=== PATIENT | male | born 1940 | race Caucasian/White ===

== ENCOUNTER → 2016-05-03 | Outpatient (CLI) | payer OTHER ==
[~2016-05-03] MED LIST: ACET160S78 PEG; ALBINSX NEB; ALBU1NEB10 INH; AMOX500T PO; CARB100S PEG; CYAN500T PEG; Carbamazepine PEG; DOXA2TAB PEG; DTR/5 PO; LAMO25TA PEG; LANS15TA2 PEG; LANS30TA3 PEG; LEVE100S10 PEG; LEVO1TAB35 PO; LVQ750 PEG; LVQ750 PO; MAGNSUS5 PO; MCRB100 PEG; MENTOIN12 EXT; MENTOIN12 SC; MOML PEG; MTR500 PEG; NUTR-673 PEG; NUTR-673 PO; PHEN-775 PO; PYRI100T4 PEG; TAMS0.4C38 PO; WATER STERILE PEG; [UNRECOGNIZED DRUG - OTHER] PEG
[2016-05-07 16:28] LABS: VITAMIN B6** TC 926 26.6 ng/mL (2.1-21.7)
--- NOTE | 2016-05-10 09:23 | CODING QUERY MEDICAL NECESSITY ---
SUPPORTING DIAGNOSIS NEEDED A supporting diagnosis is required for the test/procedure performed on this patient in order for us to be reimbursed by the patient's insurance. Please provide a supporting diagnosis for the following test/procedure listed below next to the test name along with your signature. *If there is no additional diagnosis for this patient that would support the following test/procedure please document that below next to the test/procedure. Test(s)/Procedure(s) that require a supporting diagnosis: DOS 05/03 * Vitamin B6 DIAGNOSIS: Provider Signature: Date: Thank you Shelby Burrell Health Information Management Once completed, please kindly fax back to [phone] For questions please call [phone]
== END | disposition home or self-care (01) ==
LOC: C.LABBC 07:40
PROVIDERS: ATTEND Psychiatry & Neurology Neurology
DX: R41.3 Other amnesia (principal); R73.09 Other abnormal glucose; G40.909 Epilepsy, unspecified, not intractable, without status epilepticus

== ENCOUNTER 2016-05-26 12:49 | Inpatient (IN) | payer OTHER ==
[~2016-05-26] VITALS: Ht 167.6 cm; Wt 75.8 kg
[~2016-05-26 12:49] MED LIST changes: -ALBINSX NEB; -AMOX500T PO; -Carbamazepine PEG; -DOXA2TAB PEG; -DTR/5 PO; -LAMO25TA PEG; -LANS30TA3 PEG; -LEVO1TAB35 PO; -LVQ750 PEG; -MCRB100 PEG; -MENTOIN12 EXT; -MENTOIN12 SC; -MOML PEG; -NUTR-673 PO; -PHEN-775 PO; -TAMS0.4C38 PO; -[UNRECOGNIZED DRUG - OTHER] PEG
[2016-05-26] MEDS ORDERED: LAMO25TA PEG (15:12)
[2016-05-26] MEDS ORDERED: VANCOMYCIN 1GM/270ML NSS IV STA (15:18)
[2016-05-26] MEDS ORDERED: LEVAQUIN 750MG / 150ML D5W IV STA (15:18)
[2016-05-26] MEDS ORDERED: SODIUM CHLORIDE 0.9% 1000ML 1,000 ML IV ONE (15:18)
--- NOTE | 2016-05-26 15:24 | EMERGENCY ROOM VISIT NOTE ---
History Report prepared by Marie: Elizabeth Serrano Under the Supervision of: Dr. Carlos Cedeño M.D. First contact with patient: 15:08 Chief Complaint: ILLNESS Stated Complaint: CANT WAKE UP, COUGH History of Present Illness The patient is a 76 year old male who presents to the Emergency Room with complaints of persistent illness that started a couple days ago. The patient's states that he has not been able to wake up for more than an hour today. He is also experiencing increased lethargy and developed a fever last night. She was able to relieve his fever with ibuprofen. Additionally, he is experiencing a productive cough that originally had clear sputum but is now yellow. 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 The patient had a tracheostomy in place as well as a peg tube. His adds that he typically experiences urinary continence. His states that he is bedridden, but they get him out of bed and into his wheelchair every morning. The patient's has not noticed any bed sores. The patient has been septic in the past. Source of History: spouse/significant other () Onset: a couple days ago Position: other (generalized) Quality: other (illness) Timing: other (persistent) Associated Symptoms: + cough (productive with originally clear but now yellow sputum), + fevers Note: lethargy Review of Systems All systems have been listed, reviewed, and are negative other than those previously mentioned. Please see Additional Medical History Sheet. Past Medical & Surgical Medical Problems: (1) double hernia (2) Metabolic encephalopathy (3) replaced acl left knee (4) Seizure disorder (5) Subdural hematoma (6) UTI (urinary tract infection) Surgical Problems: (1) S/P tonsillectomy Family History Patient reports no known family medical history. Social History Smoking Status: Never Smoker Alcohol Use: none Marital Status: Housing Status: lives with significant other Occupation Status: retired Current/Historical Medications Scheduled Carbamazepine (Carbamazepine), 8 ML PEG QID Enteral Nutrition Formula (Jevity 1.5 Jermaine), 1 CAN PEG 5XD Lamotrigine (Lamictal), 4 TAB PEG BID Lansoprazole (Prevacid Solutab), 30 MG PEG BID Levetiracetam (Keppra), 800 MG PEG BID [Water,Sterile], 200 EA PEG Q4H Scheduled PRN Acetaminophen (Tylenol Children's Susp), 20 ML PEG Q4H PRN for Pain Albuterol Sulf (Albuterol Sulfate 0.083% For Inh), 3 ML INH QID PRN for SOB/ Wheezing Magnesium Hydroxide (Milk Of Magnesia), 30 ML PO for Constipation Allergies Coded Allergies: Aspirin (Verified Allergy, Mild, 05/26/16) Penicillins (Verified Allergy, Mild, 05/26/16) Tetracycline (Verified Allergy, Unknown, UNKNOWN, 05/26/16) UNKNOWN, PT REPORTED ALLERGY Physical Exam Vital Signs Date Time Temp Pulse Resp B/P Pulse Ox O2 Delivery O2 Flow Rate FiO2 05/26/16 17:16 60 16 137/81 95 Room Air 05/26/16 15:49 94 Trach Collar 05/26/16 15:24 59 05/26/16 14:51 62 18 116/71 94 Trach Collar 05/26/16 12:53 37.0 67 22 122/73 92 Trach Collar Physical Exam GENERAL: Patient is minimally responsive. Patient follows some simple commands. Patient is nonverbal. Patient does not appear toxic. Patient is adequately hydrated and well-nourished. SKIN: No erythema, pallor, cyanosis or rash HEENT: Normal head, pupils equal, reactive to light and accommodation. Ears normal. Oral cavity and posterior pharynx appear normal. Neck: Without adenopathy, no neck vein distention. Tracheostomy in place. LUNGS: Clear to auscultation. No wheezes, no rales, no rhonchi. Frequent nonproductive cough. HEART: Regular rapid rate. No murmurs. No gallops. No rubs ABDOMEN: Peg tube in left upper quadrant. No masses, no rebound, no hepatomegaly or splenomegaly. EXTREMITIES: Paralysis of left arm and left leg. No signs of trauma. No pedal or pretibial edema. No calf or thigh tenderness. NEUROLOGIC: Cranial nerves II-XII within normal limits. Minimally responsive. Nonverbal. Follows some simple commands. Medical Decision & Procedures ER Provider Diagnostic Interpretation: X ray results are stated below per my interpretation and the radiologist's interpretation. CHEST ONE VIEW PORTABLE IMPRESSION: 1. Diffuse elevation of the interstitium. The findings could be secondary to either interstitial cardiogenic edema, or a diffuse bilateral interstitial inflammatory process. Clinical and radiographic follow-up is recommended. Electronically signed by: Andrew Gonzales M.D. 05/26/2016 4:10 PM Dictated Date/Time: 05/26/2016 4:08 PM Laboratory Results 05/26/16 15:39 Red Blood Count 3.92, Mean Corpuscular Volume 89.3, Mean Corpuscular Hemoglobin 33.4, Mean Corpuscular Hemoglobin Concent 37.4, Mean Platelet Volume 7.9, Neutrophils (%) (Auto) 52.5, Lymphocytes (%) (Auto) 36.7, Monocytes (%) (Auto) 9.4, Eosinophils (%) (Auto) 0.8, Basophils (%) (Auto) 0.2, Neutrophils # (Auto) 2.57, Lymphocytes # (Auto) 1.80, Monocytes # (Auto) 0.46, Eosinophils # (Auto) 0.04, Basophils # (Auto) 0.01 05/26/16 15:39 Test 05/26/16 15:39 05/26/16 15:46 05/26/16 16:50 White Blood Count 4.90 K/uL (4.8-10.8) Red Blood Count 3.92 M/uL (4.7-6.1) Hemoglobin 13.1 g/dL (14.0-18.0) Hematocrit 35.0 % (42-52) Mean Corpuscular Volume 89.3 fL (80-100) Mean Corpuscular Hemoglobin 33.4 pg (25-34) Mean Corpuscular Hemoglobin Concent 37.4 g/dl (32-36) Platelet Count 177 K/uL (130-400) Mean Platelet Volume 7.9 fL (7.4-10.4) Neutrophils (%) (Auto) 52.5 % Lymphocytes (%) (Auto) 36.7 % Monocytes (%) (Auto) 9.4 % Eosinophils (%) (Auto) 0.8 % Basophils (%) (Auto) 0.2 % Neutrophils # (Auto) 2.57 K/uL (1.4-6.5) Lymphocytes # (Auto) 1.80 K/uL (1.2-3.4) Monocytes # (Auto) 0.46 K/uL (0.11-0.59) Eosinophils # (Auto) 0.04 K/uL (0-0.5) Basophils # (Auto) 0.01 K/uL (0-0.2) RDW Standard Deviation 40.5 fL (36.4-46.3) RDW Coefficient of Variation 12.6 % (11.5-14.5) Immature Granulocyte % (Auto) 0.4 % Immature Granulocyte # (Auto) 0.02 K/uL (0.00-0.02) Prothrombin Time 11.1 SECONDS (9.0-12.0) Prothromb Time International Ratio 1.0 (0.9-1.1) Activated Partial Thromboplast Time 49.5 SECONDS (21.0-31.0) Partial Thromboplastin Ratio 1.9 Anion Gap 9.0 mmol/L (3-11) Est Creatinine Clear Calc Drug Dose 88.6 ml/min Estimated GFR () 110.3 Estimated GFR (Non- 95.2 BUN/Creatinine Ratio 12.5 (10-20) Calcium Level 8.2 mg/dl (8.5-10.1) Total Bilirubin 0.3 mg/dl (0.2-1) Aspartate Amino Transf (AST/SGOT) 8 U/L (15-37) Alanine Aminotransferase (ALT/SGPT) 17 U/L (12-78) Alkaline Phosphatase 97 U/L (45-117) Total Protein 6.6 gm/dl (6.4-8.2) Albumin 3.2 gm/dl (3.4-5.0) Globulin 3.4 gm/dl (2.5-4.0) Albumin/Globulin Ratio 0.9 (0.9-2) Procalcitonin < 0.05 ng/mL (0-0.5) Bedside Lactic Acid Venous 1.43 mmol/L (0.90-1.70) Urine Color YELLOW Urine Appearance TURBID (CLEAR) Urine pH 8.0 (4.5-7.5) Urine Specific [place] 1.000 (1.000-1.030) Urine Protein NEG (NEG) Urine Glucose (UA) NEG (NEG) Urine Ketones NEG (NEG) Urine Occult Blood 2+ (NEG) Urine Nitrite NEG (NEG) Urine Bilirubin NEG (NEG) Urine Urobilinogen NEG (NEG) Urine Leukocyte Esterase LARGE (NEG) Urine WBC (Auto) >30 /hpf (0-5) Urine RBC (Auto) 5-10 /hpf (0-4) Urine Hyaline Casts (Auto) /lpf (0-5) Urine Epithelial Cells (Auto) 0-5 /lpf (0-5) Urine Bacteria (Auto) 2+ (NEG) Urine Yeast (Auto) (NONE PRSENT) Laboratory results as stated above per my review. Medications Administered Medications (Trade) Dose Ordered Sig/Piper Route Start Time Stop Time Status Last Admin Dose Admin Sodium Chloride (Nss 1000ml) 1,000 ml @ 999 mls/hr Q1H1M ONCE IV 05/26/16 15:18 05/26/16 16:18 DC 05/26/16 15:18 999 MLS/HR ECG Indication: altered mental status Rate (beats per minute): 58 Rhythm: sinus bradycardia Findings: no acute ischemic change, no ectopy ED Course 1509: Past medical records reviewed. The patient was evaluated in room C7. A complete history and physical examination was performed. 1518: Ordered Vancomycin HCl 1 gm IV, Levofloxacin 750 mg IV, Sodium Chloride 1000 ml @ 999 mls/hr IV 1735: Upon reevaluation, the patient is resting comfortably. I discussed today' s findings with the patient and his family. They verbalized agreement of the treatment plan. The patient will be evaluated the patient for further management. 1742: Discussed the patient's case with Dr. Carlos Manrique [facility] [place]. The patient will be evaluated for further management. Medical Decision Nurses notes reviewed. Medical history sheet reviewed. Differential diagnosis includes but is not limited to: pneumonia, UTI, sepsis, metabolic disorder. The patient is here with multitude mental status. In the past she was diagnosed with pneumonia and sepsis. I'm also concerned about the possibility of a urinary infection. The patient is bedbound. Patient does not appear to have decubiti. Multiple labs, urinalysis, imaging and EKG were obtained. Please see above. Patient has some questionable findings on his x-ray but no definite pneumonia. He does not have many white cells or bacteria in his urine. Lactic acid and white count are not elevated. I remain concerned the patient may have an early infection but he does not have signs of true sepsis. Initially the septic order set was used but the antibiotics were canceled when no signs of true sepsis or source of infection were found. In light of his pre- existing comorbid problems and the altered mental status I believe that he requires further evaluation in the hospital. I discussed care with the patient' s and the hospitalist. Consults Time Called: 1740 Consulting Physician: Dr. Carlos NASSAR Returned Call: [phone] Discussed the patient's case with Dr. Carlos NASSAR. The patient will be evaluated for further management. Impression Primary Impression: Altered mental status Additional Impressions: Anemia Hyponatremia Scribe Attestation The scribe's documentation has been prepared under my direction and personally reviewed by me in its entirety. I confirm that the note above accurately reflects all work, treatment, procedures, and medical decision making performed by me. Departure Information Dispostion Being Evaluated By Hospitalist Referrals Joshua Rivera M.D. (PCP) Patient Instructions My [facility] Problem Qualifiers Primary Impression: Altered mental status Altered mental status type: unspecified Qualified Codes: R41.82 - Altered mental status, unspecified
--- NOTE | 2016-05-26 16:11 | DIAGNOSTIC IMAGING REPORT ---
CHEST ONE VIEW PORTABLE CLINICAL HISTORY: Sepsis COMPARISON STUDY: 07/18/2015 FINDINGS: The cardiac and mediastinal contours remain stable. There is diffuse elevation of the interstitium, likely secondary to interstitial edema although an interstitial inflammatory process could appear similar. The tracheostomy tube is again visualized. There is no significant pleural fluid.[ IMPRESSION: 1. Diffuse elevation of the interstitium. The findings could be secondary to either interstitial cardiogenic edema, or a diffuse bilateral interstitial inflammatory process. Clinical and radiographic follow-up is recommended. Electronically signed by: Andrew Gonzales M.D. 05/26/2016 4:10 PM Dictated Date/Time: 05/26/2016 4:08 PM
[2016-05-26 16:12] LABS: BASO % 0.2 %; BASO ABS # 0.01 K/uL (0-0.2); COMPLETE YES; EOS % 0.8 %; IG% 0.4 %; LYMPH % 36.7 %; MEAN CELL VOLUME 89.3 fL (80-100); MEAN CORPUSCULAR HEMOGLOBIN 33.4 pg (25-34); MEAN CORPUSCULAR HGB CONC 37.4 g/dl (32-36); MEAN PLATELET VOLUME 7.9 fL (7.4-10.4); MONO % 9.4 %; NEUT % 52.5 %; PLATELET COUNT 177 K/uL (130-400); RED BLOOD COUNT 3.92 M/uL (4.7-6.1)
[2016-05-26 16:38] LABS: BUN/CREATININE RATIO 12.5 (10-20); CALCIUM 8.2 mg/dl (8.5-10.1); CREATININE 0.65 mg/dl (0.60-1.40); POTASSIUM 4.1 mmol/L (3.5-5.1)
[2016-05-26 16:40] LABS: PARTIAL THROMBOPLASTIN RATIO 1.9; PROTHROMBIN TIME (PATIENT) 11.1 SECONDS (9.0-12.0)
[2016-05-26 16:41] LABS: ALB/GLOB RATIO 0.9 (0.9-2)
[2016-05-26 17:15] LABS: MANUAL MICROSCOPIC REQUIRED? NO; REVIEW REQ? YES; URINE APPEARANCE TURBID (CLEAR); URINE BILIRUBIN NEG (NEG); URINE COLOR YELLOW; URINE NITRITE NEG (NEG); UROBILINOGEN NEG (NEG); ZZURINE CULT IF INDIC CATH YES
[2016-05-26 17:44] LABS: URINE EPITHELIAL CELL AUTO 0-5 /lpf (0-5)
[2016-05-26] MEDS ORDERED: ACETAMINOPHEN SOLN 650MG/20.3 ML UDC PEG PRN (18:00)
[2016-05-26] MEDS ORDERED: ONDANSETRON INJ 2 MG/ML 2 ML VIAL IV PRN (18:00)
[2016-05-26] MEDS ORDERED: WATER STERILE PEG SCH (18:15)
--- NOTE | 2016-05-26 18:39 | DIAGNOSTIC IMAGING REPORT ---
HEAD CT NONCONTRAST CT DOSE: 712.55 mGy.cm HISTORY: Altered mental status. TECHNIQUE: Multiaxial CT images of the head were performed without the use of intravenous contrast. Automated exposure control was utilized for this study. Comparison: Head CT 08/27/2014. Findings: The paranasal sinuses and mastoid air cells are clear. Prior right craniotomy is again noted. Right frontoparietal, temporal, and right anterior frontal hypodensity/encephalomalacia remains unchanged. This is consistent with an old infarct and/or postoperative change. There is no mass, midline shift, acute infarct. Stable 1.7 cm left frontal intra-axial lesion. This favors a meningioma given the long-term stability. Thin extra-axial hyperdensity deep to the craniotomy site which measures up to 2 mm in thickness. This favors dural thickening from the postoperative change. Impression: 1. No definite acute intracranial abnormality. 2. Right-sided postoperative and old infarcts are again noted. 3. A 2 mm hyperdense area deep to the right craniotomy site. This favors dural thickening from the postoperative change. A tiny subdural hematoma could also a similar appearance. Therefore, recommend follow-up head CT in 24 hours to ensure ability. Electronically signed by: Bernabe Andrade M.D. 05/26/2016 6:38 PM Dictated Date/Time: 05/26/2016 6:31 PM
--- NOTE | 2016-05-26 19:10 | History and Physical ---
History & Physical Date & Time of Service: May 26, 2016 at 18:39 Chief Complaint: Cant Wake Up, Cough Primary Care Physician: Joshua Rivera M.D. History of Present Illness Source: family, hospital records 76 yo male with significant history of large left subdural hematoma with subsequent craniotomy and tracheostomy in 2012. Unfortunately the patient has experienced slow, progressive neurologic decline since March of 2013. Currently he is paralyzed, speaks minimally, breaths through tracheostomy. He is taken care of by his and parts administrator caregivers. Over the past few months his vocal cord function has actually improved. His will feed him by mouth for lunch and dinner and also uses Jevity 1.5 via PEG tube. He is prone to aspiration pneumonia and has been admitted numerous times in the past. Two days ago his noticed that he was more lethargic than normal, less responsive. She fed him completely by tube feeds. His temperature moe to 99.3 yesterday but came down with Tylenol. He has be coughing more and producing white, foamy mucous. No yellow green mucous or hemoptysis. No abdominal pain. He is incontinent to urine. Has been moving his bowels. No skin breakdown, his turns him q 2 hours. In the ED his CXR showed possible inflammatory changes in lower lobes bilaterally and UA shows signs of possible UTI with > 30WBC. He is afebrile, vitals stable and normal WBC, normal renal function. Na low at 127 but he has had hyponatremia in the past. Also of note, he has a seizure disorder, averages one seizure every three weeks , follows with Dr. Aldrich. His seizures are only seen in his facial muscles and last 2-[address] Aldrich started to taper back Keppra and initiated Tegretol. Recently he reached the desired dose of 8 tabs of Tegretol a day, due for trough level next week. Past Medical/Surgical History Recurrent aspiration pneumonia chronic tracheostomy Paralysis right CVA with encephalomalacia Medical Problems: (1) double hernia Status: Chronic (2) replaced acl left knee Status: Resolved (3) Seizure disorder Status: Chronic (4) Subdural hematoma Status: Chronic Surgical Problems: (1) S/P tonsillectomy Status: Resolved Family History Family history reviewed, no changes, nothing pertinent Social History Smoking Status: Never Smoker Marital Status: Occupational Status: retired Immunizations History of Influenza Vaccine: Yes Influenza Vaccine Date: Mar 08, 2013 History of Tetanus Vaccine?: Unknown Tetanus Immunization Date: Apr 13, 1998 History of Pneumococcal: Unknown Pneumococcal Date: Feb 11, 2009 History of Hepatitis B Vaccine: No Multi-Drug Resistant Organisms History of MDRO: No Allergies Coded Allergies: Aspirin (Verified Allergy, Mild, 05/26/16) Penicillins (Verified Allergy, Mild, 05/26/16) Tetracycline (Verified Allergy, Unknown, UNKNOWN, 05/26/16) UNKNOWN, PT REPORTED ALLERGY Home Medications Scheduled Carbamazepine (Carbamazepine), 8 ML PEG QID Enteral Nutrition Formula (Jevity 1.5 Jermaine), 1 CAN PEG 5XD Lamotrigine (Lamictal), 4 TAB PEG BID Lansoprazole (Prevacid Solutab), 30 MG PEG BID Levetiracetam (Keppra), 800 MG PEG BID [Water,Sterile], 200 EA PEG Q4H Scheduled PRN Acetaminophen (Tylenol Children's Susp), 20 ML PEG Q4H PRN for Pain Albuterol Sulf (Albuterol Sulfate 0.083% For Inh), 3 ML INH QID PRN for SOB/ Wheezing Magnesium Hydroxide (Milk Of Magnesia), 30 ML PO for Constipation Review of Systems note that answers are from , patient cannot respond Constitutional: + chills, + fatigue, + fever, + sweats, + weakness, No weight loss Eyes: No diplopia, No discharge, No eye pain, No problem reported, No redness, No worsening of vision ENT: No dental problems, No hearing loss, No nasal symptoms, No problem reported, No sore throat, No tinnitus, No trouble swallowing, No unusual epistaxis Respiratory: + cough, + sputum, No dyspnea at rest, No dyspnea on exertion, No hemoptysis, No shortness of breath, No wheezing Cardiovascular: No PND, No chest pain, No claudication, No edema, No orthopnea , No palpitations, No problem reported Abdomen: No GI bleeding, No constipation, No diarrhea, No nausea, No pain, No problem reported, No vomiting Musculoskeletal: No calf pain, No joint pain, No muscle pain, No problem reported, No swelling Genitourinary - Male: + urinary incontinence Neurologic: + balance problems, + memory loss, + paralysis, + vertigo, + weakness, No numbness/tingling Psychiatric: No anhedonism, No anxiety, No depression symptoms, No insomnia, No problem reported, No substance abuse Hematologic / Lymphatic: No abnormal bleeding/bruising, No clotting problems, No night sweats, No problem reported, No swollen lymph nodes Integumentary: No bleeding, No color change, No itch, No new/changing skin lesions, No problem reported, No rash Physical Exam Vital Signs Date Time Temp Pulse Resp B/P Pulse Ox O2 Delivery O2 Flow Rate FiO2 05/26/16 17:16 60 16 137/81 95 Room Air 05/26/16 15:49 94 Trach Collar 05/26/16 15:24 59 05/26/16 14:51 62 18 116/71 94 Trach Collar 05/26/16 12:53 37.0 67 22 122/73 92 Trach Collar General Appearance: WD/WN, no apparent distress Head: normocephalic, atraumatic Eyes: normal inspection, EOMI, sclerae normal ENT: normal ENT inspection, pharynx normal Neck: supple, no adenopathy, no JVD, trachea midline, + pertinent finding ( tracheostomy with clear sputum) Respiratory/Chest: chest non-tender, lungs clear, normal breath sounds, no respiratory distress, no accessory muscle use Cardiovascular: regular rate, rhythm, no edema, no gallop, no JVD, no murmur, normal peripheral pulses Abdomen/GI: normal bowel sounds, non tender, soft, no organomegaly Back: normal inspection, no CVA tenderness, no muscle spasm, normal range of motion Extremities/Musculoskelatal: normal inspection, no calf tenderness, normal capillary refill, no pedal edema, normal range of motion Neurologic/Psych: + aphasia, + motor weakness, + depressed affect, + disoriented Skin: normal color, warm/dry, no rash Lymphatic: no adenopathy Diagnostics Laboratory Results Results Past 24 Hours Test 05/26/16 15:39 05/26/16 15:46 05/26/16 16:50 05/26/16 18:04 Range/Units White Blood Count 4.90 4.8-10.8 K/uL Red Blood Count 3.92 4.7-6.1 M/uL Hemoglobin 13.1 14.0-18.0 g/dL Hematocrit 35.0 42-52 % Mean Corpuscular Volume 89.3 80-100 fL Mean Corpuscular Hemoglobin 33.4 25-34 pg Mean Corpuscular Hemoglobin Concent 37.4 32-36 g/dl Platelet Count 177 130-400 K/uL Mean Platelet Volume 7.9 7.4-10.4 fL Neutrophils (%) (Auto) 52.5 % Lymphocytes (%) (Auto) 36.7 % Monocytes (%) (Auto) 9.4 % Eosinophils (%) (Auto) 0.8 % Basophils (%) (Auto) 0.2 % Neutrophils # (Auto) 2.57 1.4-6.5 K/uL Lymphocytes # (Auto) 1.80 1.2-3.4 K/uL Monocytes # (Auto) 0.46 0.11-0.59 K/uL Eosinophils # (Auto) 0.04 0-0.5 K/uL Basophils # (Auto) 0.01 0-0.2 K/uL RDW Standard Deviation 40.5 36.4-46.3 fL RDW Coefficient of Variation 12.6 11.5-14.5 % Immature Granulocyte % (Auto) 0.4 % Immature Granulocyte # (Auto) 0.02 0.00-0.02 K/uL Prothrombin Time 11.1 9.0-12.0 SECONDS Prothromb Time International Ratio 1.0 0.9-1.1 Activated Partial Thromboplast Time 49.5 21.0-31.0 SECONDS Partial Thromboplastin Ratio 1.9 Sodium Level 127 136-145 mmol/L Potassium Level 4.1 3.5-5.1 mmol/L Chloride Level 92 98-107 mmol/L Carbon Dioxide Level 26 21-32 mmol/L Anion Gap 9.0 3-11 mmol/L Blood Urea Nitrogen 8 7-18 mg/dl Creatinine 0.65 0.60-1.40 mg/dl Est Creatinine Clear Calc Drug Dose 88.6 ml/min Estimated GFR () 110.3 Estimated GFR (Non- 95.2 BUN/Creatinine Ratio 12.5 10-20 Random Glucose 115 70-99 mg/dl Calcium Level 8.2 8.5-10.1 mg/dl Total Bilirubin 0.3 0.2-1 mg/dl Aspartate Amino Transf (AST/SGOT) 8 15-37 U/L Alanine Aminotransferase (ALT/SGPT) 17 12-78 U/L Alkaline Phosphatase 97 45-117 U/L Total Protein 6.6 6.4-8.2 gm/dl Albumin 3.2 3.4-5.0 gm/dl Globulin 3.4 2.5-4.0 gm/dl Albumin/Globulin Ratio 0.9 0.9-2 Procalcitonin < 0.05 0-0.5 ng/mL Bedside Lactic Acid Venous 1.43 0.90-1.70 mmol/L Urine Color YELLOW Urine Appearance TURBID CLEAR Urine pH 8.0 4.5-7.5 Urine Specific [place] 1.000 1.000-1.030 Urine Protein NEG NEG Urine Glucose (UA) NEG NEG Urine Ketones NEG NEG Urine Occult Blood 2+ NEG Urine Nitrite NEG NEG Urine Bilirubin NEG NEG Urine Urobilinogen NEG NEG Urine Leukocyte Esterase LARGE NEG Urine WBC (Auto) >30 0-5 /hpf Urine RBC (Auto) 5-10 0-4 /hpf Urine Hyaline Casts (Auto) 0-5 /lpf Urine Epithelial Cells (Auto) 0-5 0-5 /lpf Urine Bacteria (Auto) 2+ NEG Urine Yeast (Auto) NONE PRSENT Test 05/26/16 18:32 Range/Units Microbiology Results 05/26/16 Blood Culture, Received Pending 05/26/16 Blood Culture, Received Pending 05/26/16 Urine Culture, Received Pending Diagnostic Radiology interstitial changes bilaterally, could be inflammatory EKG sinus bradycardia Impression Assessment and Plan 76 yo male with history of right sided CVA after a right subdural bleed, now with paralysis, aphasia, tracheostomy, presenting with lethargy, low grade temperature and increased cough - Toxic encephalopathy: likely from infection, UA shows > 30 WBC and CXR with interstitial inflammatory changes CT head - still pending, my read is no change compared to prior will check levels of Tegretol and Keppra to r/o toxicity treat infectious etiology with Levaquin 750mg daily - UTI: treat with Levaquin, follow up on urine culture and blood culture, no signs of sepsis - Possible bilateral PNA: certainly prone to aspiration chronically, bringing up white foamy phlegm, cover with Levaquin, Duoneb, humidified oxygen - Seizure disorder: continue Keppra and Tegretol, check levels, no recent seizures per - Hyponatremia: chronic, likely due to low solute intake, monitor with daily labs - DVT prophylaxis: Lovenox Full code, d/w Level of Care Med/Surg Advanced Directives Existing Advance Directive: Yes Existing Living Will: Yes Resuscitation Status FULL RESUSCITATION VTE Prophylaxis VTE Risk Assessment Done? Y/N: Yes Risk Level: High Given or contraindicated: Enoxaparin (Lovenox)SQ Additional Copies To Joshua Rivera M.D.
[2016-05-26 19:35] LABS: INFLUENZA A PCR Neg for Influ A (NEG); INFLUENZA B PCR Neg for Influ B (NEG)
[2016-05-26 19:40] VITALS: BP 124/74; PULSE 69; TEMP 36.7; O2SAT 96
[2016-05-26 19:59] VITALS: BP 124/74; PULSE 69; TEMP 36.7; O2SAT 96; Ht 167.6 cm; Wt 75.8 kg
[2016-05-26] MEDS: ALBUT/IPRATROP 3MG/0.5MG NEB 3 ML VIAL INH SCH (20:00)
[2016-05-26 20:57] VITALS: PULSE 86; O2SAT 96
[2016-05-26] MEDS ORDERED: CARBAMAZEPINE PEG SCH (21:00)
[2016-05-26] MEDS ORDERED: CARBAMAZEPINE 100 MG CHEW TAB PO ONE (21:00)
[2016-05-26] MEDS ORDERED: LEVOFLOXACIN / D5W 750 MG in PREMIXED IN D5W 150 ML IV SCH (22:00)
[2016-05-26] MEDS: LEVETIRACETAM ORAL SOLN 100MG/ML PEG SCH (22:41)
[2016-05-26] MEDS: LANSOPRAZOLE SOLUTAB 15 MG PEG SCH (22:42)
[2016-05-26] MEDS: FIBERSOURCE HN 1000ML BAG PEG SCH ×4 (22:50→22:51)
[2016-05-26 23:28] VITALS: BP 126/78; PULSE 59; TEMP 36.4; O2SAT 94
[2016-05-27] VITALS (10 sets, daily range): BP systolic 112–122; BP diastolic 71–78; PULSE 56–82; TEMP 36.4–36.8; O2SAT 92–96
[2016-05-27] MEDS: TUBE FEEDING WATER FLUSH PEG SCH ×6 (00:07→20:35)
[2016-05-27] MEDS: ALBUT/IPRATROP 3MG/0.5MG NEB 3 ML VIAL INH SCH ×7 (02:05→23:08)
[2016-05-27] MEDS: FIBERSOURCE HN 1000ML BAG PEG SCH ×10 (07:03→22:52)
[2016-05-27 08:15] LABS: BASO % 0.2 %; BASO ABS # 0.01 K/uL (0-0.2); COMPLETE YES; EOS % 1.3 %; HEMATOCRIT 35.8 % (42-52); IG% 0.2 %; LYMPH % 30.2 %; LYMPH ABS # 1.84 K/uL (1.2-3.4); MEAN CELL VOLUME 90.6 fL (80-100); MEAN CORPUSCULAR HEMOGLOBIN 33.7 pg (25-34); MEAN CORPUSCULAR HGB CONC 37.2 g/dl (32-36); MEAN PLATELET VOLUME 8.2 fL (7.4-10.4); NEUT % 57.1 %; PLATELET COUNT 177 K/uL (130-400); RED BLOOD COUNT 3.95 M/uL (4.7-6.1); WHITE BLOOD COUNT 6.09 K/uL (4.8-10.8)
[2016-05-27 08:46] LABS: BUN/CREATININE RATIO 11.2 (10-20); CALCIUM 8.4 mg/dl (8.5-10.1); CREATININE 0.66 mg/dl (0.60-1.40); MAGNESIUM 2.1 mg/dl (1.8-2.4)
[2016-05-27] MEDS: ENOXAPARIN 40 MG/0.4 ML SYR SQ SCH (09:00)
[2016-05-27] MEDS ORDERED: LORAZEPAM INJ 1 MG in SYRINGE 0.5 ML IV PRN (09:45)
[2016-05-27] MEDS: LEVETIRACETAM ORAL SOLN 100MG/ML PEG SCH ×2 (09:58→20:35)
[2016-05-27] MEDS: LANSOPRAZOLE SOLUTAB 15 MG PEG SCH ×2 (09:59→20:35)
[2016-05-27] MEDS ORDERED: NON-FORMULARY MEDICATION SCH (10:45)
[2016-05-27] MEDS ORDERED: LORAZEPAM INJ 0.5 MG in SYRINGE 0.75 ML IV PRN (10:45)
--- NOTE | 2016-05-27 11:13 | Hospitalist Progress Note ---
Hospitalist Progress Note Date of Service May 27, 2016. Subjective Pt evaluation today including: conversation w/ family, physical exam, chart review, lab review, review of studies, conversation w/ benefits consultant, review of inpatient medication list Patient was admitted yesterday afternoon with altered mental status felt to be secondary to infectious process UTI, early pneumonia, or both. Nurse called me that patient had what appeared to be 2 seizures. the first lasted about 2 mins and was the patients usual seizure pattern which involves facial musculature. Then after a few minutes between he had a grand mal seizure lasting about 1 min. The patients and caregiver reports that the second seizure was more animated than she has ever seen. As I saw the patient, he was sleeping soundly with stable vital signs. He is incontinent of urine, but does not use a chronic indwelling tracy cath. Additional Comments: Unable to acquire due to dementa and post-ictal state. Objective Vital Signs Date Time Temp Pulse Resp B/P Pulse Ox O2 Delivery O2 Flow Rate FiO2 05/27/16 08:43 36.8 68 15 122/78 95 Humidified Air 05/27/16 07:44 60 20 93 Trach Collar 21 05/27/16 02:09 82 20 96 Trach Collar 21 05/27/16 00:05 96 Room Air 05/26/16 23:28 36.4 59 18 126/78 94 Room Air 05/26/16 20:57 86 18 96 Trach Collar 21 05/26/16 19:59 36.7 69 17 124/74 96 Room Air 05/26/16 19:40 36.7 69 17 124/74 96 Room Air 05/26/16 19:08 68 18 119/74 93 Room Air 05/26/16 17:16 60 16 137/81 95 Room Air 05/26/16 15:49 94 Trach Collar 05/26/16 15:24 59 05/26/16 14:51 62 18 116/71 94 Trach Collar 05/26/16 12:53 37.0 67 22 122/73 92 Trach Collar Physical Exam Notes: GEN: Sleeping deeply, Not able to be aroused. No sign of distress or active seizure activity. HEENT: Deferred. Neck: Soft, supple Lungs: + rhonchi b/l. Has permanent trach Heart: REG, nrl S1S2 without murmurs, rubs or gallops Abdomen: Soft, NT, ND, + BS EXT: No C/C/E NEURO: Not assessed due to sedation (at baseline patient has ability to use right upper extremity and often will attempt to self D/C therapies) Skin: warm, dry, no rashes PSYCH: deferred due to post-ictal state. Laboratory Results Last 24 Hours Test 05/26/16 15:39 05/26/16 15:46 05/26/16 16:50 05/26/16 18:04 White Blood Count 4.90 K/uL Red Blood Count 3.92 M/uL Hemoglobin 13.1 g/dL Hematocrit 35.0 % Mean Corpuscular Volume 89.3 fL Mean Corpuscular Hemoglobin 33.4 pg Mean Corpuscular Hemoglobin Concent 37.4 g/dl Platelet Count 177 K/uL Mean Platelet Volume 7.9 fL Neutrophils (%) (Auto) 52.5 % Lymphocytes (%) (Auto) 36.7 % Monocytes (%) (Auto) 9.4 % Eosinophils (%) (Auto) 0.8 % Basophils (%) (Auto) 0.2 % Neutrophils # (Auto) 2.57 K/uL Lymphocytes # (Auto) 1.80 K/uL Monocytes # (Auto) 0.46 K/uL Eosinophils # (Auto) 0.04 K/uL Basophils # (Auto) 0.01 K/uL RDW Standard Deviation 40.5 fL RDW Coefficient of Variation 12.6 % Immature Granulocyte % (Auto) 0.4 % Immature Granulocyte # (Auto) 0.02 K/uL Prothrombin Time 11.1 SECONDS Prothromb Time International Ratio 1.0 Activated Partial Thromboplast Time 49.5 SECONDS Partial Thromboplastin Ratio 1.9 Sodium Level 127 mmol/L Potassium Level 4.1 mmol/L Chloride Level 92 mmol/L Carbon Dioxide Level 26 mmol/L Anion Gap 9.0 mmol/L Blood Urea Nitrogen 8 mg/dl Creatinine 0.65 mg/dl Est Creatinine Clear Calc Drug Dose 88.6 ml/min Estimated GFR () 110.3 Estimated GFR (Non- 95.2 BUN/Creatinine Ratio 12.5 Random Glucose 115 mg/dl Calcium Level 8.2 mg/dl Total Bilirubin 0.3 mg/dl Aspartate Amino Transf (AST/SGOT) 8 U/L Alanine Aminotransferase (ALT/SGPT) 17 U/L Alkaline Phosphatase 97 U/L Total Protein 6.6 gm/dl Albumin 3.2 gm/dl Globulin 3.4 gm/dl Albumin/Globulin Ratio 0.9 Procalcitonin < 0.05 ng/mL Bedside Lactic Acid Venous 1.43 mmol/L Urine Color YELLOW Urine Appearance TURBID Urine pH 8.0 Urine Specific [place] 1.000 Urine Protein NEG Urine Glucose (UA) NEG Urine Ketones NEG Urine Occult Blood 2+ Urine Nitrite NEG Urine Bilirubin NEG Urine Urobilinogen NEG Urine Leukocyte Esterase LARGE Urine WBC (Auto) >30 /hpf Urine RBC (Auto) 5-10 /hpf Urine Hyaline Casts (Auto) /lpf Urine Epithelial Cells (Auto) 0-5 /lpf Urine Bacteria (Auto) 2+ Urine Yeast (Auto) Influenza Type A (RT-PCR) Neg for Influ A Influenza Type B (RT-PCR) Neg for Influ B Test 05/26/16 20:24 05/27/16 06:37 05/27/16 06:45 Carbamazepine (Tegretol) Level 10.4 mcg/ml Bedside Glucose 95 mg/dl White Blood Count 6.09 K/uL Red Blood Count 3.95 M/uL Hemoglobin 13.3 g/dL Hematocrit 35.8 % Mean Corpuscular Volume 90.6 fL Mean Corpuscular Hemoglobin 33.7 pg Mean Corpuscular Hemoglobin Concent 37.2 g/dl Platelet Count 177 K/uL Mean Platelet Volume 8.2 fL Neutrophils (%) (Auto) 57.1 % Lymphocytes (%) (Auto) 30.2 % Monocytes (%) (Auto) 11.0 % Eosinophils (%) (Auto) 1.3 % Basophils (%) (Auto) 0.2 % Neutrophils # (Auto) 3.48 K/uL Lymphocytes # (Auto) 1.84 K/uL Monocytes # (Auto) 0.67 K/uL Eosinophils # (Auto) 0.08 K/uL Basophils # (Auto) 0.01 K/uL RDW Standard Deviation 42.4 fL RDW Coefficient of Variation 12.8 % Immature Granulocyte % (Auto) 0.2 % Immature Granulocyte # (Auto) 0.01 K/uL Sodium Level 136 mmol/L Potassium Level 4.0 mmol/L Chloride Level 100 mmol/L Carbon Dioxide Level 25 mmol/L Anion Gap 11.0 mmol/L Blood Urea Nitrogen 7 mg/dl Creatinine 0.66 mg/dl Est Creatinine Clear Calc Drug Dose 87.2 ml/min Estimated GFR () 109.6 Estimated GFR (Non- 94.6 BUN/Creatinine Ratio 11.2 Random Glucose 85 mg/dl Calcium Level 8.4 mg/dl Magnesium Level 2.1 mg/dl Assessment and Plan 1) Altered mental status - has had increase sedation for previous 3 days. 2) Fever with evidence for UTI - awaiting blood and urine cultures. Changed Levaquin (can lower seizure threshold) to Rocephin IV 3) ? early pneumonia - the chest x-ray showed inflammation but no infiltrate. 4) Seizure disorder with breakthrough seizures. - resume carbamazepine liquid QID as family brought from home. Prn lorazepam. Continue Keppra and Lamictal. Neurology consulted and I spoke with Dr. Aldrich on the phone and discussed plan if has another seizure being Depakote 500mg IV followed by oral dosing. 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 Is cared for by family and care givers in his home. 7) Hyponatremia is chronic. Lovenox for DVT prophylaxis.
[2016-05-27] MEDS: CEFTRIAXONE SOD INJ 1 GM in DEXTROSE 5% ADD-VANTAGE 50ML 50 ML IV SCH (12:14)
[2016-05-27] MEDS: CARBAMAZEPINE 100 MG/5 ML PO SCH ×3 (12:14→20:36)
[2016-05-28] VITALS (8 sets, daily range): BP systolic 119–129; BP diastolic 73–80; PULSE 57–92; TEMP 36.4–36.5; O2SAT 93–98
[2016-05-28] MEDS: ALBUT/IPRATROP 3MG/0.5MG NEB 3 ML VIAL INH SCH ×5 (03:21→23:29)
[2016-05-28] MEDS: TUBE FEEDING WATER FLUSH PEG SCH ×6 (04:04→20:14)
[2016-05-28] MEDS: FIBERSOURCE HN 1000ML BAG PEG SCH ×10 (06:32→23:04)
[2016-05-28] MEDS: LANSOPRAZOLE SOLUTAB 15 MG PEG SCH ×2 (08:02→21:04)
[2016-05-28] MEDS: LEVETIRACETAM ORAL SOLN 100MG/ML PEG SCH ×2 (08:02→21:04)
[2016-05-28] MEDS: CARBAMAZEPINE 100 MG/5 ML PO SCH ×4 (08:03→21:04)
[2016-05-28] MEDS: ENOXAPARIN 40 MG/0.4 ML SYR SQ SCH (08:07)
[2016-05-28] MEDS: CEFTRIAXONE SOD INJ 1 GM in DEXTROSE 5% ADD-VANTAGE 50ML 50 ML IV SCH (10:43)
--- NOTE | 2016-05-28 11:54 | Neurology Consultation ---
Neurology Consultation Date of Consultation: May 28, 2016. Attending Physician: Elliott Gonzalez D.O. Primary Care Physician: Joshua Rivera M.D. Reason for Consultation: Patient is a 76-year-old, was asked to see the request of Dr. Castorena, for neurologic consultation regarding epilepsy. History of Present Illness Source: family, clinic records, hospital records I saw this patient in December 2012 for what was determined to be an underlying dementia. MRI at that time showed generalized atrophy and a significant nature as well with extensive small vessel ischemic disease of an old nature diffusely. There was an incidental left frontal meningioma 1.81 cm also. In late March 2013 he had a significant right subdural hematoma requiring surgical evacuation. Following this she had seizures and encephalomalacia resulting in some aphasia and left sided hemiplegia. He ended up needing a tracheostomy and PEG tube. He has had seizures and was on carbamazepine and Keppra. We last saw him in February 2016 and his most recent seizure was March 21. We initiated Lamictal per protocol while decreasing Keppra some. On May 03, 2016, carbamazepine level was quite good at 8.5. This dose was kept the same. Lamictal level was low at 1.8 and he was increased to the current dose of 100 mg twice a day. Keppra has been reduced to 800 mg twice a day. Over the last couple of days the patient has been ill with lethargy of an increased nature, fevers and cough. On 05/26 he was admitted with a temperature 37 0, pulse 67, respiratory rate 22, blood pressure 122/73, and O2 saturation 92%. He had aphasia and left-sided plegia as before. Urine white cells were greater than 30. He was initiated on Levaquin. Carbamazepine level was 10.4. Keppra level is pending. On May 27, around 11:00 in the morning, he had a typical seizure consisting of left facial twitching lasting about 2 minutes. This is what he typically has when he has a seizure. Within a minute he had a second seizure lasting about 1 minute which consisted of generalized tonic-clonic activity. He has had no seizures since. This morning he has less cough. Past Medical/Surgical History Medical Problems: (1) Altered mental status Status: Acute (2) Anemia Status: Acute (3) Bronchitis, acute Status: Acute (4) Change in mental status Status: Acute (5) Cough Status: Acute (6) Hyponatremia Status: Acute Seizure disorder secondary to right encephalomalacia, which was secondary to a significant right subdural hematoma March 2013 Tracheostomy and PEG tube were placed. 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. He also was in the [employer] for 30 years. He used to drink alcohol but he never smoked. Does not have alcohol for years. Smoking Status: Never smoker Alcohol Use: none Drug Use: none Marital Status: Housing Status: lives with significant other Occupation Status: retired Allergies Coded Allergies: Aspirin (Verified Allergy, Mild, 05/26/16) Penicillins (Verified Allergy, Mild, 05/26/16) Tetracycline (Verified Allergy, Unknown, UNKNOWN, 05/26/16) UNKNOWN, PT REPORTED ALLERGY Current Inpatient Medications Current Inpatient Medications Medications (Trade) Dose Ordered Sig/Piper Route Start Time Stop Time Status Last Admin Dose Admin Enoxaparin Sodium (Lovenox Inj) 40 mg QAM SQ 05/27/16 09:00 06/26/16 08:59 Acetaminophen (Tylenol Soln) 650 mg Q4H PRN PEG 05/26/16 18:00 06/25/16 17:59 Ondansetron HCl (Zofran Inj) 4 mg Q6H PRN IV 05/26/16 18:00 06/25/16 17:59 Lamotrigine (Lamictal Tab) 100 mg BID PO 05/26/16 21:00 06/25/16 20:59 05/28/16 08:03 100 MG Lansoprazole (Prevacid Solutab) 30 mg BID PEG 05/26/16 21:00 06/25/16 20:59 05/28/16 08:02 30 MG Levetiracetam (Keppra Soln) 800 mg BID PEG 05/26/16 21:00 06/25/16 20:59 05/28/16 08:02 800 MG Albuterol/ Ipratropium (Duoneb) 3 ml Q4R INH 05/26/16 20:00 06/25/16 19:59 05/28/16 11:20 3 ML Sterile Water 1 ea 1 ea Q4 PEG 05/27/16 00:00 06/26/16 00:00 05/28/16 08:01 1 EA Ceftriaxone Sodium 1 gm/ Dextrose 50 ml @ 100 mls/hr DAILY@1000 IV 05/27/16 11:00 06/06/16 09:59 05/28/16 10:43 100 MLS/HR Lorazepam/Syringe (Ativan Inj/ Syringe) 1 ml @ 0.5 mls/min Q4 PRN IV 05/27/16 10:45 06/26/16 10:44 Carbamazepine (Carbamazepine) 160 mg QID PO 05/27/16 11:30 06/26/16 11:29 05/28/16 08:03 160 MG Enteral Nutritional Formula (Fibersource HN) 275 ml [id number] PEG 05/27/16 19:00 06/26/16 18:59 05/28/16 10:43 275 ML Review of Systems Review of systems is impossible to ascertain as he is not following commands or speaking. He seems to be lying in bed comfortably. Physical Exam Vital Signs (Past 24 Hrs): Date Time Temp Pulse Resp B/P Pulse Ox O2 Delivery O2 Flow Rate FiO2 05/28/16 11:20 57 16 93 Trach Collar 21 05/28/16 07:44 36.4 62 16 129/74 93 Room Air 05/28/16 03:21 57 16 93 Trach Collar 21 05/28/16 00:15 Trach Collar 21 05/27/16 23:08 63 16 92 Trach Collar 21 05/27/16 22:54 36.8 63 18 116/71 92 Trach Collar 11.0 05/27/16 20:15 Trach Collar 21 05/27/16 19:14 69 18 93 Trach Collar 21 05/27/16 16:08 56 20 95 Trach Collar 21 05/27/16 15:22 36.4 70 17 112/78 Humidified Air 21 Trach Collar 05/27/16 12:05 65 20 95 Trach Collar 21 05/27/16 11:48 Humidified Air 21 Trach Collar Patient is right-handed. The patient is awake and alert. He will briefly make eye contact but generally just stares straight ahead. He will not speak, follow commands, or say words. Later on, when I tested with the pain, he got very angry and mumbled but I cannot make at any distinct words. The discs are sharp with positive venous pulsations. There are no exudates, hemorrhages, or blood vessel changes seen. Pupils are 3mm bilaterally and reactive to light. Extraocular eye muscles are intact without nystagmus. Visual acuity and visual ortiz seem normal grossly to confrontation. There are no deficits to sensation of the face bilaterally. Corneal reflexes are positive bilaterally. Facial strength and symmetry is normal bilaterally. Hearing seems intact grossly to voice and finger rub. Palate moves well without asymmetry. There is normal sternocleidomastoid and trapezius strength bilaterally. Tongue is midline with good strength bilaterally. Neck is with full range of motion without discomfort. There are no cervical bruits. There are no cranial or ocular bruits. Heart is without murmur. Cervical, thoracic, and lumbar spine are nontender to palpation. Gait and stance could not be tested as he is going down and that cannot sit up on his own. Motor exam is difficult to ascertain because of his lack of cooperation. He does have good strength proximally and distally in the right arm and leg as he resists. Tone is reasonable in the right arm and leg. The left upper extremity has extreme contractures of flexion nature he will not spontaneously move his left arm or leg. There is increased tone in the left leg. He will withdraw each limb was some grimacing to deep pain although he is delayed with pain in the left side Reflexes are 1/4 in the biceps, triceps, brachioradialis, and quadriceps tendons on the right. The Achilles is absent. On the left side reflexes are 2/ 4. Toes are upgoing on plantar stimulation on the left and downgoing on the right. Peripheral pulses are present and of normal quality distally in all four limbs. There is no peripheral edema noted. Laboratory Results Past 24 Hours: Test 05/28/16 09:23 Bedside Glucose 128 mg/dl (70-99) Imaging HEAD CT NONCONTRAST CT DOSE: 712.55 mGy.cm HISTORY: Altered mental status. TECHNIQUE: Multiaxial CT images of the head were performed without the use of intravenous contrast. Automated exposure control was utilized for this study. Comparison: Head CT 08/27/2014. Findings: The paranasal sinuses and mastoid air cells are clear. Prior right craniotomy is again noted. Right frontoparietal, temporal, and right anterior frontal hypodensity/encephalomalacia remains unchanged. This is consistent with an old infarct and/or postoperative change. There is no mass, midline shift, acute infarct. Stable 1.7 cm left frontal intra-axial lesion. This favors a meningioma given the long-term stability. Thin extra-axial hyperdensity deep to the craniotomy site which measures up to 2 mm in thickness. This favors dural thickening from the postoperative change. Impression: 1. No definite acute intracranial abnormality. 2. Right-sided postoperative and old infarcts are again noted. 3. A 2 mm hyperdense area deep to the right craniotomy site. This favors dural thickening from the postoperative change. A tiny subdural hematoma could also a similar appearance. Therefore, recommend follow-up head CT in 24 hours to ensure ability. Electronically signed by: Bernabe Andrade M.D. 05/26/2016 6:38 PM Dictated Date/Time: 05/26/2016 6:31 PM Impression 1. Post right subdural hematoma March 2013 requiring evacuation surgically. This resulted in significant right encephalomalacia and a seizure disorder requiring multiple medications. He is stable neurologically and is at his baseline. 2. Seizure disorder secondary to the right encephalomalacia. He had 2 breakthrough seizures yesterday but his medications were delayed. He is without any seizures the last 24 hours. Overall he is on 3 anticonvulsants but we are increasing Lamictal over time and tapering off Keppra slowly over time. Carbamazepine level is adequate At 10.4 3. Underlying mixed aging and vascular dementia 4. Chronic cerebral ischemia 5. Recent onset acute encephalopathy secondary to UTI. This is already improving. Plan 1. Lamictal level 2. Keep carbamazepine and Keppra the same for now. He has a scheduled regimen of decreasing Keppra and increasing Lamictal as an outpatient. He has an appointment with me as an outpatient later in May. No other specific neurologic recommendations at this time.
[2016-05-28] MEDS ORDERED: MAGNESIUM HYDROXIDE SUSP 30 ML UDC PEG PRN (14:45)
[2016-05-28] MEDS ORDERED: POLYETHYLENE (MIRALAX) 17 GM PACK PO PRN (14:45)
--- NOTE | 2016-05-28 18:47 | Hospitalist Progress Note ---
Hospitalist Progress Note Date of Service May 28, 2016. Subjective Pt evaluation today including: conversation w/ family, physical exam, chart review, lab review, review of studies, conversation w/ databases computer consultant, review of inpatient medication list He is more awake today, no communicating. No further seizures. Family requests something for constipation. Additional Comments: Unobtainable due to aphasia. Objective Vital Signs Date Time Temp Pulse Resp B/P Pulse Ox O2 Delivery O2 Flow Rate FiO2 05/28/16 15:24 36.5 69 18 120/73 93 Room Air 05/28/16 11:52 93 Trach Collar 11.0 21 05/28/16 11:20 57 16 93 Trach Collar 21 05/28/16 07:44 36.4 62 16 129/74 93 Room Air 05/28/16 03:21 57 16 93 Trach Collar 21 05/28/16 00:15 Trach Collar 21 05/27/16 23:08 63 16 92 Trach Collar 21 05/27/16 22:54 36.8 63 18 116/71 92 Trach Collar 11.0 05/27/16 20:15 Trach Collar 21 05/27/16 19:14 69 18 93 Trach Collar 21 Physical Exam Notes: GEN: Awake, Not in acute distress HEENT: Tm's intact, no inflammation, EOMI, PERRLA, MMM Neck: Soft, supple Lungs: CTA b/l, no r/r/w has trach. Heart: REG, nrl S1S2 without murmurs, rubs or gallops Abdomen: Soft, NT, ND, + BS EXT: No C/C/E NEURO: CN's II-XII grossly intact, paralysis. Skin: warm, dry, no rashes PSYCH: NO obvious agitation. . Laboratory Results Last 24 Hours Test 05/28/16 09:23 Bedside Glucose 128 mg/dl Assessment and Plan 1) Altered mental status - doing better. 2) UTI strep growing await final culture and sens. Rocephin IV 3) ? early pneumonia - the chest x-ray showed inflammation but no infiltrate. 4) Seizure disorder with breakthrough seizures. - resume carbamazepine liquid QID as family brought from home. Prn lorazepam. 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 Is cared for by family and care givers in his home. 7) Hyponatremia is chronic. 8) Constipation - I added MOM and miralax. Lovenox for DVT prophylaxis.
[2016-05-29] VITALS (8 sets, daily range): BP systolic 100–121; BP diastolic 60–70; PULSE 59–66; TEMP 36–36.1; O2SAT 92–98
[2016-05-29] MEDS: TUBE FEEDING WATER FLUSH PEG SCH ×6 (00:16→20:38)
[2016-05-29] MEDS: ALBUT/IPRATROP 3MG/0.5MG NEB 3 ML VIAL INH SCH ×6 (03:48→23:06)
[2016-05-29] MEDS: FIBERSOURCE HN 1000ML BAG PEG SCH ×10 (06:31→23:06)
[2016-05-29 06:39] LABS: BASO % 0.2 %; BASO ABS # 0.01 K/uL (0-0.2); COMPLETE YES; EOS % 2.2 %; HEMATOCRIT 37.4 % (42-52); IG% 0.2 %; LYMPH % 32.1 %; LYMPH ABS # 1.62 K/uL (1.2-3.4); MEAN CELL VOLUME 91.9 fL (80-100); MEAN CORPUSCULAR HEMOGLOBIN 32.4 pg (25-34); MEAN CORPUSCULAR HGB CONC 35.3 g/dl (32-36); MONO % 11.7 %; NEUT % 53.6 %; PLATELET COUNT 179 K/uL (130-400); RED BLOOD COUNT 4.07 M/uL (4.7-6.1); WHITE BLOOD COUNT 5.05 K/uL (4.8-10.8)
[2016-05-29 07:11] LABS: BUN/CREATININE RATIO 11.7 (10-20); CALCIUM 8.5 mg/dl (8.5-10.1); CREATININE 0.76 mg/dl (0.60-1.40); POTASSIUM 4.1 mmol/L (3.5-5.1)
[2016-05-29] MEDS: LANSOPRAZOLE SOLUTAB 15 MG PEG SCH ×2 (07:16→20:41)
[2016-05-29] MEDS: ENOXAPARIN 40 MG/0.4 ML SYR SQ SCH (07:17)
[2016-05-29] MEDS: LEVETIRACETAM ORAL SOLN 100MG/ML PEG SCH ×2 (07:17→20:40)
[2016-05-29] MEDS: CARBAMAZEPINE 100 MG/5 ML PO SCH ×2 (07:17→12:12)
--- NOTE | 2016-05-29 08:55 | Clinical Documentation Query ---
CLINICAL DOCUMENTATION QUERY 76 year old male with hx of subdural hematoma with hemiplegia, aphasia, & aspiration pneumonia presents with AMS and UTI. Daily progress notes have been stating early pneumonia. In your clinical opinion is this patient being managed for: ( ) Early Aspiration pneumonitis in patient with hemiplegia and aphasia from old hemorrhagic CVA. ( ) Other explanation of clinical findings (Please Explain) ( ) Unable to determine (Please Define) ( ) Need to Discuss ( ) Not Agree The medical record reflects the following clinical findings, treatment, and risk factors. Clinical Indicators: feeds patient by mouth lunch and dinner. Aphasic. Per H&P bilateral pneumonia. Treatment: NPO, aspiration precautions, peg feedings, IV Ceftriaxone, IV Levaquin, IV Vancomycin, Risk Factors: Age, Seizure, aphasia with PO feeding by . Please clarify and document your clinical opinion in the progress notes and discharge summary. Terms such as "probable", "suspected", "likely", "questionable", "possible", or "still to be ruled out" are acceptable. IF IN AGREEMENT, YOU MUST DOCUMENT ABOVE DIAGNOSTIC STATEMENT IN DAILY PROGRESS NOTES AND DISCHARGE SUMMARY. This document is not part of the patient's record. Thank You, Salinas Clark RN [phone]
[2016-05-29] MEDS: CEFTRIAXONE SOD INJ 1 GM in DEXTROSE 5% ADD-VANTAGE 50ML 50 ML IV SCH (09:37)
--- NOTE | 2016-05-29 15:35 | Hospitalist Progress Note ---
Hospitalist Progress Note Date of Service May 29, 2016. Subjective Pt evaluation today including: conversation w/ patient, conversation w/ family , physical exam, chart review, lab review, review of studies, review of inpatient medication list Patient had no acute issues overnight No seizures or fevers noted ENT: No hearing loss Additional Comments: Unable to obtain- patient is non verbal Medications Current Inpatient Medications Medications (Trade) Dose Ordered Sig/Piper Route Start Time Stop Time Status Last Admin Dose Admin Enoxaparin Sodium (Lovenox Inj) 40 mg QAM SQ 05/27/16 09:00 06/26/16 08:59 Acetaminophen (Tylenol Soln) 650 mg Q4H PRN PEG 05/26/16 18:00 06/25/16 17:59 Ondansetron HCl (Zofran Inj) 4 mg Q6H PRN IV 05/26/16 18:00 06/25/16 17:59 Lamotrigine (Lamictal Tab) 100 mg BID PO 05/26/16 21:00 06/25/16 20:59 05/29/16 07:16 100 MG Lansoprazole (Prevacid Solutab) 30 mg BID PEG 05/26/16 21:00 06/25/16 20:59 05/29/16 07:16 30 MG Levetiracetam (Keppra Soln) 800 mg BID PEG 05/26/16 21:00 06/25/16 20:59 05/29/16 07:17 800 MG Albuterol/ Ipratropium (Duoneb) 3 ml Q4R INH 05/26/16 20:00 06/25/16 19:59 05/29/16 11:36 3 ML Sterile Water 1 ea 1 ea Q4 PEG 05/27/16 00:00 06/26/16 00:00 05/29/16 07:16 1 EA Ceftriaxone Sodium 1 gm/ Dextrose 50 ml @ 100 mls/hr DAILY@1000 IV 05/27/16 11:00 06/06/16 09:59 05/29/16 09:37 100 MLS/HR Lorazepam/Syringe (Ativan Inj/ Syringe) 1 ml @ 0.5 mls/min Q4 PRN IV 05/27/16 10:45 06/26/16 10:44 Carbamazepine (Carbamazepine) 160 mg QID PO 05/27/16 11:30 05/29/16 16:59 05/29/16 07:17 160 MG Enteral Nutritional Formula (Fibersource HN) 275 ml 5XDQ4H PEG 05/27/16 19:00 06/26/16 18:59 05/29/16 10:57 275 ML Magnesium Hydroxide (Milk Of Magnesia Susp) 30 ml Q6H PRN PEG 05/28/16 14:45 06/27/16 14:44 05/28/16 16:00 30 ML Polyethylene (Miralax Powder Packet) 17 gm DAILY PRN PO 05/28/16 14:45 06/27/16 14:44 Carbamazepine (Carbamazepine) 160 mg QID PEG 05/29/16 17:00 06/28/16 16:59 Objective Vital Signs Date Time Temp Pulse Resp B/P Pulse Ox O2 Delivery O2 Flow Rate FiO2 05/29/16 11:43 66 16 93 Trach Collar 21 05/29/16 08:02 64 16 92 Trach Collar 21 05/29/16 08:00 Trach Collar 05/29/16 07:34 36.0 59 16 121/70 92 05/29/16 03:49 66 16 92 Trach Collar 21 05/29/16 00:00 Room Air 11.0 21 05/28/16 23:52 36.4 92 16 119/80 98 Room Air 05/28/16 23:29 76 16 93 Trach Collar 21 05/28/16 20:22 64 16 93 Trach Collar 21 05/28/16 15:40 Humidified Oxygen 21 Trach Collar 05/28/16 15:24 36.5 69 18 120/73 93 Room Air 05/28/16 11:52 93 Trach Collar 11.0 21 Physical Exam General Appearance: WD/WN, no apparent distress Eyes: normal inspection Neck: supple Respiratory/Chest: chest non-tender, lungs clear Cardiovascular: regular rate, rhythm, no edema Abdomen: normal bowel sounds, non tender Extremities: normal range of motion, non-tender Neurologic/Psychiatric: 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 nml as tested, alert (patient is minimally verbal per caregive is his baseline) Skin: normal color, warm/dry Laboratory Results Last 24 Hours Test 05/29/16 06:10 White Blood Count 5.05 K/uL Red Blood Count 4.07 M/uL Hemoglobin 13.2 g/dL Hematocrit 37.4 % Mean Corpuscular Volume 91.9 fL Mean Corpuscular Hemoglobin 32.4 pg Mean Corpuscular Hemoglobin Concent 35.3 g/dl Platelet Count 179 K/uL Mean Platelet Volume 8.0 fL Neutrophils (%) (Auto) 53.6 % Lymphocytes (%) (Auto) 32.1 % Monocytes (%) (Auto) 11.7 % Eosinophils (%) (Auto) 2.2 % Basophils (%) (Auto) 0.2 % Neutrophils # (Auto) 2.71 K/uL Lymphocytes # (Auto) 1.62 K/uL Monocytes # (Auto) 0.59 K/uL Eosinophils # (Auto) 0.11 K/uL Basophils # (Auto) 0.01 K/uL RDW Standard Deviation 43.3 fL RDW Coefficient of Variation 12.8 % Immature Granulocyte % (Auto) 0.2 % Immature Granulocyte # (Auto) 0.01 K/uL Sodium Level 137 mmol/L Potassium Level 4.1 mmol/L Chloride Level 99 mmol/L Carbon Dioxide Level 28 mmol/L Anion Gap 10.0 mmol/L Blood Urea Nitrogen 9 mg/dl Creatinine 0.76 mg/dl Est Creatinine Clear Calc Drug Dose 75.8 ml/min Estimated GFR () 103.4 Estimated GFR (Non- 89.2 BUN/Creatinine Ratio 11.7 Random Glucose 89 mg/dl Calcium Level 8.5 mg/dl Assessment and Plan Enterococcus UTI - d/c ceftriaxone - cont. macrobid day #4/7 Pneumonia - cont levaquin day #47 - blood culture NGTD AMS - seems to be improved from admission - check repeat CT scan to evaluated ? 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
[2016-05-29] MEDS: CARBAMAZEPINE 100 MG/5 ML PEG SCH ×2 (16:44→20:39)
[2016-05-29] MEDS: NITROFURANTOIN MONOHYDRATE 100 MG CAP PO SCH (21:02)
[2016-05-30] VITALS (8 sets, daily range): BP systolic 131–150; BP diastolic 79–88; PULSE 63–82; TEMP 36.3–36.6; O2SAT 90–95
[2016-05-30] MEDS: ALBUT/IPRATROP 3MG/0.5MG NEB 3 ML VIAL INH SCH ×5 (03:22→20:00)
[2016-05-30] MEDS: TUBE FEEDING WATER FLUSH PEG SCH ×4 (07:13→20:20)
[2016-05-30] MEDS: NITROFURANTOIN MONOHYDRATE 100 MG CAP PO SCH ×2 (07:14→20:20)
[2016-05-30] MEDS: FIBERSOURCE HN 1000ML BAG PEG SCH ×8 (07:14→18:41)
[2016-05-30] MEDS: CARBAMAZEPINE 100 MG/5 ML PEG SCH ×4 (07:15→20:19)
[2016-05-30] MEDS: LANSOPRAZOLE SOLUTAB 15 MG PEG SCH ×2 (07:15→20:20)
[2016-05-30] MEDS: LEVETIRACETAM ORAL SOLN 100MG/ML PEG SCH ×2 (07:16→20:19)
[2016-05-30] MEDS: ENOXAPARIN 40 MG/0.4 ML SYR SQ SCH (07:16)
[2016-05-30 08:32] LABS: HEMATOCRIT 40.9 % (42-52); MEAN CELL VOLUME 93.6 fL (80-100); MEAN CORPUSCULAR HEMOGLOBIN 32.7 pg (25-34); MEAN PLATELET VOLUME 8.1 fL (7.4-10.4); PLATELET COUNT 176 K/uL (130-400); RED BLOOD COUNT 4.37 M/uL (4.7-6.1); WHITE BLOOD COUNT 5.26 K/uL (4.8-10.8)
[2016-05-30 09:07] LABS: BUN/CREATININE RATIO 10.2 (10-20); CALCIUM 8.3 mg/dl (8.5-10.1); CREATININE 0.84 mg/dl (0.60-1.40); POTASSIUM 4.2 mmol/L (3.5-5.1)
[2016-05-30] MEDS: LEVOFLOXACIN 750 MG TAB PO SCH (11:18)
--- NOTE | 2016-05-30 15:53 | DIAGNOSTIC IMAGING REPORT ---
CT HEAD WITHOUT CONTRAST (CT) CLINICAL HISTORY: Subdural hemorrhage COMPARISON STUDY: 05/26/2016 TECHNIQUE: Axial CT of the brain is performed from the vertex to the skull base. IV contrast was not administered for this examination. CT DOSE: 724.83 mGy.cm FINDINGS: Post craniotomy changes are again visualized on the right. There is a 3 mm sliver of subdural hemorrhage/dural thickening subjacent to the craniotomy flap. There is right frontal, temporal and right parietal encephalomalacia. There is no CT evidence of acute cortical infarction. There is compensatory dilatation of the right lateral ventricle. There is no evidence of acute parenchymal or subarachnoid hemorrhage. There is a stable 19 mm extra-axial left frontal mass, likely representing a meningioma There are patchy white matter hypodensities likely on a small vessel basis. There is no evidence of pathologic ventricular dilatation. There is no evidence of acute sinusitis IMPRESSION: 1. Postcraniotomy changes the right 2. Stable right frontal, parietal and temporal encephalomalacia 3. Stable 19 mm left frontal extra-axial mass, likely representing a meningioma 4. Subjacent to the craniotomy site is a stable 3 mm hyperdense crescentic focus, likely representing postsurgical dural thickening although a tiny subdural hemorrhage could appear similar Electronically signed by: Andrew Gonzales M.D. 05/30/2016 3:52 PM Dictated Date/Time: 05/30/2016 3:48 PM
--- NOTE | 2016-05-30 16:36 | Hospitalist Progress Note ---
Hospitalist Progress Note Date of Service May 30, 2016. Subjective Pt evaluation today including: conversation w/ patient, physical exam, chart review, lab review, review of studies, review of inpatient medication list Patient had no acute issue overnight Additional Comments: Unable to Obtain as patient minimally verbal at baseline Medications Current Inpatient Medications Medications (Trade) Dose Ordered Sig/Piper Route Start Time Stop Time Status Last Admin Dose Admin Enoxaparin Sodium (Lovenox Inj) 40 mg QAM SQ 05/27/16 09:00 06/26/16 08:59 Acetaminophen (Tylenol Soln) 650 mg Q4H PRN PEG 05/26/16 18:00 06/25/16 17:59 Ondansetron HCl (Zofran Inj) 4 mg Q6H PRN IV 05/26/16 18:00 06/25/16 17:59 Lamotrigine (Lamictal Tab) 100 mg BID PO 05/26/16 21:00 06/25/16 20:59 05/30/16 07:14 100 MG Lansoprazole (Prevacid Solutab) 30 mg BID PEG 05/26/16 21:00 06/25/16 20:59 05/30/16 07:15 30 MG Levetiracetam (Keppra Soln) 800 mg BID PEG 05/26/16 21:00 06/25/16 20:59 05/30/16 07:16 800 MG Albuterol/ Ipratropium (Duoneb) 3 ml Q4R INH 05/26/16 20:00 06/25/16 19:59 05/30/16 15:26 3 ML Sterile Water 1 ea 1 ea Q4 PEG 05/27/16 00:00 06/26/16 00:00 05/30/16 15:55 1 EA Lorazepam/Syringe (Ativan Inj/ Syringe) 1 ml @ 0.5 mls/min Q4 PRN IV 05/27/16 10:45 06/26/16 10:44 Enteral Nutritional Formula (Fibersource HN) 275 ml 5XDQ4H PEG 05/27/16 19:00 06/26/16 18:59 05/30/16 15:55 275 ML Magnesium Hydroxide (Milk Of Magnesia Susp) 30 ml Q6H PRN PEG 05/28/16 14:45 06/27/16 14:44 05/28/16 16:00 30 ML Polyethylene (Miralax Powder Packet) 17 gm DAILY PRN PO 05/28/16 14:45 06/27/16 14:44 Carbamazepine (Carbamazepine) 160 mg QID PEG 05/29/16 17:00 06/28/16 16:59 05/30/16 12:26 160 MG Nitrofurantoin Macrocrystals (Macrobid Cap) 100 mg BID PO 05/29/16 21:00 06/08/16 20:59 05/30/16 07:14 100 MG Levofloxacin (Levaquin Tab) 750 mg DAILY@11 PO 05/30/16 11:00 06/06/16 10:59 05/30/16 11:18 750 MG Objective Vital Signs Date Time Temp Pulse Resp B/P Pulse Ox O2 Delivery O2 Flow Rate FiO2 05/30/16 16:00 Trach Collar 05/30/16 15:27 65 16 95 Trach Collar 21 05/30/16 15:12 36.6 71 16 150/88 90 Room Air 05/30/16 11:53 71 16 94 Trach Collar 21 05/30/16 08:01 78 16 94 Trach Collar 21 05/30/16 08:00 Trach Collar 05/30/16 07:40 36.3 82 18 134/87 91 Room Air 05/30/16 03:22 63 16 94 Trach Collar 21 05/30/16 00:04 36.4 65 16 131/79 93 Trach Collar 8.0 05/30/16 00:00 Humidified Oxygen 11.0 21 Trach Collar 05/29/16 23:06 59 16 95 Trach Collar 21 05/29/16 19:43 60 16 95 Trach Collar 21 Physical Exam General Appearance: WD/WN, no apparent distress Eyes: normal inspection ENT: normal ENT inspection Neck: supple Respiratory/Chest: chest non-tender Cardiovascular: regular rate, rhythm, no edema Abdomen: normal bowel sounds Extremities: normal range of motion, non-tender Neurologic/Psychiatric: director trial II-XII 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 as tested, no motor/sensory deficits, alert, oriented x 3 Skin: normal color, warm/dry, no rash Laboratory Results Last 24 Hours Test 05/30/16 08:12 White Blood Count 5.26 K/uL Red Blood Count 4.37 M/uL Hemoglobin 14.3 g/dL Hematocrit 40.9 % Mean Corpuscular Volume 93.6 fL Mean Corpuscular Hemoglobin 32.7 pg Mean Corpuscular Hemoglobin Concent 35.0 g/dl RDW Standard Deviation 44.2 fL RDW Coefficient of Variation 12.9 % Platelet Count 176 K/uL Mean Platelet Volume 8.1 fL Sodium Level 138 mmol/L Potassium Level 4.2 mmol/L Chloride Level 102 mmol/L Carbon Dioxide Level 27 mmol/L Anion Gap 9.0 mmol/L Blood Urea Nitrogen 9 mg/dl Creatinine 0.84 mg/dl Est Creatinine Clear Calc Drug Dose 68.6 ml/min Estimated GFR () 99.3 Estimated GFR (Non- 85.7 BUN/Creatinine Ratio 10.2 Random Glucose 129 mg/dl Calcium Level 8.3 mg/dl Assessment and Plan Enterococcus UTI - d/c ceftriaxone - cont. macrobid day #09/03 ? 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
[2016-05-31] VITALS (7 sets, daily range): BP systolic 110–115; BP diastolic 64–74; PULSE 62–72; TEMP 35–36.8; O2SAT 93–96
[2016-05-31] MEDS: TUBE FEEDING WATER FLUSH PEG SCH ×3 (00:09→08:22)
[2016-05-31] MEDS: FIBERSOURCE HN 1000ML BAG PEG SCH ×4 (00:09→06:35)
[2016-05-31] MEDS: ALBUT/IPRATROP 3MG/0.5MG NEB 3 ML VIAL INH SCH ×3 (00:24→07:16)
[2016-05-31] MEDS: LEVOFLOXACIN 750 MG TAB PO SCH (08:21)
[2016-05-31] MEDS: NITROFURANTOIN MONOHYDRATE 100 MG CAP PO SCH (08:21)
[2016-05-31] MEDS: LANSOPRAZOLE SOLUTAB 15 MG PEG SCH (08:21)
[2016-05-31] MEDS: LEVETIRACETAM ORAL SOLN 100MG/ML PEG SCH (08:22)
[2016-05-31] MEDS: ENOXAPARIN 40 MG/0.4 ML SYR SQ SCH (08:22)
[2016-05-31] MEDS: CARBAMAZEPINE 100 MG/5 ML PEG SCH (08:22)
[2016-05-31 08:24] LABS: HEMATOCRIT 38.4 % (42-52); MEAN CELL VOLUME 91.6 fL (80-100); MEAN CORPUSCULAR HEMOGLOBIN 32.7 pg (25-34); MEAN CORPUSCULAR HGB CONC 35.7 g/dl (32-36); MEAN PLATELET VOLUME 8.2 fL (7.4-10.4); PLATELET COUNT 174 K/uL (130-400); RED BLOOD COUNT 4.19 M/uL (4.7-6.1); WHITE BLOOD COUNT 6.01 K/uL (4.8-10.8)
[2016-05-31 08:54] LABS: CALCIUM 8.6 mg/dl (8.5-10.1); CREATININE 0.83 mg/dl (0.60-1.40); POTASSIUM 4.1 mmol/L (3.5-5.1)
[2016-05-31] MEDS ORDERED: LVQ750 PEG (09:51)
[2016-05-31] MEDS ORDERED: MCRB100 PEG (09:51)
[2016-05-31] MEDS ORDERED: Carbamazepine PEG (09:51)
--- NOTE | 2016-05-31 09:53 | Discharge Instructions ---
Discharge Instructions Admission Admission Date: May 26, 2016 at 18:02 Admission Diagnosis: Metabolic Encephalopathy, Uti. Discharge Care Plan - Problem: Medical Problems: (1) Altered mental status (2) Pneumonia (3) Enterococcus Urinary Tract infection Care Plan - Goal(s): Decrease discomfort, Improve function Care Plan - Instructions: Activity Recommendations: no limitations Recommended Home Diet: NPO, Tube Feeding VTE Core Measure Inpt VTE Proph given/why not?: Enoxaparin (Lovenox)[facility] Recommendations: Call your doctor if: * Temperature above 101 degrees * Pain not relieved by pain medicine ordered * There is increased drainage or redness from any incision * You have any unanswered questions or concerns. Your Doctors Instructions noted above were prepared by provider Myranda Prasad.
--- NOTE | 2016-05-31 16:20 | Discharge Summary ---
Discharge Summary Admission Date: May 26, 2016 at 18:02 Discharge Date: May 31, 2016 Discharge Disposition: Home Principal Diagnosis: Enterococcus UTI/Aspiration Pneumonia Immunizations: Have You Had Influenza Vaccine: Yes Influenza Vaccine Date: Mar 08, 2013 History of Tetanus Vaccine?: Unknown Tetanus Immunization Date: Apr 13, 1998 History of Pneumococcal: Unknown Pneumococcal Date: Feb 11, 2009 History of Hepatitis B Vaccine: No Consultations: Neurology Discharge Exam UTO- 06/01 to patient being aphasic Review of Systems: Eyes: + worsening of vision Physical Exam: General Appearance: WD/WN Eyes: normal inspection ENT: normal ENT inspection Neck: supple Respiratory/Chest: chest non-tender, lungs clear Cardiovascular: regular rate, rhythm, no edema Abdomen / GI: normal bowel sounds, non tender Extremities: normal inspection 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 Patient is prone to aspiration pneumonia and has been admitted numerous times in the past. Two days ago his noticed that he was more lethargic than normal, less responsive. She fed him completely by tube feeds. His temperature moe to 99.3 but came down with Tylenol. + cough. n the ED his CXR showed possible inflammatory changes in lower lobes bilaterally and UA shows signs of possible UTI with > 30WBC. He is afebrile, vitals stable and normal WBC, normal renal function. Na low at 127 but he has had hyponatremia in the past. Patient also had changes on CT suspicious for small SDH hematoma and f/u Ct was recommended. Also of note, he has a seizure disorder, averages one seizure every three weeks, follows with Dr. Aldrich. His seizures are only seen in his facial muscles and last 2-[address] Aldrich started to taper back Keppra and initiated Tegretol. Recently he reached the desired dose of 8 tabs of Tegretol a day, due for trough level next week. Patient was admitted to the hospitalist service for metabolic encephalopathy 2/ 2 to UTI and aspiration pneumonitis/pneumonia. Patient was started on ceftriaxone. Urine culture subsequently grew Enterococcus. Patient narrowed to macrobid and levaquin. His AMS improved with antibiotic therapy. Its thought patients pneumonia was most likely from secondary to aspiration. Speech and swallow saw the patient however patients insisted that she was going to continue to feed patient a pureed diet with thick liquids for quality of life. She understood that patient was aspirating small amounts of foods. Patient also had a questionable seizure prior to admission. Neurology was consulted and recommended to continue carbamazepine, keppra and lamictal. Enterococcus UTI - discharged on macrobid day #5/ ? 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 Discharge Instructions Please refer to the electronic Patient Visit Report (Discharge Instructions) for additional information. Additional Copies To Joshua Rivera M.D.
== END 2016-05-31 11:00 | disposition home health service (06) | DRG 177 ==
LOC: ENRESERVDT → ENRESERVTM → C.EDB 12:51 → C.MS2W 18:02
PROVIDERS: ADMIT Internal Medicine; ATTEND Internal Medicine
DX: J69.0 Pneumonitis due to inhalation of food and vomit (principal); G93.41 Metabolic encephalopathy; N39.0 Urinary tract infection, site not specified; E87.1 Hypo-osmolality and hyponatremia; I69.354 Hemiplegia and hemiparesis following cerebral infarction affecting left non-dominant side; I67.82 Cerebral ischemia; B95.2 Enterococcus as the cause of diseases classified elsewhere; G40.909 Epilepsy, unspecified, not intractable, without status epilepticus; I69.198 Other sequelae of nontraumatic intracerebral hemorrhage; G93.89 Other specified disorders of brain; F01.50 Vascular dementia, unspecified severity, without behavioral disturbance, psychotic disturbance, mood disturbance, and anxiety; I69.320 Aphasia following cerebral infarction; J38.00 Paralysis of vocal cords and larynx, unspecified; K59.00 Constipation, unspecified; Z93.0 Tracheostomy status; Z93.1 Gastrostomy status; Z86.79 Personal history of other diseases of the circulatory system; R32 Unspecified urinary incontinence; Z74.01 Bed confinement status; Z79.899 Other long term (current) drug therapy

== ENCOUNTER → 2016-06-27 | Outpatient (CLI) | payer OTHER ==
[~2016-06-27] MED LIST changes: +ALBINSX NEB; -CARB100S PEG; -CYAN500T PEG; +Carbamazepine PEG; +LAMO25TA PEG; +LEVO1TAB35 PO; +LVQ750 PEG; -LVQ750 PO; +MCRB100 PEG; +MENTOIN12 EXT; +MENTOIN12 SC; +MOML PEG; -MTR500 PEG; -PYRI100T4 PEG; +[UNRECOGNIZED DRUG - OTHER] PEG
--- NOTE | 2016-06-27 17:13 | DIAGNOSTIC IMAGING REPORT ---
CHEST 2 VIEWS ROUTINE CLINICAL HISTORY: Cough, seizure disorder. COMPARISON STUDY: 05/26/2016 FINDINGS: The study is limited from a technical standpoint. The patient was unable to follow commands.[ The heart is the upper limits of normal in size. A tracheostomy tube is again visualized. The study is rotated. There is resolving interstitial edema. There are minor left basilar airspace opacities, likely atelectatic although an inflammatory process could appear similar. IMPRESSION: Resolving interstitial edema. Minor left basilar airspace opacities. Electronically signed by: Andrew Gonzales M.D. 06/27/2016 5:12 PM Dictated Date/Time: 06/27/2016 5:11 PM
[2016-06-27 17:33] LABS: BASO % 0.2 %; BASO ABS # 0.01 K/uL (0-0.2); COMPLETE YES; EOS % 0.7 %; HEMATOCRIT 37.4 % (42-52); IG% 0.3 %; LYMPH % 9.8 %; LYMPH ABS # 0.59 K/uL (1.2-3.4); MEAN CELL VOLUME 89.7 fL (80-100); MEAN CORPUSCULAR HEMOGLOBIN 33.1 pg (25-34); MEAN CORPUSCULAR HGB CONC 36.9 g/dl (32-36); MONO % 10.6 %; NEUT % 78.4 %; PLATELET COUNT 152 K/uL (130-400); RED BLOOD COUNT 4.17 M/uL (4.7-6.1); WHITE BLOOD COUNT 6.03 K/uL (4.8-10.8)
[2016-06-27 17:59] LABS: URINE APPEARANCE CLOUDY (CLEAR); URINE BILIRUBIN NEG (NEG); URINE COLOR YELLOW; URINE NITRITE NEG (NEG); URINE PH 7.5 (4.5-7.5); URINE SPECIFIC GRAVITY 1.009 (1.000-1.030); UROBILINOGEN NEG (NEG)
[2016-06-27 18:00] LABS: MANUAL MICROSCOPIC REQUIRED? NO; REVIEW REQ? NO
[2016-06-27 18:01] LABS: ALT/SGPT 15 U/L (12-78); BLOOD UREA NITROGEN 6 mg/dl (7-18); BUN/CREATININE RATIO 9.3 (10-20); CALCIUM 8.1 mg/dl (8.5-10.1); CARBON DIOXIDE 23 mmol/L (21-32); CHLORIDE 91 mmol/L (98-107); CREATININE 0.69 mg/dl (0.60-1.40); GLUCOSE 110 mg/dl (70-99); POTASSIUM 3.7 mmol/L (3.5-5.1); SODIUM 124 mmol/L (136-145)
[2016-06-27 18:12] LABS: ALB/GLOB RATIO 0.9 (0.9-2); ALKALINE PHOSPHATASE 95 U/L (45-117); AST/SGOT 11 U/L (15-37)
== END | disposition home or self-care (01) ==
LOC: C.RAD 16:40
PROVIDERS: ATTEND Psychiatry & Neurology Neurology
DX: G40.909 Epilepsy, unspecified, not intractable, without status epilepticus (principal); R05 Cough; R30.0 Dysuria; R50.9 Fever, unspecified

== ENCOUNTER 2016-06-28 00:07 | Inpatient (IN) | payer OTHER ==
[2016-06-28] VITALS (15 sets, daily range): BP systolic 103–131; BP diastolic 59–83; PULSE 72–112; TEMP 36.5–39.2; O2SAT 90–97; Ht 167.6 cm; Wt 72.1 kg
[~2016-06-28] VITALS: Ht 167.6 cm; Wt 72.1 kg
[~2016-06-28 00:07] MED LIST changes: -ALBINSX NEB; -LEVO1TAB35 PO; -MENTOIN12 EXT; -MENTOIN12 SC; -MOML PEG; -[UNRECOGNIZED DRUG - OTHER] PEG
[2016-06-28] MEDS ORDERED: LEVAQUIN 750MG / 150ML D5W IV STA (00:29)
[2016-06-28] MEDS ORDERED: CEFEPIME IV 1,000 MG in DEXTROSE 5% 100ML 100 ML IV STA (00:29)
[2016-06-28] MEDS ORDERED: SODIUM CHLORIDE 0.9% 1000ML 1,000 ML IV STA ×2 (00:33→00:57)
[2016-06-28] MEDS ORDERED: MOML PEG (00:44)
[2016-06-28] MEDS ORDERED: ACETAMINOPHEN SOLN 650MG/20.3 ML UDC PEG ONE (00:45)
[2016-06-28 00:47] LABS: ISTAT CREATININE 0.6 mg/dl (0.6-1.3); ISTAT HEMOGLOBIN 12.9 g/dl (14.0-18.0); ISTAT IONIZED CALCIUM 1.09 mmol/l (1.12-1.32)
[2016-06-28] MEDS ORDERED: [UNRECOGNIZED DRUG - OTHER] PEG (00:47)
[2016-06-28] MEDS ORDERED: ALBINSX NEB (00:49)
[2016-06-28 00:51] LABS: BASO % 0.4 %; BASO ABS # 0.02 K/uL (0-0.2); COMPLETE YES; EOS % 1.2 %; HEMATOCRIT 37.9 % (42-52); IG% 0.7 %; LYMPH % 21.7 %; LYMPH ABS # 1.23 K/uL (1.2-3.4); MEAN CELL VOLUME 88.3 fL (80-100); MEAN CORPUSCULAR HEMOGLOBIN 31.7 pg (25-34); MEAN CORPUSCULAR HGB CONC 35.9 g/dl (32-36); MEAN PLATELET VOLUME 7.8 fL (7.4-10.4); MONO % 11.8 %; NEUT % 64.2 %; PLATELET COUNT 157 K/uL (130-400); RED BLOOD COUNT 4.29 M/uL (4.7-6.1); WHITE BLOOD COUNT 5.66 K/uL (4.8-10.8)
[2016-06-28 01:06] LABS: PROTHROMBIN TIME (PATIENT) 11.2 SECONDS (9.0-12.0)
[2016-06-28 01:09] LABS: ALT/SGPT 16 U/L (12-78); AST/SGOT 9 U/L (15-37); BLOOD UREA NITROGEN 6 mg/dl (7-18); BUN/CREATININE RATIO 7.9 (10-20); CALCIUM 8.2 mg/dl (8.5-10.1); CARBON DIOXIDE 26 mmol/L (21-32); CHLORIDE 91 mmol/L (98-107); CREATININE 0.81 mg/dl (0.60-1.40); GLUCOSE 83 mg/dl (70-99); POTASSIUM 4.2 mmol/L (3.5-5.1); SODIUM 128 mmol/L (136-145)
--- NOTE | 2016-06-28 01:11 | EMERGENCY ROOM VISIT NOTE ---
History Report prepared by Marie: Carlos Vo Under the Supervision of: Dr. Ronnell Sanches D.O. First contact with patient: 00:15 Chief Complaint: ALTERED MENTAL STATUS Stated Complaint: ALTERED MENTAL STATUS History of Present Illness The patient is a 76 year old male who presents to the Emergency Room with complaints of constant altered mental status starting prior to arrival. Per the nursing staff, the patient has been having shortness of breath, fever, lethargic , and productive congestion. They state that he is on room air with his trachea collar. The nursing staff additionally state that he was recently treated for a UTI, and he just finished his antibiotics this morning. Patient was brought in via ALS. Family was interviewed shortly following his initial evaluation. They note that he has been having fevers for the past 24 hours. 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 Patient has had a change in his productive sputum which is now slightly yellow. He has also been coughing up much more sputum. Earlier today he had blood work and a chest x-ray. Source of History: nursing staff Onset: prior to arrival Position: other (global) Quality: other (altered mental status) Timing: constant Associated Symptoms: + SOB, + fevers Review of Systems See HPI for pertinent positives & negatives. A total of 10 systems reviewed and were otherwise negative. Past Medical & Surgical Medical Problems: (1) Aspiration pneumonia (2) double hernia (3) Metabolic encephalopathy (4) replaced acl left knee (5) Seizure disorder (6) Subdural hematoma (7) UTI (urinary tract infection) Surgical Problems: (1) S/P tonsillectomy Family History Patient reports no known family medical history. Social History Smoking Status: Never Smoker Alcohol Use: none Drug Use: none Marital Status: Housing Status: lives with significant other Occupation Status: retired Current/Historical Medications Scheduled Carbamazepine (Tegretol), 8 ML PEG QID Enteral Nutrition Formula (Jevity 1.5 Jermaine), 8 OZ PEG QAM Lamotrigine (Lamictal), 100 MG PEG BID Lansoprazole (Prevacid Solutab), 30 MG PEG BID Levetiracetam (Keppra), 400 MG PEG BID Scheduled PRN Acetaminophen (Tylenol Children's Susp), 20 ML PEG Q4H PRN for Pain Albuterol Sulf (Albuterol Sulfate), 3 ML NEB Q4 PRN for Wheezing Magnesium Hydroxide (Milk Of Magnesia), 30 ML PEG DAILY PRN for Cough Allergies Coded Allergies: Aspirin (Verified Allergy, Mild, 06/28/16) Penicillins (Verified Allergy, Mild, 06/28/16) Tetracycline (Verified Allergy, Unknown, UNKNOWN, 06/28/16) UNKNOWN, PT REPORTED ALLERGY Physical Exam Vital Signs Date Time Temp Pulse Resp B/P Pulse Ox O2 Delivery O2 Flow Rate FiO2 06/28/16 01:11 37.6 81 22 108/83 95 Room Air 06/28/16 00:23 81 Physical Exam GENERAL: Ill- appearing sitting up in bed. Clear productive sputum through the trach tube. EYE EXAM: normal conjunctiva OROPHARYNX: no exudate, no erythema, lips, buccal mucosa, and tongue normal and mucous membranes are dry NECK: supple, no nuchal rigidity, no adenopathy, non-tender LUNGS: Clear to auscultation. Normal chest wall mechanics HEART: no murmurs, S1 normal and S2 normal ABDOMEN: PEG tube in place. Abdomen soft, non-tender, normo-active bowel sounds , no masses, no rebound or guarding. BACK: Back is symmetrical on inspection and there is no deformity, no midline tenderness, no CVA tenderness. SKIN: no rashes and no bruising UPPER EXTREMITIES: upper extremities are grossly normal. LOWER EXTREMITIES: No pitting edema. NEURO EXAM: Withdrawals extremities to pain. Intermittently moans to pain. Opens eyes to pain. Non-verbal Medical Decision & Procedures ER Provider Diagnostic Interpretation: Xray results per the radiologist and my interpretation. CHEST 2 VIEWS ROUTINE CLINICAL HISTORY: Cough, seizure disorder. COMPARISON STUDY: 05/26/2016 FINDINGS: The study is limited from a technical standpoint. The patient was unable to follow commands.[ The heart is the upper limits of normal in size. A tracheostomy tube is again visualized. The study is rotated. There is resolving interstitial edema. There are minor left basilar airspace opacities, likely atelectatic although an inflammatory process could appear similar. IMPRESSION: Resolving interstitial edema. Minor left basilar airspace opacities. Electronically signed by: Andrew Gonzales M.D. 06/27/2016 5:12 PM Dictated Date/Time: 06/27/2016 5:11 PM Laboratory Results 06/28/16 00:41 Red Blood Count 4.29, Mean Corpuscular Volume 88.3, Mean Corpuscular Hemoglobin 31.7, Mean Corpuscular Hemoglobin Concent 35.9, Mean Platelet Volume 7.8, Neutrophils (%) (Auto) 64.2, Lymphocytes (%) (Auto) 21.7, Monocytes (%) (Auto) 11.8, Eosinophils (%) (Auto) 1.2, Basophils (%) (Auto) 0.4, Neutrophils # (Auto ) 3.63, Lymphocytes # (Auto) 1.23, Monocytes # (Auto) 0.67, Eosinophils # (Auto ) 0.07, Basophils # (Auto) 0.02 06/28/16 00:41 Test 06/28/16 00:22 06/28/16 00:31 06/28/16 00:37 06/28/16 00:41 Bedside Hemoglobin 12.9 g/dl (14.0-18.0) Bedside Hematocrit 38 % (42-52) Bedside Sodium 125 mEq/L (135-144) Bedside Potassium 4.1 mEq/L (3.3-5.0) Bedside Chloride 88 mEq/L (101-112) Bedside Total CO2 24 mEq/l (24-31) Bedside Blood Urea Nitrogen 6 mg/dl (7-18) Bedside Creatinine 0.6 mg/dl (0.6-1.3) Bedside Glucose (other) 91 mg/dl (70-99) Bedside Ionized Calcium (Maki) 1.09 mmol/l (1.12-1.32) Bedside Lactic Acid Venous 3.37 mmol/L (0.90-1.70) White Blood Count 5.66 K/uL (4.8-10.8) Red Blood Count 4.29 M/uL (4.7-6.1) Hemoglobin 13.6 g/dL (14.0-18.0) Hematocrit 37.9 % (42-52) Mean Corpuscular Volume 88.3 fL (80-100) Mean Corpuscular Hemoglobin 31.7 pg (25-34) Mean Corpuscular Hemoglobin Concent 35.9 g/dl (32-36) Platelet Count 157 K/uL (130-400) Mean Platelet Volume 7.8 fL (7.4-10.4) Neutrophils (%) (Auto) 64.2 % Lymphocytes (%) (Auto) 21.7 % Monocytes (%) (Auto) 11.8 % Eosinophils (%) (Auto) 1.2 % Basophils (%) (Auto) 0.4 % Neutrophils # (Auto) 3.63 K/uL (1.4-6.5) Lymphocytes # (Auto) 1.23 K/uL (1.2-3.4) Monocytes # (Auto) 0.67 K/uL (0.11-0.59) Eosinophils # (Auto) 0.07 K/uL (0-0.5) Basophils # (Auto) 0.02 K/uL (0-0.2) RDW Standard Deviation 41.3 fL (36.4-46.3) RDW Coefficient of Variation 12.8 % (11.5-14.5) Immature Granulocyte % (Auto) 0.7 % Immature Granulocyte # (Auto) 0.04 K/uL (0.00-0.02) Prothrombin Time 11.2 SECONDS (9.0-12.0) Prothromb Time International Ratio 1.0 (0.9-1.1) Anion Gap 11.0 mmol/L (3-11) Estimated GFR () 100.8 Estimated GFR (Non- 86.9 BUN/Creatinine Ratio 7.9 (10-20) Calcium Level 8.2 mg/dl (8.5-10.1) Magnesium Level 2.0 mg/dl (1.8-2.4) Total Bilirubin 0.2 mg/dl (0.2-1) Direct Bilirubin < 0.1 mg/dl (0-0.2) Aspartate Amino Transf (AST/SGOT) 9 U/L (15-37) Alanine Aminotransferase (ALT/SGPT) 16 U/L (12-78) Alkaline Phosphatase 99 U/L (45-117) Total Creatine Kinase 114 U/L (39-308) Creatine Kinase MB 3.4 ng/ml (0.5-3.6) Creatine Kinase MB Ratio 3.0 (0-3.0) Troponin I < 0.015 ng/ml (0-0.045) Total Protein 7.1 gm/dl (6.4-8.2) Albumin 3.5 gm/dl (3.4-5.0) Laboratory results per my review. Medications Administered Medications (Trade) Dose Ordered Sig/Piper Route Start Time Stop Time Status Last Admin Dose Admin Cefepime HCl/ Dextrose (Maxipime IV/D5 100ml) 111.3 ml @ 200 mls/hr NOW STAT IV 06/28/16 00:29 06/28/16 01:02 DC 06/28/16 01:39 200 MLS/HR Levofloxacin 750 mg 750 mg NOW STAT IV 06/28/16 00:29 06/28/16 00:30 DC 06/28/16 01:38 750 MG Sodium Chloride (Nss 1000ml) 1,000 ml @ 999 mls/hr Q1H1M STAT IV 06/28/16 00:33 06/28/16 01:33 DC 06/28/16 01:38 999 MLS/HR Acetaminophen 650 mg 650 mg NOW ONCE PEG 06/28/16 00:45 06/28/16 00:46 DC 06/28/16 01:39 650 MG Sodium Chloride (Nss 1000ml) 1,000 ml @ 999 mls/hr Q1H1M STAT IV 06/28/16 00:57 06/28/16 01:57 DC 06/28/16 01:38 999 MLS/HR ECG Indication: altered mental status Rate (beats per minute): 82 Rhythm: sinus rhythm Findings: no ectopy, other (Normal axis) ED Course ED COURSE: Vital signs were reviewed and showed tachycardia The patients medical record was reviewed The above diagnostic studies were performed and reviewed. ED treatments and interventions as stated above. 0015: The patient was evaluated in room B3. A complete history and physical examination was performed. 0029: Levofloxacin 750mg IV, Cefepime HCl 1000mg/ Dextrose 11.3ml @ 200mls/hr IV 0033: Sodium Chloride 1000 ml @ 999 mls/hr IV 0037: I updated the patient's family on the plan for treatment 0038: I discussed the patient's case with Dr. Hendrix. He is going to evaluate the patient for further treatment. 0045: Acetaminophen 650mg PEG 0057: Sodium Chloride 1000 ml @ 999 mls/hr IV 0115: I updated the patient's family, and the patient was coughing up faint blood tinged sputum. He was in no respiratory distress. I discussed my findings with the patient's family and they understand and agree with the treatment plan. Based on the patients age, coexisting illnesses, exam and lab findings the decision to treat as an inpatient was made. The patient remained stable while under my care. The patient will be evaluated for further management. Medical Decision Differential diagnosis includes etiologies such as sepsis, UTI, pneumonia, metabolic, electrolyte abnormalities, cardiac sources, intracerebral event, toxicologic, neurologic, as well as others were entertained. Patient is a 76-year-old male who is brought in via ALS from home for altered mental status associated with a productive cough and fevers. He is trached and has a PEG tube following a brain bleed 3 years ago. He has had a change in sputum sputum production has increased significantly over the past 24 hours. Chest x-ray done earlier today supports a pneumonia. His no significant leukocytosis. He does have a lactic acidosis at 3.3. His sodium from earlier showed was 124. Patient was given IV Levaquin and cefepime to cover for pneumonia. I discussed case with internal medicine. He was given a bolus normal saline. Blood cultures were obtained. Patient will be admitted to internal medicine for altered mental status with pneumonia on a trach collar with 5 L. Consults Time Called: 32 Consulting Physician: Dr. Hendrix Returned Call: 0038 I discussed the patient's case with Dr. Hendrix. He is going to evaluate the patient for further treatment Impression Primary Impression: Pneumonia Additional Impressions: Hyponatremia Lactic acid acidosis Scribe Attestation The scribe's documentation has been prepared under my direction and personally reviewed by me in its entirety. I confirm that the note above accurately reflects all work, treatment, procedures, and medical decision making performed by me. Departure Information Dispostion Being Evaluated By Hospitalist Referrals Joshua Rivera M.D. (PCP) Problem Qualifiers Primary Impression: Pneumonia Pneumonia type: due to unspecified organism Laterality: left Lung location : lower lobe of lung Qualified Codes: J18.1 - Lobar pneumonia, unspecified organism
[2016-06-28 01:15] LABS: ALKALINE PHOSPHATASE 99 U/L (45-117)
[2016-06-28] MEDS ORDERED: ACETAMINOPHEN 325 MG TAB PO PRN (01:30)
[2016-06-28] MEDS ORDERED: ALUMINUM/MAGNESIUM/SIMETH (MAALOX MAX) 30 ML UDC PO PRN (01:30)
[2016-06-28] MEDS ORDERED: POLYETHYLENE (MIRALAX) 17 GM PACK PO PRN (01:30)
[2016-06-28] MEDS ORDERED: ONDANSETRON INJ 2 MG/ML 2 ML VIAL IV PRN (01:30)
[2016-06-28] MEDS ORDERED: ALBUTEROL 0.083% NEBU SOLN 3 ML VIAL INH PRN (01:30)
[2016-06-28] MEDS ORDERED: MAGNESIUM HYDROXIDE SUSP 30 ML UDC PO PRN (01:30)
--- NOTE | 2016-06-28 01:44 | History and Physical ---
History & Physical Date & Time of Service: Jun 28, 2016 at 01:31 Chief Complaint: Altered Mental Status Primary Care Physician: Joshua Rivera M.D. 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 Pt has a PEG and trach as a result and is prone to aspiration. He was recently admitted and treated for a UTI. He tends to suffer from encephalopathic symptoms when he has an infection. The pt was transported to the ER at the behest of [facility] as he was noted to be increasingly lethargic, febrile and exhibiting a productive cough. He cannot provide any additional information due to his AMS and is minimally communicative at baseline per records. CXR is equivocal, however a fever and productive cough were confirmed in the ER so that he will be admitted for presumed aspiration PNM. He recently completed a course of Cipro following a UTI. Past Medical/Surgical History Medical Problems: (1) double hernia Status: Chronic (2) replaced acl left knee Status: Resolved (3) Seizure disorder Status: Chronic (4) Subdural hematoma Status: Chronic 5) Chronic aspiration 6) Tracheostomy 7) Hemiparalysis L 8) Hyponatremia 7) PEG tube Surgical Problems: (1) S/P tonsillectomy Status: Resolved Family History Patient reports no known family medical history. Social History Smoking Status: Never Smoker Drug Use: none Marital Status: Occupational Status: retired Immunizations History of Influenza Vaccine: Yes Influenza Vaccine Date: Mar 08, 2013 History of Tetanus Vaccine?: Unknown Tetanus Immunization Date: Apr 13, 1998 History of Pneumococcal: Unknown Pneumococcal Date: Feb 11, 2009 History of Hepatitis B Vaccine: No Multi-Drug Resistant Organisms History of MDRO: No Allergies Coded Allergies: Aspirin (Verified Allergy, Mild, 06/28/16) Penicillins (Verified Allergy, Mild, 06/28/16) Tetracycline (Verified Allergy, Unknown, UNKNOWN, 06/28/16) UNKNOWN, PT REPORTED ALLERGY Home Medications Scheduled Carbamazepine (Tegretol), 8 ML PEG QID Enteral Nutrition Formula (Jevity 1.5 Jermaine), 8 OZ PEG QAM Lamotrigine (Lamictal), 100 MG PEG BID Lansoprazole (Prevacid Solutab), 30 MG PEG BID Levetiracetam (Keppra), 400 MG PEG BID Scheduled PRN Acetaminophen (Tylenol Children's Susp), 20 ML PEG Q4H PRN for Pain Albuterol Sulf (Albuterol Sulfate), 3 ML NEB Q4 PRN for Wheezing Magnesium Hydroxide (Milk Of Magnesia), 30 ML PEG DAILY PRN for Cough Review of Systems CAnnot obtain - minimally communicative - fever, cough, AMS as above Physical Exam Vital Signs Date Time Temp Pulse Resp B/P Pulse Ox O2 Delivery O2 Flow Rate FiO2 06/28/16 01:11 37.6 81 22 108/83 95 Room Air 06/28/16 00:23 81 General Appearance: + pertinent finding (Somnolent elderly male - coughing frequently) Head: normocephalic, atraumatic Eyes: + pertinent finding (will not open eyes or mouth) ENT: normal ENT inspection Neck: no JVD, + pertinent finding (pt is stiff - exam limited) Respiratory/Chest: + decreased breath sounds, + pertinent finding (COarse b/l breath sounds - exam is limited due to poor effirt and coughing) Cardiovascular: regular rate, rhythm, no edema, no gallop Abdomen/GI: normal bowel sounds, non tender, soft Back: normal inspection, no CVA tenderness Extremities/Musculoskelatal: + pertinent finding (COntractures in upper extrems - trace edema) Neurologic/Psych: + pertinent finding (Averbal , somnolent - movong R side only - chronic hemiparalysis) Skin: normal color, warm/dry, no rash Diagnostics Laboratory Results Results Past 24 Hours Test 06/28/16 00:22 06/28/16 00:31 06/28/16 00:37 06/28/16 00:41 Range/Units Bedside Hemoglobin 12.9 14.0-18.0 g/dl Bedside Hematocrit 38 42-52 % Bedside Sodium 125 135-144 mEq/L Bedside Potassium 4.1 3.3-5.0 mEq/L Bedside Chloride 88 101-112 mEq/L Bedside Total CO2 24 24-31 mEq/l Anion Gap 17.0 11.0 3-11 mmol/L Bedside Blood Urea Nitrogen 6 7-18 mg/dl Bedside Creatinine 0.6 0.6-1.3 mg/dl Bedside Glucose (other) 91 70-99 mg/dl Bedside Ionized Calcium (Maki) 1.09 1.12-1.32 mmol/l Bedside Lactic Acid Venous 3.37 0.90-1.70 mmol/L White Blood Count 5.66 4.8-10.8 K/uL Red Blood Count 4.29 4.7-6.1 M/uL Hemoglobin 13.6 14.0-18.0 g/dL Hematocrit 37.9 42-52 % Mean Corpuscular Volume 88.3 80-100 fL Mean Corpuscular Hemoglobin 31.7 25-34 pg Mean Corpuscular Hemoglobin Concent 35.9 32-36 g/dl Platelet Count 157 130-400 K/uL Mean Platelet Volume 7.8 7.4-10.4 fL Neutrophils (%) (Auto) 64.2 % Lymphocytes (%) (Auto) 21.7 % Monocytes (%) (Auto) 11.8 % Eosinophils (%) (Auto) 1.2 % Basophils (%) (Auto) 0.4 % Neutrophils # (Auto) 3.63 1.4-6.5 K/uL Lymphocytes # (Auto) 1.23 1.2-3.4 K/uL Monocytes # (Auto) 0.67 0.11-0.59 K/uL Eosinophils # (Auto) 0.07 0-0.5 K/uL Basophils # (Auto) 0.02 0-0.2 K/uL RDW Standard Deviation 41.3 36.4-46.3 fL RDW Coefficient of Variation 12.8 11.5-14.5 % Immature Granulocyte % (Auto) 0.7 % Immature Granulocyte # (Auto) 0.04 0.00-0.02 K/uL Prothrombin Time 11.2 9.0-12.0 SECONDS Prothromb Time International Ratio 1.0 0.9-1.1 Sodium Level 128 136-145 mmol/L Potassium Level 4.2 3.5-5.1 mmol/L Chloride Level 91 98-107 mmol/L Carbon Dioxide Level 26 21-32 mmol/L Blood Urea Nitrogen 6 7-18 mg/dl Creatinine 0.81 0.60-1.40 mg/dl Estimated GFR () 100.8 Estimated GFR (Non- 86.9 BUN/Creatinine Ratio 7.9 10-20 Random Glucose 83 70-99 mg/dl Calcium Level 8.2 8.5-10.1 mg/dl Magnesium Level 2.0 1.8-2.4 mg/dl Total Bilirubin 0.2 0.2-1 mg/dl Direct Bilirubin < 0.1 0-0.2 mg/dl Aspartate Amino Transf (AST/SGOT) 9 15-37 U/L Alanine Aminotransferase (ALT/SGPT) 16 12-78 U/L Alkaline Phosphatase 99 45-117 U/L Total Creatine Kinase 114 39-308 U/L Creatine Kinase MB 3.4 0.5-3.6 ng/ml Creatine Kinase MB Ratio 3.0 0-3.0 Troponin I < 0.015 0-0.045 ng/ml Total Protein 7.1 6.4-8.2 gm/dl Albumin 3.5 3.4-5.0 gm/dl Microbiology Results 06/28/16 Blood Culture, Received Pending 06/28/16 Blood Culture, Received Pending Diagnostic Radiology IMPRESSION: Resolving interstitial edema. Minor left basilar airspace opacities. 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 Pt has a PEG and trach as a result and is prone to aspiration. He was recently admitted and treated for a UTI. He tends to suffer from encephalopathic symptoms when he has an infection. The pt was transported to the ER at the [facility] as he was noted to be increasingly lethargic, febrile and exhibiting a productive cough. He cannot provide any additional information due to his AMS and is minimally communicative at baseline per records. CXR is equivocal, however a fever and productive cough were confirmed in the ER so that he will be admitted for presumed aspiration PNM. He recently completed a course of Cipro following a UTI. 1) Aspiration PNM w/encephalopathy - recently hospitalized so will treat fro HCAP in addition to aspiration - Vanc, Levaquin, Cefepime - ID consult, sputum culture - Duonebs and PRN albuterol - 02 protocol 2) Seizures - per records this manifests as facial twitching - Cont Tegretol, Lamotrigine, Keppra 3) Hypona - chronic - IVF provided - trend BMP 4) Hemiparalysis - care-dependent - looked after by daughter and home aids Full code - Heparin prophylaxis Total time for this admit including review of labs, recent records, imaging, med rec - discussion with family and ER attending Level of Care Telemetry Resuscitation Status FULL RESUSCITATION VTE Prophylaxis VTE Risk Assessment Done? Y/N: Yes Risk Level: Moderate Given or contraindicated: Unfractionated heparin SQ
[2016-06-28] MEDS: ALBUT/IPRATROP 3MG/0.5MG NEB 3 ML VIAL INH SCH ×4 (03:18→19:29)
[2016-06-28] MEDS ORDERED: NURSING VERBAL MED ORDER ONE (03:45)
[2016-06-28] MEDS ORDERED: CEFEPIME CONSULT ACTIVE PRN ×2 (03:45)
[2016-06-28] MEDS ORDERED: VANCOMYCIN CONSULT ACTIVE PRN (03:45)
[2016-06-28] MEDS ORDERED: LEVOFLOXACIN CONSULT ACTIVE PRN (03:45)
[2016-06-28] MEDS: D5W AND NSS 1,000 ML IV SCH ×2 (03:49→15:46)
[2016-06-28] MEDS ORDERED: VANCOMYCIN INJ 2,000 MG in SODIUM CHLORIDE 0.9% 500ML 500 ML IV ONE (04:00)
[2016-06-28] MEDS: HEPARIN SOD 5000 UNIT/0.5 ML CARP SQ SCH ×3 (06:10→20:52)
[2016-06-28 06:19] LABS: HEMATOCRIT 37.9 % (42-52); MEAN CELL VOLUME 91.3 fL (80-100); MEAN CORPUSCULAR HGB CONC 35.1 g/dl (32-36); MEAN PLATELET VOLUME 7.9 fL (7.4-10.4); PLATELET COUNT 141 K/uL (130-400); RED BLOOD COUNT 4.15 M/uL (4.7-6.1); WHITE BLOOD COUNT 7.03 K/uL (4.8-10.8)
[2016-06-28 06:38] LABS: BUN/CREATININE RATIO 7.1 (10-20); CALCIUM 7.8 mg/dl (8.5-10.1); CREATININE 0.74 mg/dl (0.60-1.40); MAGNESIUM 1.8 mg/dl (1.8-2.4); POTASSIUM 4.4 mmol/L (3.5-5.1)
[2016-06-28] MEDS: CARBAMAZEPINE 100 MG/5 ML PEG SCH ×4 (06:43→20:49)
[2016-06-28] MEDS ORDERED: CARBAMAZEPINE 100 MG/5 ML PEG SCH ×2 (07:00→09:00)
[2016-06-28] MEDS: LEVETIRACETAM ORAL SOLN 100MG/ML PEG SCH ×2 (08:38→20:51)
[2016-06-28] MEDS: LANSOPRAZOLE SOLUTAB 30 MG PEG SCH ×2 (08:38→20:49)
[2016-06-28] MEDS ORDERED: ACETAMINOPHEN SOLN 650MG/20.3 ML UDC PEG PRN (08:45)
[2016-06-28] MEDS ORDERED: FIBERSOURCE HN 1000ML BAG PEG SCH ×4 (09:00)
--- NOTE | 2016-06-28 09:16 | Progress Note ---
Subjective Date of Service: Jun 28, 2016. Subjective Pt evaluation today including: conversation w/ family, physical exam, chart review, lab review, review of studies, review of inpatient medication list Minimally responsive. at bedside. Currently off tube feeds. Trach on. Incontinent of urine. Problem List Medical Problems: (1) Altered mental status Status: Acute (2) Anemia Status: Acute (3) Bronchitis, acute Status: Acute (4) Change in mental status Status: Acute (5) Cough Status: Acute (6) Hyponatremia Status: Acute (7) Lactic acid acidosis Status: Acute (8) Pneumonia Status: Acute Review of Systems Unable to obtain due to medical condition Medications Acetaminophen (Tylenol Soln) 650 mg Q4H PRN PEG Last administered on 06/28/16 08:38; Admin Dose 650 MG; Start 06/28/16 at 08:45; Stop 07/28/16 at 08:44 Al Hydrox/Mg Hydrox/Simethicone (Maalox Max Susp) 15 ml Q4H PRN PO; Start at 01:30; Stop 07/28/16 at 01:29 Albuterol Sulfate (Ventolin 0.083% 2.5MG/3ML Neb) 2.5 mg Q4H PRN INH; Start 06/28/16 at 01:30; Stop 07/28/16 at 01:29 Albuterol/ Ipratropium (Duoneb) 3 ml Q6R INH Last administered on 06/28/16 07:33 ; Admin Dose 3 ML; Start 06/28/16 at 09:00; Stop 07/28/16 at 08:59 Carbamazepine (Carbamazepine) 160 mg QID@0700,1200,1700,2200 PEG Last administered on 06/28/16 06:43; Admin Dose 160 MG; Start 06/28/16 at 07:00; Stop 07/28/16 at 06:59 Cefepime HCl (Consult) 1 ea UD PRN N/A; Start 06/28/16 at 03:45; Stop 07/28/16 at 03:44 Cefepime HCl 1000 mg/Dextrose 111.3 ml @ 200 mls/hr Q8H IV; Start 06/28/16 at 10 :00; Stop 07/05/16 at 01:59 Dextrose/Sodium Chloride (D5W And Nss) 1,000 ml @ 125 mls/hr Q8H IV Last administered on 06/28/16 03:49; Admin Dose 125 MLS/HR; Start 06/28/16 at 02:00; Stop 06/28/16 at 17:59 Enteral Nutritional Formula (Fibersource HN) 0.2667 ml TID PEG; Start 06/28/16 at 09:00; Stop 07/28/16 at 08:59; Status UNV Heparin Sodium (Porcine) (Heparin Sq 5000 Unit/0.5ml) 5,000 unit Q8H SQ Last administered on 06/28/16 06:10; Admin Dose 5,000 UNIT; Start 06/28/16 at 06:00; Stop 07/28/16 at 05:59 Lamotrigine (Lamictal Tab) 100 mg BID PO Last administered on 06/28/16 08:38; Admin Dose 100 MG; Start 06/28/16 at 09:00; Stop 07/28/16 at 08:59 Lansoprazole (Prevacid Solutab) 30 mg BID PEG Last administered on 06/28/16 08: 38; Admin Dose 30 MG; Start 06/28/16 at 09:00; Stop 07/28/16 at 08:59 Levetiracetam 400 mg 400 mg BID PEG Last administered on 06/28/16 08:38; Admin Dose 400 MG; Start 06/28/16 at 09:00; Stop 07/28/16 at 08:59 Levofloxacin (Consult) 1 ea UD PRN N/A; Start 06/28/16 at 03:45; Stop 07/28/16 at 03:44 Levofloxacin/Prmx (Levaquin / D5W/ Premixed D5W) 150 ml @ 100 mls/hr Q24H IV; Start 06/29/16 at 00:00; Stop 07/05/16 at 00:00 Magnesium Hydroxide (Milk Of Magnesia Susp) 30 ml Q12H PRN PO; Start 06/28/16 at 01:30; Stop 07/28/16 at 01:29 Ondansetron HCl (Zofran Inj) 4 mg Q6H PRN IV; Start 06/28/16 at 01:30; Stop at 01:29 Polyethylene (Miralax Powder Packet) 17 gm DAILY PRN PO; Start 06/28/16 at 01:30 ; Stop 07/28/16 at 01:29 Vancomycin HCl (Consult) 1 ea UD PRN N/A; Start 06/28/16 at 03:45; Stop at 03:44 Objective Vital Signs Date Time Temp Pulse Resp B/P Pulse Ox O2 Delivery O2 Flow Rate FiO2 06/28/16 07:34 111 20 90 Trach Collar 40 06/28/16 04:03 36.5 87 18 115/67 94 Humidified Oxygen 11.0 Trach Collar 06/28/16 04:00 94 Trach Collar 40 06/28/16 03:15 97 20 94 Trach Collar 40 06/28/16 02:30 36.8 96 27 105/83 96 40 06/28/16 02:30 36.8 96 27 105/83 06/28/16 02:11 101 22 108/83 94 06/28/16 01:11 37.6 81 22 108/83 95 Room Air 06/28/16 00:23 81 Physical Exam Comments: Minimally responsive Left-side hemiparesis, non-verbal, trach in place S1 S2 tachycardic, no murmurs appreciated, difficult to fully assess with coarse breath sounds coarse breath sounds, +rales and rhonchi, no wheezing abd soft, PEG in place, TF off no LE edema Laboratory Results Last 24 Hours Test 06/28/16 00:31 06/28/16 00:37 06/28/16 00:41 06/28/16 06:08 Bedside Hemoglobin 12.9 g/dl Bedside Hematocrit 38 % Bedside Sodium 125 mEq/L Bedside Potassium 4.1 mEq/L Bedside Chloride 88 mEq/L Bedside Total CO2 24 mEq/l Anion Gap 17.0 mmol/L 11.0 mmol/L 8.0 mmol/L Bedside Blood Urea Nitrogen 6 mg/dl Bedside Creatinine 0.6 mg/dl Bedside Glucose (other) 91 mg/dl Bedside Ionized Calcium (Maki) 1.09 mmol/l Bedside Lactic Acid Venous 3.37 mmol/L White Blood Count 5.66 K/uL 7.03 K/uL Red Blood Count 4.29 M/uL 4.15 M/uL Hemoglobin 13.6 g/dL 13.3 g/dL Hematocrit 37.9 % 37.9 % Mean Corpuscular Volume 88.3 fL 91.3 fL Mean Corpuscular Hemoglobin 31.7 pg 32.0 pg Mean Corpuscular Hemoglobin Concent 35.9 g/dl 35.1 g/dl Platelet Count 157 K/uL 141 K/uL Mean Platelet Volume 7.8 fL 7.9 fL Neutrophils (%) (Auto) 64.2 % Lymphocytes (%) (Auto) 21.7 % Monocytes (%) (Auto) 11.8 % Eosinophils (%) (Auto) 1.2 % Basophils (%) (Auto) 0.4 % Neutrophils # (Auto) 3.63 K/uL Lymphocytes # (Auto) 1.23 K/uL Monocytes # (Auto) 0.67 K/uL Eosinophils # (Auto) 0.07 K/uL Basophils # (Auto) 0.02 K/uL RDW Standard Deviation 41.3 fL 43.3 fL RDW Coefficient of Variation 12.8 % 13.0 % Immature Granulocyte % (Auto) 0.7 % Immature Granulocyte # (Auto) 0.04 K/uL Prothrombin Time 11.2 SECONDS Prothromb Time International Ratio 1.0 Sodium Level 128 mmol/L 134 mmol/L Potassium Level 4.2 mmol/L 4.4 mmol/L Chloride Level 91 mmol/L 100 mmol/L Carbon Dioxide Level 26 mmol/L 26 mmol/L Blood Urea Nitrogen 6 mg/dl 5 mg/dl Creatinine 0.81 mg/dl 0.74 mg/dl Estimated GFR () 100.8 104.6 Estimated GFR (Non- 86.9 90.2 BUN/Creatinine Ratio 7.9 7.1 Random Glucose 83 mg/dl 83 mg/dl Calcium Level 8.2 mg/dl 7.8 mg/dl Magnesium Level 2.0 mg/dl 1.8 mg/dl Total Bilirubin 0.2 mg/dl Direct Bilirubin < 0.1 mg/dl Aspartate Amino Transf (AST/SGOT) 9 U/L Alanine Aminotransferase (ALT/SGPT) 16 U/L Alkaline Phosphatase 99 U/L Total Creatine Kinase 114 U/L Creatine Kinase MB 3.4 ng/ml Creatine Kinase MB Ratio 3.0 Troponin I < 0.015 ng/ml Total Protein 7.1 gm/dl Albumin 3.5 gm/dl Est Creatinine Clear Calc Drug Dose 77.8 ml/min Lactic Acid Level 2.8 mmol/L Assessment and Plan 76 yo M with 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 L base pneumonia/pneumonitis - with metabolic encephalopathy - known to aspirate, does admit to feeding him orally - on broad spectrum abx with vanco, levaquin, cefepime - ID consulted - swallow evaluation - sputum cx, bcx, ucx pending 2. Chronic respiratory failure - s/p trach - adequate oxygenation 3. Hyponatremia - likely decreased enteral feeds with volume depletion - improved with IVF - would be cautious with correcting it above 134-135 4. SDH - sz ppx with keppra and lamictal and carbamezepine
[2016-06-28] MEDS ORDERED: CEFEPIME IV 1,000 MG in DEXTROSE 5% 100ML 100 ML IV SCH (10:00)
--- NOTE | 2016-06-28 10:32 | Pharmacy Progress Note ---
Pharmacy Antibiotic Consult Date of Service: Jun 28, 2016. Pharmacy Dosing Scope Pharmacy is consulted to initiate VANCOMYCIN, LEVOFLOXACIN, and CEFEPIME IV therapy, order appropriate labs and adjust drug dose/frequency. Subjective The patient is a 76 year old male admitted on Jun 28, 2016 at 01:31 for fever, cough, lethargy, suspected infection secondary to aspiration PNX / HCAP, possible UTI Objective Height (Feet): 5 Height (Inches): 6.00 Weight (Kilograms): 71.000 Lab Results (24hrs): Laboratory Tests Test 06/28/16 00:41 06/28/16 06:08 BUN/Creatinine Ratio 7.9 7.1 Blood Urea Nitrogen 6 mg/dl 5 mg/dl Creatinine 0.81 mg/dl 0.74 mg/dl White Blood Count 5.66 K/uL 7.03 K/uL Red Blood Count 4.29 M/uL Hemoglobin 13.6 g/dL Hematocrit 37.9 % Mean Corpuscular Volume 88.3 fL Mean Corpuscular Hemoglobin 31.7 pg Mean Corpuscular Hemoglobin Concent 35.9 g/dl Platelet Count 157 K/uL Mean Platelet Volume 7.8 fL Neutrophils (%) (Auto) 64.2 % Lymphocytes (%) (Auto) 21.7 % Monocytes (%) (Auto) 11.8 % Eosinophils (%) (Auto) 1.2 % Basophils (%) (Auto) 0.4 % Neutrophils # (Auto) 3.63 K/uL Lymphocytes # (Auto) 1.23 K/uL Monocytes # (Auto) 0.67 K/uL Eosinophils # (Auto) 0.07 K/uL Basophils # (Auto) 0.02 K/uL Micro Results: 06/28/16: negative MRSA nasal swab; sputum and BLCX's pending Recent Pertinent Medications Vancomycin 2gm IV x 1 @0429 Levofloxacin 750mg IV x1 @0138 Cefepime 1gm IV x 1 @0139 Assessment & Plan * 76 yo male admitted with lethargy, fever, cough, encephalopathy, suspected aspiration PNX / HCAP (recent hospitalization and ABX therapy for UTI) * PMH of SDH, L hemiparesis, L vocal cord paresis, chronic aspiration, PEG and trach * Past admissions reviewed, 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 - would not recommend deescalation of Vanco based on nasal swab * Currently febrile, mildly tachycardic, not hypotensive; LA trending down (3.37 -->2.8) * Renally dosing ABX based upon eCrCl of ~75-80cc/min; which can be difficult to estimate given h/o neuromuscular dz VANCOMYCIN * Given 2gm x 1 as a load earlier (based upon wt of 80kg); load should have produced a peak of ~40 * Maintenance dose: 1000mg (~14mg/kg current wt of 71kg) Q 12 hrs * Goal trough = 15-20mcg/mL for pulm infxn * Will check trough w/ 4th maintenance dose LEVOFLOXACIN * 750mg IV Q 24 hrs indicated for eCrCl > 50cc/min * QTc 436 CEFEPIME * Will increase dose to 2gm IV Q 8 hrs given h/o ps aeruginosa in sputum in the past and risk factors for HCAP; dose reduction not required unless CrCl < 60cc/ min Pharmacy will continue to follow and will adjust dose/frequency as necessary. Thank you
[2016-06-28] MEDS: FIBERSOURCE HN 1000ML BAG PEG SCH ×2 (10:51)
--- NOTE | 2016-06-28 10:52 | Progress Note ---
Progress Note Date of Service Jun 28, 2016. Progress Note ID Consult Dictated #[id number] A/P: 1. Aspiration Pna vs pneumonitis 2. Fever -Continue broad spectrum abx for now, await results of blood and sputum cultures -Continue supportive care -HOB at 30 degrees -Will follow, thank you
[2016-06-28 11:08] LABS: URINE APPEARANCE CLEAR (CLEAR); URINE BILIRUBIN NEG (NEG); URINE COLOR YELLOW; URINE NITRITE NEG (NEG); URINE SPECIFIC GRAVITY 1.011 (1.000-1.030); UROBILINOGEN NEG (NEG); ZZURINE CULT IF INDIC CATH NO
[2016-06-28 11:13] LABS: MANUAL MICROSCOPIC REQUIRED? NO; REVIEW REQ? NO
--- NOTE | 2016-06-28 11:29 | INFECT. DISEASE CONSULTATION ---
DATE OF CONSULTATION: 06/28/2016 REQUESTING PHYSICIAN: Dr. Hendrix. HISTORY OF PRESENT ILLNESS: This is a 76-year-old gentleman who was admitted from home yesterday after he had worsening productive cough per his . He has been unresponsive more recently and is unable to provide any review of systems. His is at the bedside and provides his history. 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 He does have PEG and trach. She states he is normally on room air at home and now is on supplemental oxygen. He has been tolerating his tube feeds at home. She does not know of any recent aspiration. He did have a chest x-ray which showed minimal left lower lobe opacities. He did have fevers at home as well. His T-max since his admission is 37.6. He was placed on broad spectrum antibiotics consisting of Levaquin, cefepime and vancomycin. He is tolerating these well. Sputum and blood cultures were obtained and are pending. His white blood cell count is normal at 7.0. He recently was admitted and treated for an enterococcal UTI. He has not been on any antibiotics recently. His does admit to productive yellow sputum from the trach which is abnormal for him. She denies any bleeding. All remaining review of systems is limited but negative. PAST MEDICAL HISTORY: Significant for hernia, seizure disorder, subdural hematoma. PAST SURGICAL HISTORY: Significant for ACL repair of the left knee, PEG and trach, and tonsillectomy. FAMILY HISTORY: Noncontributory. SOCIAL HISTORY: Negative for tobacco use, alcohol use or drug use. He does live at home with his who is his primary caregiver. ALLERGIES: HE HAS ALLERGIES TO ASPIRIN, PENICILLIN AND TETRACYCLINES. CURRENT MEDICATIONS: Include levofloxacin, vancomycin, cefepime, tube feeds, DuoNeb, Lamictal, Prevacid, Keppra, Tylenol, carbamazepine, subcu heparin, Maalox, milk of magnesia, Zofran, MiraLax and albuterol. PHYSICAL EXAMINATION: VITAL SIGNS: Temperature this morning is recorded at 38.1, T-max is 39.2 at 9:00 this morning, pulse 112, respiratory rate is 24, blood pressure is 119/66, oxygen saturation is 95% on 50% trach collar. He is unresponsive. HEENT: Mucous membranes are moist. Trach is clean, dry and intact. HEART: Regular. LUNGS: Coarse bilaterally. ABDOMEN: Nondistended. There is no edema. EXTREMITIES: Contracted. LABORATORY STUDIES: CBC today reveals a white blood cell count of 7.2, hemoglobin 13.3, hematocrit 37.9 and platelets are 141. Chemistry panel reveals a sodium of 134, potassium 4.4, chloride 100, bicarbonate 26, BUN 5, creatinine 0.7, glucose is 83. LFTs are within normal limits. Lactic acid is 2.8. Sputum and blood cultures are pending. Chest x-ray is as above. ASSESSMENT AND PLAN: Likely aspiration pneumonia versus pneumonitis. For now, he can remain on empiric antibiotics, especially with increasing fevers. It is unclear if his fever is related to infection or neurologic condition with history of subdural hemorrhage; however, it appears he has been afebrile recently at home. He will remain on broad spectrum antibiotics pending additional culture data. Thank you for this consultation.
[2016-06-28] MEDS: VANCOMYCIN INJ 1,000 MG in SODIUM CHLORIDE 0.9% 250ML 250 ML IV SCH (17:19)
[2016-06-28] MEDS: CEFEPIME IV 2000 MG in DEXTROSE 5% 100ML IV SCH (17:19)
[2016-06-29] VITALS (9 sets, daily range): BP systolic 115–136; BP diastolic 61–77; PULSE 64–79; TEMP 36.3–37.4; O2SAT 93–97
[2016-06-29] MEDS: LEVOFLOXACIN / D5W 750 MG in PREMIXED IN D5W 150 ML IV SCH (00:41)
[2016-06-29] MEDS: ALBUT/IPRATROP 3MG/0.5MG NEB 3 ML VIAL INH SCH ×3 (01:50→20:19)
[2016-06-29] MEDS: CEFEPIME IV 2000 MG in DEXTROSE 5% 100ML IV SCH ×3 (02:00→17:49)
[2016-06-29] MEDS: VANCOMYCIN INJ 1,000 MG in SODIUM CHLORIDE 0.9% 250ML 250 ML IV SCH ×2 (06:08→17:49)
[2016-06-29] MEDS: HEPARIN SOD 5000 UNIT/0.5 ML CARP SQ SCH ×3 (06:11→22:20)
[2016-06-29 06:30] LABS: CREATININE 0.66 mg/dl (0.60-1.40)
[2016-06-29] MEDS: CARBAMAZEPINE 100 MG/5 ML PEG SCH ×4 (07:25→21:38)
[2016-06-29] MEDS: LANSOPRAZOLE SOLUTAB 30 MG PEG SCH ×2 (07:26→21:56)
[2016-06-29] MEDS: LEVETIRACETAM ORAL SOLN 100MG/ML PEG SCH ×2 (07:26→21:39)
--- NOTE | 2016-06-29 08:46 | Clinical Documentation Query ---
JORGE ALBERTO Springer : CLINICAL DOCUMENTATION QUERY Patient is a 76 year old male presenting for the evaluation and treatment of lethargy, fever, and a productive cough. Documentation includes "Aspiration PNM". Although implicit to this junior copywriter, this is not a hospital approved abbreviation. Please clarify accordingly. Thank you. In your clinical opinion is this patient being managed for: ( x ) Aspiration pneumonia ( ) Other explanation of clinical findings (Please Explain) ( ) Unable to determine (Please Define) ( ) Need to Discuss ( ) Not Agree The medical record reflects the following clinical findings, treatment, and risk factors. Clinical Indicators: As above Treatment: Vancomycin, Levaquin, Cefepime, ID consultation, culture, nebs. Risk Factors: Known aspiration risk. Please clarify and document your clinical opinion in the progress notes and discharge summary. Terms such as "probable", "suspected", "likely", "questionable", "possible", or "still to be ruled out" are acceptable. IF IN AGREEMENT, YOU MUST DOCUMENT ABOVE DIAGNOSTIC STATEMENT IN DAILY PROGRESS NOTES AND DISCHARGE SUMMARY. This document is not part of the patient's record. Thank You, Corey Alexander, RN [phone]
--- NOTE | 2016-06-29 10:23 | Progress Note ---
Subjective Date of Service: Jun 29, 2016. Subjective Tmas 38 noon yesterday, afebrile overnight. Heart rate now wnl. More awake per at bedside. Problem List Medical Problems: (1) Altered mental status Status: Acute (2) Anemia Status: Acute (3) Bronchitis, acute Status: Acute (4) Change in mental status Status: Acute (5) Cough Status: Acute (6) Hyponatremia Status: Acute (7) Lactic acid acidosis Status: Acute (8) Pneumonia Status: Acute Review of Systems All Other Systems: Reviewed and Negative Medications Acetaminophen (Tylenol Soln) 650 mg Q4H PRN PEG Last administered on 06/28/16 08:38; Admin Dose 650 MG; Start 06/28/16 at 08:45; Stop 07/28/16 at 08:44 Al Hydrox/Mg Hydrox/Simethicone (Maalox Max Susp) 15 ml Q4H PRN PO; Start at 01:30; Stop 07/28/16 at 01:29 Albuterol Sulfate (Ventolin 0.083% 2.5MG/3ML Neb) 2.5 mg Q4H PRN INH; Start 06/28/16 at 01:30; Stop 07/28/16 at 01:29 Albuterol/ Ipratropium (Duoneb) 3 ml Q6R INH Last administered on 06/29/16 07:15 ; Admin Dose 3 ML; Start 06/28/16 at 09:00; Stop 07/28/16 at 08:59 Carbamazepine (Carbamazepine) 160 mg QID@0700,1200,1700,2200 PEG Last administered on 06/29/16 07:25; Admin Dose 160 MG; Start 06/28/16 at 07:00; Stop 07/28/16 at 06:59 Cefepime HCl (Consult) 1 ea UD PRN N/A; Start 06/28/16 at 03:45; Stop 07/28/16 at 03:44 Cefepime HCl/ Dextrose (Maxipime IV/D5 100ml) 112.5 ml @ 225 mls/hr Q8H IV Last administered on 06/29/16 08:54; Admin Dose 225 MLS/HR; Start 06/28/16 at 18: 00; Stop 07/05/16 at 17:59 Enteral Nutritional Formula 1000 ml 1,000 ml CONTINUOUS PEG Last administered on 06/28/16 10:51; Admin Dose 1,000 ML; Start 06/28/16 at 10:00; Stop 07/28/16 at 09:59 Heparin Sodium (Porcine) (Heparin Sq 5000 Unit/0.5ml) 5,000 unit Q8H SQ Last administered on 06/29/16 06:11; Admin Dose 5,000 UNIT; Start 06/28/16 at 06:00; Stop 07/28/16 at 05:59 Lamotrigine (Lamictal Tab) 100 mg BID PO Last administered on 06/29/16 07:25; Admin Dose 100 MG; Start 06/28/16 at 09:00; Stop 07/28/16 at 08:59 Lansoprazole (Prevacid Solutab) 30 mg BID PEG Last administered on 06/29/16 07: 26; Admin Dose 30 MG; Start 06/28/16 at 09:00; Stop 07/28/16 at 08:59 Levetiracetam (Keppra Soln) 400 mg BID PEG Last administered on 06/29/16 07:26; Admin Dose 400 MG; Start 06/28/16 at 09:00; Stop 07/28/16 at 08:59 Levofloxacin (Consult) 1 ea UD PRN N/A; Start 06/28/16 at 03:45; Stop 07/28/16 at 03:44 Levofloxacin/Prmx (Levaquin / D5W/ Premixed D5W) 150 ml @ 100 mls/hr Q24H IV Last administered on 06/29/16 00:41; Admin Dose 100 MLS/HR; Start 06/29/16 at 00: 00; Stop 07/05/16 at 00:00 Magnesium Hydroxide (Milk Of Magnesia Susp) 30 ml Q12H PRN PO; Start 06/28/16 at 01:30; Stop 07/28/16 at 01:29 Ondansetron HCl (Zofran Inj) 4 mg Q6H PRN IV; Start 06/28/16 at 01:30; Stop at 01:29 Polyethylene (Miralax Powder Packet) 17 gm DAILY PRN PO; Start 06/28/16 at 01:30 ; Stop 07/28/16 at 01:29 Vancomycin HCl (Consult) 1 ea UD PRN N/A; Start 06/28/16 at 03:45; Stop at 03:44 Vancomycin HCl 1000 mg/Sodium Chloride 270 ml @ 125 mls/hr Q12@06,18 IV Last administered on 06/29/16t 06:08; Admin Dose 125 MLS/HR; Start 06/28/16 at 18:00; Stop 07/05/16 at 17:59 Objective Vital Signs Date Time Temp Pulse Resp B/P Pulse Ox O2 Delivery O2 Flow Rate FiO2 06/29/16 08:00 Humidified Oxygen 35 06/29/16 08:00 37.3 72 18 121/65 97 Humidified Oxygen 35 Trach Collar 06/29/16 07:15 66 20 95 Trach Collar 35 06/29/16 04:00 95 Humidified Oxygen 35 Trach Collar 06/29/16 04:00 37.4 73 20 128/74 94 Humidified Oxygen 11.0 Trach Collar 06/29/16 01:50 75 20 95 Trach Collar 35 06/28/16 23:59 95 Humidified Oxygen 35 Trach Collar 06/28/16 23:20 37.3 76 18 131/76 96 Humidified Oxygen 11.0 Trach Collar 06/28/16 20:00 94 Humidified Oxygen 35 06/28/16 20:00 37.1 72 20 124/75 96 35 06/28/16 19:33 73 20 93 Trach Collar 35 06/28/16 16:00 37.5 78 18 103/59 97 35 06/28/16 16:00 Humidified Oxygen 35 06/28/16 14:35 36.8 06/28/16 14:11 78 20 96 Trach Collar 50 06/28/16 12:00 Humidified Oxygen 50 06/28/16 12:00 38.1 94 24 104/68 96 50 06/28/16 10:23 38.1 Physical Exam Comments: On trach collar, able to open eyes slightly s1 s2 rrr coarse breath sounds, no wheezing abd soft, PEG in place, +BS no LE edema unable to fully assess neuro status Laboratory Results Last 24 Hours Test 06/28/16 10:45 06/29/16 05:25 Urine Color YELLOW Urine Appearance CLEAR Urine pH 8.0 Urine Specific Elbert 1.011 Urine Protein NEG Urine Glucose (UA) NEG Urine Ketones NEG Urine Occult Blood NEG Urine Nitrite NEG Urine Bilirubin NEG Urine Urobilinogen NEG Urine Leukocyte Esterase NEG Urine WBC (Auto) 1-5 /hpf Urine RBC (Auto) 0-4 /hpf Urine Hyaline Casts (Auto) 1-5 /lpf Urine Epithelial Cells (Auto) 10-20 /lpf Urine Bacteria (Auto) NEG Creatinine 0.66 mg/dl Est Creatinine Clear Calc Drug Dose 87.3 ml/min Estimated GFR () 109.6 Estimated GFR (Non- 94.6 SPEC #: [id number] MANNIE: 06/28/16-UNK STATUS: RES REQ #: [id number] RECD: 06/28/16 [facility] DR: Valdemar Hendrix MD SOURCE: SPUTUM ENTR: 06/28/16 [facility] DR: Joshua Rivera M.D. SPDESC: EXP.SPUTUM Justin Trujillo MD, E. Pierre, M.D. ORDERED: SPUT CULT/SMR COMMENTS: Has Specimen Been Obtained/Collected? Y Procedure Result Verified Site GRAM STAIN Final 06/28/16 RESULT MANY WBCs SEEN MANY EPITHELIAL CELLS MANY GRAM POSITIVE COCCI FEW GRAM POSITIVE BACILLI FEW GRAM NEGATIVE BACILLI SPUTUM CULTURE Preliminary 06/29/16 HEAVY NORMAL JABARI Present, Final Report to Follow. 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 L base pneumonia/pneumonitis - with metabolic encephalopathy, improving - known to aspirate, does admit to feeding him orally - on broad spectrum abx with vanco, levaquin, cefepime - ID consulted - swallow evaluation - risks associated with feeding patient orally discussed with . I understand she would like for him to have some QOL at this point, but risk of aspiration causing pneumonia/pneumonitis and respiratory issues including severe sepsis and cardiorespiratory arrest were discussed. She verbalized understanding. - sputum cx as above, bcx negative so far, awaiting final 2. Chronic respiratory failure - s/p trach - adequate oxygenation 3. Hyponatremia - likely decreased enteral feeds with volume depletion - improved with IVF - would be cautious with free water infusions via PEG, consider 1/2 NSS via PEG if possible for now and will monitor BMP 4. SDH - sz ppx with keppra and lamictal and carbamezepine 5. dvt ppx with hsq
[2016-06-29 11:06] LABS: CREATININE 0.69 mg/dl (0.60-1.40); MAGNESIUM 2.2 mg/dl (1.8-2.4); PHOSPHORUS 2.1 mg/dl (2.5-4.9)
[2016-06-29] MEDS ORDERED: POTASSIUM PHOS 3 MMOL/1 ML INFUSION IV STA (11:23)
[2016-06-29] MEDS ORDERED: POTASSIUM PHOSPHATE INJ 15 MMOL in SODIUM CHLORIDE 0.9% 250ML 250 ML IV SCH (11:30)
--- NOTE | 2016-06-29 11:36 | Progress Note ---
Subjective Date of Service: Jun 29, 2016. Subjective pt remains on emperic broad spectrum abx, tolerating well. tmax 38.1 yesterday am, no fevers overnight or this am. UA negative, no new labs today. blood and sputum cultures negative to date. no overnight events. Problem List Medical Problems: (1) Altered mental status Status: Acute (2) Anemia Status: Acute (3) Bronchitis, acute Status: Acute (4) Change in mental status Status: Acute (5) Cough Status: Acute (6) Hyponatremia Status: Acute (7) Lactic acid acidosis Status: Acute (8) Pneumonia Status: Acute Objective Vital Signs Date Time Temp Pulse Resp B/P Pulse Ox O2 Delivery O2 Flow Rate FiO2 06/29/16 08:00 Humidified Oxygen 35 06/29/16 08:00 37.3 72 18 121/65 97 Humidified Oxygen 35 Trach Collar 06/29/16 07:15 66 20 95 Trach Collar 35 06/29/16 04:00 95 Humidified Oxygen 35 Trach Collar 06/29/16 04:00 37.4 73 20 128/74 94 Humidified Oxygen 11.0 Trach Collar 06/29/16 01:50 75 20 95 Trach Collar 35 06/28/16 23:59 95 Humidified Oxygen 35 Trach Collar 06/28/16 23:20 37.3 76 18 131/76 96 Humidified Oxygen 11.0 Trach Collar 06/28/16 20:00 94 Humidified Oxygen 35 06/28/16 20:00 37.1 72 20 124/75 96 35 06/28/16 19:33 73 20 93 Trach Collar 35 06/28/16 16:00 37.5 78 18 103/59 97 35 06/28/16 16:00 Humidified Oxygen 35 06/28/16 14:35 36.8 06/28/16 14:11 78 20 96 Trach Collar 50 06/28/16 12:00 Humidified Oxygen 50 06/28/16 12:00 38.1 94 24 104/68 96 50 Laboratory Results Item Value Date Time Blood Culture - Preliminary Resulted 06/28/16 0041 Blood NO GROWTH TO DATE. Blood Culture - Preliminary Resulted 06/28/16 0035 Blood NO GROWTH TO DATE. Gram Stain - Final Resulted 06/28/16 0000 Sputum Expectorated Sputum Last 24 Hours Test 06/29/16 05:25 06/29/16 10:33 Creatinine 0.66 mg/dl 0.69 mg/dl Est Creatinine Clear Calc Drug Dose 87.3 ml/min 83.5 ml/min Estimated GFR () 109.6 107.6 Estimated GFR (Non- 94.6 92.9 Sodium Level 135 mmol/L Potassium Level 4.0 mmol/L Chloride Level 102 mmol/L Carbon Dioxide Level 28 mmol/L Anion Gap 5.0 mmol/L Blood Urea Nitrogen 5 mg/dl BUN/Creatinine Ratio 7.0 Random Glucose 127 mg/dl Calcium Level 8.0 mg/dl Phosphorus Level 2.1 mg/dl Magnesium Level 2.2 mg/dl Assessment and Plan (1) Pneumonia Assessment & Plan: cotninue abx for now, follow cultures. blood and sputum cultures pending. afebrile today.
[2016-06-29] MEDS: FIBERSOURCE HN 1000ML BAG PEG SCH ×2 (20:04)
[2016-06-30] VITALS (11 sets, daily range): BP systolic 121–148; BP diastolic 67–81; PULSE 58–67; TEMP 36.4–36.7; O2SAT 91–97
[2016-06-30] MEDS: LEVOFLOXACIN / D5W 750 MG in PREMIXED IN D5W 150 ML IV SCH (01:10)
[2016-06-30] MEDS: ALBUT/IPRATROP 3MG/0.5MG NEB 3 ML VIAL INH SCH ×4 (02:02→20:05)
[2016-06-30] MEDS: CEFEPIME IV 2000 MG in DEXTROSE 5% 100ML IV SCH ×3 (02:25→17:34)
[2016-06-30] MEDS ORDERED: VANCOMYCIN TROUGH SCH (05:30)
[2016-06-30] MEDS: VANCOMYCIN INJ 1,000 MG in SODIUM CHLORIDE 0.9% 250ML 250 ML IV SCH (06:00)
[2016-06-30 06:28] LABS: CREATININE 0.55 mg/dl (0.60-1.40)
[2016-06-30] MEDS: HEPARIN SOD 5000 UNIT/0.5 ML CARP SQ SCH ×3 (06:35→22:19)
[2016-06-30] MEDS: CARBAMAZEPINE 100 MG/5 ML PEG SCH ×4 (06:36→22:12)
[2016-06-30 07:46] LABS: BUN/CREATININE RATIO 8.9 (10-20); CREATININE 0.56 mg/dl (0.60-1.40); POTASSIUM 3.5 mmol/L (3.5-5.1)
[2016-06-30] MEDS: LANSOPRAZOLE SOLUTAB 30 MG PEG SCH ×2 (10:07→20:52)
[2016-06-30] MEDS: LEVETIRACETAM ORAL SOLN 100MG/ML PEG SCH ×2 (10:10→20:52)
--- NOTE | 2016-06-30 10:40 | Progress Note ---
Subjective Date of Service: Jun 30, 2016. Subjective Pt evaluation today including: conversation w/ patient, conversation w/ family , physical exam, chart review, lab review pt transferred from ICU, at bedside. She states he is doing better, still with cough but much less frequent, still with yellow secretions, no blood. afebrile. tolerating abx, no diarrhea, no increased O2 requirements. sputum culture with heavy growth nml virgilio. blood cultures remain negative. pt awake on exam but nonverbal. Problem List Medical Problems: (1) Altered mental status Status: Acute (2) Anemia Status: Acute (3) Bronchitis, acute Status: Acute (4) Change in mental status Status: Acute (5) Cough Status: Acute (6) Hyponatremia Status: Acute (7) Lactic acid acidosis Status: Acute (8) Pneumonia Status: Acute Objective Vital Signs Date Time Temp Pulse Resp B/P Pulse Ox O2 Delivery O2 Flow Rate FiO2 06/30/16 08:03 36.7 59 20 130/78 97 Room Air 06/30/16 07:10 58 20 92 Trach Collar 28 06/30/16 02:02 67 20 95 Trach Collar 28 06/30/16 00:22 36.4 64 16 148/81 97 7.0 64 06/30/16 00:00 97 Humidified Oxygen 10.0 28 Trach Collar 06/29/16 20:19 78 20 94 Trach Collar 28 06/29/16 16:10 93 Humidified Oxygen 10.0 Trach Collar 06/29/16 16:06 36.3 79 18 136/77 97 Room Air 06/29/16 15:30 37.1 64 16 96 06/29/16 12:00 37.1 64 16 115/61 96 Humidified Oxygen 28 Trach Collar 06/29/16 12:00 Humidified Oxygen 28 Physical Exam General Appearance: no apparent distress Respiratory/Chest: lungs clear, + decreased breath sounds Cardiovascular: regular rate, rhythm, no edema Abdomen: soft Extremities: non-tender, no calf tenderness Neurologic/Psychiatric: + pertinent finding (awake, non verbal) Skin: normal color Laboratory Results Item Value Date Time Gram Stain - Final Complete 06/28/16 0000 Sputum Expectorated Sputum Blood Culture - Preliminary Resulted 06/28/16 0035 Blood NO GROWTH TO DATE. Blood Culture - Preliminary Resulted 06/28/16 0041 Blood NO GROWTH TO DATE. Last 24 Hours Test 06/30/16 05:40 Sodium Level 137 mmol/L Potassium Level 3.5 mmol/L Chloride Level 101 mmol/L Carbon Dioxide Level 28 mmol/L Anion Gap 8.0 mmol/L Blood Urea Nitrogen 5 mg/dl Creatinine 0.56 mg/dl Est Creatinine Clear Calc Drug Dose 102.9 ml/min Estimated GFR () 117.3 Estimated GFR (Non- 101.2 BUN/Creatinine Ratio 8.9 Random Glucose 128 mg/dl Calcium Level 8.0 mg/dl Vancomycin Level Trough 9.3 mcg/ml Assessment and Plan (1) Pneumonia Assessment & Plan: no mrsa found, will stop vanco. continue levaquin and cefepime - would give 7 days total, day #3, if pt to be d/c prior to day 7, could be narrowed to po levaquin to complete course. continue pulm toilet, maintain head of bed at 30 degrees. no new ID recs.
--- NOTE | 2016-06-30 16:39 | Progress Note ---
Subjective Date of Service: Jun 30, 2016. Subjective Pt evaluation today including: conversation w/ family (caregiver at bedside), physical exam, review of studies, conversation w/ [facility] consultant, review of inpatient medication list MEntal status improved. Opens eyes with tactile stimuli. Remains on trach collar tube feedings ongoing afebrile overnight Problem List Medical Problems: (1) Altered mental status Status: Acute (2) Anemia Status: Acute (3) Bronchitis, acute Status: Acute (4) Change in mental status Status: Acute (5) Cough Status: Acute (6) Hyponatremia Status: Acute (7) Lactic acid acidosis Status: Acute (8) Pneumonia Status: Acute Review of Systems All Other Systems: Reviewed and Negative Medications Acetaminophen (Tylenol Soln) 650 mg Q4H PRN PEG Last administered on 06/28/16 08:38; Admin Dose 650 MG; Start 06/28/16 at 08:45; Stop 07/28/16 at 08:44 Al Hydrox/Mg Hydrox/Simethicone (Maalox Max Susp) 15 ml Q4H PRN PO; Start at 01:30; Stop 07/28/16 at 01:29 Albuterol Sulfate (Ventolin 0.083% 2.5MG/3ML Neb) 2.5 mg Q4H PRN INH; Start 06/28/16 at 01:30; Stop 07/28/16 at 01:29 Albuterol/ Ipratropium (Duoneb) 3 ml Q6R INH Last administered on 06/30/16 14:28 ; Admin Dose 3 ML; Start 06/28/16 at 09:00; Stop 07/28/16 at 08:59 Carbamazepine (Carbamazepine) 160 mg QID@0700,1200,1700,2200 PEG Last administered on 06/30/16 12:05; Admin Dose 160 MG; Start 06/28/16 at 07:00; Stop 07/28/16 at 06:59 Cefepime HCl (Consult) 1 ea UD PRN N/A; Start 06/28/16 at 03:45; Stop 07/28/16 at 03:44 Cefepime HCl/ Dextrose (Maxipime IV/D5 100ml) 112.5 ml @ 225 mls/hr Q8H IV Last administered on 06/30/16 12:01; Admin Dose 225 MLS/HR; Start 06/28/16 at 18: 00; Stop 07/05/16 at 17:59 Enteral Nutritional Formula 1000 ml 1,000 ml CONTINUOUS PEG Last administered on 06/29/16 20:04; Admin Dose 1,000 ML; Start 06/28/16 at 10:00; Stop 07/28/16 at 09:59 Heparin Sodium (Porcine) (Heparin Sq 5000 Unit/0.5ml) 5,000 unit Q8H SQ Last administered on 06/30/16 15:28; Admin Dose 5,000 UNIT; Start 06/28/16 at 06:00; Stop 07/28/16 at 05:59 Lamotrigine (Lamictal Tab) 100 mg BID PO Last administered on 06/30/16 10:08; Admin Dose 100 MG; Start 06/28/16 at 09:00; Stop 07/28/16 at 08:59 Lansoprazole (Prevacid Solutab) 30 mg BID PEG Last administered on 06/30/16 10: 07; Admin Dose 30 MG; Start 06/28/16 at 09:00; Stop 07/28/16 at 08:59 Levetiracetam (Keppra Soln) 400 mg BID PEG Last administered on 06/30/16 10:10; Admin Dose 400 MG; Start 06/28/16 at 09:00; Stop 07/28/16 at 08:59 Levofloxacin (Consult) 1 ea UD PRN N/A; Start 06/28/16 at 03:45; Stop 07/28/16 at 03:44 Levofloxacin/Prmx (Levaquin / D5W/ Premixed D5W) 150 ml @ 100 mls/hr Q24H IV Last administered on 06/30/16 01:10; Admin Dose 100 MLS/HR; Start 06/29/16 at 00: 00; Stop 07/05/16 at 00:00 Magnesium Hydroxide (Milk Of Magnesia Susp) 30 ml Q12H PRN PO; Start 06/28/16 at 01:30; Stop 07/28/16 at 01:29 Ondansetron HCl (Zofran Inj) 4 mg Q6H PRN IV; Start 06/28/16 at 01:30; Stop at 01:29 Polyethylene (Miralax Powder Packet) 17 gm DAILY PRN PO; Start 06/28/16 at 01:30 ; Stop 07/28/16 at 01:29 Objective Vital Signs Date Time Temp Pulse Resp B/P Pulse Ox O2 Delivery O2 Flow Rate FiO2 06/30/16 16:04 36.4 66 18 127/78 91 Room Air 06/30/16 14:28 58 20 96 Trach Collar 28 06/30/16 10:00 93 Humidified Oxygen 10.0 06/30/16 08:03 36.7 59 20 130/78 97 Room Air 06/30/16 07:10 58 20 92 Trach Collar 28 06/30/16 02:02 67 20 95 Trach Collar 28 06/30/16 00:22 36.4 64 16 148/81 97 7.0 64 06/30/16 00:00 97 Humidified Oxygen 10.0 28 Trach Collar 06/29/16 20:19 78 20 94 Trach Collar 28 Physical Exam Comments: nad, opens eyes coarse breath sounds s1` s2 rrr abd soft +PEG in place, non-distended no LE edema Laboratory Results Last 24 Hours Test 06/30/16 05:40 Sodium Level 137 mmol/L Potassium Level 3.5 mmol/L Chloride Level 101 mmol/L Carbon Dioxide Level 28 mmol/L Anion Gap 8.0 mmol/L Blood Urea Nitrogen 5 mg/dl Creatinine 0.56 mg/dl Est Creatinine Clear Calc Drug Dose 102.9 ml/min Estimated GFR () 117.3 Estimated GFR (Non- 101.2 BUN/Creatinine Ratio 8.9 Random Glucose 128 mg/dl Calcium Level 8.0 mg/dl Vancomycin Level Trough 9.3 mcg/ml Assessment and Plan 76 yo M with 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 L base pneumonia/pneumonitis - with metabolic encephalopathy, improving - known to aspirate, does admit to feeding him orally - no e/o mrsa, cont cefepime and levaquin and will discharge on levaquin once medically stable to complete 7-day course - ID consulted and appreciate recs - swallow evaluation - risks associated with feeding patient orally discussed with and caregiver. I understand she would like for him to have some QOL at this point, but risk of aspiration causing pneumonia/pneumonitis and respiratory issues including severe sepsis and cardiorespiratory arrest were discussed. She verbalized understanding. - sputum cx as above, bcx negative so far, awaiting final 2. Chronic respiratory failure - s/p trach - adequate oxygenation 3. Hyponatremia - likely decreased enteral feeds with volume depletion - resolved - would be cautious with free water infusions via PEG, consider 1/2 NSS via PEG if possible for now and will monitor BMP 4. SDH - sz ppx with keppra and lamictal and carbamezepine 5. dvt ppx with hsq
[2016-06-30] MEDS: FIBERSOURCE HN 1000ML BAG PEG SCH ×2 (17:33)
[2016-07-01] VITALS (9 sets, daily range): BP systolic 124–145; BP diastolic 71–78; PULSE 64–77; TEMP 36.2–36.8; O2SAT 91–97
[2016-07-01] MEDS: LEVOFLOXACIN / D5W 750 MG in PREMIXED IN D5W 150 ML IV SCH ×2 (00:30→23:47)
[2016-07-01] MEDS: ALBUT/IPRATROP 3MG/0.5MG NEB 3 ML VIAL INH SCH ×4 (02:26→19:30)
[2016-07-01] MEDS: CEFEPIME IV 2000 MG in DEXTROSE 5% 100ML IV SCH ×3 (02:28→17:17)
[2016-07-01] MEDS: HEPARIN SOD 5000 UNIT/0.5 ML CARP SQ SCH ×3 (06:24→21:10)
[2016-07-01] MEDS: CARBAMAZEPINE 100 MG/5 ML PEG SCH ×4 (06:25→21:52)
[2016-07-01 07:12] LABS: HEMATOCRIT 34.7 % (42-52); MEAN CELL VOLUME 91.3 fL (80-100); MEAN CORPUSCULAR HEMOGLOBIN 32.4 pg (25-34); MEAN CORPUSCULAR HGB CONC 35.4 g/dl (32-36); MEAN PLATELET VOLUME 8.1 fL (7.4-10.4); PLATELET COUNT 151 K/uL (130-400); WHITE BLOOD COUNT 4.97 K/uL (4.8-10.8)
[2016-07-01 07:38] LABS: CREATININE 0.55 mg/dl (0.60-1.40)
[2016-07-01] MEDS: LANSOPRAZOLE SOLUTAB 30 MG PEG SCH ×2 (07:56→21:53)
[2016-07-01] MEDS: LEVETIRACETAM ORAL SOLN 100MG/ML PEG SCH ×2 (07:57→21:59)
--- NOTE | 2016-07-01 11:32 | Progress Note ---
Subjective Date of Service: Jul 01, 2016. Subjective Pt evaluation today including: conversation w/ family, physical exam, review of inpatient medication list According to , patient had desaturated last night down to 85%. Pulse ox monitor changed and O2 supplementation increased from 10L to 13L transiently with improvement. Patient was not being suctioned before, during, or after this event. According to nurse's report, patient was suctioned early this morning around 4 AM. His O2 supplementation is now back down to 10L and he is saturating >94% consistently. His mental status is steadily improving and now able to maintain wakefulness, although he is not verbal. According to , this is pretty much baseline for him. Problem List Medical Problems: (1) Altered mental status Status: Acute (2) Anemia Status: Acute (3) Bronchitis, acute Status: Acute (4) Change in mental status Status: Acute (5) Cough Status: Acute (6) Hyponatremia Status: Acute (7) Lactic acid acidosis Status: Acute (8) Pneumonia Status: Acute Review of Systems All Other Systems: Reviewed and Negative Medications Acetaminophen (Tylenol Soln) 650 mg Q4H PRN PEG Last administered on 06/28/16 08:38; Admin Dose 650 MG; Start 06/28/16 at 08:45; Stop 07/28/16 at 08:44 Al Hydrox/Mg Hydrox/Simethicone (Maalox Max Susp) 15 ml Q4H PRN PO; Start at 01:30; Stop 07/28/16 at 01:29 Albuterol Sulfate (Ventolin 0.083% 2.5MG/3ML Neb) 2.5 mg Q4H PRN INH; Start 06/28/16 at 01:30; Stop 07/28/16 at 01:29 Albuterol/ Ipratropium (Duoneb) 3 ml Q6R INH Last administered on 07/01/16 07:16 ; Admin Dose 3 ML; Start 06/28/16 at 09:00; Stop 07/28/16 at 08:59 Carbamazepine (Carbamazepine) 160 mg QID@0700,1200,1700,2200 PEG Last administered on 07/01/16 06:25; Admin Dose 160 MG; Start 06/28/16 at 07:00; Stop 07/28/16 at 06:59 Cefepime HCl (Consult) 1 ea UD PRN N/A; Start 06/28/16 at 03:45; Stop 07/28/16 at 03:44 Cefepime HCl/ Dextrose (Maxipime IV/D5 100ml) 112.5 ml @ 225 mls/hr Q8H IV Last administered on 07/01/16 10:19; Admin Dose 225 MLS/HR; Start 06/28/16 at 18: 00; Stop 07/05/16 at 17:59 Enteral Nutritional Formula 1000 ml 1,000 ml CONTINUOUS PEG Last administered on 06/30/16 17:33; Admin Dose 1,000 ML; Start 06/28/16 at 10:00; Stop 07/28/16 at 09:59 Heparin Sodium (Porcine) (Heparin Sq 5000 Unit/0.5ml) 5,000 unit Q8H SQ Last administered on 07/01/16 06:24; Admin Dose 5,000 UNIT; Start 06/28/16 at 06:00; Stop 07/28/16 at 05:59 Lamotrigine (Lamictal Tab) 100 mg BID PO Last administered on 07/01/16 07:56; Admin Dose 100 MG; Start 06/28/16 at 09:00; Stop 07/28/16 at 08:59 Lansoprazole (Prevacid Solutab) 30 mg BID PEG Last administered on 07/01/16 07: 56; Admin Dose 30 MG; Start 06/28/16 at 09:00; Stop 07/28/16 at 08:59 Levetiracetam (Keppra Soln) 400 mg BID PEG Last administered on 07/01/16 07:57; Admin Dose 400 MG; Start 06/28/16 at 09:00; Stop 07/28/16 at 08:59 Levofloxacin (Consult) 1 ea UD PRN N/A; Start 06/28/16 at 03:45; Stop 07/28/16 at 03:44 Levofloxacin/Prmx (Levaquin / D5W/ Premixed D5W) 150 ml @ 100 mls/hr Q24H IV Last administered on 07/01/16 00:30; Admin Dose 100 MLS/HR; Start 06/29/16 at 00: 00; Stop 07/05/16 at 00:00 Magnesium Hydroxide (Milk Of Magnesia Susp) 30 ml Q12H PRN PO; Start 06/28/16 at 01:30; Stop 07/28/16 at 01:29 Ondansetron HCl (Zofran Inj) 4 mg Q6H PRN IV; Start 06/28/16 at 01:30; Stop at 01:29 Polyethylene (Miralax Powder Packet) 17 gm DAILY PRN PO; Start 06/28/16 at 01:30 ; Stop 07/28/16 at 01:29 Objective Vital Signs Date Time Temp Pulse Resp B/P Pulse Ox O2 Delivery O2 Flow Rate FiO2 07/01/16 07:50 36.8 71 18 145/78 95 Trach Collar 10.0 28 07/01/16 07:16 71 20 96 Trach Collar 28 07/01/16 02:26 64 20 96 Trach Collar 28 07/01/16 00:00 91 Trach Collar 10.0 06/30/16 23:28 36.4 60 18 121/67 95 Room Air 06/30/16 20:05 64 20 91 Trach Collar 28 06/30/16 16:10 93 Trach Collar 10.0 06/30/16 16:04 36.4 66 18 127/78 91 Room Air 06/30/16 14:28 58 20 96 Trach Collar 28 Physical Exam Comments: Awake, maintaining wakefulness but non-verbal coarse breath sounds but improved from yesterday, no wheezing, trach in place s1 s2 rrr abd soft +PEg in place with tube feeds running legs crossed, no LE edema, RUE swelling improved Laboratory Results Last 24 Hours Test 07/01/16 06:53 White Blood Count 4.97 K/uL Red Blood Count 3.80 M/uL Hemoglobin 12.3 g/dL Hematocrit 34.7 % Mean Corpuscular Volume 91.3 fL Mean Corpuscular Hemoglobin 32.4 pg Mean Corpuscular Hemoglobin Concent 35.4 g/dl RDW Standard Deviation 43.8 fL RDW Coefficient of Variation 13.1 % Platelet Count 151 K/uL Mean Platelet Volume 8.1 fL Creatinine 0.55 mg/dl Est Creatinine Clear Calc Drug Dose 104.7 ml/min Estimated GFR () 118.1 Estimated GFR (Non- 101.9 Assessment and Plan 76 yo M with 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 L base pneumonia/pneumonitis - with metabolic encephalopathy, improving - known to aspirate, does admit to feeding him orally - no e/o mrsa, cont cefepime and levaquin and will discharge on levaquin once medically stable to complete 7-day course (until 07/04/16) - ID consulted and appreciate recs - swallow evaluation - risks associated with feeding patient orally discussed with and caregiver. I understand she would like for him to have some QOL at this point, but risk of aspiration causing pneumonia/pneumonitis and respiratory issues including severe sepsis and cardiorespiratory arrest were discussed. She verbalized understanding. - sputum cx as above, bcx negative so far, awaiting final 2. Chronic respiratory failure - s/p trach - adequate oxygenation 3. Hyponatremia - likely decreased enteral feeds with volume depletion - resolved 4. SDH - sz ppx with keppra and lamictal and carbamezepine 5. dvt ppx with hsq
[2016-07-01] MEDS ORDERED: LEVO1TAB35 PO (11:33)
--- NOTE | 2016-07-01 11:35 | Discharge Instructions ---
Discharge Instructions Admission Reason for Admission: Aspiration Pneumonia Discharge Discharge Diagnosis / Problem: stable for home with caregiver Discharge Goals Goal(s): Improve disease control Activity Recommendations Activity Limitations: resume your previous activity . Current Hospital Diet Patient's current hospital diet: Discharge Diet Recommended Diet: N/A (NPO) Pending Studies Studies pending at discharge: no Medical Emergencies . Who to Call and When: Medical Emergencies: If at any time you feel your situation is an emergency, please call 911 immediately. . Non-Emergent Contact Non-Emergency issues call your: Primary Care Provider Call Non-Emergent contact if: you have a fever, temperature is above 101.5 . . "Provider Documentation" section prepared by Julita Genao. VTE Core Measure Inpt VTE Proph given/why not?: Unfractionated heparin SQ
[2016-07-01] MEDS: FIBERSOURCE HN 1000ML BAG PEG SCH ×2 (12:26)
[2016-07-02] VITALS (8 sets, daily range): BP systolic 108–125; BP diastolic 62–79; PULSE 56–66; TEMP 35.9–36.8; O2SAT 92–97
[2016-07-02] MEDS: ALBUT/IPRATROP 3MG/0.5MG NEB 3 ML VIAL INH SCH ×4 (01:56→19:15)
[2016-07-02] MEDS: CEFEPIME IV 2000 MG in DEXTROSE 5% 100ML IV SCH ×3 (02:59→17:31)
[2016-07-02] MEDS: CARBAMAZEPINE 100 MG/5 ML PEG SCH ×4 (05:49→21:25)
[2016-07-02] MEDS: HEPARIN SOD 5000 UNIT/0.5 ML CARP SQ SCH ×4 (05:51→21:25)
[2016-07-02] MEDS: FIBERSOURCE HN 1000ML BAG PEG SCH ×2 (06:00)
[2016-07-02] MEDS: LEVETIRACETAM ORAL SOLN 100MG/ML PEG SCH ×2 (09:33→21:25)
[2016-07-02] MEDS: LANSOPRAZOLE SOLUTAB 30 MG PEG SCH ×2 (09:34→21:24)
--- NOTE | 2016-07-02 10:52 | DIAGNOSTIC IMAGING REPORT ---
CHEST ONE VIEW PORTABLE CLINICAL HISTORY: trach pneumonia COMPARISON STUDY: 06/27/2016 FINDINGS: Improving infiltrate left base. Persistent pulmonary vascular congestion. Mild stable cardiomegaly. Tracheostomy tube in good position. IMPRESSION: Improving parenchymal infiltrate left base. Persistent pulmonary vascular congestion Electronically signed by: Omid Bright M.D. 07/02/2016 10:50 AM Dictated Date/Time: 07/02/2016 10:50 AM
--- NOTE | 2016-07-02 11:41 | Progress Note ---
Subjective Date of Service: Jul 02, 2016. Subjective Pt evaluation today including: conversation w/ family, physical exam, review of studies, review of inpatient medication list at beside. mental status stable and at baseline. intermittently verbal. Problem List Medical Problems: (1) Altered mental status Status: Acute (2) Anemia Status: Acute (3) Bronchitis, acute Status: Acute (4) Change in mental status Status: Acute (5) Cough Status: Acute (6) Hyponatremia Status: Acute (7) Lactic acid acidosis Status: Acute (8) Pneumonia Status: Acute Review of Systems All Other Systems: Reviewed and Negative Medications Acetaminophen (Tylenol Soln) 650 mg Q4H PRN PEG Last administered on 06/28/16 08:38; Admin Dose 650 MG; Start 06/28/16 at 08:45; Stop 07/28/16 at 08:44 Al Hydrox/Mg Hydrox/Simethicone (Maalox Max Susp) 15 ml Q4H PRN PO; Start at 01:30; Stop 07/28/16 at 01:29 Albuterol Sulfate (Ventolin 0.083% 2.5MG/3ML Neb) 2.5 mg Q4H PRN INH; Start 06/28/16 at 01:30; Stop 07/28/16 at 01:29 Albuterol/ Ipratropium (Duoneb) 3 ml Q6R INH Last administered on 07/02/16 07:15 ; Admin Dose 3 ML; Start 06/28/16 at 09:00; Stop 07/28/16 at 08:59 Carbamazepine (Carbamazepine) 160 mg QID@0700,1200,1700,2200 PEG Last administered on 07/02/16 05:49; Admin Dose 160 MG; Start 06/28/16 at 07:00; Stop 07/28/16 at 06:59 Cefepime HCl (Consult) 1 ea UD PRN N/A; Start 06/28/16 at 03:45; Stop 07/28/16 at 03:44 Cefepime HCl 2000 mg/Dextrose 112.5 ml @ 225 mls/hr Q8H IV Last administered on 07/02/16 10:31; Admin Dose 225 MLS/HR; Start 06/28/16 at 18:00; Stop 07/05/16 at 17:59 Enteral Nutritional Formula 1000 ml 1,000 ml CONTINUOUS PEG Last administered on 07/02/16 06:00; Admin Dose 1,000 ML; Start 06/28/16 at 10:00; Stop 07/28/16 at 09:59 Furosemide/Syringe (Lasix Inj/ Syringe) 2 ml @ 4 mls/min ONE ONCE IV; Start 07/02/16 at 12:30; Stop 07/02/16 at 12:31 Heparin Sodium (Porcine) (Heparin Sq 5000 Unit/0.5ml) 5,000 unit Q8H SQ Last administered on 07/01/16 06:24; Admin Dose 5,000 UNIT; Start 06/28/16 at 06:00; Stop 07/28/16 at 05:59 Lamotrigine (Lamictal Tab) 100 mg BID PO Last administered on 07/02/16 09:34; Admin Dose 100 MG; Start 06/28/16 at 09:00; Stop 07/28/16 at 08:59 Lansoprazole (Prevacid Solutab) 30 mg BID PEG Last administered on 07/02/16 09: 34; Admin Dose 30 MG; Start 06/28/16 at 09:00; Stop 07/28/16 at 08:59 Levetiracetam (Keppra Soln) 400 mg BID PEG Last administered on 07/02/16 09:33; Admin Dose 400 MG; Start 06/28/16 at 09:00; Stop 07/28/16 at 08:59 Levofloxacin (Consult) 1 ea UD PRN N/A; Start 06/28/16 at 03:45; Stop 07/28/16 at 03:44 Levofloxacin/Prmx (Levaquin / D5W/ Premixed D5W) 150 ml @ 100 mls/hr Q24H IV Last administered on 07/01/16 23:47; Admin Dose 100 MLS/HR; Start 06/29/16 at 00: 00; Stop 07/05/16 at 00:00 Magnesium Hydroxide (Milk Of Magnesia Susp) 30 ml Q12H PRN PO; Start 06/28/16 at 01:30; Stop 07/28/16 at 01:29 Ondansetron HCl (Zofran Inj) 4 mg Q6H PRN IV; Start 06/28/16 at 01:30; Stop at 01:29 Polyethylene (Miralax Powder Packet) 17 gm DAILY PRN PO; Start 06/28/16 at 01:30 ; Stop 07/28/16 at 01:29 Objective Vital Signs Date Time Temp Pulse Resp B/P Pulse Ox O2 Delivery O2 Flow Rate FiO2 07/02/16 08:01 35.9 64 18 125/75 97 Trach Collar 10.0 24 07/02/16 08:00 95 Humidified Oxygen 10.0 28 Trach Collar 07/02/16 07:15 58 20 92 Trach Collar 28 07/02/16 01:56 56 20 93 Trach Collar 28 07/02/16 00:18 36.3 58 18 108/62 93 10.0 28 07/02/16 00:00 Trach Collar 10.0 28 07/01/16 19:30 71 20 95 Trach Collar 28 07/01/16 16:10 92 Trach Collar 10.0 28 07/01/16 15:24 36.2 65 18 124/71 92 Trach Collar 10.0 28 07/01/16 14:11 77 20 97 Trach Collar 28 Physical Exam Comments: nad, opens eyes spontaneously, non-verbal s1 s2 rrr no wheezing, basilar rales, trach in place ab soft, nd +BS PEG in place no LE edema, LUE contracted Laboratory Results [~ rep ct add3]] CHEST ONE VIEW PORTABLE CLINICAL HISTORY: trach pneumonia COMPARISON STUDY: 06/27/2016 FINDINGS: Improving infiltrate left base. Persistent pulmonary vascular congestion. Mild stable cardiomegaly. Tracheostomy tube in good position. IMPRESSION: Improving parenchymal infiltrate left base. Persistent pulmonary vascular congestion Electronically signed by: Omid Bright M.D. 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 L base pneumonia/pneumonitis - with metabolic encephalopathy, improving - known to aspirate, does admit to feeding him orally - no e/o mrsa, cont cefepime and levaquin and will discharge on levaquin once medically stable to complete 7-day course (until 07/04/16) - ID consulted and appreciate recs - risks associated with feeding patient orally discussed with and caregiver. I understand she would like for him to have some QOL at this point, but risk of aspiration causing pneumonia/pneumonitis and respiratory issues including severe sepsis and cardiorespiratory arrest were discussed. She verbalized understanding. - sputum cx as above, bcx negative so far, awaiting final 2. Chronic respiratory failure - s/p trach - adequate oxygenation on O2 supplement - spoke to respiratory therapy, will wean off O2 supplementation and monitor - CXR as above - will give low dose lasix to optimize volume and lung status 3. Hyponatremia - likely decreased enteral feeds with volume depletion - resolved 4. SDH - sz ppx with keppra and lamictal and carbamezepine 5. dvt ppx with hsq
[2016-07-02] MEDS ORDERED: FUROSEMIDE INJ 20 MG in SYRINGE 0 ML IV ONE (12:30)
[2016-07-02 12:37] LABS: BUN/CREATININE RATIO 11.2 (10-20); CALCIUM 8.4 mg/dl (8.5-10.1); CREATININE 0.61 mg/dl (0.60-1.40); POTASSIUM 3.9 mmol/L (3.5-5.1)
[2016-07-03] MEDS: LEVOFLOXACIN / D5W 750 MG in PREMIXED IN D5W 150 ML IV SCH (00:24)
[2016-07-03] MEDS: FIBERSOURCE HN 1000ML BAG PEG SCH ×2 (00:26)
[2016-07-03 00:59] VITALS: BP 119/71; PULSE 63; TEMP 36.3; O2SAT 92
[2016-07-03 02:20] VITALS: PULSE 64; O2SAT 92
[2016-07-03] MEDS: ALBUT/IPRATROP 3MG/0.5MG NEB 3 ML VIAL INH SCH ×2 (02:20→07:27)
[2016-07-03] MEDS: CEFEPIME IV 2000 MG in DEXTROSE 5% 100ML IV SCH ×2 (02:25→09:20)
[2016-07-03] MEDS: HEPARIN SOD 5000 UNIT/0.5 ML CARP SQ SCH ×2 (06:24→06:42)
[2016-07-03] MEDS: CARBAMAZEPINE 100 MG/5 ML PEG SCH ×2 (06:24→12:27)
[2016-07-03 07:11] VITALS: BP 125/70; PULSE 63; TEMP 36.6; O2SAT 94
[2016-07-03 07:11] LABS: BASO % 0.2 %; BASO ABS # 0.01 K/uL (0-0.2); COMPLETE YES; HEMATOCRIT 36.7 % (42-52); IG% 0.6 %; LYMPH % 32.6 %; LYMPH ABS # 1.67 K/uL (1.2-3.4); MEAN CELL VOLUME 92.4 fL (80-100); MEAN CORPUSCULAR HEMOGLOBIN 32.5 pg (25-34); MEAN CORPUSCULAR HGB CONC 35.1 g/dl (32-36); MEAN PLATELET VOLUME 8.3 fL (7.4-10.4); MONO % 11.1 %; NEUT % 53.5 %; PLATELET COUNT 192 K/uL (130-400); RED BLOOD COUNT 3.97 M/uL (4.7-6.1); WHITE BLOOD COUNT 5.12 K/uL (4.8-10.8)
[2016-07-03 07:31] VITALS: PULSE 74; O2SAT 93
[2016-07-03 07:40] VITALS: BP 126/76; PULSE 60; TEMP 36.6; O2SAT 93
[2016-07-03 07:48] LABS: CREATININE 0.66 mg/dl (0.60-1.40)
[2016-07-03] MEDS: LEVETIRACETAM ORAL SOLN 100MG/ML PEG SCH (09:05)
[2016-07-03] MEDS: LANSOPRAZOLE SOLUTAB 30 MG PEG SCH (09:05)
[2016-07-03] MEDS ORDERED: LEVO1TAB35 PO (09:17)
--- NOTE | 2016-07-03 09:21 | Discharge Instructions ---
Discharge Instructions Admission Reason for Admission: Aspiration Pneumonia Discharge Discharge Diagnosis / Problem: Aspiration pneumonia Discharge Goals Goal(s): Decrease discomfort, Learn about illness, Diagnostic testing, Therapeutic intervention, Prevent Disease Progression Activity Recommendations Activity Limitations: resume your previous activity . Instructions / Follow-Up Instructions / Follow-Up New medication: 1. Take 750 mg Levaquin by mouth on 07/04. This will complete your course of antibiotic treatment Resume all other regular home medications As discussed, please avoid oral feedings Please follow-up with your PCP within 5-7 days Please follow-up/keep all of your subspecialty appointments Current Hospital Diet Patient's current hospital diet: Discharge Diet Recommended Diet: N/A (Continue tube feedings ) Procedures Procedures Performed: 1. CXR Pending Studies Studies pending at discharge: no Laboratory Results Last 24 Hours Test 07/02/16 12:04 07/03/16 06:47 Sodium Level 136 mmol/L Potassium Level 3.9 mmol/L Chloride Level 101 mmol/L Carbon Dioxide Level 30 mmol/L Anion Gap 5.0 mmol/L Blood Urea Nitrogen 7 mg/dl Creatinine 0.61 mg/dl 0.66 mg/dl Est Creatinine Clear Calc Drug Dose 94.4 ml/min 87.3 ml/min Estimated GFR () 113.2 109.6 Estimated GFR (Non- 97.7 94.6 BUN/Creatinine Ratio 11.2 Random Glucose 127 mg/dl Calcium Level 8.4 mg/dl White Blood Count 5.12 K/uL Red Blood Count 3.97 M/uL Hemoglobin 12.9 g/dL Hematocrit 36.7 % Mean Corpuscular Volume 92.4 fL Mean Corpuscular Hemoglobin 32.5 pg Mean Corpuscular Hemoglobin Concent 35.1 g/dl Platelet Count 192 K/uL Mean Platelet Volume 8.3 fL Neutrophils (%) (Auto) 53.5 % Lymphocytes (%) (Auto) 32.6 % Monocytes (%) (Auto) 11.1 % Eosinophils (%) (Auto) 2.0 % Basophils (%) (Auto) 0.2 % Neutrophils # (Auto) 2.74 K/uL Lymphocytes # (Auto) 1.67 K/uL Monocytes # (Auto) 0.57 K/uL Eosinophils # (Auto) 0.10 K/uL Basophils # (Auto) 0.01 K/uL RDW Standard Deviation 43.5 fL RDW Coefficient of Variation 12.9 % Immature Granulocyte % (Auto) 0.6 % Immature Granulocyte # (Auto) 0.03 K/uL Medical Emergencies . Who to Call and When: Medical Emergencies: If at any time you feel your situation is an emergency, please call 911 immediately. . Non-Emergent Contact Non-Emergency issues call your: Primary Care Provider Call Non-Emergent contact if: you have a fever, temperature is above 100.5, your pain is unusual for you, your pain is concerning you, you have any medication questions . . "Provider Documentation" section prepared by Bety Kaiser. VTE Core Measure Inpt VTE Proph given/why not?: Unfractionated heparin SQ
--- NOTE | 2016-07-03 09:34 | Discharge Summary ---
Discharge Summary Date of Service Jul 03, 2016. Discharge Summary Admission Date: Jun 28, 2016 at 01:31 Discharge Date: Jul 03, 2016 Discharge Disposition: Home with services Principal Diagnosis: Aspiration pneumonia Problems/Secondary Diagnoses: Medical/Surgical hx: 1. Seizure disorder 2. Subdural hematoma 3. Chronic aspiration 4. Tracheostomy 5. Hemiparalysis L 6. Hyponatremia 7. PEG tube 8. Double hernia 9. Replaced acl left knee Immunizations: Have You Had Influenza Vaccine: Yes Influenza Vaccine Date: Mar 08, 2013 History of Tetanus Vaccine?: Unknown Tetanus Immunization Date: Apr 13, 1998 History of Pneumococcal: Unknown Pneumococcal Date: Feb 11, 2009 History of Hepatitis B Vaccine: No Procedures: CHEST ONE VIEW PORTABLE CLINICAL HISTORY: trach pneumonia COMPARISON STUDY: 06/27/2016 FINDINGS: Improving infiltrate left base. Persistent pulmonary vascular congestion. Mild stable cardiomegaly. Tracheostomy tube in good position. IMPRESSION: Improving parenchymal infiltrate left base. Persistent pulmonary vascular congestion Electronically signed by: Omid Bright M.D. 07/02/2016 10:50 AM Dictated Date/Time: 07/02/2016 10:50 AM The status of this report is Signed. Draft = Not yet reviewed or approved by Radiologist. Signed = Reviewed and approved by Radiologist. Consultations: Infectious Disease- Dr. Alcantara Medication Reconciliation New Medications: Levofloxacin (Levaquin) 750 Mg Tab 750 MG PO DAILY for 1 Day, #1 TAB until 07/04/16 Continued Medications: Acetaminophen (Tylenol Children's Susp) 160 Mg/5 Ml Susp 20 ML PEG Q4H PRN for Pain Albuterol Sulf (Albuterol Sulfate) 2.5 Mg/3 Ml Nebu 3 ML NEB Q4 PRN for Wheezing Carbamazepine (Tegretol) 100 Mg/5 Ml Susp 8 ML PEG QID Enteral Nutrition Formula (Jevity 1.5 Jermaine) 1 Can Liqd 8 OZ PEG QAM Lamotrigine (Lamictal) 25 Mg Tab 100 MG PEG BID 4 TABLET DOSE Lansoprazole (Prevacid Solutab) 15 Mg Shawna 30 MG PEG BID, TAB Levetiracetam (Keppra) 100 Mg/Ml Shawna 400 MG PEG BID Magnesium Hydroxide (Milk Of Magnesia) 30 Ml Susp 30 ML PEG DAILY PRN for Cough, ML Referrals At Discharge Follow up Referrals: Family Practice Referral - Within 1 Week with Joshua Rivera M.D. Discharge Exam Unable to obtain ROS secondary to patient's mental status Physical Exam: General Appearance: no apparent distress Eyes: PERRL ENT: + pertinent finding (trach in place ) Neck: supple Respiratory/Chest: lungs clear, no respiratory distress, no accessory muscle use Cardiovascular: regular rate, rhythm Abdomen / GI: normal bowel sounds, soft, + pertinent finding (PEG in place ) Extremities: no calf tenderness, no pedal edema Neurologic/Psychiatric: alert, + pertinent finding (non-verbal. Per family present, patient is at baseline ) Skin: normal color, warm/dry, no rash Hospital Course Admission HPI: 76 y/o M Hx hemiparalysis, seizures and functional decline following a large subdural hemorrhage in 2013. Pt has a PEG and trach as a result and is prone to aspiration. He was recently admitted and treated for a UTI. He tends to suffer from encephalopathic symptoms when he has an infection. The pt was transported to the ER at the behest of family as he was noted to be increasingly lethargic, febrile and exhibiting a productive cough. He cannot provide any additional information due to his AMS and is minimally communicative at baseline per records. CXR is equivocal, however a fever and productive cough were confirmed in the ER so that he will be admitted for presumed aspiration PNM. He recently completed a course of Cipro following a UTI. L base pneumonia/pneumonitis, with metabolic encephalopathy, resolved: - Known to aspirate, does admit to feeding him orally-- >risks associated with feeding patient orally discussed with and caregiver. I understand she would like for him to have some QOL at this point, but risk of aspiration causing pneumonia/pneumonitis and respiratory issues including severe sepsis and cardiorespiratory arrest were discussed. She verbalized understanding. - No e/o mrsa, cont cefepime and Levaquin and will discharge on Levaquin once medically stable to complete 7-day course (until 07/04/16) - ID consulted and appreciate recs - Sputum cx and bcx- negative Chronic respiratory failure: - S/p trach - Adequate oxygenation on O2 supplement--> weaned from O2 - Respiratory therapy following - CXR - Lasix 20 mg IV x1 dose to optimize volume and lung status Hyponatremia- resolved: - likely decreased enteral feeds with volume depletion SDH: - sz ppx with keppra and lamictal and carbamezepine Hemiparalysis - care-dependent - looked after by daughter and home aids DVT prophylaxis: Heparin 5000 units SQ q12 hrs, MED and SCDs Code Status: LEVEL I, FULL Dispo: Discharge to home with health services Total Time Spent: Greater than 30 minutes This includes examination of the patient, discharge planning, medication reconciliation, and communication with other providers. Discharge Instructions Please refer to the electronic Patient Visit Report (Discharge Instructions) for additional information. Follow-Up Please follow-up with your PCP within 5-7 days Please follow-up/keep all of your subspecialty appointments Additional Copies To Joshua Rivera M.D.
[2016-07-03] MEDS ORDERED: MENTOIN12 SC (10:10)
[2016-07-03] MEDS ORDERED: MENTOIN12 EXT (10:11)
[2016-07-03 12:10] VITALS: BP 126/76; PULSE 60; TEMP 36.6; O2SAT 93
== END 2016-07-03 12:53 | disposition home health service (06) | DRG 177 ==
LOC: ENRESERVDT → ENRESERVTM → EDBD 00:07 → C.EDB 00:12 → C.MSICU 01:31 → C.MS2W 06-29 15:30
PROVIDERS: ADMIT Internal Medicine; ATTEND Internal Medicine
DX: J69.0 Pneumonitis due to inhalation of food and vomit (principal); G93.41 Metabolic encephalopathy; E87.1 Hypo-osmolality and hyponatremia; J96.10 Chronic respiratory failure, unspecified whether with hypoxia or hypercapnia; I69.854 Hemiplegia and hemiparesis following other cerebrovascular disease affecting left non-dominant side; Z93.0 Tracheostomy status; Z93.1 Gastrostomy status; G40.909 Epilepsy, unspecified, not intractable, without status epilepticus; K40.20 Bilateral inguinal hernia, without obstruction or gangrene, not specified as recurrent; Z88.0 Allergy status to penicillin; R30.0 Dysuria

== ENCOUNTER → 2016-07-10 | Outpatient (CLI) | payer OTHER ==
[~2016-07-10] MED LIST changes: +ALBINSX NEB; -ALBU1NEB10 INH; -Carbamazepine PEG; +LEVO1TAB35 PO; -LVQ750 PEG; -MAGNSUS5 PO; -MCRB100 PEG; +MENTOIN12 EXT; +MOML PEG; -WATER STERILE PEG; +[UNRECOGNIZED DRUG - OTHER] PEG
[2016-07-10 18:23] LABS: BASO % 0.1 %; BASO ABS # 0.01 K/uL (0-0.2); COMPLETE YES; EOS % 0.6 %; HEMATOCRIT 37.4 % (42-52); IG% 0.6 %; LYMPH % 28.3 %; MEAN CORPUSCULAR HEMOGLOBIN 32.2 pg (25-34); MEAN CORPUSCULAR HGB CONC 36.6 g/dl (32-36); MEAN PLATELET VOLUME 8.2 fL (7.4-10.4); NEUT % 57.4 %; PLATELET COUNT 246 K/uL (130-400); RED BLOOD COUNT 4.25 M/uL (4.7-6.1); WHITE BLOOD COUNT 6.71 K/uL (4.8-10.8)
--- NOTE | 2016-07-10 18:55 | DIAGNOSTIC IMAGING REPORT ---
CHEST 2 VIEWS ROUTINE CLINICAL HISTORY: Aspiration pneumonia. COMPARISON STUDY: Chest radiograph July 02, 2016. FINDINGS: A tracheostomy tube is noted. Positioning on this exam is slightly suboptimal. There is no pneumothorax. There is no lobar consolidation. Mild cardiomegaly is unchanged. There is no evidence of pulmonary edema. There may be a trace left pleural effusion. Mild bibasilar opacities favor atelectasis. IMPRESSION: 1. Mild bibasilar opacities which favor atelectasis. 2. Possible trace left pleural effusion. Electronically signed by: Tommie Pinto M.D. 07/10/2016 6:53 PM Dictated Date/Time: 07/10/2016 6:52 PM
== END | disposition home or self-care (01) ==
LOC: C.LAB 17:16
PROVIDERS: ATTEND Family Medicine
DX: J69.0 Pneumonitis due to inhalation of food and vomit (principal)

== ENCOUNTER → 2016-08-08 | Outpatient (CLI) | payer OTHER ==
[~2016-08-08] MED LIST changes: +DTR/5 PO; +LVQ750 PO; +PHEN-775 PO; +TAMS0.4C38 PO
== END | disposition home or self-care (01) ==
LOC: C.LABBC 11:00
PROVIDERS: ATTEND Physician Assistant
DX: G40.909 Epilepsy, unspecified, not intractable, without status epilepticus (principal)

== ENCOUNTER → 2016-08-30 | Outpatient (CLI) | payer OTHER | END | disposition home or self-care (01) | LOC: C.LABBC 08:05 | PROVIDERS: ATTEND Psychiatry & Neurology Neurology | DX: G40.909 Epilepsy, unspecified, not intractable, without status epilepticus (principal); Z51.81 Encounter for therapeutic drug level monitoring; Z79.899 Other long term (current) drug therapy ==

== ENCOUNTER → 2016-09-22 | Outpatient (CLI) | payer OTHER ==
[~2016-09-22] MED LIST changes: +LANS30TA3 PEG; +NUTR-673 PO
== END | disposition home or self-care (01) ==
LOC: C.LABBC 07:45
PROVIDERS: ATTEND Psychiatry & Neurology Neurology
DX: G40.909 Epilepsy, unspecified, not intractable, without status epilepticus (principal)

== ENCOUNTER → 2016-10-30 | Outpatient (CLI) | payer OTHER ==
[~2016-10-30] MED LIST changes: -DTR/5 PO; -LANS30TA3 PEG; -LVQ750 PO; -NUTR-673 PO; -PHEN-775 PO; -TAMS0.4C38 PO
== END | disposition home or self-care (01) ==
LOC: C.LABBC 07:47
PROVIDERS: ATTEND Psychiatry & Neurology Neurology
DX: G40.909 Epilepsy, unspecified, not intractable, without status epilepticus (principal)

== ENCOUNTER → 2016-12-28 | Outpatient (CLI) | payer OTHER | END | disposition home or self-care (01) | LOC: C.LABBC 07:55 | PROVIDERS: ATTEND Psychiatry & Neurology Neurology | DX: G40.909 Epilepsy, unspecified, not intractable, without status epilepticus (principal) ==

== ENCOUNTER → 2017-02-09 | Outpatient (CLI) | payer OTHER | END | disposition home or self-care (01) | LOC: C.LABBC 07:46 | PROVIDERS: ATTEND Psychiatry & Neurology Neurology | DX: G40.909 Epilepsy, unspecified, not intractable, without status epilepticus (principal); Z51.81 Encounter for therapeutic drug level monitoring; Z79.899 Other long term (current) drug therapy ==

== ENCOUNTER 2017-03-18 18:08 | Inpatient (IN) | payer OTHER ==
[~2017-03-18] VITALS: Ht 167.6 cm; Wt 65.0 kg
[2017-03-18] MEDS ORDERED: LEVAQUIN 750MG / 150ML D5W IV ONE (19:00)
[2017-03-18 19:02] LABS: BASO % 0.1 %; BASO ABS # 0.01 K/uL (0-0.2); COMPLETE YES; EOS % 1.6 %; HEMATOCRIT 38.3 % (42-52); IG% 0.2 %; LYMPH % 18.6 %; LYMPH ABS # 1.52 K/uL (1.2-3.4); MEAN CELL VOLUME 91.2 fL (80-100); MEAN CORPUSCULAR HEMOGLOBIN 32.6 pg (25-34); MEAN CORPUSCULAR HGB CONC 35.8 g/dl (32-36); MEAN PLATELET VOLUME 8.1 fL (7.4-10.4); MONO % 8.7 %; NEUT % 70.8 %; PLATELET COUNT 197 K/uL (130-400); WHITE BLOOD COUNT 8.19 K/uL (4.8-10.8)
--- NOTE | 2017-03-18 19:09 | DIAGNOSTIC IMAGING REPORT ---
CHEST ONE VIEW PORTABLE HISTORY: Sepsis COMPARISON: Chest 07/10/2016. FINDINGS: No focal lung consolidations to suggest pneumonia. Left basilar linear densities have improved and likely represent resolving atelectasis. No evidence for pulmonary edema. The heart is normal in size. No pleural effusions. No pneumothorax. Tracheostomy tube is likely due to position. IMPRESSION: No acute process. Electronically signed by: Bernabe Andrade M.D. 03/18/2017 7:08 PM Dictated Date/Time: 03/18/2017 7:07 PM
[2017-03-18 19:28] LABS: PARTIAL THROMBOPLASTIN RATIO 2.2
[2017-03-18 19:29] LABS: ALB/GLOB RATIO 0.9 (0.9-2); BUN/CREATININE RATIO 12.3 (10-20); CALCIUM 8.2 mg/dl (8.5-10.1); CREATININE 0.68 mg/dl (0.60-1.40); POTASSIUM 4.2 mmol/L (3.5-5.1)
[2017-03-18 19:53] LABS: URINE APPEARANCE CLEAR (CLEAR); URINE BILIRUBIN NEG (NEG); URINE COLOR YELLOW; URINE NITRITE NEG (NEG); URINE SPECIFIC GRAVITY 1.017 (1.000-1.030); UROBILINOGEN NEG (NEG); ZZUR CULT IF INDIC CLEAN CATCH NO
[2017-03-18 20:05] LABS: MANUAL MICROSCOPIC REQUIRED? NO; REVIEW REQ? NO
[2017-03-18] MEDS ORDERED: ACETAMINOPHEN 325 MG TAB PO PRN (20:15)
[2017-03-18] MEDS ORDERED: ONDANSETRON INJ 2 MG/ML 2 ML VIAL IV PRN (20:15)
[2017-03-18] MEDS ORDERED: ACETAMINOPHEN INFANTS SOLN 160MG/5ML GT PRN (20:15)
[2017-03-18] MEDS ORDERED: MAGNESIUM HYDROXIDE SUSP 30 ML UDC PO PRN (20:15)
--- NOTE | 2017-03-18 20:49 | History and Physical ---
History & Physical Date & Time of Service: Mar 18, 2017 at 20:34 Chief Complaint: Possible Sepsis, Or Pnx Primary Care Physician: Joshua Rivera M.D. History of Present Illness Source: family, spouse Mr Bertram Gaitan is a 77 yo male w/tracheostomy, seizures, hemiparalysis which occurred after a large subdural hemorrhage in 2012. He also has a PEG tube and is prone to aspiration pneumonia, which he was last admitted for here in June. reports the pt started coughing up more over the weekend, starting 2 days ago, and noticed a fever of 100.4 today too. It came down with Tylenol but when he was coughing so much he was struggling to breathe. She attempted suctioning but could not get much out since it was so thick. He is essentially non-verbal, but seems distressed when coughing up the thick mucus, which has gone from clear to now thick, yellow, and occasionally blood-tinged. She reports she understands feeding pureed foods with the G tube is still an aspiration risk but reports this is his main quality of life. He usually has a trach collar and has required more oxygen through it lately. Past Medical/Surgical History PMHx: Hx of aspiration pneumonia and pneumonitis Seizure disorder CVA Hx of renal calculi Hx of metabolic encephalopathy Tracheostomy dependent PEG tube dependent Hemiparalysis PSHx: Hand surgery Renal stent placement Tonsillectomy G tube placed Tracheostomy placed Family History Cancer Social History is primary caregiver, though they have caregivers come for 8 hours at night and 4 hours in the day Smoking Status: Never Smoker Smokeless Tobacco Use: No Alcohol Use: none Drug Use: none Marital Status: Housing status: lives with family Occupational Status: retired Immunizations History of Influenza Vaccine: Yes Influenza Vaccine Date: Mar 08, 2013 History of Tetanus Vaccine?: Unknown Tetanus Immunization Date: Apr 13, 1998 History of Pneumococcal: Unknown Pneumococcal Date: Feb 11, 2009 History of Hepatitis B Vaccine: No Multi-Drug Resistant Organisms History of MDRO: No Allergies Coded Allergies: Aspirin (Verified Allergy, Mild, 06/28/16) Penicillins (Verified Allergy, Mild, 06/28/16) Tetracycline (Verified Allergy, Unknown, UNKNOWN, 06/28/16) UNKNOWN, PT REPORTED ALLERGY Home Medications Scheduled Carbamazepine (Tegretol), 8 ML PEG QID Enteral Nutrition Formula (Jevity 1.5 Jermaine), 8 OZ PEG QAM Lamotrigine (Lamictal), 11 TABS PEG BID Levetiracetam (Keppra), 1 ML PEG AMPM Scheduled PRN Acetaminophen (Tylenol Children's Susp), 20 ML PEG Q4H PRN for Pain Albuterol Sulf (Albuterol Sulfate), 3 ML NEB Q4 PRN for Wheezing Review of Systems See HPI for pertinent positives & negatives. A total of 10 systems reviewed with the patients and were otherwise negative. Physical Exam Vital Signs Date Time Temp Pulse Resp B/P (MAP) Pulse Ox O2 Delivery O2 Flow Rate FiO2 03/18/17 19:51 65 16 115/63 94 Room Air 03/18/17 19:18 73 03/18/17 19:12 76 16 106/63 95 Trach Collar 35 03/18/17 18:48 94 Room Air 03/18/17 18:18 37.2 93 22 123/101 93 Room Air General Appearance: WD/WN, + mild distress (distressed when coughing) Head: normocephalic, atraumatic, + pertinent finding Eyes: + pertinent finding (will not open eyes to command) ENT: + pertinent finding (tracheostomy with thick mucus coming out when coughing) Neck: supple, no JVD Respiratory/Chest: + crackles, + wheezing Cardiovascular: regular rate, rhythm, no murmur, normal peripheral pulses Abdomen/GI: normal bowel sounds, non tender, soft Back: + pertinent finding (unable to assess) Extremities/Musculoskelatal: normal inspection, no calf tenderness, no pedal edema, + pertinent finding (L arm held in flexion) Neurologic/Psych: + pertinent finding (unable to complete neuro exam ) Skin: no rash Diagnostics Laboratory Results Results Past 24 Hours Test 03/18/17 18:25 03/18/17 18:40 03/18/17 19:40 Range/Units White Blood Count 8.19 4.8-10.8 K/uL Red Blood Count 4.20 4.7-6.1 M/uL Hemoglobin 13.7 14.0-18.0 g/dL Hematocrit 38.3 42-52 % Mean Corpuscular Volume 91.2 80-100 fL Mean Corpuscular Hemoglobin 32.6 25-34 pg Mean Corpuscular Hemoglobin Concent 35.8 32-36 g/dl Platelet Count 197 130-400 K/uL Mean Platelet Volume 8.1 7.4-10.4 fL Neutrophils (%) (Auto) 70.8 % Lymphocytes (%) (Auto) 18.6 % Monocytes (%) (Auto) 8.7 % Eosinophils (%) (Auto) 1.6 % Basophils (%) (Auto) 0.1 % Neutrophils # (Auto) 5.80 1.4-6.5 K/uL Lymphocytes # (Auto) 1.52 1.2-3.4 K/uL Monocytes # (Auto) 0.71 0.11-0.59 K/uL Eosinophils # (Auto) 0.13 0-0.5 K/uL Basophils # (Auto) 0.01 0-0.2 K/uL RDW Standard Deviation 43.9 36.4-46.3 fL RDW Coefficient of Variation 13.2 11.5-14.5 % Immature Granulocyte % (Auto) 0.2 % Immature Granulocyte # (Auto) 0.02 0.00-0.02 K/uL Prothrombin Time 11.0 9.0-12.0 SECONDS Prothromb Time International Ratio 1.0 0.9-1.1 Activated Partial Thromboplast Time 56.1 21.0-31.0 SECONDS Partial Thromboplastin Ratio 2.2 Sodium Level 121 136-145 mmol/L Potassium Level 4.2 3.5-5.1 mmol/L Chloride Level 88 98-107 mmol/L Carbon Dioxide Level 26 21-32 mmol/L Anion Gap 7.0 3-11 mmol/L Blood Urea Nitrogen 8 7-18 mg/dl Creatinine 0.68 0.60-1.40 mg/dl Est Creatinine Clear Calc Drug Dose 89.4 ml/min Estimated GFR () 107.5 Estimated GFR (Non- 92.8 BUN/Creatinine Ratio 12.3 10-20 Random Glucose 120 70-99 mg/dl Calcium Level 8.2 8.5-10.1 mg/dl Total Bilirubin 0.4 0.2-1 mg/dl Aspartate Amino Transf (AST/SGOT) 13 15-37 U/L Alanine Aminotransferase (ALT/SGPT) 19 12-78 U/L Alkaline Phosphatase 106 45-117 U/L Total Protein 7.1 6.4-8.2 gm/dl Albumin 3.3 3.4-5.0 gm/dl Globulin 3.8 2.5-4.0 gm/dl Albumin/Globulin Ratio 0.9 0.9-2 Bedside Lactic Acid Venous 2.63 0.90-1.70 mmol/L Urine Color YELLOW Urine Appearance CLEAR CLEAR Urine pH 8.0 4.5-7.5 Urine Specific [place] 1.017 1.000-1.030 Urine Protein NEG NEG Urine Glucose (UA) NEG NEG Urine Ketones NEG NEG Urine Occult Blood NEG NEG Urine Nitrite NEG NEG Urine Bilirubin NEG NEG Urine Urobilinogen NEG NEG Urine Leukocyte Esterase NEG NEG Urine WBC (Auto) 1-5 0-5 /hpf Urine RBC (Auto) 0-4 0-4 /hpf Urine Hyaline Casts (Auto) 0 0-5 /lpf Urine Epithelial Cells (Auto) 10-20 0-5 /lpf Urine Bacteria (Auto) NEG NEG Microbiology Results 03/18/17 Blood Culture, Received Pending 03/18/17 Blood Culture, Received Pending 03/18/17 Gram Stain, Received Pending 03/18/17 Sputum Culture, Received Pending Diagnostic Radiology CHEST ONE VIEW PORTABLE HISTORY: Sepsis COMPARISON: Chest 07/10/2016. FINDINGS: No focal lung consolidations to suggest pneumonia. Left basilar linear densities have improved and likely represent resolving atelectasis. No evidence for pulmonary edema. The heart is normal in size. No pleural effusions. No pneumothorax. Tracheostomy tube is likely due to position. IMPRESSION: No acute process. Impression Assessment and Plan 77 yo M, G tube and tracheostomy dependent, presents with fever and increased secretions - top ddx is pneumonia / aspiration pneumonitis. Aspiration pneumonitis - Sputum culture obtained - Levaquin continued, started in ED - Continue home nebulizers - Monitor for further fevers - Suction PRN - G-tube feeds Seizure disorder - Continue home anti-epileptics through G tube - requesting 1 to 1 monitoring as he cannot press nurse aid button when needs help Hyponatremia - Serum and urine osmolalities - Fluid restrict 1500mL CODE STATUS: Full, confirmed by today Dispo: Tele Attending addendum: I have physically seen this patient, have supervised the medical residents activities, and agree with the H&P unless as otherwise noted. Assessment and Plan: Aspiration pneumonitis/increased trach secretions-- Follow sputum culture and sensitivity Continue be drawn nebulizer 3 mils every 4 hours when necessary Noted allergy to penicillin. Continue Levaquin IV begun ED Add clindamycin 900 mg IV every 8 hours Regular trach care with suctioning Seizure disorder continue carbamazepine at ML's per PEG 4 times a day, lamotrigine 11 tabs per PEG twice a day and Keppra 1 mL per PEG twice a day. Hyponatremia-- Add serum and urine osmolalities to further assess for appropriate treatment. For now fluid restriction 1500 ML's. Nutrition continue Jevity 1.5 jermaine using an 8 ounce can per PEG every morning. Level of Care Telemetry Advanced Directives Existing Advance Directive: No Existing Living Will: No Existing Power of [place]: No Resuscitation Status FULL RESUSCITATION VTE Prophylaxis VTE Risk Assessment Done? Y/N: Yes Risk Level: Moderate Resident Tracking Resident Involvement: Resident Care Provided Care Provided: Adult Hospital Medicine
--- NOTE | 2017-03-18 20:56 | EMERGENCY ROOM VISIT NOTE ---
History Report prepared by Marie: Jessica Carmichael Under the Supervision of: Dr. Carlos Craven M.D. First contact with patient: 18:19 Chief Complaint: ILLNESS Stated Complaint: POSSIBLE SEPSIS, OR PNX History of Present Illness The patient is a 77 year old male who presents to the Emergency Room with complaints of a worsening illness starting yesterday. The patient's states that he doesn't speak well or at all due to a brain injury four years ago. She notes that that is why he has a trach and a feeding tube. She states that he has been coughing a lot. She notes that they have tried taking cough medicine like Robitussin with little relief. She notes that his trach has been producing phlegm that was clear, but now is whitish yellow. She notes that the patient had a fever as high as 100.4 degrees Fahrenheit. The patient's notes that he seems short of breath at times and denies him being on oxygen at home. She notes that he was at the PCP 3 days ago for his flu shot. She denies him vomiting. She notes most of his feed is through his G-tube. HPI is limited secondary to patient being nonverbal. Source of History: spouse/significant other History Limited By: other (nonverbal) Onset: yesterday Position: other (global) Quality: other (global) Timing: worsening Associated Symptoms: + fevers, + cough, + SOB, No vomiting Note: The complains of the patient producing phlegm. Review of Systems Limited as the patient is nonverbal. 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 (12) Tracheostomy, acute management (13) UTI (urinary tract infection) Surgical Problems: (1) H/O hand surgery (2) History of renal stent (3) S/P tonsillectomy Family History Cancer Social History Smoking Status: Never Smoker Alcohol Use: none Drug Use: none Marital Status: Housing Status: lives with significant other Occupation Status: retired Current/Historical Medications Scheduled Carbamazepine (Tegretol), 8 ML PEG QID Enteral Nutrition Formula (Jevity 1.5 Jermaine), 8 OZ PEG QAM Lamotrigine (Lamictal), 11 TABS PEG BID Levetiracetam (Keppra), 1 ML PEG AMPM Scheduled PRN Acetaminophen (Tylenol Children's Susp), 20 ML PEG Q4H PRN for Pain Albuterol Sulf (Albuterol Sulfate), 3 ML NEB Q4 PRN for Wheezing Allergies Coded Allergies: Aspirin (Verified Allergy, Mild, 06/28/16) Penicillins (Verified Allergy, Mild, 06/28/16) Tetracycline (Verified Allergy, Unknown, UNKNOWN, 06/28/16) UNKNOWN, PT REPORTED ALLERGY Physical Exam Vital Signs Date Time Temp Pulse Resp B/P (MAP) Pulse Ox O2 Delivery O2 Flow Rate FiO2 03/18/17 20:49 78 16 110/64 96 03/18/17 19:51 65 16 115/63 94 Room Air 03/18/17 19:18 73 03/18/17 19:12 76 16 106/63 95 Trach Collar 35 03/18/17 18:48 94 Room Air 03/18/17 18:18 37.2 93 22 123/101 93 Room Air Physical Exam Nonverbal. Doesn't follow commands. Constitutional: Vital signs reviewed. Eyes: Pupils are equal round. Conjunctiva are noninjected. ENT: Trach in place. Whitish frothy sputum. No signs of infection to the stoma. Respiratory: Sonorous respirations to auscultation bilaterally. No rales. Breath sounds are equal bilaterally. Cardiovascular: Regular rate and rhythm. No rubs or gallops. GI: Soft, nondistended and nontender. Bowel sounds are present. G-tube in LUQ. Musculoskeletal: No peripheral edema. No lower extremity tenderness. Integumentary: No cyanosis. Neurological: The patient is awake and alert. Left sided paresis. Psychiatric: Unable to assess. Medical Decision & Procedures ER Provider Diagnostic Interpretation: Radiology results as stated below per my review and the radiologist's interpretation: CHEST ONE VIEW PORTABLE HISTORY: Sepsis COMPARISON: Chest 07/10/2016. FINDINGS: No focal lung consolidations to suggest pneumonia. Left basilar linear densities have improved and likely represent resolving atelectasis. No evidence for pulmonary edema. The heart is normal in size. No pleural effusions. No pneumothorax. Tracheostomy tube is likely due to position. IMPRESSION: No acute process. Electronically signed by: Bernabe Andrade M.D. 03/18/2017 7:08 PM Dictated Date/Time: 03/18/2017 7:07 PM Laboratory Results 03/18/17 18:25 Red Blood Count 4.20, Mean Corpuscular Volume 91.2, Mean Corpuscular Hemoglobin 32.6, Mean Corpuscular Hemoglobin Concent 35.8, Mean Platelet Volume 8.1, Neutrophils (%) (Auto) 70.8, Lymphocytes (%) (Auto) 18.6, Monocytes (%) (Auto) 8.7, Eosinophils (%) (Auto) 1.6, Basophils (%) (Auto) 0.1, Neutrophils # (Auto) 5.80, Lymphocytes # (Auto) 1.52, Monocytes # (Auto) 0.71, Eosinophils # (Auto) 0.13, Basophils # (Auto) 0.01 03/18/17 18:25 Test 03/18/17 18:25 03/18/17 18:40 03/18/17 19:40 White Blood Count 8.19 K/uL (4.8-10.8) Red Blood Count 4.20 M/uL (4.7-6.1) Hemoglobin 13.7 g/dL (14.0-18.0) Hematocrit 38.3 % (42-52) Mean Corpuscular Volume 91.2 fL (80-100) Mean Corpuscular Hemoglobin 32.6 pg (25-34) Mean Corpuscular Hemoglobin Concent 35.8 g/dl (32-36) Platelet Count 197 K/uL (130-400) Mean Platelet Volume 8.1 fL (7.4-10.4) Neutrophils (%) (Auto) 70.8 % Lymphocytes (%) (Auto) 18.6 % Monocytes (%) (Auto) 8.7 % Eosinophils (%) (Auto) 1.6 % Basophils (%) (Auto) 0.1 % Neutrophils # (Auto) 5.80 K/uL (1.4-6.5) Lymphocytes # (Auto) 1.52 K/uL (1.2-3.4) Monocytes # (Auto) 0.71 K/uL (0.11-0.59) Eosinophils # (Auto) 0.13 K/uL (0-0.5) Basophils # (Auto) 0.01 K/uL (0-0.2) RDW Standard Deviation 43.9 fL (36.4-46.3) RDW Coefficient of Variation 13.2 % (11.5-14.5) Immature Granulocyte % (Auto) 0.2 % Immature Granulocyte # (Auto) 0.02 K/uL (0.00-0.02) Prothrombin Time 11.0 SECONDS (9.0-12.0) Prothromb Time International Ratio 1.0 (0.9-1.1) Activated Partial Thromboplast Time 56.1 SECONDS (21.0-31.0) Partial Thromboplastin Ratio 2.2 Anion Gap 7.0 mmol/L (3-11) Est Creatinine Clear Calc Drug Dose 89.4 ml/min Estimated GFR () 107.5 Estimated GFR (Non- 92.8 BUN/Creatinine Ratio 12.3 (10-20) Calcium Level 8.2 mg/dl (8.5-10.1) Total Bilirubin 0.4 mg/dl (0.2-1) Aspartate Amino Transf (AST/SGOT) 13 U/L (15-37) Alanine Aminotransferase (ALT/SGPT) 19 U/L (12-78) Alkaline Phosphatase 106 U/L (45-117) Total Protein 7.1 gm/dl (6.4-8.2) Albumin 3.3 gm/dl (3.4-5.0) Globulin 3.8 gm/dl (2.5-4.0) Albumin/Globulin Ratio 0.9 (0.9-2) Bedside Lactic Acid Venous 2.63 mmol/L (0.90-1.70) Urine Color YELLOW Urine Appearance CLEAR (CLEAR) Urine pH 8.0 (4.5-7.5) Urine Specific [place] 1.017 (1.000-1.030) Urine Protein NEG (NEG) Urine Glucose (UA) NEG (NEG) Urine Ketones NEG (NEG) Urine Occult Blood NEG (NEG) Urine Nitrite NEG (NEG) Urine Bilirubin NEG (NEG) Urine Urobilinogen NEG (NEG) Urine Leukocyte Esterase NEG (NEG) Urine WBC (Auto) 1-5 /hpf (0-5) Urine RBC (Auto) 0-4 /hpf (0-4) Urine Hyaline Casts (Auto) 0 /lpf (0-5) Urine Epithelial Cells (Auto) 10-20 /lpf (0-5) Urine Bacteria (Auto) NEG (NEG) Laboratory results as reviewed by me. Medications Administered Medications (Trade) Dose Ordered Sig/Piper Route Start Time Stop Time Status Last Admin Dose Admin Levofloxacin (Levaquin / D5W) 750 mg NOW ONCE IV 03/18/17 19:00 03/18/17 19:36 DC 03/18/17 19:11 750 MG ECG Indication: SOB/dyspnea Rate (beats per minute): 78 Rhythm: sinus rhythm Findings: no ectopy, other (limited interpertation due to baseline artifact) ED Course 1821: The patient was evaluated in room C4. A complete history and physical exam was performed. 1899: Ordered Levofloxacin 750 mg IV. 1932: I reevaluated the patient and updated his on his test results. 2010: I spoke with Dr. Hoffman of [facility] [place]. We discussed the patient and his results. The patient will be further evaluated by Dr. Hoffman. Medical Decision This is a 77-year-old male who presents with fever, cough and labored breathing. Differential diagnosis includes pneumonia, sepsis, pleural effusion , aspiration, CHF. I did perform a limited focused review of portions of the patient's old chart on the electronic medical record. The patient was here in June for aspiration pneumonia that was treated with Levaquin. I did evaluate the patient as noted above. The patient is nonverbal. I did obtain history from his . IV access was established. The patient was placed on a continuous manager monitoring. I did order and personally review the patient's 12-lead EKG and chest x-ray as described above. The chest x-ray was read as negative by the radiologist but I was concerned about possible bibasilar infiltrates. The patient has a clinical history consistent with pneumonia. Blood cultures were obtained and I did treat him with IV Levaquin. I did order and review the patient's blood work as noted in the electronic medical record. His lactic acid is elevated. His sodium is low. I did discuss the test results with the patient's . The case was referred to the hospitalist for hospitalization. Medication Reconcilliation Current Medication List: was personally reviewed by me Blood Pressure Screening Patient's blood pressure: Normal blood pressure Blood pressure disposition: Did not require urgent referral Consults Time Called: 1930 Consulting Physician: Dr. Hoffman of [facility] [place] Returned Call[address] Hoffman of [facility]. We discussed the patient and his results. The patient will be further evaluated by Dr. Hoffman. Impression Primary Impression: Bilateral pneumonia Additional Impressions: Anemia Hyponatremia Scribe Attestation The scribe's documentation has been prepared under my direct and personally reviewed by me in its entirety. I confirm that the note above accurately reflects all work, treatment, procedures, and medical decision making performed by me. Departure Information Dispostion Being Evaluated By Hospitalist Referrals Johsua Rivera M.D. (PCP) Patient Instructions [facility] Problem Qualifiers Primary Impression: Bilateral pneumonia Pneumonia type: due to unspecified organism Lung location: lower lobe of lung Qualified Codes: J18.9 - Pneumonia, unspecified organism Additional Impressions: Anemia Anemia type: unspecified type Qualified Codes: D64.9 - Anemia, unspecified
[2017-03-18 21:27] VITALS: BP 131/77; PULSE 72; TEMP 36.4; O2SAT 96
[2017-03-18 21:30] VITALS: O2SAT 96
[2017-03-18 21:59] VITALS: BP 131/77; PULSE 72; TEMP 36.4; O2SAT 96; Ht 167.6 cm; Wt 65.0 kg
[2017-03-18] MEDS: CARBAMAZEPINE 100 MG/5 ML PEG SCH (22:15)
[2017-03-18] MEDS: LEVETIRACETAM ORAL SOLN 100MG/ML PEG SCH (22:39)
[2017-03-18 22:45] VITALS: PULSE 80; O2SAT 96
[2017-03-18] MEDS: ALBUTEROL 0.083% NEBU SOLN 3 ML VIAL INH PRN (22:45)
[2017-03-18] MEDS ORDERED: ACETAMINOPHEN SOLN 650MG/20.3 ML UDC PO PRN (22:45)
[2017-03-18] MEDS ORDERED: NURSING VERBAL MED ORDER ONE (23:00)
[2017-03-18 23:10] VITALS: BP 126/74; PULSE 73; TEMP 36.9; O2SAT 95
[2017-03-18 23:59] VITALS: O2SAT 98
[2017-03-19] VITALS (12 sets, daily range): BP systolic 106–129; BP diastolic 67–72; PULSE 68–90; TEMP 36.4–37.2; O2SAT 91–95
[2017-03-19 00:38] LABS: BUN/CREATININE RATIO 13.3 (10-20); CALCIUM 8.4 mg/dl (8.5-10.1); CREATININE 0.66 mg/dl (0.60-1.40); POTASSIUM 4.1 mmol/L (3.5-5.1)
[2017-03-19] MEDS ORDERED: CLINDAMYCIN IV 900 MG in DEXTROSE 5% 100ML 100 ML IV STA (00:47)
[2017-03-19] MEDS ORDERED: FIBERSOURCE HN 1000ML BAG PEG SCH ×4 (01:15→09:00)
[2017-03-19] MEDS ORDERED: FIBERSOURCE HN 1000ML BAG PEG PRN ×2 (01:30)
[2017-03-19] MEDS: ALBUTEROL 0.083% NEBU SOLN 3 ML VIAL INH PRN ×5 (03:17→23:33)
[2017-03-19 04:45] LABS: BUN/CREATININE RATIO 10.4 (10-20); CALCIUM 8.3 mg/dl (8.5-10.1); CREATININE 0.77 mg/dl (0.60-1.40); POTASSIUM 4.5 mmol/L (3.5-5.1)
[2017-03-19] MEDS: LANSOPRAZOLE SOLUTAB 30 MG NG SCH ×2 (07:46→19:55)
[2017-03-19] MEDS: LEVETIRACETAM ORAL SOLN 100MG/ML PEG SCH ×2 (07:47→19:54)
[2017-03-19] MEDS: CLINDAMYCIN IV 900 MG in DEXTROSE 5% 100ML 100 ML IV SCH ×2 (07:47→16:47)
[2017-03-19] MEDS: CARBAMAZEPINE 100 MG/5 ML PEG SCH ×4 (07:47→21:52)
[2017-03-19] MEDS ORDERED: NURSING VERBAL MED ORDER ONE ×2 (08:15→11:15)
[2017-03-19] MEDS: FIBERSOURCE HN 1000ML BAG PEG PRN ×2 (12:44)
--- NOTE | 2017-03-19 12:49 | Progress Note ---
Subjective Date of Service: Mar 19, 2017. Subjective Pt evaluation today including: conversation w/ patient, conversation w/ family , physical exam, chart review, lab review, review of studies, review of inpatient medication list Patient is nonverbal, and sleepy, caregiver in bedside, reported most of the time in the morning patient is sleepy, is not unusual for him, deny fever and chills No start feeding, No signs of choking or aspiration Problem List Medical Problems: (1) Altered mental status Status: Acute (2) Anemia Status: Acute (3) Anemia Status: Acute (4) Bilateral pneumonia Status: Acute (5) Bronchitis, acute Status: Acute (6) Change in mental status Status: Acute (7) Cough Status: Acute (8) Hyponatremia Status: Acute (9) Lactic acid acidosis Status: Acute Review of Systems Constitutional: + problem reported (not able to obtained because patient is nonverbal and sleepy) Objective Vital Signs Date Time Temp Pulse Resp B/P (MAP) Pulse Ox O2 Delivery O2 Flow Rate FiO2 03/19/17 11:44 37.2 81 18 107/67 (80) 95 Trach Collar 11.0 03/19/17 11:03 79 18 91 Trach Collar 30 03/19/17 08:04 36.9 90 20 129/72 (91) 95 Trach Collar 11.0 03/19/17 08:00 Trach Collar 15.0 30 03/19/17 07:32 68 18 93 Trach Collar 30 03/19/17 04:10 36.6 71 16 106/68 (81) 94 Humidified Oxygen 11.0 Trach Collar 03/19/17 04:00 95 Trach Collar 11.0 35 03/19/17 03:17 71 18 93 Trach Collar 30 03/18/17 23:59 98 Trach Collar 11.0 35 03/18/17 23:10 36.9 73 18 126/74 (91) 95 Trach Collar 15.0 03/18/17 22:45 80 18 96 Trach Collar 30 03/18/17 21:59 36.4 72 22 131/77 96 Trach Collar 35 03/18/17 21:30 96 Trach Collar 11.0 35 03/18/17 21:27 96 Trach Collar 03/18/17 21:27 36.4 72 22 131/77 (95) 96 Trach Collar 11.0 35 03/18/17 20:49 78 16 110/64 96 03/18/17 19:51 65 16 115/63 94 Room Air 03/18/17 19:18 73 03/18/17 19:12 76 16 106/63 95 Trach Collar 35 03/18/17 18:48 94 Room Air 03/18/17 18:18 37.2 93 22 123/101 93 Room Air Physical Exam General Appearance: + pertinent finding (frail and sleeping,) ENT: normal ENT inspection Neck: supple, + pertinent finding (S/P tracheotomy) Respiratory/Chest: + decreased breath sounds, + rales Cardiovascular: regular rate, rhythm, no edema Abdomen: normal bowel sounds, non tender, soft Extremities: + pertinent finding (bilateral upper and lower extremity is contracted, has limited range of motion, which is not new) Neurologic/Psychiatric: + pertinent finding (no facial droop, however patient is nonverbal, not follow-up commands) Skin: normal color, warm/dry, no rash Laboratory Results Last 24 Hours Test 03/18/17 18:25 03/18/17 18:40 03/18/17 19:40 03/18/17 23:52 White Blood Count 8.19 K/uL Red Blood Count 4.20 M/uL Hemoglobin 13.7 g/dL Hematocrit 38.3 % Mean Corpuscular Volume 91.2 fL Mean Corpuscular Hemoglobin 32.6 pg Mean Corpuscular Hemoglobin Concent 35.8 g/dl Platelet Count 197 K/uL Mean Platelet Volume 8.1 fL Neutrophils (%) (Auto) 70.8 % Lymphocytes (%) (Auto) 18.6 % Monocytes (%) (Auto) 8.7 % Eosinophils (%) (Auto) 1.6 % Basophils (%) (Auto) 0.1 % Neutrophils # (Auto) 5.80 K/uL Lymphocytes # (Auto) 1.52 K/uL Monocytes # (Auto) 0.71 K/uL Eosinophils # (Auto) 0.13 K/uL Basophils # (Auto) 0.01 K/uL RDW Standard Deviation 43.9 fL RDW Coefficient of Variation 13.2 % Immature Granulocyte % (Auto) 0.2 % Immature Granulocyte # (Auto) 0.02 K/uL Prothrombin Time 11.0 SECONDS Prothromb Time International Ratio 1.0 Activated Partial Thromboplast Time 56.1 SECONDS Partial Thromboplastin Ratio 2.2 Sodium Level 121 mmol/L 122 mmol/L Potassium Level 4.2 mmol/L 4.1 mmol/L Chloride Level 88 mmol/L 88 mmol/L Carbon Dioxide Level 26 mmol/L 27 mmol/L Anion Gap 7.0 mmol/L 7.0 mmol/L Blood Urea Nitrogen 8 mg/dl 9 mg/dl Creatinine 0.68 mg/dl 0.66 mg/dl Est Creatinine Clear Calc Drug Dose 89.4 ml/min 85.9 ml/min Estimated GFR () 107.5 108.8 Estimated GFR (Non- 92.8 93.9 BUN/Creatinine Ratio 12.3 13.3 Random Glucose 120 mg/dl 97 mg/dl Calcium Level 8.2 mg/dl 8.4 mg/dl Total Bilirubin 0.4 mg/dl Aspartate Amino Transf (AST/SGOT) 13 U/L Alanine Aminotransferase (ALT/SGPT) 19 U/L Alkaline Phosphatase 106 U/L Total Protein 7.1 gm/dl Albumin 3.3 gm/dl Globulin 3.8 gm/dl Albumin/Globulin Ratio 0.9 Bedside Lactic Acid Venous 2.63 mmol/L Urine Color YELLOW Urine Appearance CLEAR Urine pH 8.0 Urine Specific [place] 1.017 Urine Protein NEG Urine Glucose (UA) NEG Urine Ketones NEG Urine Occult Blood NEG Urine Nitrite NEG Urine Bilirubin NEG Urine Urobilinogen NEG Urine Leukocyte Esterase NEG Urine WBC (Auto) 1-5 /hpf Urine RBC (Auto) 0-4 /hpf Urine Hyaline Casts (Auto) 0 /lpf Urine Epithelial Cells (Auto) 10-20 /lpf Urine Bacteria (Auto) NEG Test 03/19/17 00:58 03/19/17 04:13 03/19/17 11:15 Lactic Acid Level 1.0 mmol/L Sodium Level 122 mmol/L Potassium Level 4.5 mmol/L Chloride Level 89 mmol/L Carbon Dioxide Level 27 mmol/L Anion Gap 6.0 mmol/L Blood Urea Nitrogen 8 mg/dl Creatinine 0.77 mg/dl Est Creatinine Clear Calc Drug Dose 73.6 ml/min Estimated GFR () 102.2 Estimated GFR (Non- 88.1 BUN/Creatinine Ratio 10.4 Random Glucose 97 mg/dl Calcium Level 8.3 mg/dl Thyroid Stimulating Hormone (TSH) 1.550 uIu/ml Random Cortisol 22.74 mcg/dl Assessment and Plan 77 yo M, with history of brain bleeding, S/P G tube and tracheostomy admitted on 03/18/2017 with possible aspiration pneumonia associated with fever and increased secretions Possible aspiration pneumonitis, and has likely pneumonia, because patient has no leukocytosis, will check ESR CRP, continue antibiotics, nebulizer treatment for now, follow-up culture results, oral and trach suctioning if needed, aspiration precaution Plan to repeat 2 view chest x-ray if possible, ESR and CRP, G-tube feeds, was started per dietitian, scars risk and benefit of aspiration Seizure disorder, stable continue current home medication Possible acute on chronic Hyponatremia, etiology unknown, TSH and cortisol level were normal, we'll follow-up Serum and urine osmolalities, will continue Fluid restrict 1500mL History of CVA, with residual weakness and Hemiparalysis, stable Hx of renal calculi Tracheostomy dependent PEG tube dependent Hemiparalysis We'll continue current care CODE STATUS: Full, confirmed by today Continued [facility] stay due to: multiple IV medications needed Discharge planning: home
[2017-03-19] MEDS: LEVOFLOXACIN / D5W 750 MG in PREMIXED IN D5W 150 ML IV SCH (20:57)
[2017-03-20] VITALS (7 sets, daily range): BP systolic 101–114; BP diastolic 60–73; PULSE 68–79; TEMP 36.6–37; O2SAT 91–94
[2017-03-20] MEDS: CLINDAMYCIN IV 900 MG in DEXTROSE 5% 100ML 100 ML IV SCH ×4 (00:18→23:49)
[2017-03-20] MEDS: ALBUTEROL 0.083% NEBU SOLN 3 ML VIAL INH PRN ×3 (03:34→11:42)
[2017-03-20] MEDS ORDERED: LACTATED RINGER'S 1000ML 1,000 ML IV SCH (05:00)
[2017-03-20] MEDS: CARBAMAZEPINE 100 MG/5 ML PEG SCH ×4 (06:45→21:47)
[2017-03-20 06:56] LABS: BASO % 0.2 %; BASO ABS # 0.01 K/uL (0-0.2); COMPLETE YES; EOS % 2.7 %; HEMATOCRIT 36.6 % (42-52); IG% 0.2 %; LYMPH % 31.5 %; LYMPH ABS # 1.41 K/uL (1.2-3.4); MEAN CELL VOLUME 93.4 fL (80-100); MEAN CORPUSCULAR HEMOGLOBIN 32.1 pg (25-34); MEAN CORPUSCULAR HGB CONC 34.4 g/dl (32-36); MEAN PLATELET VOLUME 8.2 fL (7.4-10.4); MONO % 17.6 %; NEUT % 47.8 %; PLATELET COUNT 161 K/uL (130-400); RED BLOOD COUNT 3.92 M/uL (4.7-6.1); WHITE BLOOD COUNT 4.48 K/uL (4.8-10.8)
[2017-03-20 07:40] LABS: CALCIUM 8.3 mg/dl (8.5-10.1); CREATININE 0.72 mg/dl (0.60-1.40); MAGNESIUM 2.1 mg/dl (1.8-2.4); POTASSIUM 3.8 mmol/L (3.5-5.1)
[2017-03-20] MEDS: LANSOPRAZOLE SOLUTAB 30 MG NG SCH ×2 (08:50→19:43)
[2017-03-20] MEDS: LEVETIRACETAM ORAL SOLN 100MG/ML PEG SCH ×2 (08:51→19:43)
--- NOTE | 2017-03-20 15:11 | Progress Note ---
Subjective Date of Service: Mar 20, 2017. Subjective Pt evaluation today including: conversation w/ patient, conversation w/ family , physical exam, chart review, lab review, review of studies, review of inpatient medication list Reporting less secretion however and secretion is more yellow, still has a lot of cough, associated with wheezing, no fever and chill Problem List Medical Problems: (1) Altered mental status Status: Acute (2) Anemia Status: Acute (3) Anemia Status: Acute (4) Bilateral pneumonia Status: Acute (5) Bronchitis, acute Status: Acute (6) Change in mental status Status: Acute (7) Cough Status: Acute (8) Hyponatremia Status: Acute (9) Lactic acid acidosis Status: Acute Review of Systems Constitutional: + problem reported (not able to obtain because patient is nonverbal) Objective Vital Signs Date Time Temp Pulse Resp B/P (MAP) Pulse Ox O2 Delivery O2 Flow Rate FiO2 03/20/17 11:44 79 15 92 Trach Collar 9.0 30 03/20/17 08:35 Trach Collar 10.0 30 03/20/17 07:35 77 19 94 Trach Collar 30 03/20/17 07:25 36.7 68 16 114/73 (87) 92 Room Air 03/20/17 03:37 73 20 93 Trach Collar 30 03/20/17 00:33 Trach Collar 03/20/17 00:28 36.6 74 18 101/60 (74) 93 Trach Collar 10.0 03/19/17 23:33 79 20 94 Trach Collar 30 03/19/17 19:49 77 18 93 Trach Collar 30 03/19/17 17:00 36.4 72 16 115/72 (86) 92 Trach Collar 12.0 03/19/17 16:00 Trach Collar 7.0 30 03/19/17 15:31 37.2 84 18 94 15.0 Physical Exam General Appearance: + pertinent finding (nonverbal, no eye contact,) Eyes: normal inspection, PERRL ENT: normal ENT inspection, + pertinent finding (SP trach) Neck: supple, no adenopathy, thyroid normal, no JVD, no carotid bruits, trachea midline Respiratory/Chest: chest non-tender, normal breath sounds, no respiratory distress, no accessory muscle use, + decreased breath sounds, + rhonchi, + wheezing Cardiovascular: regular rate, rhythm, no edema Abdomen: normal bowel sounds, non tender, soft, + pertinent finding (PEG tube feeding is going on) Extremities: + pertinent finding (4 extremities is contracted) Neurologic/Psychiatric: + pertinent finding (paraplagic) Laboratory Results Last 24 Hours Test 03/20/17 06:22 White Blood Count 4.48 K/uL Red Blood Count 3.92 M/uL Hemoglobin 12.6 g/dL Hematocrit 36.6 % Mean Corpuscular Volume 93.4 fL Mean Corpuscular Hemoglobin 32.1 pg Mean Corpuscular Hemoglobin Concent 34.4 g/dl Platelet Count 161 K/uL Mean Platelet Volume 8.2 fL Neutrophils (%) (Auto) 47.8 % Lymphocytes (%) (Auto) 31.5 % Monocytes (%) (Auto) 17.6 % Eosinophils (%) (Auto) 2.7 % Basophils (%) (Auto) 0.2 % Neutrophils # (Auto) 2.14 K/uL Lymphocytes # (Auto) 1.41 K/uL Monocytes # (Auto) 0.79 K/uL Eosinophils # (Auto) 0.12 K/uL Basophils # (Auto) 0.01 K/uL RDW Standard Deviation 46.9 fL RDW Coefficient of Variation 13.7 % Immature Granulocyte % (Auto) 0.2 % Immature Granulocyte # (Auto) 0.01 K/uL Sodium Level 129 mmol/L Potassium Level 3.8 mmol/L Chloride Level 94 mmol/L Carbon Dioxide Level 28 mmol/L Anion Gap 7.0 mmol/L Blood Urea Nitrogen 8 mg/dl Creatinine 0.72 mg/dl Est Creatinine Clear Calc Drug Dose 78.8 ml/min Estimated GFR () 105.0 Estimated GFR (Non- 90.6 BUN/Creatinine Ratio 11.0 Random Glucose 110 mg/dl Calcium Level 8.3 mg/dl Magnesium Level 2.1 mg/dl Assessment and Plan 77 yo M, with history of brain bleeding, S/P G tube and tracheostomy admitted on 03/18/2017 with possible aspiration pneumonia associated with fever and increased secretions Possible aspiration pneumonitis, and has likely pneumonia, because patient has no leukocytosis, will check ESR CRP, continue antibiotics, nebulizer treatment for now, follow-up culture results, oral and trach suctioning if needed, aspiration precaution Plan to repeat 2 view chest x-ray if possible, Mildly elevated CRP, ESR was normal, procalcitonin was normal Possible need to continue to finish full course of antibiotics because of yellow sputum, associated with wheezing G-tube feeds, restarted Seizure disorder, stable continue current home medication Possible acute on chronic Hyponatremia, etiology unknown, TSH and cortisol level were normal, w Approval after fluid restriction, continue current care follow-up History of CVA, with residual weakness and Hemiparalysis, stable Hx of renal calculi Tracheostomy dependent PEG tube dependent Hemiparalysis We'll continue current care CODE STATUS: Full Will talk to family Continued [facility] stay due to: multiple IV medications needed Discharge planning: home
[2017-03-20] MEDS ORDERED: ALBUT/IPRATROP 3MG/0.5MG NEB 3 ML VIAL INH PRN (15:30)
[2017-03-20] MEDS ORDERED: NURSING VERBAL MED ORDER ONE (15:30)
--- NOTE | 2017-03-20 16:12 | DIAGNOSTIC IMAGING REPORT ---
CHEST ONE VIEW PORTABLE CLINICAL HISTORY: MD THOMPSON pneumonia COMPARISON STUDY: 03/18/2017 FINDINGS: Tracheostomy tube remains in good position. Probable small developing parenchymal infiltrate left base. Lungs otherwise appear clear. Slight fullness the pulmonary vasculature. IMPRESSION: Small developing parenchymal infiltrate left base. The above report was generated using voice recognition software. It may contain grammatical, syntax or spelling errors. Electronically signed by: Omid Bright M.D. 03/20/2017 4:10 PM Dictated Date/Time: 03/20/2017 4:10 PM
[2017-03-20] MEDS: FIBERSOURCE HN 1000ML BAG PEG PRN ×2 (17:31)
[2017-03-20] MEDS: ALBUT/IPRATROP 3MG/0.5MG NEB 3 ML VIAL INH SCH (19:30)
[2017-03-20] MEDS: LEVOFLOXACIN / D5W 750 MG in PREMIXED IN D5W 150 ML IV SCH (19:41)
[2017-03-21] VITALS (7 sets, daily range): BP systolic 102–112; BP diastolic 58–75; PULSE 68–98; TEMP 36.7–37.3; O2SAT 92–95
[2017-03-21] MEDS: ALBUT/IPRATROP 3MG/0.5MG NEB 3 ML VIAL INH SCH ×4 (01:51→19:13)
[2017-03-21] MEDS: CARBAMAZEPINE 100 MG/5 ML PEG SCH ×4 (06:25→20:46)
[2017-03-21 06:55] LABS: BASO % 0.2 %; BASO ABS # 0.01 K/uL (0-0.2); COMPLETE YES; EOS % 2.2 %; HEMATOCRIT 34.9 % (42-52); IG% 0.4 %; LYMPH ABS # 1.58 K/uL (1.2-3.4); MEAN CELL VOLUME 94.6 fL (80-100); MEAN CORPUSCULAR HEMOGLOBIN 32.8 pg (25-34); MEAN CORPUSCULAR HGB CONC 34.7 g/dl (32-36); MEAN PLATELET VOLUME 7.8 fL (7.4-10.4); MONO % 12.6 %; NEUT % 49.6 %; PLATELET COUNT 159 K/uL (130-400); RED BLOOD COUNT 3.69 M/uL (4.7-6.1); WHITE BLOOD COUNT 4.51 K/uL (4.8-10.8)
[2017-03-21 07:21] LABS: BUN/CREATININE RATIO 11.3 (10-20); CALCIUM 8.3 mg/dl (8.5-10.1); CREATININE 0.7 mg/dl (0.60-1.40); MAGNESIUM 2.2 mg/dl (1.8-2.4); POTASSIUM 3.9 mmol/L (3.5-5.1)
[2017-03-21] MEDS: LANSOPRAZOLE SOLUTAB 30 MG NG SCH ×2 (08:24→20:44)
[2017-03-21] MEDS: LEVETIRACETAM ORAL SOLN 100MG/ML PEG SCH ×2 (08:25→20:42)
[2017-03-21] MEDS: LEVOFLOXACIN 750 MG TAB PO SCH (11:38)
--- NOTE | 2017-03-21 11:45 | Progress Note ---
Subjective Date of Service: Mar 21, 2017. Subjective Pt evaluation today including: conversation w/ patient, conversation w/ family , physical exam, chart review, lab review, review of studies, review of inpatient medication list Resuming patient together with patient's in bedside, occasional cough with white sputum through trach tube, general condition looks better, open eyes, although no eye contact Problem List Medical Problems: (1) Altered mental status Status: Acute (2) Anemia Status: Acute (3) Anemia Status: Acute (4) Bilateral pneumonia Status: Acute (5) Bronchitis, acute Status: Acute (6) Change in mental status Status: Acute (7) Cough Status: Acute (8) Hyponatremia Status: Acute (9) Lactic acid acidosis Status: Acute Review of Systems Constitutional: + problem reported (not able to obtain because patient is nonverbal) Objective Vital Signs Date Time Temp Pulse Resp B/P (MAP) Pulse Ox O2 Delivery O2 Flow Rate FiO2 03/21/17 08:30 Trach Collar 10.0 03/21/17 07:48 37.3 69 16 111/58 (75) 94 Trach Collar 30 03/21/17 07:21 68 12 94 Trach Collar 9.0 30 03/21/17 01:53 68 12 94 Trach Collar 9.0 30 03/21/17 00:30 Trach Collar 10.0 03/21/17 00:00 36.7 77 18 112/75 (87) 95 Room Air 03/20/17 20:00 Trach Collar 10.0 03/20/17 19:33 70 20 93 Trach Collar 9.0 30 03/20/17 16:02 Trach Collar 10.0 30 03/20/17 15:16 37.0 72 16 101/61 (74) 91 Room Air 03/20/17 11:44 79 15 92 Trach Collar 9.0 30 Physical Exam General Appearance: WD/WN Eyes: normal inspection Neck: supple, + pertinent finding (SP trach) Respiratory/Chest: chest non-tender, normal breath sounds, no respiratory distress, no accessory muscle use, + decreased breath sounds Cardiovascular: regular rate, rhythm, no edema, no gallop Abdomen: normal bowel sounds, non tender, soft Extremities: non-tender, no pedal edema, + pertinent finding (contracted) Neurologic/Psychiatric: + pertinent finding (no obvious asymmetry) Skin: normal color, warm/dry Laboratory Results Last 24 Hours Test 03/21/17 06:27 White Blood Count 4.51 K/uL Red Blood Count 3.69 M/uL Hemoglobin 12.1 g/dL Hematocrit 34.9 % Mean Corpuscular Volume 94.6 fL Mean Corpuscular Hemoglobin 32.8 pg Mean Corpuscular Hemoglobin Concent 34.7 g/dl Platelet Count 159 K/uL Mean Platelet Volume 7.8 fL Neutrophils (%) (Auto) 49.6 % Lymphocytes (%) (Auto) 35.0 % Monocytes (%) (Auto) 12.6 % Eosinophils (%) (Auto) 2.2 % Basophils (%) (Auto) 0.2 % Neutrophils # (Auto) 2.23 K/uL Lymphocytes # (Auto) 1.58 K/uL Monocytes # (Auto) 0.57 K/uL Eosinophils # (Auto) 0.10 K/uL Basophils # (Auto) 0.01 K/uL RDW Standard Deviation 47.8 fL RDW Coefficient of Variation 13.8 % Immature Granulocyte % (Auto) 0.4 % Immature Granulocyte # (Auto) 0.02 K/uL Sodium Level 132 mmol/L Potassium Level 3.9 mmol/L Chloride Level 97 mmol/L Carbon Dioxide Level 27 mmol/L Anion Gap 8.0 mmol/L Blood Urea Nitrogen 8 mg/dl Creatinine 0.70 mg/dl Est Creatinine Clear Calc Drug Dose 81.0 ml/min Estimated GFR () 106.2 Estimated GFR (Non- 91.7 BUN/Creatinine Ratio 11.3 Random Glucose 129 mg/dl Calcium Level 8.3 mg/dl Magnesium Level 2.2 mg/dl Assessment and Plan 77 yo M, with history of brain bleeding, S/P G tube and tracheostomy admitted on 03/18/2017 with possible aspiration pneumonia associated with fever and increased secretions Possible aspiration pneumonitis, and has likely pneumonia, Repeated chest x-ray possible left lobe pneumonia with " Small developing parenchymal infiltrate left base" per report Continue nebulizer treatment for now, follow-up culture results, oral and trach suctioning if needed, aspiration precaution Discontinue clindamycin, switch Levaquin to by mouth, planning Levaquin to home for total 7-10 days, G-tube feeds, restarted, tolerated well will continue Seizure disorder, stable continue current home medication Possible acute on chronic Hyponatremia, etiology unknown, TSH and cortisol level were normal, continue improving and stable History of CVA, with residual weakness and Hemiparalysis, stable Hx of renal calculi Tracheostomy dependent PEG tube dependent Hemiparalysis We'll continue current care CODE STATUS: Full Discussed with patient's , answered all the questions Planning discharge home tomorrow Continued [facility] stay due to: multiple IV medications needed Discharge planning: home
[2017-03-21] MEDS: FIBERSOURCE HN 1000ML BAG PEG PRN ×2 (13:37)
[2017-03-22] VITALS (14 sets, daily range): BP systolic 106–122; BP diastolic 65–71; PULSE 60–86; TEMP 36.7–36.9; O2SAT 87–96
[2017-03-22] MEDS: ALBUT/IPRATROP 3MG/0.5MG NEB 3 ML VIAL INH SCH ×5 (00:57→19:26)
[2017-03-22] MEDS: CARBAMAZEPINE 100 MG/5 ML PEG SCH ×4 (06:14→21:47)
[2017-03-22] MEDS: LANSOPRAZOLE SOLUTAB 30 MG NG SCH ×2 (08:53→20:52)
[2017-03-22] MEDS: LEVETIRACETAM ORAL SOLN 100MG/ML PEG SCH ×2 (08:53→20:54)
[2017-03-22 09:36] LABS: BUN/CREATININE RATIO 10.8 (10-20); CALCIUM 8.6 mg/dl (8.5-10.1); CREATININE 0.78 mg/dl (0.60-1.40); POTASSIUM 3.9 mmol/L (3.5-5.1)
[2017-03-22] MEDS ORDERED: NUTR-673 PEG (10:28)
[2017-03-22] MEDS ORDERED: LVQ750 PO (10:50)
--- NOTE | 2017-03-22 10:52 | Discharge Instructions ---
Discharge Instructions Date of Service Mar 22, 2017. Admission Reason for Admission: Aspiration Pneumonia Discharge Discharge Diagnosis / Problem: Aspiration pneumonia Discharge Goals Goal(s): Improve disease control Activity Recommendations Activity Limitations: resume your previous activity . Instructions / Follow-Up Instructions / Follow-Up Please have lab work drawn with script provided on Sunday 03/25. Please follow up with your primary care office within about a week. Please contact Dr. Aldrich to evaluate your seizure medication levels that were drawn here in the hospital. Please contact Dr. Clarke office ([facility] urology) to follow up for removal of Antoine catheter in 10 days. You have had home O2 set up for you. Please discuss with your primary care before discontinuing its use Current Hospital Diet Patient's current hospital diet: AHA Diet (Heart Healthy) Discharge Diet Recommended Diet: AHA Diet (Heart Healthy) Procedures Procedures Performed: chest x ray Pending Studies Studies pending at discharge: no Medical Emergencies . Who to Call and When: Medical Emergencies: If at any time you feel your situation is an emergency, please call 911 immediately. . Non-Emergent Contact Non-Emergency issues call your: Primary Care Provider Call Non-Emergent contact if: you have a fever, you have any medication questions . Past History Medical & Surgical History: (1) Aspiration pneumonitis (2) Hyponatremia . "Provider Documentation" section prepared by Genevieve Virk. . VTE Core Measure Inpt VTE Proph given/why not?: SCD's
[2017-03-22] MEDS: LEVOFLOXACIN 750 MG TAB PO SCH (11:10)
[2017-03-22] MEDS: FIBERSOURCE HN 1000ML BAG PEG PRN ×2 (11:11)
--- NOTE | 2017-03-22 13:36 | Hospitalist Progress Note ---
Hospitalist Progress Note Date of Service Mar 22, 2017. (Genevieve Virk CRNP) Subjective Pt evaluation today including: conversation w/ patient, conversation w/ family , physical exam, chart review, lab review, review of inpatient medication list Voiding: incontinence Mr. Gaitan is laying in bed with trach collar attached. History per his who is his main hvac specialist at home and is bedside. She feels he is mostly back to his baseline. She is concerned that his antiseizure medications are not therapeutic as there was report of a seizure this morning by a hvac specialist in the room. This was reported to have gone on for about two minutes however nursing was not alerted. She is concerned about some reddened areas on his buttocks. She is also concerned about his low urine output Patient unable to give a ROS. (Genevieve Virk CRNP) Objective Vital Signs Date Time Temp Pulse Resp B/P (MAP) Pulse Ox O2 Delivery O2 Flow Rate FiO2 03/22/17 12:31 95 Trach Collar 9.0 03/22/17 12:30 74 16 87 Room Air Trach Collar 03/22/17 11:50 78 18 91 Room Air Trach Collar 03/22/17 11:15 86 18 93 Room Air 03/22/17 08:45 95 Trach Collar 9.0 03/22/17 07:38 36.9 61 20 122/71 (88) 95 Trach Collar 30 03/22/17 07:14 60 16 96 Trach Collar 9.0 30 03/22/17 02:25 84 16 95 Trach Collar 9.0 30 03/22/17 00:36 36.7 68 17 106/66 (79) 94 Oxymask 10.0 03/22/17 00:00 95 Trach Collar 10.0 30 03/22/17 00:00 95 Trach Collar 10.0 03/21/17 19:13 84 16 95 Trach Collar 9.0 30 03/21/17 16:00 Trach Collar 10.0 03/21/17 15:35 37.2 98 17 102/65 (77) 92 Trach Collar 9.0 03/21/17 14:19 81 16 95 Trach Collar 9.0 30 (Genevieve Virk CRNP) Physical Exam Notes: General: no distress Eyes: normal inspection, PERLL Respiratory: chest non tender, clear to auscultation except for some faint rhonchi right base, no respiratory distress, no accessory muscle use Cardiac: regular rate and rhythm, no rub or gallop, no murmur, no edema, no jvd GI/: active bowel sounds, no abd pain or tenderness, soft, non distended Extremities: normal range of motion, normal strength, non tender Neuro/Psych: non verbal, eyes open with tactile stimulus Skin: normal color, dry (Genevieve Virk CRNP) Laboratory Results Last 24 Hours Test 03/22/17 08:36 03/22/17 08:42 Sodium Level 134 mmol/L Potassium Level 3.9 mmol/L Chloride Level 100 mmol/L Carbon Dioxide Level 28 mmol/L Anion Gap 6.0 mmol/L Blood Urea Nitrogen 8 mg/dl Creatinine 0.78 mg/dl Est Creatinine Clear Calc Drug Dose 72.7 ml/min Estimated GFR () 101.6 Estimated GFR (Non- 87.7 BUN/Creatinine Ratio 10.8 Random Glucose 108 mg/dl Calcium Level 8.6 mg/dl Carbamazepine (Tegretol) Level 10.2 mcg/ml (Genevieve Virk CRNP) Assessment and Plan 77 yo M, with history of brain bleeding, S/P G tube and tracheostomy admitted on 03/18/2017 with possible aspiration pneumonia associated with fever and increased secretions Aspiration pneumonia: - blood, sputum cultures showed no growth - continue nebulizers, levaquin and oral/trach suctioning, aspiration precautions, good oral care - last day of abx 03/25 - admits to feeding patient pureed food at home even with risk of aspiration as a quality of life measure. 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 Discussed with CHONG Virk and agree with findings and plan as documented in the note. Any exceptions or clarifications are listed here: Pt nonverbal with me today which reports comes and goes. Discussed his O2 requirement and need for home O2 on dc and understands. Discussed hyponatremia as was likely secondary to dehydration on admission given fever at home and PNA. No need for continued fluid restriction as his Na+ actually improved after receiving IVFs on 03/20. Vitals reviewed NAD, lying in bed with trach collar in place with neb treatment going RRR no mgr coarse BS anteriorly but clear posteriorly Abd G-tube in place without surrounding erythema, +BS, soft NT ND Ext no edema, muscle atrophy bilat L>R Neuro-left hemiparesis with flexion contractures Pt is a 77 yo male with a h/o previous right SDH evacuation, right hemispheric MCA distribution stroke, left spastic hemiparesis and global aphasia, seizure disorder, aspiration, here with PNA and acute hypoxemic respiratory failure. -continue supplemental O2 -was on CLinda and Levaquin, now on Levaquin alone--> finish out 3 more days -continue nebs -remove fluid restriction, hyponatremia improving, check PRP in AM-likely secondary to appropriate ADH reponse to dehydration when had PNA and fevers at home prior to admisison, no h/o hyponatremia chronically -plan for dc to home tomorrow on home O2 -had brief seizure here, reports sx once q4 weeks--> check levels of AEDs, f/u with Neuro by phone at least on Sunday Documented By: Carine Muñoz (Carine Muñoz MD)
[2017-03-22] MEDS ORDERED: LORAZEPAM 2 MG/ML 1 ML VIAL IV PRN (15:00)
[2017-03-22] MEDS ORDERED: SODIUM CHLORIDE 0.9% 500ML 500 ML IV STA (17:39)
[2017-03-23] VITALS (9 sets, daily range): BP systolic 115–131; BP diastolic 70–75; PULSE 62–84; TEMP 36.4–37; O2SAT 91–97
[2017-03-23] MEDS: ALBUT/IPRATROP 3MG/0.5MG NEB 3 ML VIAL INH SCH ×4 (01:51→19:24)
[2017-03-23] MEDS: FIBERSOURCE HN 1000ML BAG PEG PRN ×2 (04:03)
[2017-03-23 06:19] LABS: BASO % 0.2 %; BASO ABS # 0.01 K/uL (0-0.2); COMPLETE YES; EOS % 1.7 %; HEMATOCRIT 37.3 % (42-52); IG% 0.2 %; LYMPH % 32.6 %; LYMPH ABS # 1.77 K/uL (1.2-3.4); MEAN CELL VOLUME 96.6 fL (80-100); MEAN CORPUSCULAR HEMOGLOBIN 32.6 pg (25-34); MEAN CORPUSCULAR HGB CONC 33.8 g/dl (32-36); MEAN PLATELET VOLUME 7.7 fL (7.4-10.4); MONO % 9.2 %; NEUT % 56.1 %; PLATELET COUNT 167 K/uL (130-400); RED BLOOD COUNT 3.86 M/uL (4.7-6.1); WHITE BLOOD COUNT 5.43 K/uL (4.8-10.8)
[2017-03-23 06:55] LABS: BUN/CREATININE RATIO 11.1 (10-20); CALCIUM 8.4 mg/dl (8.5-10.1); CREATININE 0.69 mg/dl (0.60-1.40); MAGNESIUM 2.2 mg/dl (1.8-2.4)
[2017-03-23] MEDS: CARBAMAZEPINE 100 MG/5 ML PEG SCH ×4 (06:59→22:19)
[2017-03-23] MEDS: LANSOPRAZOLE SOLUTAB 30 MG NG SCH ×2 (09:08→20:58)
[2017-03-23] MEDS: LEVETIRACETAM ORAL SOLN 100MG/ML PEG SCH ×2 (09:08→20:58)
[2017-03-23 09:56] LABS: URINE APPEARANCE TURBID (CLEAR); URINE BILIRUBIN NEG (NEG); URINE COLOR YELLOW; URINE NITRITE NEG (NEG); URINE PH >= 9.0 (4.5-7.5); URINE SPECIFIC GRAVITY 1.017 (1.000-1.030); UROBILINOGEN NEG (NEG)
[2017-03-23 10:05] LABS: MANUAL MICROSCOPIC REQUIRED? NO; REVIEW REQ? NO
[2017-03-23] MEDS: LEVOFLOXACIN 750 MG TAB PO SCH (12:15)
[2017-03-23] MEDS ORDERED: TAMSULOSIN HCL 0.4 MG CAP PEG ONE (14:00)
--- NOTE | 2017-03-23 15:36 | Hospitalist Progress Note ---
Hospitalist Progress Note Date of Service Mar 23, 2017. (Genevieve Virk CRNP) Subjective Pt evaluation today including: conversation w/ patient, physical exam, chart review, lab review, review of inpatient medication list Voiding: voiding difficulty Mr. Gaitan is having urinary hesitancy with bladder scans per nursing of over 500 and 400 this morning and this afternoon. He was also having diarrhea for the past couple of days but has not had any bowel movements yet today. Patient is unable to give ROS (Genevieve Virk CRNP) Medications Medications (Trade) Dose Ordered Sig/Piper Route Start Time Stop Time Status Last Admin Dose Admin Sodium Chloride 500 ml @ 250 mls/hr Q2H STAT IV 03/22/17 17:39 03/22/17 19:38 DC 03/22/17 18:26 250 MLS/HR Tamsulosin HCl (Flomax Cap) 0.4 mg NOW ONCE PEG 03/23/17 14:00 03/23/17 14:01 DC 03/23/17 14:38 0.4 MG (Genevieve Virk CRNP) Objective Vital Signs Date Time Temp Pulse Resp B/P (MAP) Pulse Ox O2 Delivery O2 Flow Rate FiO2 03/23/17 14:43 36.8 64 18 131/72 (91) 94 Trach Collar 9.0 30 03/23/17 14:20 68 16 91 Trach Collar 9.0 30 03/23/17 10:45 Trach Collar 9.0 03/23/17 09:03 36.4 62 20 123/75 (91) 92 Trach Collar 9.0 03/23/17 07:18 67 16 95 Trach Collar 9.0 30 03/23/17 01:51 78 16 95 Trach Collar 9.0 30 03/23/17 01:30 Trach Collar 9.0 03/23/17 00:07 37.0 84 16 115/75 (88) 96 Trach Collar 03/22/17 19:27 74 16 93 Trach Collar 9.0 30 03/22/17 16:00 95 Trach Collar 9.0 (Genevieve Virk CRNP) Physical Exam Notes: General: no distress Eyes: normal inspection, PERLL Respiratory: chest non tender, clear to auscultation, normal breath sounds, no respiratory distress, no accessory muscle use Cardiac: regular rate and rhythm, no rub or gallop, no murmur, no edema, no jvd GI/: active bowel sounds, no abd pain or tenderness, soft, non distended Extremities: normal range of motion, generalized weakness, non tender Neuro/Psych: does not make eye contact or verbalize Skin: normal color, dry (Genevieve Virk, CHONG) Laboratory Results Last 24 Hours Test 03/23/17 06:01 03/23/17 09:45 White Blood Count 5.43 K/uL Red Blood Count 3.86 M/uL Hemoglobin 12.6 g/dL Hematocrit 37.3 % Mean Corpuscular Volume 96.6 fL Mean Corpuscular Hemoglobin 32.6 pg Mean Corpuscular Hemoglobin Concent 33.8 g/dl Platelet Count 167 K/uL Mean Platelet Volume 7.7 fL Neutrophils (%) (Auto) 56.1 % Lymphocytes (%) (Auto) 32.6 % Monocytes (%) (Auto) 9.2 % Eosinophils (%) (Auto) 1.7 % Basophils (%) (Auto) 0.2 % Neutrophils # (Auto) 3.05 K/uL Lymphocytes # (Auto) 1.77 K/uL Monocytes # (Auto) 0.50 K/uL Eosinophils # (Auto) 0.09 K/uL Basophils # (Auto) 0.01 K/uL RDW Standard Deviation 47.0 fL RDW Coefficient of Variation 13.4 % Immature Granulocyte % (Auto) 0.2 % Immature Granulocyte # (Auto) 0.01 K/uL Sodium Level 134 mmol/L Potassium Level 4.0 mmol/L Chloride Level 99 mmol/L Carbon Dioxide Level 30 mmol/L Anion Gap 5.0 mmol/L Blood Urea Nitrogen 8 mg/dl Creatinine 0.69 mg/dl Est Creatinine Clear Calc Drug Dose 82.2 ml/min Estimated GFR () 106.9 Estimated GFR (Non- 92.2 BUN/Creatinine Ratio 11.1 Random Glucose 111 mg/dl Calcium Level 8.4 mg/dl Magnesium Level 2.2 mg/dl Carbamazepine (Tegretol) Level 9.5 mcg/ml Urine Color YELLOW Urine Appearance TURBID Urine pH >= 9.0 Urine Specific [place] 1.017 Urine Protein NEG Urine Glucose (UA) NEG Urine Ketones NEG Urine Occult Blood NEG Urine Nitrite NEG Urine Bilirubin NEG Urine Urobilinogen NEG Urine Leukocyte Esterase NEG Urine WBC (Auto) 1-5 /hpf Urine RBC (Auto) 0-4 /hpf Urine Hyaline Casts (Auto) 1-5 /lpf Urine Epithelial Cells (Auto) 5-10 /lpf Urine Bacteria (Auto) NEG (Genevieve Virk CRNP) Assessment and Plan 77 yo M, with history of brain bleeding, S/P G tube and tracheostomy admitted on 03/18/2017 with possible aspiration pneumonia associated with fever and increased secretions Aspiration pneumonia: - blood, sputum cultures showed no growth - continue nebulizers, levaquin and oral/trach suctioning, aspiration precautions, good oral care - last day of abx 03/25 - admits to feeding patient pureed food at home even with risk of aspiration as a quality of life measure. Discussed risks and benefits and patient's verbalized understanding - patient desatted to 87% on room air when taken off oxygen - home O2 arranged for discharge and patient has portable tank in room for going home G-tube feeds - continue Fibersource, can resume bolus feeds when home Diarrhea - C.Diff pending - likely due to fibersource - patient normally gets bolus feedings rather than continual drip. 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 Discussed with CHONG Virk and agree with findings and plan as documented in the note. Any exceptions or clarifications are listed here: Pt had 4 episodes of loose stools today, C. diff pending. and molecular spectroscopist also report some thick yellow sputum suctioned up this evening. Remains afebrile. Had urinary retention today requiring straight cath x 2 and then Diaz placement. does not know of any previous retention, no prostate problems. Vitals reviewed NAD, lying in bed with trach collar in place RRR no mgr coarse BS anteriorly but clear posteriorly Abd G-tube in place without surrounding erythema, +BS, soft NT ND Ext no edema, muscle atrophy bilat L>R Neuro-left hemiparesis with flexion contractures Pt is a 77 yo male with a h/o previous right SDH evacuation, right hemispheric MCA distribution stroke, left spastic hemiparesis and global aphasia, seizure disorder, aspiration, here with PNA and acute hypoxemic respiratory failure. Now with urinary retention and new onset diarrhea, will not dc to home today as planned originally. -continue supplemental O2 -was on Clinda and Levaquin, now on Levaquin alone--> finish out 2 more days - requesting sputum sample be done again given yellow sputum this evening, but not likely to have worsening infection as WBC count normal, afebrile, O2 requirement not increasing -continue nebs -removed fluid restriction, hyponatremia improving/stable, check PRP in AM- likely secondary to appropriate ADH response to dehydration when had PNA and fevers at home prior to admission, no h/o hyponatremia chronically -had brief seizure here on 03/22, reports sx once q4 weeks--> check levels of AEDs, f/u with Neuro by phone at least on Sunday -f/u C. diff for diarrhea -consult Urology for persistent urinary retention requiring Diaz placement, started FLomax Documented By: Carine Muñoz (Carine Muñoz MD)
[2017-03-23] MEDS ORDERED: NURSING VERBAL MED ORDER ONE (21:15)
[2017-03-23] MEDS ORDERED: SODIUM CHLORIDE 0.9% 250ML 250 ML IV SCH (21:30)
[2017-03-24] MEDS: FIBERSOURCE HN 1000ML BAG PEG PRN ×2 (01:26)
[2017-03-24] MEDS: ALBUT/IPRATROP 3MG/0.5MG NEB 3 ML VIAL INH SCH ×3 (01:34→14:34)
[2017-03-24 01:35] VITALS: PULSE 68; O2SAT 97
[2017-03-24 06:43] LABS: BASO % 0.2 %; BASO ABS # 0.01 K/uL (0-0.2); COMPLETE YES; EOS % 1.8 %; HEMATOCRIT 35.9 % (42-52); IG% 0.4 %; LYMPH % 39.5 %; LYMPH ABS # 2.01 K/uL (1.2-3.4); MEAN CELL VOLUME 95.2 fL (80-100); MEAN CORPUSCULAR HEMOGLOBIN 32.6 pg (25-34); MEAN CORPUSCULAR HGB CONC 34.3 g/dl (32-36); MEAN PLATELET VOLUME 7.5 fL (7.4-10.4); MONO % 9.8 %; NEUT % 48.3 %; PLATELET COUNT 155 K/uL (130-400); RED BLOOD COUNT 3.77 M/uL (4.7-6.1); WHITE BLOOD COUNT 5.09 K/uL (4.8-10.8)
[2017-03-24 07:06] VITALS: PULSE 55; O2SAT 93
[2017-03-24 07:17] VITALS: BP 114/71; PULSE 55; TEMP 36.4; O2SAT 94
[2017-03-24 07:19] LABS: BUN/CREATININE RATIO 13.5 (10-20); CALCIUM 8.3 mg/dl (8.5-10.1); CREATININE 0.63 mg/dl (0.60-1.40)
[2017-03-24] MEDS: CARBAMAZEPINE 100 MG/5 ML PEG SCH ×2 (07:30→12:37)
[2017-03-24] MEDS: TAMSULOSIN HCL 0.4 MG CAP PO SCH ×2 (08:43→11:10)
[2017-03-24] MEDS: LEVETIRACETAM ORAL SOLN 100MG/ML PEG SCH (08:44)
[2017-03-24] MEDS: LANSOPRAZOLE SOLUTAB 30 MG NG SCH (08:44)
[2017-03-24] MEDS: LEVOFLOXACIN 750 MG TAB PO SCH (11:10)
[2017-03-24] MEDS ORDERED: PHEN-775 PO (12:35)
[2017-03-24] MEDS ORDERED: DTR/5 PO (12:35)
[2017-03-24] MEDS ORDERED: TAMS0.4C38 PO (12:35)
--- NOTE | 2017-03-24 12:44 | Urology Consultation ---
History General Date of Service: Mar 24, 2017. Chief Complaint: Retention Primary Care Physician: Joshua Rivera M.D. Pt seen a urologist before?: No History of Present Illness Patient admitted with PNa. 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 Unable to answer questions. On tube feeds. Unable to ambulate and no motor control of upper extremity. says has not had urinary issues in past. Has been incontinent. Once had UTI. No hematuria. No stones or other issues. Does have chronic constipation but severe diarrhea this admission. Cdiff was negative. On abx for URI and PNa. Has trach and trach collar. Laboratory Labs were reviewed and are within normal limits unless listed below. Labs are available in the chart and at [facility] Problem List Medical Problems: (1) Altered mental status Status: Acute (2) Anemia Status: Acute (3) Anemia Status: Acute (4) Bilateral pneumonia Status: Acute (5) Bronchitis, acute Status: Acute (6) Change in mental status Status: Acute (7) Cough Status: Acute (8) Hyponatremia Status: Acute (9) Lactic acid acidosis Status: Acute Past History respiratory arrest, seizure Additional Comments: Surgical and Medical and Social and Family history all reviewed. Please see H& P for full report. Pertinent information above. Family History Cancer Social History Hx Tobacco Use In Past Year?: No Drug use: none Marital status: Housing status: lives with family Occupation status: retired Immunizations History of Influenza Vaccine: Yes Influenza Vaccine Date: Mar 08, 2013 History of Tetanus Vaccine?: Unknown Tetanus Immunization Date: Apr 13, 1998 History of Pneumococcal: Unknown Pneumococcal Date: Feb 11, 2009 History of Hepatitis B Vaccine: No History of MDRO No Allergies Coded Allergies: Aspirin (Verified Allergy, Mild, 06/28/16) Penicillins (Verified Allergy, Mild, 06/28/16) Tetracycline (Verified Allergy, Unknown, UNKNOWN, 06/28/16) UNKNOWN, PT REPORTED ALLERGY Medications Home Medications: Home Meds and Scripts Medications Dose Route/Sig Max Daily Dose Days Date Category Dose Instructions Levofloxacin 750 Mg Tab 750 Mg PO DAILY@11 3 03/22/17 Rx Jevity 1.5 Jermaine (Enteral Nutritional Formula) 1 Can Liqd 8 Oz PEG BID 15 03/22/17 Rx Albuterol Sulfate (Albuterol Sulf) 2.5 Mg/3 Ml Nebu 3 Ml NEB Q4 PRN 3/1/17 Reported Tegretol (Carbamazepine) 100 Mg/5 Ml Susp 8 Ml PEG QID 06/28/16 Reported Lamictal (Lamotrigine) 25 Mg Tab 11 Tabs PEG BID 05/26/16 Reported LIST SAYS 11 OF THE 25 MG CHEWABLE TABLETS Keppra (Levetiracetam) 100 Mg/Ml Shawna 1 Ml PEG AMPM 07/25/15 Reported Tylenol Children's Susp (Acetaminophen) 160 Mg/5 Ml Susp 20 Ml PEG Q4H PRN 07/05/14 Reported Inpatient Medications: Current Inpatient Medications Medications (Trade) Dose Ordered Sig/Piper Route Start Time Stop Time Status Last Admin Dose Admin Magnesium Hydroxide (Milk Of Magnesia Susp) 30 ml Q12H PRN PO 03/18/17 20:15 04/17/17 20:14 Ondansetron HCl (Zofran Inj) 4 mg Q6H PRN IV 03/18/17 20:15 04/17/17 20:14 Lamotrigine (Lamictal Tab) 200 mg BID PEG 03/18/17 21:00 04/17/17 20:59 03/24/17 08:44 200 MG Levetiracetam (Keppra Soln) 100 mg BID PEG 03/18/17 21:00 04/17/17 20:59 03/24/17 08:44 100 MG Lamotrigine (Lamictal Tab) 75 mg BID PEG 03/19/17 09:00 04/17/17 20:59 03/24/17 08:44 75 MG Acetaminophen (Tylenol Soln) 650 mg Q4H PRN PO 03/18/17 22:45 04/17/17 22:44 Lansoprazole (Prevacid Solutab) 30 mg BID NG 03/19/17 09:00 04/18/17 08:59 03/24/17 08:44 30 MG Carbamazepine (Carbamazepine) 160 mg QID@0700,1200,1700,2200 PEG 03/19/17 12:00 04/18/17 11:59 03/24/17 07:30 160 MG Enteral Nutritional Formula (Fibersource Hn) 1,000 ml UD PRN PEG 03/19/17 11:15 04/18/17 11:14 03/24/17 01:26 1,000 ML Albuterol Sulfate (Ventolin 0.083% 2.5MG/3ML Neb) 2.5 mg Q4 PRN INH 03/19/17 11:30 04/18/17 11:29 03/20/17 11:42 2.5 MG Albuterol/ Ipratropium (Duoneb) 3 ml Q6R INH 03/20/17 21:00 04/19/17 20:59 03/24/17 07:02 3 ML Albuterol/ Ipratropium (Duoneb) 3 ml Q2R PRN INH 03/20/17 15:30 04/19/17 15:29 Levofloxacin (Levaquin Tab) 750 mg DAILY@11 PO 03/21/17 11:00 03/25/17 10:59 03/24/17 11:10 750 MG Lorazepam (Ativan Inj) 1 mg Q4H PRN IV 03/22/17 15:00 04/21/17 14:59 Tamsulosin HCl (Flomax Cap) 0.4 mg QAM PO 03/24/17 08:00 04/23/17 07:59 03/24/17 11:10 0.4 MG Review of Systems Review of Systems All Other Systems: Reviewed and Negative Additional Comments: All reviewed. Patient unable to answer questions at baseline. Pertinent positives and negatives in HPI. Physical Exam Vital Signs: Vital Signs Past 12 Hours Date Time Temp Pulse Resp B/P (MAP) Pulse Ox O2 Delivery O2 Flow Rate FiO2 03/24/17 09:13 Trach Collar 9.0 03/24/17 07:17 36.4 55 20 114/71 (85) 94 03/24/17 07:06 55 16 93 Trach Collar 9.0 30 03/24/17 01:35 68 16 97 Trach Collar 9.0 30 Physical Exam: General Appearance: no apparent distress, + thin, + pertinent finding (Bed bound and chronic atrophy with chronic respiratory issues. ) Eyes: bilateral eyes normal inspection ENT: normal ENT inspection, hearing grossly normal Neck: no JVD, trachea midline (Trach tube and collar) Respiratory/Chest: no respiratory distress, no accessory muscle use (Trach collar with moderate mucous production) Cardiovascular: regular rate, rhythm Gastrointestinal: Abdomen: normal abdomen Bladder: normal bladder Extremities: normal range of motion (Baseline for neuro exam. Hemiparesis and paraplegia after major CVA. Bed bound), no pedal edema Neurologic/Psychiatric: alert, normal mood/affect Skin: normal color, no rash Lymphatic: no adenopathy Assessment & Plan Assessment & Plan 1. Acute Retention 2. Severe neurologic issues after CVA 3. Chronic respiratory illness. 4. Chronic constipation and bowel issues. Long 30 min discussion with family/ and patient. Patient unable to communicate. Likely acute exacerbation of underlying urinary issues. Likely multifactorial. Concerning for major underlying issues with bladder compensation. Long discussion of options for acute management and monitoring. Will have tracy placed and medications for spasm and start flomax. Will plan approx 10 days of decompression of bladder with plans to normalize medications, increase activity, and normalize bowel function. Also normalize fluid intake. Will reassess in office and plan for tracy removal in 10 days. May need scope.
[2017-03-24] MEDS ORDERED: OXYBUTYNIN CHLORIDE 5 MG TAB PO STA (12:57)
[2017-03-24] MEDS ORDERED: PHENAZOPYRIDINE HCL 200 MG TAB PO PRN (13:00)
[2017-03-24] MEDS ORDERED: LEVO1TAB35 PO (13:05)
[2017-03-24 14:17] VITALS: BP 114/71; TEMP 36.4; O2SAT 94
[2017-03-24 14:36] VITALS: PULSE 58; O2SAT 97
--- NOTE | 2017-03-24 14:50 | Discharge Summary ---
Discharge Summary Date of Service Mar 24, 2017. (Genevieve Virk CRNP) Discharge Summary Admission Date: Mar 18, 2017 at 20:11 Discharge Date: Mar 24, 2017 Discharge Disposition: Home with services Principal Diagnosis: Aspiration Pneumonia Problems/Secondary Diagnoses: Hx of aspiration pneumonia and pneumonitis Seizure disorder CVA Hx of renal calculi Hx of metabolic encephalopathy Tracheostomy dependent PEG tube dependent Hemiparalysis Immunizations: Have You Had Influenza Vaccine: Yes Influenza Vaccine Date: Mar 08, 2013 History of Tetanus Vaccine?: Unknown Tetanus Immunization Date: Apr 13, 1998 History of Pneumococcal: Unknown Pneumococcal Date: Feb 11, 2009 History of Hepatitis B Vaccine: No Procedures: CXR 03/20 IMPRESSION: Small developing parenchymal infiltrate left base. CXR 03/18 IMPRESSION: No acute process. (Genevieve Virk CRNP) Problems/Secondary Diagnoses: Acute hypoxemic respiratory failure Diarrhea Acute urinary retention with bladder spasms Hyponatremia H/o right SDH evacuation, right hemispheric MCA distribution CVA, with left spastic hemiparesis and global aphasia Consultations: Urology (Carine Muñoz MD) Medication Reconciliation New Medications: Levofloxacin (Levaquin) 750 Mg Tab 750 MG PO DAILY for 1 Day, #1 TAB Oxybutynin Chloride (Ditropan) 5 Mg Tab 1 TAB PO BID PRN for Bladder pain for 30 Days, #60 TAB 0 Refills Phenazopyridine Hcl (Pyridium) 200 Mg Tab 200 MG PO TID, #9 TAB Tamsulosin Hcl (Flomax) 0.4 Mg Cap 1 CAP PO DAILY for 30 Days, #30 CAP 5 Refills Changed Medications: Enteral Nutrition Formula (Jevity 1.5 Jermaine) 1 Can Liqd 8 OZ PEG BID for 15 Days, #30 CAN (Changed from: QAM) Continued Medications: Acetaminophen (Tylenol Children's Susp) 160 Mg/5 Ml Susp 20 ML PEG Q4H PRN for Pain Albuterol Sulf (Albuterol Sulfate) 2.5 Mg/3 Ml Nebu 3 ML NEB Q4 PRN for Wheezing Carbamazepine (Tegretol) 100 Mg/5 Ml Susp 8 ML PEG QID Lamotrigine (Lamictal) 25 Mg Tab 11 TABS PEG BID LIST SAYS 11 OF THE 25 MG CHEWABLE TABLETS Levetiracetam (Keppra) 100 Mg/Ml Shawna 1 ML PEG AMPM Discharge Exam ROS - unable to obtain, nonverbal PE General: no distress Eyes: normal inspection, PERLL Respiratory: chest non tender, clear to auscultation, normal breath sounds, no respiratory distress, no accessory muscle use Cardiac: regular rate and rhythm, no rub or gallop, no murmur, no edema, no jvd GI/: active bowel sounds, no abd pain or tenderness, soft, non distended Extremities: normal range of motion, normal strength, non tender Neuro/Psych: non verbal, trach, did not open eyes to verbal or tactile stimulation though is moving spontaneously and purposefully ie. 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 He also has a PEG tube and is prone to aspiration pneumonia, which he was last admitted for here in June. Aspiration pneumonia: - blood, sputum cultures showed no growth - Given nebulizers, levaquin and oral/trach suctioning, aspiration precautions, good oral care - last day of abx 03/25 - admits to feeding patient pureed food at home even with risk of aspiration as a quality of life measure. Discussed risks and benefits and patient's verbalized understanding - patient desatted to 87% on room air when taken off oxygen 03/23 - home O2 arranged for discharge and patient has portable tank in room for going home G-tube feeds - Fibersource inpatient, can resume bolus feeds when home Diarrhea - C.Diff negative - likely due to fibersource - patient normally gets bolus feedings rather than continual drip at home. Urinary retention - UA clean, culture no growth - no voids 03/23 - bladder scans 400-500 mls - straight cathed - started tamsulosin and consulted urology - patient had tracy placed to go home, ditropan, pyridium and tamsulosin - will follow with urology in 10 days Seizure disorder - no further seizure activity today - seizure medication levels drawn - carbamazepine wnl, Keppra and Lamictal levels pending - patient will follow up with Dr. Aldrich concerning these values Possible acute on chronic Hyponatremia, etiology unknown, -TSH and cortisol level were normal, possibly illness related - 1500 ml FR until 03/23 and then resumed normal fluid intake with increase free water flushes in tube feed - will have prp drawn Sunday Total Time Spent: Greater than 30 minutes This includes examination of the patient, discharge planning, medication reconciliation, and communication with other providers. (Genevieve Virk CRNP) Discharge Instructions Please refer to the electronic Patient Visit Report (Discharge Instructions) for additional information. (Genevieve Virk CRNP) Follow-Up Follow up with primary care in about a week Follow up with Dr. Garcia from urology in [address] Aldrich for results of antiseizure meds. (Genevieve Virk CRNP) Additional Copies To Joshua Rivera M.D. Reviewed: Pt Seen/Exam by Me (Carine Muñoz MD) History [employer] Supervision Note: I interviewed and examined the patient. Discussed with CHONG Virk and agree with findings and plan as documented in the note. Any exceptions or clarifications are listed here: Seen by Urology today and I discussed the case with Urology-will replace Tracy and continue FLomax started yesterday, add on Ditropan and pyridium prn bladder spasm. Otherwise, had only one loose stool at 0300 and sputum now clear, still requiring O2. No other problems. Ready for discharge Vitals reviewed NAD, lying in bed with trach collar in place RRR no mgr lungs fairly clear anteriorly and posteriorly Abd G-tube in place without surrounding erythema, +BS, soft NT ND Ext no edema, muscle atrophy bilat L>R Neuro-left hemiparesis with flexion contractures Pt is a 77 yo male with a h/o previous right SDH evacuation, right hemispheric MCA distribution stroke, left spastic hemiparesis and global aphasia, seizure disorder, aspiration, here with PNA and acute hypoxemic respiratory failure. Developed/discovered acute urinary retention prior to discharge. This may have been present at home but not noticed. Continue FLomax, pyridium, ditropan, continue Tracy upon dc and f/u with Urology as planned in 10 days -continue supplemental O2 at home -was on Clinda and Levaquin, now on Levaquin alone--> finish out 1 more day -diarrhea resolving, C. diff negative -sputum samples all with normal virgilio -removed fluid restriction, hyponatremia improving/stable, likely secondary to appropriate ADH response to dehydration when had PNA and fevers at home prior to admission, no h/o hyponatremia chronically -had brief seizure here on 03/22, reports sx once q4 weeks--> check levels of AEDs, f/u with Neuro by phone at least on Sunday Stable for dc to home Documented By: Carine Muñoz (Carine Muñoz MD)
== END 2017-03-24 16:45 | disposition home health service (06) | DRG 177 ==
LOC: EDBD 18:08 → C.EDC 18:09 → C.2T 20:11 → ENRESERV 20:35 → CANRESERV 20:35 → ENRESERV 20:42 → CANRESERV 03-19 13:43 → ENRESERV 03-19 14:18 → C.4E 03-19 16:26
PROVIDERS: ADMIT Hospitalist; ATTEND Family Medicine
DX: J69.0 Pneumonitis due to inhalation of food and vomit (principal); J96.01 Acute respiratory failure with hypoxia; E87.1 Hypo-osmolality and hyponatremia; I69.359 Hemiplegia and hemiparesis following cerebral infarction affecting unspecified side; Z93.0 Tracheostomy status; Z93.1 Gastrostomy status; R19.7 Diarrhea, unspecified; R33.9 Retention of urine, unspecified; G40.909 Epilepsy, unspecified, not intractable, without status epilepticus; I69.320 Aphasia following cerebral infarction; Z87.442 Personal history of urinary calculi; Z88.0 Allergy status to penicillin; Z88.1 Allergy status to other antibiotic agents

== ENCOUNTER 2017-04-06 15:12 | Inpatient (IN) | payer OTHER ==
[~2017-04-06] VITALS: Ht 167.6 cm; Wt 72.3 kg
[~2017-04-06 15:12] MED LIST changes: -AMOX500T PO; -DOXA2TAB PEG; -LANS30TA3 PEG; -NUTR-673 PO
--- NOTE | 2017-04-06 15:20 | EMERGENCY ROOM VISIT NOTE ---
History Report prepared by Marie: Sarah Vasquez Under the Supervision of: Dr. Joshua Ramachandran D.O. First contact with patient: 15:14 Chief Complaint: FEVER Stated Complaint: FEVER History of Present Illness The patient is a 77 year old male who presents to the Emergency Room with complaints of a persistent fever. He was brought to the ED via EMS. EMS reports his last temperature was 100.2 in the field. EMS states the fever started around 0700 this morning. The patient has a productive cough with clear to light pink tinged sputum. As EMS arrived to the ED, the sputum became "bloody". The patients home health nurse reports the patient does not make urine on his own any more. He was seen here in the hospital on March 18 for bilateral pneumonia, and was discharged home on March 24. Source of History: EMS History Limited By: other (baseline mental status) Onset: 0700 this morning Position: other (global) Timing: other (persistent) Associated Symptoms: + cough Review of Systems See HPI for pertinent positives & negatives. History limited secondary to baseline mental status. 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 (14) Tracheostomy, acute management (15) UTI (urinary tract infection) Surgical Problems: (1) H/O hand surgery (2) History of renal stent (3) PEG (percutaneous endoscopic gastrostomy) status (4) S/P tonsillectomy Family History Cancer Social History Smoking Status: Never Smoker Alcohol Use: none Drug Use: none Marital Status: Housing Status: lives with significant other Occupation Status: retired Current/Historical Medications Scheduled Carbamazepine (Tegretol), 8 ML PEG QID Enteral Nutrition Formula (Jevity 1.5 Jermaine), 1 CAN PO QID Lamotrigine (Lamictal), 12 TABS PEG BID Lansoprazole (Prevacid Solutab), 1 TAB PEG BID Levetiracetam (Keppra), 1 ML PEG AMPM Tamsulosin Hcl (Flomax), 1 CAP PO DAILY Scheduled PRN Acetaminophen (Tylenol Children's Susp), 20 ML PEG Q4H PRN for Pain Albuterol Sulf (Albuterol Sulfate), 3 ML NEB Q4 PRN for Wheezing Allergies Coded Allergies: Aspirin (Verified Allergy, Mild, 04/06/17) Penicillins (Verified Allergy, Mild, 04/06/17) Tetracycline (Verified Allergy, Unknown, UNKNOWN, 04/06/17) UNKNOWN, PT REPORTED ALLERGY Physical Exam Vital Signs Date Time Temp Pulse Resp B/P (MAP) Pulse Ox O2 Delivery O2 Flow Rate FiO2 04/06/17 17:00 100 18 97 Humidified Oxygen Trach Collar 04/06/17 16:35 108 04/06/17 15:22 94 Room Air 04/06/17 15:19 38.0 82 20 128/80 96 Room Air Physical Exam GENERAL: Patient was somnolent and does not respond to verbal commands, eyes are closed. EYES: The conjunctivae are clear. The pupils are round and reactive. EARS, NOSE, MOUTH AND THROAT: The nose is without any evidence of any deformity. Mucous membranes are moist tongue is midline NECK: Neck is supple. Tracheostomy tube noted anteriorly. Bloody sputum noted, no bleeding around tracheostomy site. RESPIRATORY: Lung sounds are diminished throughout. Rails in all lung ortiz. Shallow respirations noted. CARDIOVASCULAR: Regular rate and rhythm noted there no murmurs rubs or gallops normal S1 normal S2 GASTROINTESTINAL: The abdomen is soft. Bowel sounds are present in all quadrants. Abdomen is nontender MUSCULOSKELETAL/EXTREMITIES: There is no evidence of gross deformity full range of motion is noted in the hips and shoulders SKIN: No pedal edema. Skin is warm and dry. There is no obvious evidence of any rash. There are no petechiae, pallor or cyanosis noted. NEUROLOGIC: Patient was contracted. Does not answer questions. Unable to assess orientation. Medical Decision & Procedures ER Provider Diagnostic Interpretation: Radiology results as stated below per my review and radiologist interpretation: CHEST ONE VIEW PORTABLE CLINICAL HISTORY: Sepsis. COMPARISON STUDY: Chest radiograph March 20, 2017. FINDINGS: Tracheostomy tube is noted. There is no pneumothorax. Mild left basilar opacity is present with a possible small left pleural effusion. There is no evidence of pulmonary edema. Cardiomegaly is unchanged. IMPRESSION: Mild left basilar opacity which may reflect atelectasis or pneumonia. Possible small left pleural effusion. Radiographic follow-up is recommended. Electronically signed by: Tommie Pinto M.D. 04/06/2017 4:28 PM Laboratory Results 04/06/17 15:37 Red Blood Count 3.79, Mean Corpuscular Volume 94.5, Mean Corpuscular Hemoglobin 33.0, Mean Corpuscular Hemoglobin Concent 34.9, Mean Platelet Volume 8.1, Neutrophils (%) (Auto) 82.0, Lymphocytes (%) (Auto) 10.6, Monocytes (%) (Auto) 6.5, Eosinophils (%) (Auto) 0.2, Basophils (%) (Auto) 0.1, Neutrophils # (Auto) 10.01, Lymphocytes # (Auto) 1.30, Monocytes # (Auto) 0.80, Eosinophils # (Auto) 0.03, Basophils # (Auto) 0.01 04/06/17 15:37 Test 04/06/17 15:37 04/06/17 15:45 04/06/17 17:07 White Blood Count 12.22 K/uL (4.8-10.8) Red Blood Count 3.79 M/uL (4.7-6.1) Hemoglobin 12.5 g/dL (14.0-18.0) Hematocrit 35.8 % (42-52) Mean Corpuscular Volume 94.5 fL (80-100) Mean Corpuscular Hemoglobin 33.0 pg (25-34) Mean Corpuscular Hemoglobin Concent 34.9 g/dl (32-36) Platelet Count 199 K/uL (130-400) Mean Platelet Volume 8.1 fL (7.4-10.4) Neutrophils (%) (Auto) 82.0 % Lymphocytes (%) (Auto) 10.6 % Monocytes (%) (Auto) 6.5 % Eosinophils (%) (Auto) 0.2 % Basophils (%) (Auto) 0.1 % Neutrophils # (Auto) 10.01 K/uL (1.4-6.5) Lymphocytes # (Auto) 1.30 K/uL (1.2-3.4) Monocytes # (Auto) 0.80 K/uL (0.11-0.59) Eosinophils # (Auto) 0.03 K/uL (0-0.5) Basophils # (Auto) 0.01 K/uL (0-0.2) RDW Standard Deviation 47.7 fL (36.4-46.3) RDW Coefficient of Variation 13.8 % (11.5-14.5) Immature Granulocyte % (Auto) 0.6 % Immature Granulocyte # (Auto) 0.07 K/uL (0.00-0.02) Erythrocyte Sedimentation Rate 12 mm/hr (0-14) Prothrombin Time 10.8 SECONDS (9.0-12.0) Prothromb Time International Ratio 1.0 (0.9-1.1) Activated Partial Thromboplast Time 50.1 SECONDS (21.0-31.0) Partial Thromboplastin Ratio 1.9 Anion Gap 4.0 mmol/L (3-11) Est Creatinine Clear Calc Drug Dose 88.9 ml/min Estimated GFR () 105.6 Estimated GFR (Non- 91.1 BUN/Creatinine Ratio 8.6 (10-20) Calcium Level 8.0 mg/dl (8.5-10.1) Phosphorus Level 2.3 mg/dl (2.5-4.9) Magnesium Level 2.0 mg/dl (1.8-2.4) Total Bilirubin 0.4 mg/dl (0.2-1) Aspartate Amino Transf (AST/SGOT) 8 U/L (15-37) Alanine Aminotransferase (ALT/SGPT) 17 U/L (12-78) Alkaline Phosphatase 93 U/L (45-117) Total Creatine Kinase 71 U/L (39-308) Creatine Kinase MB 1.6 ng/ml (0.5-3.6) Creatine Kinase MB Ratio 2.3 (0-3.0) Troponin I < 0.015 ng/ml (0-0.045) C-Reactive Protein 2.00 mg/dl (0-0.29) Pro-B-Type Natriuretic Peptide 220 pg/ml (0-1800) Total Protein 6.9 gm/dl (6.4-8.2) Albumin 3.1 gm/dl (3.4-5.0) Globulin 3.8 gm/dl (2.5-4.0) Albumin/Globulin Ratio 0.8 (0.9-2) Lipase 73 U/L (73-393) Carbamazepine (Tegretol) Level 9.3 mcg/ml (4-12) Bedside Lactic Acid Venous 3.29 mmol/L (0.90-1.70) Urine Color YELLOW Urine Appearance TURBID (CLEAR) Urine pH >= 9.0 (4.5-7.5) Urine Specific Meherrin 1.018 (1.000-1.030) Urine Protein NEG (NEG) Urine Glucose (UA) NEG (NEG) Urine Ketones NEG (NEG) Urine Occult Blood NEG (NEG) Urine Nitrite NEG (NEG) Urine Bilirubin NEG (NEG) Urine Urobilinogen NEG (NEG) Urine Leukocyte Esterase MODERATE (NEG) Urine WBC (Auto) 10-30 /hpf (0-5) Urine RBC (Auto) 0-4 /hpf (0-4) Urine Hyaline Casts (Auto) 1-5 /lpf (0-5) Urine Epithelial Cells (Auto) 0-5 /lpf (0-5) Urine Bacteria (Auto) 1+ (NEG) Laboratory results per my review. Medications Administered Medications (Trade) Dose Ordered Sig/Piper Route Start Time Stop Time Status Last Admin Dose Admin Levofloxacin (Levaquin / D5W) 750 mg NOW STAT IV 04/06/17 16:35 04/06/17 16:37 DC 04/06/17 17:05 750 MG Sodium Chloride 1,000 ml @ 999 mls/hr Q1H1M STAT IV 04/06/17 16:36 04/06/17 17:36 DC 04/06/17 17:05 999 MLS/HR Ondansetron HCl (Zofran Inj) 4 mg NOW STAT IV 04/06/17 16:54 04/06/17 16:55 DC 04/06/17 17:05 4 MG Sodium Chloride 1,000 ml @ 75 mls/hr [id number] IV 04/06/17 17:30 05/06/17 17:29 04/06/17 20:50 75 MLS/HR ECG Indication: other (fever) Rate (beats per minute): 83 Rhythm: normal sinus Findings: other (No acute ST segments, low voltage throughout) Change: no significant change (from 03/18/17) ED Course 1514: The patient was evaluated in room C10. A complete history and physical examination were performed. 1551: I reevaluated the patient. I spoke with his family and his states the increased sputum was why they called EMS today. The patients home health nurse took out his Antoine catheter yesterday due to diarrhea and worries about an infection. 1635: Levaquin 750 mg IV. 1636: NSS 1000 ml @ 999 mls/hr IV. 1654: Zofran 4 mg IV. 1703: I discussed the patients case with Dr. Douglas [facility] Hospitalist. The patient will be further evaluated. Medical Decision Prior records/ancillary studies reviewed. Triage Nursing notes reviewed. Additional history is obtained from the patient's significant other. The patient's history was concerning for fever. Differential diagnosis: Etiologies such as viral syndrome, otitis, pharyngitis, pneumonia, influenza, meningitis, urinary tract infection, sepsis, bacteremia, as well as others were entertained. The patient is a 77-year-old male who presented to the emergency department for an evaluation of fever and difficulty breathing. The patient is a history of aspiration pneumonia. He had multiple episodes of emesis while he was in the emergency department. He was treated with antiemetics IV fluids and IV antibiotics in the emergency department. I discussed the patient's laboratory and radiographic studies with his significant other. Given his ongoing symptoms and his chronic debilitation I also discussed his case with the on-call [facility] hospitalist. They've agreed to evaluate the patient in the emergency department for further management and disposition. Medication Reconcilliation Current Medication List: was personally reviewed by me Blood Pressure Screening Patient's blood pressure: Normal blood pressure Blood pressure disposition: Did not require urgent referral Consults Time Called: 1700 Consulting Physician: Dr. Douglas [facility] Hospitalist Returned Call: 1703 I discussed the patients case with Dr. Douglas [facility] Hospitalist. The patient will be further evaluated. Impression Primary Impression: Fever Additional Impressions: Pneumonia Nausea & vomiting Hyponatremia Scribe Attestation The scribe's documentation has been prepared under my direction and personally reviewed by me in its entirety. I confirm that the note above accurately reflects all work, treatment, procedures, and medical decision making performed by me. Departure Information Dispostion Being Evaluated By Hospitalist Referrals Joshua Rivera M.D. (PCP) Patient Instructions My [facility] Problem Qualifiers Primary Impression: Fever Fever type: unspecified Qualified Codes: R50.9 - Fever, unspecified Additional Impressions: Pneumonia Pneumonia type: due to unspecified organism Laterality: left Lung location : lower lobe of lung Qualified Codes: J18.1 - Lobar pneumonia, unspecified organism Nausea & vomiting Vomiting type: unspecified Vomiting Intractability: non-intractable Qualified Codes: R11.2 - Nausea with vomiting, unspecified
[2017-04-06 16:09] LABS: BASO % 0.1 %; BASO ABS # 0.01 K/uL (0-0.2); COMPLETE YES; EOS % 0.2 %; HEMATOCRIT 35.8 % (42-52); IG% 0.6 %; LYMPH % 10.6 %; MEAN CELL VOLUME 94.5 fL (80-100); MEAN CORPUSCULAR HGB CONC 34.9 g/dl (32-36); MEAN PLATELET VOLUME 8.1 fL (7.4-10.4); MONO % 6.5 %; PLATELET COUNT 199 K/uL (130-400); RED BLOOD COUNT 3.79 M/uL (4.7-6.1); WHITE BLOOD COUNT 12.22 K/uL (4.8-10.8)
[2017-04-06 16:24] LABS: PARTIAL THROMBOPLASTIN RATIO 1.9; PROTHROMBIN TIME (PATIENT) 10.8 SECONDS (9.0-12.0)
--- NOTE | 2017-04-06 16:29 | DIAGNOSTIC IMAGING REPORT ---
CHEST ONE VIEW PORTABLE CLINICAL HISTORY: Sepsis. COMPARISON STUDY: Chest radiograph March 20, 2017. FINDINGS: Tracheostomy tube is noted. There is no pneumothorax. Mild left basilar opacity is present with a possible small left pleural effusion. There is no evidence of pulmonary edema. Cardiomegaly is unchanged. IMPRESSION: Mild left basilar opacity which may reflect atelectasis or pneumonia. Possible small left pleural effusion. Radiographic follow-up is recommended. Electronically signed by: Tommie Pinto M.D. 04/06/2017 4:28 PM Dictated Date/Time: 04/06/2017 4:26 PM
[2017-04-06] MEDS ORDERED: LEVAQUIN 750MG / 150ML D5W IV STA (16:35)
[2017-04-06] MEDS ORDERED: SODIUM CHLORIDE 0.9% 1000ML 1,000 ML IV STA (16:36)
[2017-04-06 16:39] LABS: ALB/GLOB RATIO 0.8 (0.9-2); ALKALINE PHOSPHATASE 93 U/L (45-117); ALT/SGPT 17 U/L (12-78); AST/SGOT 8 U/L (15-37); BLOOD UREA NITROGEN 6 mg/dl (7-18); BUN/CREATININE RATIO 8.6 (10-20); CARBON DIOXIDE 28 mmol/L (21-32); CHLORIDE 90 mmol/L (98-107); CKMB/CK RATIO 2.3 (0-3.0); CREATININE 0.71 mg/dl (0.60-1.40); GLUCOSE 97 mg/dl (70-99); PHOSPHORUS 2.3 mg/dl (2.5-4.9); POTASSIUM 3.8 mmol/L (3.5-5.1); SODIUM 122 mmol/L (136-145)
[2017-04-06] MEDS ORDERED: ONDANSETRON INJ 2 MG/ML 2 ML VIAL IV STA (16:54)
[2017-04-06 17:26] LABS: URINE APPEARANCE TURBID (CLEAR); URINE BILIRUBIN NEG (NEG); URINE COLOR YELLOW; URINE EPITHELIAL CELL AUTO 0-5 /lpf (0-5); URINE NITRITE NEG (NEG); URINE PH >= 9.0 (4.5-7.5); URINE SPECIFIC GRAVITY 1.018 (1.000-1.030); UROBILINOGEN NEG (NEG); ZZURINE CULT IF INDIC CATH YES
[2017-04-06 17:29] LABS: MANUAL MICROSCOPIC REQUIRED? NO; REVIEW REQ? NO
[2017-04-06] MEDS ORDERED: SOD PHOSPHATE/SOD BIPHOSPHATE ENEMA 132 ML BTL PR STA (17:29)
[2017-04-06] MEDS ORDERED: CONSULT PHARMACY STA (17:29)
[2017-04-06] MEDS ORDERED: SOD PHOSPHATE/SOD BIPHOSPHATE ENEMA 132 ML BTL PR PRN (17:30)
[2017-04-06] MEDS ORDERED: ALUMINUM/MAGNESIUM/SIMETH (MAALOX MAX) 30 ML UDC PO PRN (17:30)
[2017-04-06] MEDS ORDERED: MAGNESIUM HYDROXIDE SUSP 30 ML UDC PO PRN (17:30)
[2017-04-06] MEDS ORDERED: POLYETHYLENE (MIRALAX) 17 GM PACK PO PRN (17:30)
[2017-04-06] MEDS ORDERED: ACETAMINOPHEN SOLN 650MG/20.3 ML UDC GT PRN (17:30)
[2017-04-06] MEDS ORDERED: ZOLPIDEM TARTRATE 5 MG TAB PO PRN (17:30)
[2017-04-06] MEDS ORDERED: OXYBUTYNIN CHLORIDE 5 MG TAB PO PRN (17:30)
[2017-04-06] MEDS ORDERED: ONDANSETRON INJ 2 MG/ML 2 ML VIAL IV PRN (17:30)
[2017-04-06] MEDS ORDERED: NURSING VERBAL MED ORDER ONE ×2 (17:45→21:15)
[2017-04-06] MEDS ORDERED: NUTR-673 PO (17:49)
[2017-04-06] MEDS ORDERED: LANS30TA3 PEG (17:49)
[2017-04-06] MEDS ORDERED: NON-FORMULARY PATIENT'S OWN MED PEG SCH (18:00)
--- NOTE | 2017-04-06 18:06 | History and Physical ---
History & Physical Date of Service Apr 06, 2017. History & Physical HAP, or aspiration pna, sepsis, hx of trach and PEG tube feeing through PEG 1 can per hr, total 4 can a day, need to use a lot water in PEG flushing, 1800 ml daily, [id number]
[2017-04-06 18:12] LABS: VEN BLD GAS O2 SATURATION 73.3 %; VEN BLOOD GAS BASE EXCESS 1.6 mEq/L
[2017-04-06] MEDS ORDERED: VANCOMYCIN CONSULT ACTIVE PRN (18:45)
--- NOTE | 2017-04-06 18:48 | HISTORY & PHYSICAL EXAMINATION ---
DATE OF ADMISSION: 04/06/2017 This is level 3 inpatient admission, 35 minutes. CHIEF COMPLAINT: Fever, confused and constipation. HISTORY OF PRESENT ILLNESS: The patient is a 77-year-old white male who was just recently discharged to home after treatment of pneumonia which was on 03/24/2017 which was about 2 weeks ago. In the previous admission, the patient was found to have aspiration pneumonia. Blood culture and sputum culture has no growth. He was treated with nebulizer treatment. He was discharged home with medication of Levaquin for full course of treatment. Per report from the patient's , he has been doing well until today, he developed fever. Associated with small cough, difficult to coughing up with a lot of secretions from the trach area. Sometimes has blood coming up, which is productive cough, the temperature was up to 100.2. also report the patient has constipation since last Sunday. There was minimal amount of stool after suppository associated with decreased bowel sound. When I interviewed with the patient, he has persistent cough with yellow secretions from the trach area. Seems difficult to cough up. Sticky. Associated mild fever. The patient is nonverbal, which is not new. Bilateral lung has decreased breathing sounds associated with mild wheezing, low rhonchi, no crackles. Other detailed review of system is limited because patient is nonverbal. However, like I mentioned, he has productive cough and no vomiting. However, has constipation. ALLERGIES: ALLERGIC TO ASPIRIN, PENICILLIN, TETRACYCLINE. PAST MEDICAL HISTORY: Include; 1. Aspiration pneumonia, convulsive status epilepticus. 2. History of CVA. 3. History of renal calculus. 4. Metabolic encephalopathy. 5. ACL left knee replacement. 6. Urinary retention. 7. Seizure. 8. Subdural hematoma. 9. Tracheotomy. 10. UTI. PAST SURGICAL HISTORY: Includes; 1. Hand surgery. 2. History of renal stent. 3. PEG tube placement. 4. History of tonsillectomy. FAMILY HISTORY: Include cancer. SOCIAL HISTORY: Never smoked. Denied alcohol abuse disorder, denied illicit drug abuse. The patient is and lives with . The patient is retired. MEDICATIONS: According to the list; 1. Tegretol 8 mL per PEG tube q.i.d. 2. Jevity 1.5. Jermaine 8 ounce PEG tube b.i.d. 3. Lamictal as directed per PEG tube b.i.d. 4. Keppra 1 mL PEG tube a.m. and p.m. 5. Flomax 1 cap p.o. daily. 6. Tylenol children 20 mL PEG q. 4 hours p.r.n. for the pain. 7. Albuterol 3 mL nebulizer q. 4 hours p.r.n. for the wheezing. 8. Ditropan 1 tab p.o. b.i.d. p.r.n. for bladder pain. 9. Prevacid 30mg peg daily ALLERGY: TO PENICILLIN, ASPIRIN AND TETRACYCLINE. PHYSICAL EXAMINATION: VITAL SIGNS: Temperature 38, pulse highest up to 108, respiratory rate 20, blood pressure 120/80, pulse ox 96% on room air. GENERAL: The patient is a white male, nonresponsive, nonverbal, has cough from trach tube, which is uncomfortable associated with bronchospasm and face color changes; however, after the episodes of the cough the color in the face was normalized. The cough, sputum was yellow and mild blood tinged. MOUTH: Conjunctivae no injection. Sclerae icterus. NECK: Supple. No evidence of any deformities check was done. LUNGS: Bilateral lungs decreased breathing sounds. No shadowed respiration noted. HEART: Regular heart rate. S1, S2, has no murmur. ABDOMEN: Soft. Bowel sound is significantly decreased in all quadrants. Abdomen is nontender. LOWER EXTREMITIES: No evidence of deformities in the lower extremity; however upper extremities are contracted. SKIN: Has no erythema, no bluish, cyanosis. NEUROLOGIC: The patient has no facial droop; however, nonverbal, bilateral upper arm is contracted, which is not new. Mental status is in his baseline. LABORATORY STUDIES: WBC 12, hemoglobin 12, platelet 199. Sodium 132, potassium 3.8, chloride 90, BUN 6, creatinine 0.7. IMAGING STUDIES: Chest x-ray, possible small left pleural effusion. Mild left basilar opacities. ASSESSMENT: A 77-year-old white male coming into the hospital because of 1. fever, mild labored breathing, elevated lactase, mild leukocytosis, possible pneumonia which could be aspiration pneumonia or hospital acquired pneumonia. 2. The patient has urinary tract infection as well, possible urinary tract infection urosepsis. 3. Severe hyponatremia. Sodium 122. 4. Significant constipation, 5. feeding dysfunction, currently is on PEG tube feeding, 6. status post tracheotomy because of cerebrovascular accident, 7. history of cerebral infarction and subdural hematoma, history of seizure and history of renal stent. PLAN: Like I mentioned above, the patient possibly has hospital acquired pneumonia or aspiration pneumonia associated with fever, cough more secretions and blood tinged in the sputum and x-ray also support possible left lung base infiltration. Will treat for the hospital acquired pneumonia with vancomycin and cefepime. We will give nebulizer treatment and O2 support. Has sent blood culture, urine culture and sputum culture and at the same time, we will trach care and then frequent suctioning. We will follow up blood culture, sputum culture and urine culture results. Discussed with patient's family about a PEG tube feeding, family request 1 can per hour Fibersource totally 4 cans per day and then request totally need to have 1800 mL of free silverio per PEG tube. They request SCD and the care of the constipation, for the care of the constipation free enema was ordered first set now. For hyponatremia, currently sodium level is 122 so we will have some IV fluid for now. Possible from the UTI which caused fever. We will follow up urine culture results. For patient's some other medical condition with history of seizure and history of contracture and subdural hematoma and CVA, we will continue Keppra, continue carbamazepine and continue tamsulosin as well. For DVT prophylaxis will be heparin. GI prophylaxis will be Prevacid. Discussed with about the patient's condition and care plan. I answered all their questions. Tomorrow morning lab is ordered. MICHELLED
[2017-04-06] MEDS ORDERED: CEFEPIME CONSULT ACTIVE PRN ×2 (19:00)
[2017-04-06] MEDS ORDERED: ACETAMINOPHEN IV 650 MG in EMPTY BAG 0 ML IV PRN (19:00)
[2017-04-06] MEDS ORDERED: VANCOMYCIN INJ 1,750 MG in SODIUM CHLORIDE 0.9% 500ML 500 ML IV ONE (19:00)
--- NOTE | 2017-04-06 19:05 | DIAGNOSTIC IMAGING REPORT ---
KUB CLINICAL HISTORY: Constipation. Abdominal distention. COMPARISON STUDY: KUB July 29, 2015. FINDINGS: Gastrostomy tube is noted. Surgical coils are noted, likely from previous hernia repair. The bowel gas pattern is normal. Moderate amount of stool within the colon and rectum is noted. IMPRESSION: 1. No evidence for a bowel obstruction. 2. Moderate amount of stool within the colon and rectum. Electronically signed by: Tommie Pinto M.D. 04/06/2017 7:04 PM Dictated Date/Time: 04/06/2017 7:03 PM
[2017-04-06 19:30] VITALS: PULSE 98; O2SAT 96
[2017-04-06] MEDS: ALBUT/IPRATROP 3MG/0.5MG NEB 3 ML VIAL INH SCH (19:30)
[2017-04-06] MEDS: SODIUM CHLORIDE 0.9% 1000ML 1,000 ML IV SCH (20:50)
[2017-04-06] MEDS: HEPARIN SOD 5000 UNIT/0.5 ML CARP SQ SCH (22:00)
[2017-04-06] MEDS: TUBE FEEDING WATER FLUSH NG SCH (22:12)
[2017-04-06] MEDS: FIBERSOURCE HN 1000ML BAG PEG SCH ×2 (22:12)
[2017-04-06] MEDS: LEVETIRACETAM ORAL SOLN 100MG/ML PEG SCH (22:13)
[2017-04-06] MEDS: LANSOPRAZOLE SOLUTAB 30 MG PEG SCH (22:14)
[2017-04-06] MEDS: CEFEPIME IV 2,000 MG in SYRINGE 7.5 ML IV SCH (22:14)
[2017-04-06] MEDS: CARBAMAZEPINE 100 MG/5 ML PEG SCH (22:17)
[2017-04-06 23:13] VITALS: BP 111/64; PULSE 87; TEMP 37; O2SAT 100
[2017-04-06 23:30] VITALS: BP 104/65; PULSE 97; TEMP 37.9; O2SAT 97; Ht 167.6 cm; Wt 72.3 kg
[2017-04-07] VITALS (16 sets, daily range): BP systolic 88–114; BP diastolic 46–66; PULSE 68–97; TEMP 36.5–37.7; O2SAT 4–98
[2017-04-07] MEDS: ALBUT/IPRATROP 3MG/0.5MG NEB 3 ML VIAL INH SCH ×5 (03:09→19:20)
[2017-04-07] MEDS: HEPARIN SOD 5000 UNIT/0.5 ML CARP SQ SCH ×3 (05:44→21:54)
[2017-04-07] MEDS: CEFEPIME IV 2,000 MG in SYRINGE 7.5 ML IV SCH ×3 (06:01→22:27)
[2017-04-07] MEDS: TUBE FEEDING WATER FLUSH NG SCH ×6 (06:02→21:45)
[2017-04-07] MEDS: FIBERSOURCE HN 1000ML BAG PEG SCH ×8 (06:02→21:45)
[2017-04-07] MEDS: CARBAMAZEPINE 100 MG/5 ML PEG SCH ×4 (06:12→21:45)
[2017-04-07 07:56] LABS: CREATININE 0.69 mg/dl (0.60-1.40)
[2017-04-07 08:19] LABS: BUN/CREATININE RATIO 12.3 (10-20); CREATININE 0.7 mg/dl (0.60-1.40); POTASSIUM 4.2 mmol/L (3.5-5.1)
[2017-04-07] MEDS: LEVETIRACETAM ORAL SOLN 100MG/ML PEG SCH ×2 (08:25→20:40)
[2017-04-07] MEDS: TAMSULOSIN HCL 0.4 MG CAP PO SCH (08:26)
[2017-04-07] MEDS: LANSOPRAZOLE SOLUTAB 30 MG PEG SCH ×2 (08:26→20:40)
[2017-04-07 08:33] LABS: BASO % 0.1 %; BASO ABS # 0.02 K/uL (0-0.2); COMPLETE YES; IG% 0.6 %; LYMPH % 9.9 %; LYMPH ABS # 1.93 K/uL (1.2-3.4); MEAN CELL VOLUME 94.6 fL (80-100); MEAN CORPUSCULAR HEMOGLOBIN 32.7 pg (25-34); MEAN CORPUSCULAR HGB CONC 34.5 g/dl (32-36); MEAN PLATELET VOLUME 8.3 fL (7.4-10.4); NEUT % 80.4 %; PLATELET COUNT 184 K/uL (130-400); RED BLOOD COUNT 3.49 M/uL (4.7-6.1)
[2017-04-07] MEDS: VANCOMYCIN INJ 1,250 MG in SODIUM CHLORIDE 0.9% 250ML 250 ML IV SCH ×2 (08:41→20:27)
[2017-04-07] MEDS: SODIUM CHLORIDE 0.9% 1000ML 1,000 ML IV SCH (11:42)
--- NOTE | 2017-04-07 11:55 | Progress Note ---
Subjective Date of Service: Apr 07, 2017. Subjective Pt evaluation today including: conversation w/ patient, physical exam, chart review, lab review, review of studies, review of inpatient medication list Somnolent on exam Difficult to arouse No acute distress noted at beside and updated Problem List Medical Problems: (1) Altered mental status Status: Acute (2) Anemia Status: Acute (3) Anemia Status: Acute (4) Bilateral pneumonia Status: Acute (5) Bronchitis, acute Status: Acute (6) Change in mental status Status: Acute (7) Cough Status: Acute (8) Fever Status: Acute (9) Hyponatremia Status: Acute (10) Lactic acid acidosis Status: Acute (11) Nausea & vomiting Status: Acute (12) Pneumonia Status: Acute Review of Systems Unable to obtain as pt was somnolent and difficult to arouse Objective Vital Signs Date Time Temp Pulse Resp B/P (MAP) Pulse Ox O2 Delivery O2 Flow Rate FiO2 04/07/17 11:03 68 18 97 Trach Collar 35 04/07/17 08:00 94 Trach Collar 11.0 35 04/07/17 07:55 36.7 83 19 88/46 (60) 94 Trach Collar 95/59 (71) 04/07/17 07:07 92 18 95 Trach Collar 35 04/07/17 03:30 94 Trach Collar 11.0 35 04/07/17 03:26 37.5 97 21 98/53 (68) 94 Trach Collar 11.0 04/07/17 03:20 92 18 95 Trach Collar 35 04/07/17 02:13 37.7 04/07/17 00:00 95 Trach Collar 11.0 35 04/06/17 23:30 37.9 97 24 104/65 97 Trach Collar 9.0 35 04/06/17 23:13 37.0 87 22 111/64 (80) 100 Trach Collar 9.0 35 04/06/17 20:13 98 12 122/67 94 04/06/17 19:30 98 12 122/67 94 Humidified Oxygen Trach Collar 04/06/17 19:30 98 18 96 Trach Collar 35 04/06/17 19:04 38.2 101 12 95 Humidified Oxygen Trach Collar 04/06/17 18:14 39.3 100 18 144/80 100 Humidified Oxygen Trach Collar 04/06/17 17:00 100 18 97 Humidified Oxygen Trach Collar 04/06/17 16:35 108 04/06/17 15:22 94 Room Air 04/06/17 15:19 38.0 82 20 128/80 96 Room Air Physical Exam General Appearance: WD/WN, no apparent distress Eyes: normal inspection, PERRL, EOMI, sclerae normal ENT: hearing grossly normal, + pertinent finding (trach in place) Neck: supple, no adenopathy, thyroid normal, no JVD Respiratory/Chest: chest non-tender, lungs clear, no respiratory distress, no accessory muscle use, + rhonchi Cardiovascular: no edema, no gallop, no JVD, no murmur Abdomen: normal bowel sounds, non tender, soft, no organomegaly Extremities: normal range of motion, non-tender, normal inspection, no pedal edema Neurologic/Psychiatric: no motor/sensory deficits, alert, normal mood/affect, oriented x 3 Skin: normal color, warm/dry, no rash Lymphatic: no adenopathy Laboratory Results Last 24 Hours Test 04/06/17 15:37 04/06/17 15:45 04/06/17 17:07 04/06/17 17:59 White Blood Count 12.22 K/uL Red Blood Count 3.79 M/uL Hemoglobin 12.5 g/dL Hematocrit 35.8 % Mean Corpuscular Volume 94.5 fL Mean Corpuscular Hemoglobin 33.0 pg Mean Corpuscular Hemoglobin Concent 34.9 g/dl Platelet Count 199 K/uL Mean Platelet Volume 8.1 fL Neutrophils (%) (Auto) 82.0 % Lymphocytes (%) (Auto) 10.6 % Monocytes (%) (Auto) 6.5 % Eosinophils (%) (Auto) 0.2 % Basophils (%) (Auto) 0.1 % Neutrophils # (Auto) 10.01 K/uL Lymphocytes # (Auto) 1.30 K/uL Monocytes # (Auto) 0.80 K/uL Eosinophils # (Auto) 0.03 K/uL Basophils # (Auto) 0.01 K/uL RDW Standard Deviation 47.7 fL RDW Coefficient of Variation 13.8 % Immature Granulocyte % (Auto) 0.6 % Immature Granulocyte # (Auto) 0.07 K/uL Erythrocyte Sedimentation Rate 12 mm/hr Prothrombin Time 10.8 SECONDS Prothromb Time International Ratio 1.0 Activated Partial Thromboplast Time 50.1 SECONDS Partial Thromboplastin Ratio 1.9 Sodium Level 122 mmol/L Potassium Level 3.8 mmol/L Chloride Level 90 mmol/L Carbon Dioxide Level 28 mmol/L Anion Gap 4.0 mmol/L Blood Urea Nitrogen 6 mg/dl Creatinine 0.71 mg/dl Est Creatinine Clear Calc Drug Dose 88.9 ml/min Estimated GFR () 105.6 Estimated GFR (Non- 91.1 BUN/Creatinine Ratio 8.6 Random Glucose 97 mg/dl Calcium Level 8.0 mg/dl Phosphorus Level 2.3 mg/dl Magnesium Level 2.0 mg/dl Total Bilirubin 0.4 mg/dl Aspartate Amino Transf (AST/SGOT) 8 U/L Alanine Aminotransferase (ALT/SGPT) 17 U/L Alkaline Phosphatase 93 U/L Total Creatine Kinase 71 U/L Creatine Kinase MB 1.6 ng/ml Creatine Kinase MB Ratio 2.3 Troponin I < 0.015 ng/ml C-Reactive Protein 2.00 mg/dl Pro-B-Type Natriuretic Peptide 220 pg/ml Total Protein 6.9 gm/dl Albumin 3.1 gm/dl Globulin 3.8 gm/dl Albumin/Globulin Ratio 0.8 Lipase 73 U/L Carbamazepine (Tegretol) Level 9.3 mcg/ml Bedside Lactic Acid Venous 3.29 mmol/L Urine Color YELLOW Urine Appearance TURBID Urine pH >= 9.0 Urine Specific [place] 1.018 Urine Protein NEG Urine Glucose (UA) NEG Urine Ketones NEG Urine Occult Blood NEG Urine Nitrite NEG Urine Bilirubin NEG Urine Urobilinogen NEG Urine Leukocyte Esterase MODERATE Urine WBC (Auto) 10-30 /hpf Urine RBC (Auto) 0-4 /hpf Urine Hyaline Casts (Auto) 1-5 /lpf Urine Epithelial Cells (Auto) 0-5 /lpf Urine Bacteria (Auto) 1+ Venous Blood pH 7.43 Venous Blood Partial Pressure CO2 41 mmHg Venous Blood Partial Pressure O2 40 mmHg Venous Blood HCO3 26 mmol/L Venous Blood Oxygen Saturation 73.3 % Venous Blood Base Excess 1.6 mEq/L Test 04/07/17 06:57 04/07/17 08:32 White Blood Count 19.50 K/uL Red Blood Count 3.49 M/uL Hemoglobin 11.4 g/dL Hematocrit 33.0 % Mean Corpuscular Volume 94.6 fL Mean Corpuscular Hemoglobin 32.7 pg Mean Corpuscular Hemoglobin Concent 34.5 g/dl Platelet Count 184 K/uL Mean Platelet Volume 8.3 fL Neutrophils (%) (Auto) 80.4 % Lymphocytes (%) (Auto) 9.9 % Monocytes (%) (Auto) 9.0 % Eosinophils (%) (Auto) 0.0 % Basophils (%) (Auto) 0.1 % Neutrophils # (Auto) 15.67 K/uL Lymphocytes # (Auto) 1.93 K/uL Monocytes # (Auto) 1.76 K/uL Eosinophils # (Auto) 0.00 K/uL Basophils # (Auto) 0.02 K/uL RDW Standard Deviation 48.5 fL RDW Coefficient of Variation 14.2 % Immature Granulocyte % (Auto) 0.6 % Immature Granulocyte # (Auto) 0.12 K/uL Sodium Level 127 mmol/L Potassium Level 4.2 mmol/L Chloride Level 97 mmol/L Carbon Dioxide Level 23 mmol/L Anion Gap 7.0 mmol/L Blood Urea Nitrogen 9 mg/dl Creatinine 0.70 mg/dl Est Creatinine Clear Calc Drug Dose 81.0 ml/min Estimated GFR () 106.2 Estimated GFR (Non- 91.7 BUN/Creatinine Ratio 12.3 Random Glucose 105 mg/dl Calcium Level 8.0 mg/dl Procalcitonin 2.36 ng/ml Assessment and Plan Pt is a 77 yo male presenting with fevers, labored breathing, elevated lactase, mild leukocytosis HCAP due to recent admission. Pt was last discharged on levaquin. Will broaden coverage to cefepime and vancomycin for MRSA coverage. Pt has trach, trach care continued. Cont nebs and O2 support. Leukocytosis worsening at this time. Will check procalcitonin. Blood cx pending. MRSA neg. UA indicative of UTI, will await urine cx, cont cefepime at this time. Severe hyponatremia improving with hydration, cont to monitor. Severe protein malnutrition, cont PEG tube feeds History of cerebral infarction and subdural hematoma, history of seizure and history of renal stent. For DVT prophylaxis will be heparin. GI prophylaxis will be Prevacid. Discussed with about the patient's condition and care plan.
--- NOTE | 2017-04-07 18:13 | Pharmacy Progress Note ---
Pharmacy Abx Initial Consult Date of Service Apr 07, 2017. Pharmacy Dosing Scope Date of Consult: 04/06/17 Consultation requested by: Dr. Douglas Pharmacy is consulted to initiate Vancomycin and Cefepime IV dosing therapy, order appropriate labs and adjust drug dose/frequency. Subjective The patient is a 77 year old male admitted on Apr 06, 2017 at 17:45. Objective Height (Feet): 5 Height (Inches): 6.00 Weight (Kilograms): 75.000 Vital Signs (Past 12Hrs) Vital Signs Past 12 Hours Date Time Temp Pulse Resp B/P (MAP) Pulse Ox O2 Delivery O2 Flow Rate FiO2 04/07/17 16:00 4 Trach Collar 11.0 35 04/07/17 15:28 36.6 70 20 114/63 (80) 94 Trach Collar 9.0 04/07/17 15:11 72 18 96 Trach Collar 35 04/07/17 12:00 95 Trach Collar 11.0 35 04/07/17 12:00 36.7 71 18 90/50 (63) 97 Trach Collar 11.0 35 04/07/17 11:03 68 18 97 Trach Collar 35 04/07/17 08:00 94 Trach Collar 11.0 35 04/07/17 07:55 36.7 83 19 88/46 (60) 94 Trach Collar 95/59 (71) 04/07/17 07:07 92 18 95 Trach Collar 35 Lab Results (24Hrs) Item Value Date Time Creatinine 0.70 mg/dl 04/07/17 0657 Est Creatinine Clear Calc Drug Dose 81.0 ml/min 04/07/17 0657 Estimated GFR () 106.2 04/07/17 0657 Estimated GFR (Non- 91.7 04/07/17 0657 Laboratory Tests (24 Hours) Test 04/07/17 06:57 04/07/17 08:32 White Blood Count 19.50 K/uL (4.8-10.8) H Red Blood Count 3.49 M/uL (4.7-6.1) L Hemoglobin 11.4 g/dL (14.0-18.0) L Hematocrit 33.0 % (42-52) L Mean Corpuscular Volume 94.6 fL (80-100) Mean Corpuscular Hemoglobin 32.7 pg (25-34) Mean Corpuscular Hemoglobin Concent 34.5 g/dl (32-36) Platelet Count 184 K/uL (130-400) Mean Platelet Volume 8.3 fL (7.4-10.4) Neutrophils (%) (Auto) 80.4 % Lymphocytes (%) (Auto) 9.9 % Monocytes (%) (Auto) 9.0 % Eosinophils (%) (Auto) 0.0 % Basophils (%) (Auto) 0.1 % Neutrophils # (Auto) 15.67 K/uL (1.4-6.5) H Lymphocytes # (Auto) 1.93 K/uL (1.2-3.4) Monocytes # (Auto) 1.76 K/uL (0.11-0.59) H Eosinophils # (Auto) 0.00 K/uL (0-0.5) Basophils # (Auto) 0.02 K/uL (0-0.2) Procalcitonin 2.36 ng/ml (0-0.5) H Micro Results Date/Time Source Procedure Growth Status 04/06/17 17:59 Blood Blood Culture Pending Received 04/06/17 15:27 Blood Blood Culture Pending Received 04/06/17 21:45 Nasal MRSA DNA Surveillance Screen - Final Specimen Negative for MRSA by DNA Probe Complete 04/06/17 17:07 Urine,Catheterized Urine Culture - Preliminary NO GROWTH - LESS THAN 1,000 COLONIES/... Resulted Risk Factors for Resistance * Hospitalization for 48 hours or more within the past 90 days * Antimicrobial use within the last 90 days 03/24/17 Levaquin for pneumonia Assessment & Plan Assessment 77 year old male admitted with fevers, labored breathing, elevated lactase, mild leukocytosis HCAP due to recent admission. Pt was last discharged on levaquin. Will broaden coverage to cefepime and vancomycin for MRSA coverage. Pt has trach, trach care continued. Plan Vancomycin for treatment of HCAP Vancomycin IV * Loading dose: 1750 mg (24.6 mg/kg) given 04/06/17 @19:00 * Maintenance dose: 1250 mg IV (17.6 mg/kg) every 12 hours * Goal trough level for HCAP : 15 to 20 mcg/mL * Trough/Random level ordered for 04/08/17 @0830 Cefepime 2 grams IV Q8 hours started on 04/06 for HCAP indication Pharmacy will continue to follow and will adjust dose/frequency as necessary. Thank you.
[2017-04-08] VITALS (14 sets, daily range): BP systolic 91–120; BP diastolic 44–67; PULSE 61–88; TEMP 36.7–37.1; O2SAT 93–98
[2017-04-08] MEDS: SODIUM CHLORIDE 0.9% 1000ML 1,000 ML IV SCH ×2 (02:54→09:45)
[2017-04-08] MEDS: ALBUT/IPRATROP 3MG/0.5MG NEB 3 ML VIAL INH SCH ×5 (03:57→18:56)
[2017-04-08] MEDS: HEPARIN SOD 5000 UNIT/0.5 ML CARP SQ SCH ×3 (06:00→22:00)
[2017-04-08] MEDS: CEFEPIME IV 2,000 MG in SYRINGE 7.5 ML IV SCH ×3 (06:08→22:34)
[2017-04-08] MEDS: CARBAMAZEPINE 100 MG/5 ML PEG SCH ×4 (06:47→22:35)
[2017-04-08] MEDS: FIBERSOURCE HN 1000ML BAG PEG SCH ×8 (06:47→22:34)
[2017-04-08] MEDS: TUBE FEEDING WATER FLUSH NG SCH ×6 (06:47→22:34)
[2017-04-08] MEDS ORDERED: VANCOMYCIN TROUGH ONE (08:30)
[2017-04-08 08:35] LABS: BASO % 0.1 %; BASO ABS # 0.01 K/uL (0-0.2); COMPLETE YES; EOS % 0.5 %; HEMATOCRIT 31.4 % (42-52); IG% 0.7 %; LYMPH % 14.9 %; LYMPH ABS # 1.91 K/uL (1.2-3.4); MEAN CELL VOLUME 95.2 fL (80-100); MEAN CORPUSCULAR HEMOGLOBIN 32.1 pg (25-34); MEAN CORPUSCULAR HGB CONC 33.8 g/dl (32-36); MEAN PLATELET VOLUME 8.4 fL (7.4-10.4); MONO % 5.8 %; PLATELET COUNT 172 K/uL (130-400); WHITE BLOOD COUNT 12.82 K/uL (4.8-10.8)
[2017-04-08] MEDS: LEVETIRACETAM ORAL SOLN 100MG/ML PEG SCH ×2 (08:49→21:27)
[2017-04-08] MEDS: LANSOPRAZOLE SOLUTAB 30 MG PEG SCH ×2 (08:50→21:27)
[2017-04-08] MEDS: TAMSULOSIN HCL 0.4 MG CAP PO SCH (08:50)
[2017-04-08 08:56] LABS: BUN/CREATININE RATIO 13.8 (10-20); CALCIUM 7.6 mg/dl (8.5-10.1); CREATININE 0.56 mg/dl (0.60-1.40); POTASSIUM 3.6 mmol/L (3.5-5.1)
[2017-04-08] MEDS: VANCOMYCIN INJ 1,250 MG in SODIUM CHLORIDE 0.9% 250ML 250 ML IV SCH ×2 (09:45→18:24)
--- NOTE | 2017-04-08 10:11 | Pharmacy Progress Note ---
Pharmacy Abx Dose Short Note Date of Service Apr 08, 2017. Assessment & Plan Assessment 77 year old male receiving vancomycin and cefepime for treatment of HCAP Day # 3/7 of antimicrobial therapy. Plan Vancomycin * Trough level of 11.1 mcg/mL is subtherapeutic and drawn before 3rd dose. * Change to vancomycin 1,250 mg IV every 10 hours * Goal trough level for HCAP : 15 to 20 mcg/mL * Trough or random level ordered for: 04/09/17 @1500 prior to 4th dose of new dosing interval. Pharmacy will continue to follow and will adjust dose/frequency as necessary. Thank you.
--- NOTE | 2017-04-08 11:54 | Progress Note ---
Subjective Date of Service: Apr 08, 2017. Subjective Pt evaluation today including: conversation w/ patient, conversation w/ family , physical exam, chart review, lab review, review of studies, review of inpatient medication list Pt resting comfortably in bed Noncommunicative but no distress noted at bedside Updated on condition No concerns at this time Problem List Medical Problems: (1) Altered mental status Status: Acute (2) Anemia Status: Acute (3) Anemia Status: Acute (4) Bilateral pneumonia Status: Acute (5) Bronchitis, acute Status: Acute (6) Change in mental status Status: Acute (7) Cough Status: Acute (8) Fever Status: Acute (9) Hyponatremia Status: Acute (10) Lactic acid acidosis Status: Acute (11) Nausea & vomiting Status: Acute (12) Pneumonia Status: Acute Review of Systems Unable to obtain as pt is nonverbal Objective Vital Signs Date Time Temp Pulse Resp B/P (MAP) Pulse Ox O2 Delivery O2 Flow Rate FiO2 04/08/17 11:47 37.0 70 22 95 Nasal Cannula 6.0 28 T-piece 04/08/17 08:00 95 Trach Collar 11.0 35 04/08/17 08:00 36.8 73 18 103/57 (72) 94 Trach Collar 11.0 30 04/08/17 07:46 77 18 98 Trach Collar 12.0 30 04/08/17 05:34 116/61 (79) 04/08/17 04:15 37.1 67 22 91/44 (60) 96 Trach Collar 30 04/08/17 04:00 Trach Collar 30 04/08/17 03:58 72 18 98 Trach Collar 12.0 30 04/08/17 00:00 Trach Collar 30 04/07/17 23:57 36.5 73 20 99/66 (77) 97 Trach Collar 04/07/17 20:00 Trach Collar 30 04/07/17 19:24 70 18 98 Trach Collar 12.0 35 04/07/17 19:21 36.6 70 18 104/59 (74) 97 Trach Collar 9.0 04/07/17 16:00 4 Trach Collar 11.0 35 04/07/17 15:28 36.6 70 20 114/63 (80) 94 Trach Collar 9.0 04/07/17 15:11 72 18 96 Trach Collar 35 04/07/17 12:00 95 Trach Collar 11.0 35 04/07/17 12:00 36.7 71 18 90/50 (63) 97 Trach Collar 11.0 35 Physical Exam General Appearance: WD/WN, no apparent distress Eyes: normal inspection, PERRL, EOMI, sclerae normal Neck: supple, no adenopathy, thyroid normal, no JVD Respiratory/Chest: chest non-tender, no respiratory distress, no accessory muscle use, + decreased breath sounds Cardiovascular: no edema, no gallop, no JVD, no murmur Abdomen: normal bowel sounds, non tender, soft, no pulsatile mass Extremities: normal range of motion, normal inspection, no pedal edema Skin: normal color, warm/dry, no rash Lymphatic: no adenopathy Laboratory Results Last 24 Hours Test 04/08/17 08:13 White Blood Count 12.82 K/uL Red Blood Count 3.30 M/uL Hemoglobin 10.6 g/dL Hematocrit 31.4 % Mean Corpuscular Volume 95.2 fL Mean Corpuscular Hemoglobin 32.1 pg Mean Corpuscular Hemoglobin Concent 33.8 g/dl Platelet Count 172 K/uL Mean Platelet Volume 8.4 fL Neutrophils (%) (Auto) 78.0 % Lymphocytes (%) (Auto) 14.9 % Monocytes (%) (Auto) 5.8 % Eosinophils (%) (Auto) 0.5 % Basophils (%) (Auto) 0.1 % Neutrophils # (Auto) 10.00 K/uL Lymphocytes # (Auto) 1.91 K/uL Monocytes # (Auto) 0.74 K/uL Eosinophils # (Auto) 0.07 K/uL Basophils # (Auto) 0.01 K/uL RDW Standard Deviation 49.0 fL RDW Coefficient of Variation 14.2 % Immature Granulocyte % (Auto) 0.7 % Immature Granulocyte # (Auto) 0.09 K/uL Sodium Level 130 mmol/L Potassium Level 3.6 mmol/L Chloride Level 100 mmol/L Carbon Dioxide Level 25 mmol/L Anion Gap 6.0 mmol/L Blood Urea Nitrogen 8 mg/dl Creatinine 0.56 mg/dl Est Creatinine Clear Calc Drug Dose 101.3 ml/min Estimated GFR () 116.4 Estimated GFR (Non- 100.5 BUN/Creatinine Ratio 13.8 Random Glucose 131 mg/dl Calcium Level 7.6 mg/dl Vancomycin Level Trough 11.1 mcg/ml Assessment and Plan Pt is a 77 yo male presenting with fevers, labored breathing, elevated lactase, mild leukocytosis HCAP. Improving. WBC 19-->12. Pt was last discharged on levaquin. Will cont coverage with cefepime and vancomycin for MRSA coverage.Trach care continued. Cont nebs and O2 support. Procalcitonin mildy elev Blood cx pending. MRSA neg. UA indicative of UTI, will await urine cx, cont cefepime at this time. Severe hyponatremia improving with hydration, cont to monitor. Severe protein malnutrition, cont PEG tube feeds History of cerebral infarction and subdural hematoma, history of seizure and history of renal stent. For DVT prophylaxis will be heparin. GI prophylaxis will be Prevacid. Discussed with about the patient's condition and care plan.
[2017-04-09] VITALS (10 sets, daily range): BP systolic 106–123; BP diastolic 63–72; PULSE 60–74; TEMP 36.4–37.2; O2SAT 93–98
[2017-04-09 05:44] LABS: BASO % 0.1 %; BASO ABS # 0.01 K/uL (0-0.2); COMPLETE YES; EOS % 0.8 %; HEMATOCRIT 31.6 % (42-52); IG% 0.4 %; LYMPH % 21.6 %; LYMPH ABS # 1.72 K/uL (1.2-3.4); MEAN CELL VOLUME 95.2 fL (80-100); MEAN CORPUSCULAR HEMOGLOBIN 31.9 pg (25-34); MEAN CORPUSCULAR HGB CONC 33.5 g/dl (32-36); MEAN PLATELET VOLUME 8.5 fL (7.4-10.4); MONO % 8.6 %; NEUT % 68.5 %; PLATELET COUNT 156 K/uL (130-400); RED BLOOD COUNT 3.32 M/uL (4.7-6.1); WHITE BLOOD COUNT 7.98 K/uL (4.8-10.8)
[2017-04-09] MEDS: HEPARIN SOD 5000 UNIT/0.5 ML CARP SQ SCH ×3 (06:00→21:20)
[2017-04-09] MEDS: VANCOMYCIN INJ 1,250 MG in SODIUM CHLORIDE 0.9% 250ML 250 ML IV SCH (06:07)
[2017-04-09] MEDS: CEFEPIME IV 2,000 MG in SYRINGE 7.5 ML IV SCH ×3 (06:07→21:38)
[2017-04-09 06:28] LABS: BUN/CREATININE RATIO 15.5 (10-20); CALCIUM 7.5 mg/dl (8.5-10.1); CREATININE 0.43 mg/dl (0.60-1.40); POTASSIUM 3.9 mmol/L (3.5-5.1)
[2017-04-09] MEDS: FIBERSOURCE HN 1000ML BAG PEG SCH ×8 (06:51→21:39)
[2017-04-09] MEDS: TUBE FEEDING WATER FLUSH NG SCH ×6 (06:51→21:38)
[2017-04-09] MEDS: CARBAMAZEPINE 100 MG/5 ML PEG SCH ×4 (06:51→21:29)
[2017-04-09] MEDS: ALBUT/IPRATROP 3MG/0.5MG NEB 3 ML VIAL INH SCH ×4 (07:30→19:36)
--- NOTE | 2017-04-09 08:06 | Clinical Documentation Query ---
CLINICAL DOCUMENTATION QUERY Query #1/3 77 year old male who presents to the Emergency Room with complaints of a persistent fever. In your clinical opinion is this patient being managed for: X( ) Sepsis POA treated and resolved in setting of HCAP Vs. Aspiration pneumonia treated with IV Bolus and multiple IV antibiotics. ( ) Not Agree ( ) Other explanation of clinical findings (Please Explain) ( ) Unable to determine (Please Define) ( ) Need to Discuss The medical record reflects the following clinical findings, treatment, and risk factors. Clinical Indicators: Fever 39.3, tachycardia 100, Leukocytosis 19.50, elevated serum lactic acid 3.29, and Procalcitonin of 2.36. Sepsis was stated by admitting MD, but has fallen of the record. Treatment: IV NSS bolus, IV Vancomycin, IV Cefepime, telemetry, aspiration precautions, Risk Factors: Age, underlying pneumonia, Query #2/3 Daily progress notes state severe protein malnutrition. By [facility] indexing this terminology is unable to be indexed. In your clinical opinion is this patient being managed for: (X ) Severe protein-calorie malnutrition ( ) Severe malnutrition ( ) Not Agree ( ) Other explanation of clinical findings (Please Explain) ( ) Unable to determine (Please Define) ( ) Need to Discuss The medical record reflects the following clinical findings, treatment, and risk factors. Clinical Indicators: Severe protein malnutrition per progress notes. Treatment: Peg tube feedings Risk Factors: Age, CVA, Tracheostomy, NPO Query #3/3 H&P stated aspiration as possible mechanism of HCAP. 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 They state HCAP, cefepime and vancomycin for MRSA converage, MRSA Neg. In your clinical opinion is this patient being managed for: (X ) Possible aspiration pneumonia POA ( ) Possible MRSA pneumonia in setting of HCAP despite negative MRSA nasal swab. ( ) Not Agree ( ) Other explanation of clinical findings (Please Explain) ( ) Unable to determine (Please Define) ( ) Need to Discuss The medical record reflects the following clinical findings, treatment, and risk factors. Clinical Indicators: As above. WBC's 19.50, Lactic Acid 3.29, Procalcitonin 2.36. Fever 39.3. Treatment: IV NSS bolus, IV Vancomycin, IV Cefepime, telemetry, aspiration precautions, Risk Factors: Age, tracheotomy, CVA, Hx of aspiration pneumonia, recent healthcare facility contact. Please clarify and document your clinical opinion in the progress notes and discharge summary. Terms such as "probable", "suspected", "likely", "questionable", "possible", or "still to be ruled out" are acceptable. IF IN AGREEMENT, YOU MUST DOCUMENT ABOVE DIAGNOSTIC STATEMENT(s) IN DAILY PROGRESS NOTES AND DISCHARGE SUMMARY. This document is not part of the patient's record. Thank You, Salinas Clark RN [phone]
[2017-04-09] MEDS: SODIUM CHLORIDE 0.9% 1000ML 1,000 ML IV SCH ×2 (09:18→15:37)
[2017-04-09] MEDS: LEVETIRACETAM ORAL SOLN 100MG/ML PEG SCH ×2 (09:18→21:29)
[2017-04-09] MEDS: LANSOPRAZOLE SOLUTAB 30 MG PEG SCH ×2 (09:18→21:28)
[2017-04-09] MEDS: TAMSULOSIN HCL 0.4 MG CAP PO SCH (09:18)
--- NOTE | 2017-04-09 10:54 | Medical Student: [facility] ---
Med Student Progress Note Date of Service Apr 09, 2017. Subjective Pt evaluation today including: conversation w/ family, physical exam, chart review, lab review, review of studies, review of inpatient medication list Voiding: tracy catheter in place 77 year old male with history of tracheotomy presented on 04/06 with cough and increased sputum and concern for HCAP pneumonia.He was D/C 2 weeks ago on Levaquin for suspected aspiration pneumonia. Patient is non-verbal. Discussion with . She says he appears to be doing better with respiratory symptoms. He is receiving IV cefepime. Vanc was discontinued with negative MRSA nares culture. WBC continues to improve, now 10. states that patient's last bowel movement was Sunday with enema, usually has bowel movement every 3 days with milk of magnesia. Hyponatremia has been slowly corrected up to 132. Patient O2 sat 95% on 6 L trach 28 FiO2. Objective Vital Signs Date Time Temp Pulse Resp B/P (MAP) Pulse Ox O2 Delivery O2 Flow Rate FiO2 04/09/17 07:37 37.0 68 16 116/67 (83) 95 Trach Collar 6.0 28 04/09/17 07:32 64 16 94 Trach Collar 6.0 28 04/09/17 04:02 37.0 60 20 114/65 (81) 93 Trach Collar 04/09/17 04:00 Trach Collar 11.0 30 04/09/17 00:00 Trach Collar 11.0 30 04/08/17 23:34 37.0 61 22 120/63 (82) 93 Trach Collar 04/08/17 20:00 Trach Collar 11.0 30 04/08/17 19:45 36.8 64 19 113/67 (82) 94 Trach Collar 04/08/17 18:59 63 18 94 Trach Collar 12.0 30 04/08/17 16:00 95 Trach Collar 11.0 30 04/08/17 15:58 36.7 70 15 97/60 (72) 96 Trach Collar 04/08/17 14:57 79 18 95 Trach Collar 12.0 30 04/08/17 12:12 88 18 98 Trach Collar 12.0 30 04/08/17 12:00 95 Trach Collar 11.0 30 04/08/17 11:47 37.0 70 22 95 Nasal Cannula 6.0 28 T-piece Physical Exam General Appearance: + pertinent finding (Lethargic, trach tube in place.) Eyes: bilateral eyes normal inspection Neck: no JVD Respiratory/Chest: chest non-tender, normal breath sounds, no respiratory distress, no accessory muscle use, + pertinent finding (Difficult to apprecite lung sounds due to patients lethargy) Cardiovascular: regular rate, rhythm, no edema, no gallop, no JVD, no murmur Abdomen: normal bowel sounds, soft Extremities: normal inspection, no pedal edema, no calf tenderness Neurologic/Psychiatric: + pertinent finding (Sleeping) Skin: no rash Laboratory Results Last 24 Hours Test 04/09/17 05:27 04/09/17 09:50 White Blood Count 7.98 K/uL Red Blood Count 3.32 M/uL Hemoglobin 10.6 g/dL Hematocrit 31.6 % Mean Corpuscular Volume 95.2 fL Mean Corpuscular Hemoglobin 31.9 pg Mean Corpuscular Hemoglobin Concent 33.5 g/dl Platelet Count 156 K/uL Mean Platelet Volume 8.5 fL Neutrophils (%) (Auto) 68.5 % Lymphocytes (%) (Auto) 21.6 % Monocytes (%) (Auto) 8.6 % Eosinophils (%) (Auto) 0.8 % Basophils (%) (Auto) 0.1 % Neutrophils # (Auto) 5.47 K/uL Lymphocytes # (Auto) 1.72 K/uL Monocytes # (Auto) 0.69 K/uL Eosinophils # (Auto) 0.06 K/uL Basophils # (Auto) 0.01 K/uL RDW Standard Deviation 48.7 fL RDW Coefficient of Variation 14.1 % Immature Granulocyte % (Auto) 0.4 % Immature Granulocyte # (Auto) 0.03 K/uL Sodium Level 132 mmol/L Potassium Level 3.9 mmol/L Chloride Level 99 mmol/L Carbon Dioxide Level 27 mmol/L Anion Gap 6.0 mmol/L Blood Urea Nitrogen 7 mg/dl Creatinine 0.43 mg/dl Est Creatinine Clear Calc Drug Dose 143.1 ml/min Estimated GFR () 129.8 Estimated GFR (Non- 112.0 BUN/Creatinine Ratio 15.5 Random Glucose 89 mg/dl Calcium Level 7.5 mg/dl Medications Current Inpatient Medications Medications (Trade) Dose Ordered Sig/Piper Route Start Time Stop Time Status Last Admin Dose Admin Heparin Sodium (Porcine) (Heparin Sq 5000 Unit/0.5ml) 5,000 unit Q8 SQ 04/06/17 22:00 05/06/17 21:59 Al Hydrox/Mg Hydrox/Simethicone (Maalox Max Susp) 15 ml Q4H PRN PO 04/06/17 17:30 05/06/17 17:29 Magnesium Hydroxide (Milk Of Magnesia Susp) 30 ml Q12H PRN PO 04/06/17 17:30 05/06/17 17:29 Zolpidem Tartrate (Ambien Tab) 5 mg HSZ PRN PO 04/06/17 17:30 05/06/17 17:29 Ondansetron HCl (Zofran Inj) 4 mg Q6H PRN IV 04/06/17 17:30 05/06/17 17:29 Polyethylene (Miralax Powder Packet) 17 gm DAILY PRN PO 04/06/17 17:30 05/06/17 17:29 Sodium Chloride 1,000 ml @ 75 mls/hr [id number] IV 04/06/17 17:30 05/06/17 17:29 04/09/17 09:18 75 MLS/HR Acetaminophen (Tylenol Soln) 650 mg Q4H PRN GT 04/06/17 17:30 05/06/17 17:29 04/07/17 02:13 650 MG Levetiracetam (Keppra Soln) 100 mg BID PEG 04/06/17 21:00 05/06/17 20:59 04/09/17 09:18 100 MG Oxybutynin Chloride (Ditropan Tab) 5 mg BID PRN PO 04/06/17 17:30 05/06/17 17:29 Tamsulosin HCl (Flomax Cap) 0.4 mg DAILY PO 04/07/17 09:00 05/07/17 08:59 04/09/17 09:18 0.4 MG Sodium Biphosphate/ Sodium Phosphate (Fleet Enema) 132 ml DAILY PRN [place] 04/06/17 17:30 05/06/17 17:29 Albuterol/ Ipratropium (Duoneb) 3 ml QIDR INH 04/06/17 20:00 05/06/17 19:59 04/09/17 07:30 3 ML Lansoprazole (Prevacid Solutab) 30 mg BID PEG 04/06/17 21:00 05/06/17 20:59 04/09/17 09:18 30 MG Acetaminophen 650 mg/Empty Bag 65 ml @ 260 mls/hr Q6H PRN IV 04/06/17 19:00 05/06/17 18:59 04/06/17 19:03 260 MLS/HR Cefepime HCl 2000 mg/Syringe 20 ml @ 5 mls/min Q8H IV 04/06/17 22:00 04/13/17 21:59 04/09/17 06:07 5 MLS/MIN Cefepime HCl (Consult) 1 ea UD PRN N/A 04/06/17 19:00 05/06/17 18:59 Lamotrigine (Lamictal Tab) 300 mg BID PEG 04/07/17 21:30 05/07/17 21:29 04/09/17 09:18 300 MG Carbamazepine (Carbamazepine) 160 mg QID@0700,1200,1700,2200 PEG 04/06/17 22:00 05/06/17 21:59 04/09/17 06:51 160 MG Enteral Nutritional Formula (Fibersource Hn) 240 ml QID@0700,1200,1700,2200 PEG 04/06/17 22:00 05/06/17 21:59 04/09/17 06:51 240 ML Sterile Water (Tube Feeding Water Flush) 1 ea [id number] NG 04/06/17 22:00 05/06/17 21:59 04/09/17 06:51 1 EA Assessment and Plan Problems Altered mental status Anemia Cough Hyponatremia Hypoxia Pneumonia Sepsis Tracheostomy in place Seizure disorder Subdural hematoma Tracheostomy dependence Assessment and Plan: Assessment: 77 year old 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 Plan: 1. HCAP: Vanc stopped after negative nares MRSA culture. Continue IV cefepime for the day. Will switch to oral antibiotic tomorrow. White count has gone down , no fevers, no tachycardia. Continues to cough with clear sputum in trach. Getting trach O2. 2. UTI: Pseudomonas in culture. Continue IV cefepime. Will switch to oral tomorrow with more specification after sensitivities. 3. Hyponatremia: Corrected to 132 from 122 in 3 days, appropriate rate. Continue to monitor BMP q12. 4: Constipation: Start milk of magnesia. 5. No PO intake: on chronic PEG tube feeds. 6. DVT prophylaxis: Heparin. 7. Trach: tracheostomy care. Disposition: Will attempt to discharge to home health tomorrow on PO antibiotics given is comfortable taking him home. Continued [facility] stay due to: multiple IV medications needed Discharge planning: home with home health
--- NOTE | 2017-04-09 11:08 | Hospitalist Progress Note ---
Hospitalist Progress Note Date of Service Apr 09, 2017. (Bety Kaiser ., PABurtonC) Subjective Pt evaluation today including: conversation w/ patient, physical exam, lab review, review of studies, review of inpatient medication list Voiding: tracy catheter in place (draining clear/yellow urine ) Patient resting in bed. No signs of acute distress. No family at bedside. ROS cannot be obtained- patient nonverbal. (Bety Kaiser ., FRANCISC) Medications Current Inpatient Medications Medications (Trade) Dose Ordered Sig/Piper Route Start Time Stop Time Status Last Admin Dose Admin Heparin Sodium (Porcine) (Heparin Sq 5000 Unit/0.5ml) 5,000 unit Q8 SQ 04/06/17 22:00 05/06/17 21:59 Al Hydrox/Mg Hydrox/Simethicone (Maalox Max Susp) 15 ml Q4H PRN PO 04/06/17 17:30 05/06/17 17:29 Magnesium Hydroxide (Milk Of Magnesia Susp) 30 ml Q12H PRN PO 04/06/17 17:30 05/06/17 17:29 Zolpidem Tartrate (Ambien Tab) 5 mg HSZ PRN PO 04/06/17 17:30 05/06/17 17:29 Ondansetron HCl (Zofran Inj) 4 mg Q6H PRN IV 04/06/17 17:30 05/06/17 17:29 Polyethylene (Miralax Powder Packet) 17 gm DAILY PRN PO 04/06/17 17:30 05/06/17 17:29 Sodium Chloride 1,000 ml @ 75 mls/hr [id number] IV 04/06/17 17:30 05/06/17 17:29 04/09/17 09:18 75 MLS/HR Acetaminophen (Tylenol Soln) 650 mg Q4H PRN GT 04/06/17 17:30 05/06/17 17:29 04/07/17 02:13 650 MG Levetiracetam (Keppra Soln) 100 mg BID PEG 04/06/17 21:00 05/06/17 20:59 04/09/17 09:18 100 MG Oxybutynin Chloride (Ditropan Tab) 5 mg BID PRN PO 04/06/17 17:30 05/06/17 17:29 Tamsulosin HCl (Flomax Cap) 0.4 mg DAILY PO 04/07/17 09:00 05/07/17 08:59 04/09/17 09:18 0.4 MG Sodium Biphosphate/ Sodium Phosphate (Fleet Enema) 132 ml DAILY PRN [place] 04/06/17 17:30 05/06/17 17:29 Albuterol/ Ipratropium (Duoneb) 3 ml QIDR INH 04/06/17 20:00 05/06/17 19:59 04/09/17 07:30 3 ML Lansoprazole (Prevacid Solutab) 30 mg BID PEG 04/06/17 21:00 05/06/17 20:59 04/09/17 09:18 30 MG Acetaminophen 650 mg/Empty Bag 65 ml @ 260 mls/hr Q6H PRN IV 04/06/17 19:00 05/06/17 18:59 04/06/17 19:03 260 MLS/HR Cefepime HCl 2000 mg/Syringe 20 ml @ 5 mls/min Q8H IV 04/06/17 22:00 04/13/17 21:59 04/09/17 06:07 5 MLS/MIN Cefepime HCl (Consult) 1 ea UD PRN N/A 04/06/17 19:00 05/06/17 18:59 Lamotrigine (Lamictal Tab) 300 mg BID PEG 04/07/17 21:30 05/07/17 21:29 04/09/17 09:18 300 MG Carbamazepine (Carbamazepine) 160 mg QID@0700,1200,1700,2200 PEG 04/06/17 22:00 05/06/17 21:59 04/09/17 06:51 160 MG Enteral Nutritional Formula (Fibersource Hn) 240 ml QID@0700,1200,1700,2200 PEG 04/06/17 22:00 05/06/17 21:59 04/09/17 06:51 240 ML Sterile Water (Tube Feeding Water Flush) 1 ea 6XDQ3H NG 04/06/17 22:00 05/06/17 21:59 04/09/17 06:51 1 EA (Bety Kaiser, KANDY) Objective Vital Signs Date Time Temp Pulse Resp B/P (MAP) Pulse Ox O2 Delivery O2 Flow Rate FiO2 04/09/17 07:37 37.0 68 16 116/67 (83) 95 Trach Collar 6.0 28 04/09/17 07:32 64 16 94 Trach Collar 6.0 28 04/09/17 04:02 37.0 60 20 114/65 (81) 93 Trach Collar 04/09/17 04:00 Trach Collar 11.0 30 04/09/17 00:00 Trach Collar 11.0 30 04/08/17 23:34 37.0 61 22 120/63 (82) 93 Trach Collar 04/08/17 20:00 Trach Collar 11.0 30 04/08/17 19:45 36.8 64 19 113/67 (82) 94 Trach Collar 04/08/17 18:59 63 18 94 Trach Collar 12.0 30 04/08/17 16:00 95 Trach Collar 11.0 30 04/08/17 15:58 36.7 70 15 97/60 (72) 96 Trach Collar 04/08/17 14:57 79 18 95 Trach Collar 12.0 30 04/08/17 12:12 88 18 98 Trach Collar 12.0 30 04/08/17 12:00 95 Trach Collar 11.0 30 04/08/17 11:47 37.0 70 22 95 Nasal Cannula 6.0 28 T-piece (Bety Kaiser PA-C) Physical Exam General Appearance: no apparent distress Eyes: normal inspection, PERRL ENT: hearing grossly normal Neck: supple, + pertinent finding (+trach site w/ clear sputum ) Respiratory/Chest: no respiratory distress, no accessory muscle use, + pertinent finding (course breath sounds throughout ) Cardiovascular: regular rate, rhythm Abdomen: normal bowel sounds, non tender, soft Extremities: no pedal edema, no calf tenderness Neurologic/Psychiatric: + pertinent finding (sleeping ) Skin: normal color, warm/dry, no rash (Bety Kaiser, PA-C) Laboratory Results Last 24 Hours Test 04/09/17 05:27 04/09/17 09:50 White Blood Count 7.98 K/uL Red Blood Count 3.32 M/uL Hemoglobin 10.6 g/dL Hematocrit 31.6 % Mean Corpuscular Volume 95.2 fL Mean Corpuscular Hemoglobin 31.9 pg Mean Corpuscular Hemoglobin Concent 33.5 g/dl Platelet Count 156 K/uL Mean Platelet Volume 8.5 fL Neutrophils (%) (Auto) 68.5 % Lymphocytes (%) (Auto) 21.6 % Monocytes (%) (Auto) 8.6 % Eosinophils (%) (Auto) 0.8 % Basophils (%) (Auto) 0.1 % Neutrophils # (Auto) 5.47 K/uL Lymphocytes # (Auto) 1.72 K/uL Monocytes # (Auto) 0.69 K/uL Eosinophils # (Auto) 0.06 K/uL Basophils # (Auto) 0.01 K/uL RDW Standard Deviation 48.7 fL RDW Coefficient of Variation 14.1 % Immature Granulocyte % (Auto) 0.4 % Immature Granulocyte # (Auto) 0.03 K/uL Sodium Level 132 mmol/L Potassium Level 3.9 mmol/L Chloride Level 99 mmol/L Carbon Dioxide Level 27 mmol/L Anion Gap 6.0 mmol/L Blood Urea Nitrogen 7 mg/dl Creatinine 0.43 mg/dl Est Creatinine Clear Calc Drug Dose 143.1 ml/min Estimated GFR () 129.8 Estimated GFR (Non- 112.0 BUN/Creatinine Ratio 15.5 Random Glucose 89 mg/dl Calcium Level 7.5 mg/dl Procalcitonin 0.88 ng/ml (Bety Kaiser, PA-C) Assessment and Plan Pt is a 77 y/o male presenting with fevers, labored breathing, elevated lactase , mild leukocytosis HCAP: - Admitted to [facility] for cardiac monitoring - Cardiac enzymes negative x1 - IV Vancomycin + Cefepime- Vanco d/c'd due to negative MRSA -- Will likely transition to Levaquin tomorrow pending UCx - Continue DuoNebs and trach care - Leukocytosis- RESOLVED - Procalcitonin 2.36 --> 0.88 - BCx NGTD; MRSA negative; sputum culture pending UTI POA- pseudomonas: Continue IV Cefepime pending final UCx and sensitives Hyponatremia, likely secondary to dehydration- IMPROVING: Continue IVF Severe protein malnutrition: Continue PEG tube feeds h/o cerebral infarction and subdural hematoma, h/o seizure: Continue Tegretol, Lamictal, Keppra Chronic constipation: Milk of Mag x1 dose now and PRN, fleet enema daily PRN Urinary retention: Continue Flomax h/o renal stent- noted GI prophylaxis: Prevacid DVT prophylaxis: Heparin SQ Code Status: LEVEL I, FULL Dispo: Discharge to home w/ [facility] once medically stable- likely within the next 1- 2 days- CM following (Bety Kaiser ., PA-C) I agree with PA assessment and plan and have seen and examined pt myself Resting comfortably in bed VSS Labs reviewed Leukocytosis resolved at bedside Cont cefepime for HCAP Vanc dced Urine cx pos for pseudomonas, await sens Likely DC home tomorrow (Santo Hilton, D.O.)
[2017-04-09] MEDS ORDERED: MAGNESIUM HYDROXIDE SUSP 30 ML UDC PO ONE (11:30)
[2017-04-09] MEDS ORDERED: VANCOMYCIN TROUGH ONE (15:00)
[2017-04-10] VITALS (9 sets, daily range): BP systolic 109–133; BP diastolic 60–92; PULSE 57–66; TEMP 36.4–37; O2SAT 90–98
[2017-04-10] MEDS: SODIUM CHLORIDE 0.9% 1000ML 1,000 ML IV SCH (02:38)
[2017-04-10] MEDS: HEPARIN SOD 5000 UNIT/0.5 ML CARP SQ SCH ×3 (04:37→21:34)
--- NOTE | 2017-04-10 04:41 | Clinical Documentation Query ---
CLINICAL DOCUMENTATION QUERY Daily progress notes state severe protein malnutrition. By [facility] indexing this terminology is unable to be indexed. In your clinical opinion is this patient being managed for: ( X ) Severe protein-calorie malnutrition ( ) Severe malnutrition ( ) Not Agree ( ) Other explanation of clinical findings (Please Explain) ( ) Unable to determine (Please Define) ( ) Need to Discuss The medical record reflects the following clinical findings, treatment, and risk factors. Clinical Indicators: Severe protein malnutrition per progress notes. Treatment: Peg tube feedings Risk Factors: Age, CVA, Tracheostomy, NPO Please clarify and document your clinical opinion in the progress notes and discharge summary. Terms such as "probable", "suspected", "likely", "questionable", "possible", or "still to be ruled out" are acceptable. IF IN AGREEMENT, YOU MUST DOCUMENT ABOVE DIAGNOSTIC STATEMENT IN DAILY PROGRESS NOTES AND DISCHARGE SUMMARY. This document is not part of the patient's record. Thank You, Salinas Clark, RN [phone]
[2017-04-10] MEDS: CEFEPIME IV 2,000 MG in SYRINGE 7.5 ML IV SCH ×3 (06:08→21:45)
[2017-04-10] MEDS: CARBAMAZEPINE 100 MG/5 ML PEG SCH ×4 (06:14→21:36)
[2017-04-10] MEDS: TUBE FEEDING WATER FLUSH NG SCH ×6 (06:19→21:36)
[2017-04-10] MEDS: FIBERSOURCE HN 1000ML BAG PEG SCH ×8 (06:19→21:36)
[2017-04-10 06:22] LABS: BASO % 0.2 %; BASO ABS # 0.01 K/uL (0-0.2); COMPLETE YES; EOS % 1.4 %; HEMATOCRIT 31.3 % (42-52); IG% 0.4 %; LYMPH % 34.2 %; LYMPH ABS # 1.77 K/uL (1.2-3.4); MEAN CELL VOLUME 94.8 fL (80-100); MEAN CORPUSCULAR HEMOGLOBIN 32.7 pg (25-34); MEAN CORPUSCULAR HGB CONC 34.5 g/dl (32-36); MEAN PLATELET VOLUME 8.6 fL (7.4-10.4); MONO % 10.2 %; NEUT % 53.6 %; PLATELET COUNT 153 K/uL (130-400); WHITE BLOOD COUNT 5.18 K/uL (4.8-10.8)
[2017-04-10 06:40] LABS: BUN/CREATININE RATIO 13.7 (10-20); CALCIUM 7.7 mg/dl (8.5-10.1); CREATININE 0.42 mg/dl (0.60-1.40); POTASSIUM 3.8 mmol/L (3.5-5.1)
[2017-04-10] MEDS: ALBUT/IPRATROP 3MG/0.5MG NEB 3 ML VIAL INH SCH ×4 (07:09→19:12)
--- NOTE | 2017-04-10 09:16 | DIAGNOSTIC IMAGING REPORT ---
CHEST ONE VIEW PORTABLE HISTORY: 77 years-old Male pedal edema, congestion acute chest congestion COMPARISON: Chest radiograph 04/06/2017, 03/20/2017 and 07/10/2016 TECHNIQUE: Portable upright AP view of the chest FINDINGS: Tracheostomy tube appears unchanged. The patient is rotated to the right. Cardiac silhouette is again mildly enlarged. Persistent left basilar opacity is noted with probable left pleural effusion. Mild pulmonary vascular congestion without overt pulmonary edema. Degenerative changes of the bilateral shoulders. IMPRESSION: 1. Persistent small left basilar opacity with blunting of left costophrenic angle suggests chronic scarring or less likely pneumonitis. 2. Cardiomegaly with mild pulmonary vascular congestion. The above report was generated using voice recognition software. It may contain grammatical, syntax or spelling errors. Electronically signed by: Jc Singh M.D. 04/10/2017 9:14 AM Dictated Date/Time: 04/10/2017 9:11 AM
[2017-04-10] MEDS: LEVETIRACETAM ORAL SOLN 100MG/ML PEG SCH ×2 (09:28→21:35)
[2017-04-10] MEDS: LANSOPRAZOLE SOLUTAB 30 MG PEG SCH ×2 (09:28→21:35)
[2017-04-10] MEDS: TAMSULOSIN HCL 0.4 MG CAP PO SCH (09:29)
--- NOTE | 2017-04-10 10:47 | Medical Student: [facility] ---
Med Student Progress Note Date of Service Apr 10, 2017. Subjective Pt evaluation today including: conversation w/ family, physical exam, chart review, lab review, review of studies, review of inpatient medication list Voiding: tracy catheter in place 77 year old male with history of tracheotomy presented on 04/06 with cough and increased sputum and concern for HCAP pneumonia.He was D/C 2 weeks ago on Levaquin for suspected aspiration pneumonia. Patient is non-verbal. Discussion with . She says he appears to be doing better with respiratory symptoms. He is receiving IV cefepime. WBC continues to improve, now 5. Patienthad 2 bowel movements last night with milk of magnesia. Hyponatremia has been slowly corrected up to 132. Weeing off oxygen to 3 L trach 28 FiO2. Not on oxygen at home. Concerned with Tracy catheter and risk of recurrent UTI's. Will do voiding trial today. Repeat CXR shows no change from admission. UTI is sensitive to cephalosporins, will switch to PO tomorrow. Objective Vital Signs Date Time Temp Pulse Resp B/P (MAP) Pulse Ox O2 Delivery O2 Flow Rate FiO2 04/10/17 08:00 Trach Collar 3.0 04/10/17 07:54 36.8 66 14 115/76 (89) 90 Trach Collar 6.0 26 04/10/17 07:12 65 18 93 Trach Collar 6.0 04/10/17 04:04 36.4 60 20 126/72 (90) 97 Trach Collar 04/10/17 04:00 Trach Collar 6.0 28 04/10/17 00:00 Trach Collar 6.0 04/09/17 23:46 37.2 62 16 121/67 (85) 98 Trach Collar 04/09/17 20:00 Trach Collar 6.0 28 04/09/17 19:40 36.8 68 18 121/72 (88) 98 Trach Collar 04/09/17 19:38 66 18 98 Trach Collar 6.0 28 04/09/17 16:00 65 19 95 Trach Collar 6.0 28 04/09/17 16:00 Trach Collar 28 04/09/17 15:06 36.4 66 19 106/63 (77) 97 Trach Collar 6.0 04/09/17 12:00 Trach Collar 28 04/09/17 11:33 36.8 72 20 123/65 (84) 94 Trach Collar 6.0 28 04/09/17 11:30 74 15 96 Trach Collar 6.0 28 Physical Exam General Appearance: + mild distress, + pertinent finding (Lethargic) Neck: no JVD, + pertinent finding (Tracheostomy in place) Respiratory/Chest: lungs clear, normal breath sounds, no respiratory distress, no accessory muscle use Cardiovascular: regular rate, rhythm, no edema, no gallop, no JVD, no murmur Abdomen: normal bowel sounds, soft, no organomegaly, no pulsatile mass Extremities: normal inspection, no pedal edema Skin: normal color, warm/dry, + rash (inguinal erythema, but more likely irritation than infection) Laboratory Results Last 24 Hours Test 04/10/17 05:31 White Blood Count 5.18 K/uL Red Blood Count 3.30 M/uL Hemoglobin 10.8 g/dL Hematocrit 31.3 % Mean Corpuscular Volume 94.8 fL Mean Corpuscular Hemoglobin 32.7 pg Mean Corpuscular Hemoglobin Concent 34.5 g/dl Platelet Count 153 K/uL Mean Platelet Volume 8.6 fL Neutrophils (%) (Auto) 53.6 % Lymphocytes (%) (Auto) 34.2 % Monocytes (%) (Auto) 10.2 % Eosinophils (%) (Auto) 1.4 % Basophils (%) (Auto) 0.2 % Neutrophils # (Auto) 2.78 K/uL Lymphocytes # (Auto) 1.77 K/uL Monocytes # (Auto) 0.53 K/uL Eosinophils # (Auto) 0.07 K/uL Basophils # (Auto) 0.01 K/uL RDW Standard Deviation 49.1 fL RDW Coefficient of Variation 14.0 % Immature Granulocyte % (Auto) 0.4 % Immature Granulocyte # (Auto) 0.02 K/uL Sodium Level 132 mmol/L Potassium Level 3.8 mmol/L Chloride Level 100 mmol/L Carbon Dioxide Level 28 mmol/L Anion Gap 4.0 mmol/L Blood Urea Nitrogen 6 mg/dl Creatinine 0.42 mg/dl Est Creatinine Clear Calc Drug Dose 135.0 ml/min Estimated GFR () 131.1 Estimated GFR (Non- 113.1 BUN/Creatinine Ratio 13.7 Random Glucose 75 mg/dl Calcium Level 7.7 mg/dl Medications Current Inpatient Medications Medications (Trade) Dose Ordered Sig/Piper Route Start Time Stop Time Status Last Admin Dose Admin Heparin Sodium (Porcine) (Heparin Sq 5000 Unit/0.5ml) 5,000 unit Q8 SQ 04/06/17 22:00 05/06/17 21:59 Al Hydrox/Mg Hydrox/Simethicone (Maalox Max Susp) 15 ml Q4H PRN PO 04/06/17 17:30 05/06/17 17:29 Magnesium Hydroxide (Milk Of Magnesia Susp) 30 ml Q12H PRN PO 04/06/17 17:30 05/06/17 17:29 Zolpidem Tartrate (Ambien Tab) 5 mg HSZ PRN PO 04/06/17 17:30 05/06/17 17:29 Ondansetron HCl (Zofran Inj) 4 mg Q6H PRN IV 04/06/17 17:30 05/06/17 17:29 Polyethylene (Miralax Powder Packet) 17 gm DAILY PRN PO 04/06/17 17:30 05/06/17 17:29 Sodium Chloride 1,000 ml @ 75 mls/hr [id number] IV 04/06/17 17:30 05/06/17 17:29 Future Hold 04/10/17 02:38 75 MLS/HR Acetaminophen (Tylenol Soln) 650 mg Q4H PRN GT 04/06/17 17:30 05/06/17 17:29 04/07/17 02:13 650 MG Levetiracetam (Keppra Soln) 100 mg BID PEG 04/06/17 21:00 05/06/17 20:59 04/10/17 09:28 100 MG Oxybutynin Chloride (Ditropan Tab) 5 mg BID PRN PO 04/06/17 17:30 05/06/17 17:29 Tamsulosin HCl (Flomax Cap) 0.4 mg DAILY PO 04/07/17 09:00 05/07/17 08:59 04/10/17 09:29 0.4 MG Sodium Biphosphate/ Sodium Phosphate (Fleet Enema) 132 ml DAILY PRN [place] 04/06/17 17:30 05/06/17 17:29 Albuterol/ Ipratropium (Duoneb) 3 ml QIDR INH 04/06/17 20:00 05/06/17 19:59 04/10/17 07:09 3 ML Lansoprazole (Prevacid Solutab) 30 mg BID PEG 04/06/17 21:00 05/06/17 20:59 04/10/17 09:28 30 MG Acetaminophen 650 mg/Empty Bag 65 ml @ 260 mls/hr Q6H PRN IV 04/06/17 19:00 05/06/17 18:59 04/06/17 19:03 260 MLS/HR Cefepime HCl 2000 mg/Syringe 20 ml @ 5 mls/min Q8H IV 04/06/17 22:00 04/13/17 21:59 04/10/17 06:08 5 MLS/MIN Cefepime HCl (Consult) 1 ea UD PRN N/A 04/06/17 19:00 05/06/17 18:59 Lamotrigine (Lamictal Tab) 300 mg BID PEG 04/07/17 21:30 05/07/17 21:29 04/10/17 09:28 300 MG Carbamazepine (Carbamazepine) 160 mg QID@0700,1200,1700,2200 PEG 04/06/17 22:00 05/06/17 21:59 04/10/17 06:14 160 MG Enteral Nutritional Formula (Fibersource Hn) 240 ml QID@0700,1200,1700,2200 PEG 04/06/17 22:00 05/06/17 21:59 04/10/17 06:19 240 ML Sterile Water (Tube Feeding Water Flush) 1 ea 6XDQ3H NG 04/06/17 22:00 05/06/17 21:59 04/10/17 06:19 1 EA Assessment and Plan Problems Anemia Cough CVA (cerebral infarction) Hyponatremia Hypoxia Pneumonia Seizure disorder Subdural hematoma Tracheostomy dependence Assessment and Plan: Assessment: 77 year old 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 Plan: 1. HCAP: Day 5 of IV cefepime 2000mg. Will switch to oral cephalosporin antibiotic tomorrow for 5 more days. White count has gone down, no fevers, no tachycardia. Continues to cough with clear sputum in trach. Getting weened off of trach O2. Repeat CXR shows no acute changes. 2. UTI: Pseudomonas in culture. Continue IV cefepime. Will switch to oral tomorrow as stated above. 3. Hyponatremia: Corrected to 132 from 122 in 4 days, appropriate rate. Continue to monitor BMP q12. 4: Constipation: Resolved with milk of magnesia, 2 large bowel movements. 5. No PO intake: on chronic PEG tube feeds. 6. DVT prophylaxis: Continue Heparin 5000units. 7. Trach: tracheostomy care. 8. Tracy Catheter: will do voiding trial today in hopes of removing Tracy catheter. Not on catheter at home normally. Likely source of UTI. Disposition: Will attempt to discharge to home health tomorrow on PO antibiotics Continued [facility] stay due to: voiding difficulties Discharge planning: home with home health
--- NOTE | 2017-04-10 12:21 | Hospitalist Progress Note ---
Hospitalist Progress Note Date of Service Apr 10, 2017. (Bety Kaiser ., PA-C) Subjective Pt evaluation today including: conversation w/ patient, conversation w/ family ( at bedside ), physical exam, lab review, review of inpatient medication list Voiding: tracy catheter in place Patient resting in bed. No signs of acute distress. at bedside- no acute issues or questions/concerns. d/c Tracy today. ROS could not be obtained secondary to nonverbal. (Bety Kaiser ., PA-C) Medications Current Inpatient Medications Medications (Trade) Dose Ordered Sig/Piper Route Start Time Stop Time Status Last Admin Dose Admin Heparin Sodium (Porcine) (Heparin Sq 5000 Unit/0.5ml) 5,000 unit Q8 SQ 04/06/17 22:00 05/06/17 21:59 Al Hydrox/Mg Hydrox/Simethicone (Maalox Max Susp) 15 ml Q4H PRN PO 04/06/17 17:30 05/06/17 17:29 Magnesium Hydroxide (Milk Of Magnesia Susp) 30 ml Q12H PRN PO 04/06/17 17:30 05/06/17 17:29 Zolpidem Tartrate (Ambien Tab) 5 mg HSZ PRN PO 04/06/17 17:30 05/06/17 17:29 Ondansetron HCl (Zofran Inj) 4 mg Q6H PRN IV 04/06/17 17:30 05/06/17 17:29 Polyethylene (Miralax Powder Packet) 17 gm DAILY PRN PO 04/06/17 17:30 05/06/17 17:29 Sodium Chloride 1,000 ml @ 75 mls/hr [id number] IV 04/06/17 17:30 05/06/17 17:29 Future Hold 04/10/17 02:38 75 MLS/HR Acetaminophen (Tylenol Soln) 650 mg Q4H PRN GT 04/06/17 17:30 05/06/17 17:29 04/07/17 02:13 650 MG Levetiracetam (Keppra Soln) 100 mg BID PEG 04/06/17 21:00 05/06/17 20:59 04/10/17 09:28 100 MG Oxybutynin Chloride (Ditropan Tab) 5 mg BID PRN PO 04/06/17 17:30 1/7/18 17:29 Tamsulosin HCl (Flomax Cap) 0.4 mg DAILY PO 04/07/17 09:00 05/07/17 08:59 04/10/17 09:29 0.4 MG Sodium Biphosphate/ Sodium Phosphate (Fleet Enema) 132 ml DAILY PRN SD 04/06/17 17:30 05/06/17 17:29 Albuterol/ Ipratropium (Duoneb) 3 ml QIDR INH 04/06/17 20:00 05/06/17 19:59 04/10/17 11:06 3 ML Lansoprazole (Prevacid Solutab) 30 mg BID PEG 04/06/17 21:00 05/06/17 20:59 04/10/17 09:28 30 MG Acetaminophen 650 mg/Empty Bag 65 ml @ 260 mls/hr Q6H PRN IV 04/06/17 19:00 05/06/17 18:59 04/06/17 19:03 260 MLS/HR Cefepime HCl 2000 mg/Syringe 20 ml @ 5 mls/min Q8H IV 04/06/17 22:00 04/13/17 21:59 04/10/17 06:08 5 MLS/MIN Cefepime HCl (Consult) 1 ea UD PRN N/A 04/06/17 19:00 05/06/17 18:59 Lamotrigine (Lamictal Tab) 300 mg BID PEG 04/07/17 21:30 05/07/17 21:29 04/10/17 09:28 300 MG Carbamazepine (Carbamazepine) 160 mg QID@0700,1200,1700,2200 PEG 04/06/17 22:00 05/06/17 21:59 04/10/17 06:14 160 MG Enteral Nutritional Formula (Fibersource Hn) 240 ml QID@0700,1200,1700,2200 PEG 04/06/17 22:00 05/06/17 21:59 04/10/17 06:19 240 ML Sterile Water (Tube Feeding Water Flush) 1 ea [id number] NG 04/06/17 22:00 05/06/17 21:59 04/10/17 10:48 1 EA (Bety Kaiser PA-C) Objective Vital Signs Date Time Temp Pulse Resp B/P (MAP) Pulse Ox O2 Delivery O2 Flow Rate FiO2 04/10/17 11:07 61 18 94 Trach Collar 6.0 28 04/10/17 08:00 Trach Collar 3.0 28 04/10/17 07:54 36.8 66 14 115/76 (89) 90 Trach Collar 6.0 26 04/10/17 07:12 65 18 93 Trach Collar 6.0 28 04/10/17 04:04 36.4 60 20 126/72 (90) 97 Trach Collar 04/10/17 04:00 Trach Collar 6.0 28 04/10/17 00:00 Trach Collar 6.0 28 04/09/17 23:46 37.2 62 16 121/67 (85) 98 Trach Collar 04/09/17 20:00 Trach Collar 6.0 28 04/09/17 19:40 36.8 68 18 121/72 (88) 98 Trach Collar 04/09/17 19:38 66 18 98 Trach Collar 6.0 28 04/09/17 16:00 65 19 95 Trach Collar 6.0 28 04/09/17 16:00 Trach Collar 28 04/09/17 15:06 36.4 66 19 106/63 (77) 97 Trach Collar 6.0 (Bety Kaiser, PA-C) Physical Exam General Appearance: no apparent distress Eyes: PERRL ENT: normal ENT inspection, + pertinent finding (+trach ) Neck: supple, no JVD Respiratory/Chest: no respiratory distress, no accessory muscle use, + decreased breath sounds, + pertinent finding (coarse breath sounds throughout ) Cardiovascular: regular rate, rhythm Abdomen: normal bowel sounds, non tender, soft Extremities: no pedal edema, no calf tenderness Neurologic/Psychiatric: + pertinent finding (sleeping ) Skin: normal color, warm/dry, no rash (Bety Kaiser ., PA-C) Laboratory Results Last 24 Hours Test 04/10/17 05:31 White Blood Count 5.18 K/uL Red Blood Count 3.30 M/uL Hemoglobin 10.8 g/dL Hematocrit 31.3 % Mean Corpuscular Volume 94.8 fL Mean Corpuscular Hemoglobin 32.7 pg Mean Corpuscular Hemoglobin Concent 34.5 g/dl Platelet Count 153 K/uL Mean Platelet Volume 8.6 fL Neutrophils (%) (Auto) 53.6 % Lymphocytes (%) (Auto) 34.2 % Monocytes (%) (Auto) 10.2 % Eosinophils (%) (Auto) 1.4 % Basophils (%) (Auto) 0.2 % Neutrophils # (Auto) 2.78 K/uL Lymphocytes # (Auto) 1.77 K/uL Monocytes # (Auto) 0.53 K/uL Eosinophils # (Auto) 0.07 K/uL Basophils # (Auto) 0.01 K/uL RDW Standard Deviation 49.1 fL RDW Coefficient of Variation 14.0 % Immature Granulocyte % (Auto) 0.4 % Immature Granulocyte # (Auto) 0.02 K/uL Sodium Level 132 mmol/L Potassium Level 3.8 mmol/L Chloride Level 100 mmol/L Carbon Dioxide Level 28 mmol/L Anion Gap 4.0 mmol/L Blood Urea Nitrogen 6 mg/dl Creatinine 0.42 mg/dl Est Creatinine Clear Calc Drug Dose 135.0 ml/min Estimated GFR () 131.1 Estimated GFR (Non- 113.1 BUN/Creatinine Ratio 13.7 Random Glucose 75 mg/dl Calcium Level 7.7 mg/dl (Bety Kaiser, PA-C) Assessment and Plan Pt is a 77 y/o male presenting with fevers, labored breathing, elevated lactase , mild leukocytosis Sepsis POA treated and resolved in setting of HCAP treated w/ IV bolus and multiple IV antibiotics: - Admitted to [place] for cardiac monitoring - Cardiac enzymes negative x1 - IV Vancomycin + Cefepime- Vanco d/c'd due to negative MRSA -- Will likely transition to Augmentin tomorrow - Continue DuoNebs and trach care - Leukocytosis- RESOLVED - Procalcitonin 2.36 --> 0.88 - BCx NGTD; MRSA negative; sputum culture pending UTI POA- pseudomonas: Continue IV Cefepime, final UCx and sensitives reviewed- transition to Augmentin tomorrow Hyponatremia, likely secondary to dehydration- STABLE: IVF d/c'd Severe protein-calorie malnutrition: Continue PEG tube feeds h/o cerebral infarction and subdural hematoma, h/o seizure: Continue Tegretol, Lamictal, Keppra Chronic constipation: Milk of Mag PRN, fleet enema daily PRN Urinary retention: - Flomax- has concerns about administering Flomax via PEG due to difficulty - speaking w/ pharmacy about alternative h/o renal stent- noted GI prophylaxis: Prevacid DVT prophylaxis: Heparin SQ Code Status: LEVEL I, FULL Dispo: Discharge to home w/ [facility] once medically stable- likely within the next 1- 2 days- CM following (Bety Kaiser ., PA-C) I agree with PA assessment and plan and have seen and examined pt myself Resting comfortably in bed VSS Labs reviewed Leukocytosis resolved at bedside +BM with MOM Cont cefepime for HCAP Vanc dced Procalcitonin level improving Urine cx pos for pseudomonas Switch to augmentin tomorrow Likely DC home tomorrow (Santo Hilton, D.O.)
[2017-04-10] MEDS ORDERED: DOXAZosin MESYLATE TAB 2 MG TAB PEG SCH (21:00)
[2017-04-11 00:04] VITALS: BP 122/85; PULSE 64; TEMP 36.9; O2SAT 96
[2017-04-11 03:17] VITALS: BP 130/71; PULSE 58; TEMP 36.5; O2SAT 95
[2017-04-11] MEDS: HEPARIN SOD 5000 UNIT/0.5 ML CARP SQ SCH (03:57)
[2017-04-11 06:06] LABS: BASO % 0.2 %; BASO ABS # 0.01 K/uL (0-0.2); COMPLETE YES; EOS % 2.2 %; HEMATOCRIT 33.2 % (42-52); IG% 0.2 %; LYMPH % 34.9 %; LYMPH ABS # 1.57 K/uL (1.2-3.4); MEAN CELL VOLUME 94.9 fL (80-100); MEAN CORPUSCULAR HEMOGLOBIN 32.3 pg (25-34); MEAN PLATELET VOLUME 8.4 fL (7.4-10.4); MONO % 12.7 %; NEUT % 49.8 %; PLATELET COUNT 153 K/uL (130-400)
[2017-04-11] MEDS: CEFEPIME IV 2,000 MG in SYRINGE 7.5 ML IV SCH (06:23)
[2017-04-11 06:33] LABS: BUN/CREATININE RATIO 12.9 (10-20); CALCIUM 7.8 mg/dl (8.5-10.1); CREATININE 0.5 mg/dl (0.60-1.40); POTASSIUM 3.8 mmol/L (3.5-5.1)
[2017-04-11 07:04] VITALS: PULSE 56; O2SAT 95
[2017-04-11] MEDS: ALBUT/IPRATROP 3MG/0.5MG NEB 3 ML VIAL INH SCH (07:04)
[2017-04-11] MEDS: CARBAMAZEPINE 100 MG/5 ML PEG SCH (07:19)
[2017-04-11] MEDS: FIBERSOURCE HN 1000ML BAG PEG SCH ×2 (07:19)
[2017-04-11] MEDS: TUBE FEEDING WATER FLUSH NG SCH (07:19)
[2017-04-11 07:46] VITALS: BP 136/74; PULSE 54; TEMP 36.8; O2SAT 97
[2017-04-11] MEDS: LANSOPRAZOLE SOLUTAB 30 MG PEG SCH (08:29)
[2017-04-11] MEDS: LEVETIRACETAM ORAL SOLN 100MG/ML PEG SCH (08:29)
[2017-04-11] MEDS ORDERED: NUTR-673 PO ×2 (09:26→09:57)
[2017-04-11] MEDS ORDERED: AMOX500T PO ×2 (09:26→09:53)
[2017-04-11] MEDS ORDERED: DOXA2TAB PEG (09:26)
--- NOTE | 2017-04-11 09:54 | Discharge Instructions ---
Discharge Instructions Date of Service Apr 11, 2017. Admission Reason for Admission: Hap, Sepsis, Hx Of Trach And Peg Discharge Discharge Diagnosis / Problem: Spesis, pnuemonia, urinary tract infection Discharge Goals Goal(s): Decrease discomfort, Improve function, Increase independence, Improve disease control, Learn about illness, Diagnostic testing, Therapeutic intervention, Prevent Disease Progression Activity Recommendations Activity Limitations: resume your previous activity . Instructions / Follow-Up Instructions / Follow-Up New/changed medications: Augmentin 1 tablet twice daily until prescription is completed- start this medication tonight (04/11) Cardura 2 mg at night STOP Flomax Resume all other regular home medications as prescribed FOLLOW-UPS: Please follow-up with your PCP within 5-7 days Please keep follow-up with Urology as scheduled Please follow-up/keep all of your subspecialty appointments Current Hospital Diet Patient's current hospital diet: Discharge Diet Recommended Diet: N/A Pending Studies Studies pending at discharge: no Medical Emergencies . Who to Call and When: Medical Emergencies: If at any time you feel your situation is an emergency, please call 911 immediately. . Non-Emergent Contact Non-Emergency issues call your: Primary Care Provider . . "Provider Documentation" section prepared by Bety Kaiser. . VTE Core Measure Inpt VTE Proph given/why not?: Unfractionated heparin SQ
--- NOTE | 2017-04-11 09:55 | Discharge Summary ---
Discharge Summary Date of Service Apr 11, 2017. Discharge Summary Admission Date: Apr 06, 2017 at 17:45 Discharge Date: Apr 11, 2017 Discharge Disposition: Home with services Principal Diagnosis: HCAP Problems/Secondary Diagnoses: Sepsis UTI POA Hyponatremia Severe protein-calorie malnutrition h/o cerebral infarction and subdural hematoma h/o seizure Chronic constipation Urinary retention h/o renal stent Immunizations: Have You Had Influenza Vaccine: Yes Influenza Vaccine Date: Mar 08, 2013 History of Tetanus Vaccine?: Unknown Tetanus Immunization Date: Apr 13, 1998 History of Pneumococcal: Unknown Pneumococcal Date: Feb 11, 2009 History of Hepatitis B Vaccine: No Procedures: CHEST ONE VIEW PORTABLE CLINICAL HISTORY: Sepsis. COMPARISON STUDY: Chest radiograph March 20, 2017. FINDINGS: Tracheostomy tube is noted. There is no pneumothorax. Mild left basilar opacity is present with a possible small left pleural effusion. There is no evidence of pulmonary edema. Cardiomegaly is unchanged. IMPRESSION: Mild left basilar opacity which may reflect atelectasis or pneumonia. Possible small left pleural effusion. Radiographic follow-up is recommended. Electronically signed by: Tommie Pinto M.D. 04/06/2017 4:28 PM Dictated Date/Time: 04/06/2017 4:26 PM The status of this report is Signed. Draft = Not yet reviewed or approved by Radiologist. Signed = Reviewed and approved by Radiologist. KUB CLINICAL HISTORY: Constipation. Abdominal distention. COMPARISON STUDY: KUB July 29, 2015. FINDINGS: Gastrostomy tube is noted. Surgical coils are noted, likely from previous hernia repair. The bowel gas pattern is normal. Moderate amount of stool within the colon and rectum is noted. IMPRESSION: 1. No evidence for a bowel obstruction. 2. Moderate amount of stool within the colon and rectum. Electronically signed by: Tommie Pinto M.D. 04/06/2017 7:04 PM Dictated Date/Time: 04/06/2017 7:03 PM The status of this report is Signed. Draft = Not yet reviewed or approved by Radiologist. Signed = Reviewed and approved by Radiologist. CHEST ONE VIEW PORTABLE HISTORY: 77 years-old Male pedal edema, congestion acute chest congestion COMPARISON: Chest radiograph 04/06/2017, 03/20/2017 and 07/10/2016 TECHNIQUE: Portable upright AP view of the chest FINDINGS: Tracheostomy tube appears unchanged. The patient is rotated to the right. Cardiac silhouette is again mildly enlarged. Persistent left basilar opacity is noted with probable left pleural effusion. Mild pulmonary vascular congestion without overt pulmonary edema. Degenerative changes of the bilateral shoulders. IMPRESSION: 1. Persistent small left basilar opacity with blunting of left costophrenic angle suggests chronic scarring or less likely pneumonitis. 2. Cardiomegaly with mild pulmonary vascular congestion. The above report was generated using voice recognition software. It may contain grammatical, syntax or spelling errors. Electronically signed by: Jc Singh M.D. 04/10/2017 9:14 AM Dictated Date/Time: 04/10/2017 9:11 AM The status of this report is Signed. Draft = Not yet reviewed or approved by Radiologist. Signed = Reviewed and approved by Radiologist. Medication Reconciliation New Medications: Amoxicillin & Pot Clavulanate (Augmentin 500MG) 1 Tab Tab 1 TAB PO BID for 3 Days, #6 TAB Doxazosin Mesylate (Cardura) 2 Mg Tab 1 TAB PEG HS for 30 Days, #30 TAB 5 Refills Continued Medications: Acetaminophen (Tylenol Children's Susp) 160 Mg/5 Ml Susp 20 ML PEG Q4H PRN for Pain Albuterol Sulf (Albuterol Sulfate) 2.5 Mg/3 Ml Nebu 3 ML NEB Q4 PRN for Wheezing Carbamazepine (Tegretol) 100 Mg/5 Ml Susp 8 ML PEG QID Enteral Nutrition Formula (Jevity 1.5 Jermaine) 1 Can Liqd 1 CAN PO QID for 30 Days, #120 CAN (This prescription has been renewed) Lamotrigine (Lamictal) 25 Mg Tab 12 TABS PEG BID Lansoprazole (Prevacid Solutab) 30 Mg Tab 1 TAB PEG BID Levetiracetam (Keppra) 100 Mg/Ml Shawna 1 ML PEG AMPM Discontinued Medications: Tamsulosin Hcl (Flomax) 0.4 Mg Cap 1 CAP PO DAILY for 30 Days, #30 CAP 5 Refills Discharge Exam ROS cannot be obtained- patient is nonverbal Physical Exam: General Appearance: no apparent distress Eyes: PERRL ENT: normal ENT inspection Neck: supple, + pertinent finding (+trach site, clear sputum noted ) Respiratory/Chest: no respiratory distress, no accessory muscle use, + pertinent finding (coarse breath sounds throughout ) Cardiovascular: regular rate, rhythm Abdomen / GI: normal bowel sounds, soft Extremities: no calf tenderness, no pedal edema Neurologic/Psychiatric: + pertinent finding (sleeping, spontaneous movements ) Skin: normal color, warm/dry, no rash Hospital Course Admission H&P: HISTORY OF PRESENT ILLNESS: The patient is a 77-year-old white male who was just recently discharged to home after treatment of pneumonia which was on 03/24 which was about 2 weeks ago. In the previous admission, the patient was found to have aspiration pneumonia. Blood culture and sputum culture has no growth. He was treated with nebulizer treatment. He was discharged home with medication of Levaquin for full course of treatment. Per report from the patient's , he has been doing well until today, he developed fever. Associated with small cough, difficult to coughing up with a lot of secretions from the tracharea. Sometimes has blood coming up, which is productive cough, the temperature was up to 100.2. also report the patient has constipation since last Sunday. There was minimal amount of stool after suppository associated with decreased bowel sound. When I interviewed with the patient, he has persistent cough with yellow secretions from the trach area. Seems difficult to cough up. Sticky. Associated mild fever The patient is nonverbal, which is not new. Bilateral lung has decreased breathing sounds associated with mild wheezing, low rhonchi, no crackles. Other detailed review of system is limited because patient is nonverbal. However, like I mentioned, he has productive cough and no vomiting. However, has constipation. PHYSICAL EXAMINATION: VITAL SIGNS: Temperature 38, pulse highest up to 108, respiratory rate 20, blood pressure 120/80, pulse ox 96% on room air. GENERAL: The patient is a white male, nonresponsive, nonverbal has cough from trach tube, which is uncomfortable associated with bronchospasm and face color changes; however, after the episodes of the cough the color in the face was normalized. The cough, sputum was yellow and mild blood tinged. MOUTH: Conjunctivae no injection. Sclerae icterus. NECK: Supple. No evidence of any deformities check was done. LUNGS: Bilateral lungs decreased breathing sounds. No shadowed respiration noted. HEART: Regular heart rate. S1, S2, has no murmur. ABDOMEN: Soft. Bowel sound is significantly decreased in all quadrants. Abdomen is nontender. LOWER EXTREMITIES: No evidence of deformities in the lower extremity; however upper extremities are contracted. SKIN: Has no erythema, no bluish, cyanosis. NEUROLOGIC: The patient has no facial droop; however, nonverbal, bilateral upper arm is contracted, which is not new. Mental status is in his baseline. Hospital Course: Pt is a 77 y/o male presenting with fevers, labored breathing, elevated lactase , mild leukocytosis Sepsis POA treated and resolved in setting of HCAP treated w/ IV bolus and multiple IV antibiotics: - Admitted to [facility] cardiac monitoring - Cardiac enzymes negative x1 - IV Vancomycin + Cefepime- Vanco d/c'd due to negative MRSA -- Transition to Augmentin to complete 7 day course - Continue DuoNebs and trach care - Leukocytosis- RESOLVED - Procalcitonin 2.36 --> 0.88 - BCx NGTD; MRSA negative UTI POA- pseudomonas: IV Cefepime, final UCx and sensitives reviewed- transition to Augmentin as above Hyponatremia, likely secondary to dehydration- IMPROVING: IVF d/c'd Severe protein-calorie malnutrition: Continue PEG tube feeds h/o cerebral infarction and subdural hematoma, h/o seizure: Continue Tegretol, Lamictal, Keppra Chronic constipation: Milk of Mag PRN, fleet enema daily PRN Urinary retention: - Flomax- has concerns about administering Flomax via PEG due to difficulty - pharmacy recommends Cardura 2 mg HS - Keep f/u w/ Urology as scheduled h/o renal stent- noted GI prophylaxis: Prevacid DVT prophylaxis: Heparin SQ Code Status: LEVEL I, FULL Dispo: Discharge to home w/ [facility] once medically stable I agree with PA assessment and plan and have seen and examined pt myself Resting comfortably in bed VSS Labs reviewed Leukocytosis resolved at bedside +BM with MOM Cont cefepime for HCAP Vanc dced Procalcitonin level improving Urine cx pos for pseudomonas Switch to augmentin on DC for 6 more days Total Time Spent: Greater than 30 minutes This includes examination of the patient, discharge planning, medication reconciliation, and communication with other providers. Discharge Instructions Please refer to the electronic Patient Visit Report (Discharge Instructions) for additional information. Follow-Up Please follow-up with your PCP within 5-7 days Please keep follow-up with Urology as scheduled Please follow-up/keep all of your subspecialty appointments Additional Copies To Joshua Rivera M.D.
[2017-04-11 10:06] VITALS: BP 136/74; PULSE 54; TEMP 36.8; O2SAT 97
--- NOTE | 2017-04-11 11:49 | Medical Student: [facility] ---
Med Student Progress Note Date of Service Apr 11, 2017. Subjective Pt evaluation today including: conversation w/ family, physical exam, chart review, lab review, review of studies, review of inpatient medication list Voiding: incontinence 77 year old male with history of tracheotomy presented on 04/06 with cough and increased sputum and concern for HCAP pneumonia.He was D/C 2 weeks ago on Levaquin for suspected aspiration pneumonia. Patient is non-verbal. Discussion with . Continuing to improve. Switch from IV cefepime to PO (tube feed) Augmentin. Patient had 2 bowel movements. Hyponatremia has been slowly corrected up to 133. Weening off oxygen. Not on oxygen at home. Antoine has been removed and he has voided without retention. is comfortable taking home today. Objective Vital Signs Date Time Temp Pulse Resp B/P (MAP) Pulse Ox O2 Delivery O2 Flow Rate FiO2 04/11/17 10:06 36.8 54 18 97 Trach Collar 04/11/17 08:00 Trach Collar 8.0 28 04/11/17 07:46 36.8 54 18 136/74 (94) 97 Trach Collar 8.0 28 04/11/17 07:04 56 18 95 Trach Collar 8.0 28 04/11/17 04:00 Trach Collar 8.0 28 04/11/17 03:17 36.5 58 18 130/71 (90) 95 Trach Collar 04/11/17 00:04 36.9 64 18 122/85 (97) 96 Trach Collar 04/11/17 00:00 Trach Collar 8.0 28 04/10/17 20:00 Trach Collar 28 04/10/17 19:48 36.9 57 16 133/92 (106) 97 Trach Collar 04/10/17 19:12 61 18 98 Trach Collar 8.0 28 04/10/17 16:00 Trach Collar 28 04/10/17 15:36 37.0 61 15 109/60 (76) 95 Trach Collar 04/10/17 15:30 61 18 98 Trach Collar 6.0 28 04/10/17 12:26 36.9 60 14 124/73 (90) 95 Trach Collar 2.0 28 04/10/17 12:00 Trach Collar 6.0 28 Physical Exam General Appearance: + mild distress (Trach tube in place. Lethargic), + pertinent finding Neck: supple, no JVD Respiratory/Chest: lungs clear, normal breath sounds, no respiratory distress, no accessory muscle use Cardiovascular: regular rate, rhythm, no edema, no gallop, no JVD, no murmur Abdomen: normal bowel sounds, soft, no organomegaly, no pulsatile mass Extremities: normal inspection, no pedal edema Skin: normal color, no rash Laboratory Results Last 24 Hours Test 04/11/17 05:46 White Blood Count 4.50 K/uL Red Blood Count 3.50 M/uL Hemoglobin 11.3 g/dL Hematocrit 33.2 % Mean Corpuscular Volume 94.9 fL Mean Corpuscular Hemoglobin 32.3 pg Mean Corpuscular Hemoglobin Concent 34.0 g/dl Platelet Count 153 K/uL Mean Platelet Volume 8.4 fL Neutrophils (%) (Auto) 49.8 % Lymphocytes (%) (Auto) 34.9 % Monocytes (%) (Auto) 12.7 % Eosinophils (%) (Auto) 2.2 % Basophils (%) (Auto) 0.2 % Neutrophils # (Auto) 2.24 K/uL Lymphocytes # (Auto) 1.57 K/uL Monocytes # (Auto) 0.57 K/uL Eosinophils # (Auto) 0.10 K/uL Basophils # (Auto) 0.01 K/uL RDW Standard Deviation 47.8 fL RDW Coefficient of Variation 13.8 % Immature Granulocyte % (Auto) 0.2 % Immature Granulocyte # (Auto) 0.01 K/uL Sodium Level 133 mmol/L Potassium Level 3.8 mmol/L Chloride Level 100 mmol/L Carbon Dioxide Level 29 mmol/L Anion Gap 4.0 mmol/L Blood Urea Nitrogen 6 mg/dl Creatinine 0.50 mg/dl Est Creatinine Clear Calc Drug Dose 113.4 ml/min Estimated GFR () 122.0 Estimated GFR (Non- 105.3 BUN/Creatinine Ratio 12.9 Random Glucose 80 mg/dl Calcium Level 7.8 mg/dl Assessment and Plan Problems Anemia Cough CVA (cerebral infarction) Hyponatremia Pneumonia Convulsions, status epilepticus Seizure disorder Subdural hematoma Tracheostomy dependence Assessment and Plan: Assessment: 77 year old 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 Plan: 1. HCAP: Day 6 of IV cefepime 2000mg. Switched to oral Augmentin 500mg BID for 4 more days. White count has gone down, no fevers, no tachycardia. Continues to cough with clear sputum in trach. Getting weened off of trach O2. Repeat CXR shows no acute changes. 2. UTI: Pseudomonas in culture. Sensitive to Augmentin. 3. Hyponatremia: Corrected to 133 from 122 in 5 days, appropriate rate. 4: Constipation: Resolved with milk of magnesia, 2 large bowel movements. 5. No PO intake: on chronic PEG tube feeds. 6. Trach: tracheostomy care. 7. Antoine Catheter: Voiding after catheter removal. Discharge without Antoine. Disposition: Will discharge to home health today on PO Augmentin Discharge planning: home with home health
== END 2017-04-11 10:50 | disposition home health service (06) | DRG 871 ==
LOC: EDBD 15:12 → C.EDC 15:13 → C.2E 17:45 → ENRESERV 18:21
PROVIDERS: ADMIT Hospitalist; ATTEND Hospitalist
DX: A41.52 Sepsis due to Pseudomonas (principal); J18.9 Pneumonia, unspecified organism; E87.1 Hypo-osmolality and hyponatremia; N39.0 Urinary tract infection, site not specified; E43 Unspecified severe protein-calorie malnutrition; E87.2 Acidosis; R56.9 Unspecified convulsions; B96.5 Pseudomonas (aeruginosa) (mallei) (pseudomallei) as the cause of diseases classified elsewhere; Z86.73 Personal history of transient ischemic attack (TIA), and cerebral infarction without residual deficits; Z96.652 Presence of left artificial knee joint; Z88.0 Allergy status to penicillin; K59.00 Constipation, unspecified; Z93.1 Gastrostomy status; Z93.0 Tracheostomy status

== ENCOUNTER → 2017-04-06 | Outpatient (CLI) | payer OTHER ==
[~2017-04-06] MED LIST changes: +AMOX500T PO; +DOXA2TAB PEG; +DTR/5 PO; -LANS15TA2 PEG; +LANS30TA3 PEG; -LEVO1TAB35 PO; -MENTOIN12 EXT; -MOML PEG; +NUTR-673 PO; +TAMS0.4C38 PO
[2017-04-06 14:32] LABS: BASO % 0.1 %; BASO ABS # 0.01 K/uL (0-0.2); COMPLETE YES; EOS % 0.5 %; HEMATOCRIT 34.4 % (42-52); IG% 0.2 %; LYMPH % 19.2 %; LYMPH ABS # 1.95 K/uL (1.2-3.4); MEAN CELL VOLUME 94.5 fL (80-100); MEAN CORPUSCULAR HEMOGLOBIN 32.4 pg (25-34); MEAN CORPUSCULAR HGB CONC 34.3 g/dl (32-36); MEAN PLATELET VOLUME 8.3 fL (7.4-10.4); MONO % 8.3 %; NEUT % 71.7 %; PLATELET COUNT 216 K/uL (130-400); RED BLOOD COUNT 3.64 M/uL (4.7-6.1); WHITE BLOOD COUNT 10.16 K/uL (4.8-10.8)
[2017-04-06 14:38] LABS: ALT/SGPT 14 U/L (12-78); BLOOD UREA NITROGEN 6 mg/dl (7-18); BUN/CREATININE RATIO 8.5 (10-20); CALCIUM 8.4 mg/dl (8.5-10.1); CARBON DIOXIDE 28 mmol/L (21-32); CHLORIDE 92 mmol/L (98-107); CREATININE 0.71 mg/dl (0.60-1.40); GLUCOSE 92 mg/dl (70-99); POTASSIUM 4.5 mmol/L (3.5-5.1); SODIUM 126 mmol/L (136-145)
[2017-04-06 14:41] LABS: ALB/GLOB RATIO 0.8 (0.9-2); ALKALINE PHOSPHATASE 87 U/L (45-117); AST/SGOT 9 U/L (15-37); URINE APPEARANCE CLEAR (CLEAR); URINE BILIRUBIN NEG (NEG); URINE COLOR YELLOW; URINE NITRITE NEG (NEG); URINE PH 8.5 (4.5-7.5); URINE SPECIFIC GRAVITY 1.014 (1.000-1.030); UROBILINOGEN NEG (NEG)
[2017-04-06 14:43] LABS: MANUAL MICROSCOPIC REQUIRED? NO; REVIEW REQ? NO
== END | disposition home or self-care (01) ==
LOC: C.PAPS 13:37 → C.LABSPEC 13:37
PROVIDERS: ATTEND Family Medicine
DX: N39.0 Urinary tract infection, site not specified (principal); J18.9 Pneumonia, unspecified organism

== ENCOUNTER → 2017-06-04 | Outpatient (CLI) | payer OTHER ==
[~2017-06-04] MED LIST changes: +AMOX500T PO; +DOXA2TAB PEG; -DTR/5 PO; +LANS30TA3 PEG; -TAMS0.4C38 PO
--- NOTE | 2017-06-04 15:18 | DIAGNOSTIC IMAGING REPORT ---
ABD/PELVIS NO IV OR ORAL CONT CLINICAL HISTORY: 77 years-old Male presenting with R33.9 Urinary [id number] UTI (urinary tract infection). TECHNIQUE: Multidetector CT of the abdomen and pelvis was performed without the use of intravenous contrast. IV contrast: None. A dose lowering technique was used consistent with the principles of ALARA (as low as reasonably achievable). COMPARISON: None. CT DOSE (mGy.cm): The estimated cumulative dose is 667.59 mGy.cm. FINDINGS: Marketing Underwriter topogram: Evidence of hernia repair with coil alicia in the pelvis. Lung bases: Extensive dependent consolidation and bronchial wall thickening. Mosaic attenuation. Multichamber enlargement of the heart. Coronary artery calcification. No pericardial or pleural effusion. Liver: Normal morphology. Hyperdensity in the left hepatic lobe indeterminate but possibly hepatic cyst. Normal density. Biliary: No gross biliary ductal dilatation allowing for noncontrast technique. Gallbladder decompressed. Pancreas: Normal noncontrast appearance. Spleen: Normal noncontrast appearance. Adrenal glands: Normal noncontrast appearance. Kidneys and ureters: Normal noncontrast appearance. Nonobstructing linear 7 mm calculus at the lower pole the left kidney. No hydronephrosis. Normal ureters. Bladder: Mild circumferential bladder wall thickening, likely chronic outlet obstruction. Pelvic organs: Prostate enlargement likely secondary to benign prostatic hyperplasia. Bowel: Limited diverticula in the distal descending colon. Diverticula also noted at the splenic flexure. No bowel obstruction. Gastrostomy tube in place, appropriately positioned. Peritoneal cavity: No free fluid or intraperitoneal gas. Lymph nodes: No gross lymphadenopathy allowing for noncontrast technique. Vasculature: Atherosclerosis of the normal caliber abdominal aorta. Abdominal wall: Evidence of hernia repair in the bilateral inguinal regions and in the midline immediately above the pubic symphysis. Small fat-containing recurrent left inguinal hernia. Bilateral gynecomastia. Mild body wall edema. Musculoskeletal: Degenerative changes of the spine. Osteopenia. IMPRESSION: 1. Findings consistent with chronic bladder outlet obstruction secondary to prostatomegaly. This is likely due to underlying benign prostatic hyperplasia. 2. No acute intraabdominal pathology. Chronic findings as above. Electronically signed by: Markie Rendon M.D. 06/04/2017 3:16 PM Dictated Date/Time: 06/04/2017 3:08 PM
== END | disposition home or self-care (01) ==
LOC: C.CTS 14:46
PROVIDERS: ATTEND Urology
DX: N39.0 Urinary tract infection, site not specified (principal); R33.9 Retention of urine, unspecified

== ENCOUNTER 2017-07-16 11:26 | Day surgery (SDC) | payer OTHER ==
[2017-07-02 14:46] VITALS: BMI 25.0
--- NOTE | 2017-07-02 15:19 | PAT Medication Instructions ---
Service Date Jul 02, 2017. Current Home Medication List Albuterol Sulf (Albuterol Sulfate), 3 ML NEB Q4 PRN for Wheezing Carbamazepine (Tegretol), 8 ML PEG QID Enteral Nutrition Formula (Jevity 1.5 Jermaine), 1 CAN PEG QID Lamotrigine (Lamictal), 8 TABS PEG QAM Lamotrigine (Lamictal), 10 TAB PO QPM Lansoprazole (Prevacid Solutab), 1 TAB PEG BID Levetiracetam (Keppra), 2 ML PEG AMPM Magnesium Hydroxide (Milk Of Magnesia), 30 ML PEG PRN Tamsulosin Hcl (Flomax), 0.4 MG PEG HS [Tylenol], 20 ML PEG Q4H PRN for PRN Medication Instructions For Your Scheduled Surgery - Hold the following medications the morning of surgery: Magnesium Hydroxide (Milk Of Magnesia), 30 ML PEG PRN Enteral Nutrition Formula (Jevity 1.5 Jermaine), 1 CAN PEG QID - Take the following medications the morning of surgery via PEG tube but more than 2 HOURS PRIOR TO ARRIVAL: Albuterol Sulf (Albuterol Sulfate), 3 ML NEB Q4 PRN for Wheezing (please bring with you to hospital for day of surgery; use if needed) Carbamazepine (Tegretol), 8 ML PEG QID Lamotrigine (Lamictal), 8 TABS PEG QAM Lansoprazole (Prevacid Solutab), 1 TAB PEG BID Levetiracetam (Keppra), 2 ML PEG AMPM [Tylenol], 20 ML PEG Q4H PRN for PRN (okay to take up to 4 hours prior to surgery if needed) - Take the following medications as scheduled the night before surgery: Tamsulosin Hcl (Flomax), 0.4 MG PEG HS [Tylenol], 20 ML PEG Q4H PRN for PRN (if needed) Magnesium Hydroxide (Milk Of Magnesia), 30 ML PEG PRN (if needed) Lamotrigine (Lamictal), 10 TAB PO QPM Lansoprazole (Prevacid Solutab), 1 TAB PEG BID Levetiracetam (Keppra), 2 ML PEG AMPM Enteral Nutrition Formula (Jevity 1.5 Jermaine), 1 CAN PEG QID Carbamazepine (Tegretol), 8 ML PEG QID Albuterol Sulf (Albuterol Sulfate), 3 ML NEB Q4 PRN for Wheezing (if needed) If you have any questions please call us at [phone] or [phone] or [phone]
--- NOTE | 2017-07-02 16:10 | DIAGNOSTIC IMAGING REPORT ---
CHEST 2 VIEWS ROUTINE CLINICAL HISTORY: PAT preoperative evaluation COMPARISON STUDY: 04/10/2017 FINDINGS: Tracheostomy tube in good position. Chronic parenchymal scarring left lung base. Lungs otherwise appear clear. Mild stable cardiomegaly. IMPRESSION: Chronic change. No acute process. Tracheostomy tube in good position. The above report was generated using voice recognition software. It may contain grammatical, syntax or spelling errors. Electronically signed by: Omid Bright M.D. 07/02/2017 4:09 PM Dictated Date/Time: 07/02/2017 4:07 PM
[2017-07-02 16:41] LABS: BASO % 0.2 %; BASO ABS # 0.01 K/uL (0-0.2); EOS % 0.6 %; EOS ABS # 0.03 K/uL (0-0.5); HEMATOCRIT 38.1 % (42-52); HEMOGLOBIN 13.3 g/dL (14.0-18.0); IG# 0.01 K/uL (0.00-0.02); LYMPH ABS # 1.87 K/uL (1.2-3.4); MEAN CELL VOLUME 93.2 fL (80-100); MEAN CORPUSCULAR HEMOGLOBIN 32.5 pg (25-34); MEAN CORPUSCULAR HGB CONC 34.9 g/dl (32-36); MEAN PLATELET VOLUME 8.1 fL (7.4-10.4); MONO ABS # 0.43 K/uL (0.11-0.59); NEUT ABS # 2.45 K/uL (1.4-6.5); PLATELET COUNT 195 K/uL (130-400); RED CELL DISTRIBUTION WIDTH CV 13.4 % (11.5-14.5); RED CELL DISTRIBUTION WIDTH SD 45.5 fL (36.4-46.3)
[2017-07-02 16:59] LABS: CALCIUM 8.5 mg/dl (8.5-10.1); CREATININE 0.63 mg/dl (0.60-1.40); POTASSIUM 4.4 mmol/L (3.5-5.1)
[~2017-07-16] VITALS: Ht 167.6 cm; Wt 71.8 kg
[~2017-07-16 11:26] MED LIST changes: -ACET160S78 PEG; -AMOX500T PO; +CIPROFLOXACIN / D5W 400 MG IV SCH; -DOXA2TAB PEG; +LAMO25TA PO; +MOML PEG; +SODIUM CHLORIDE 0.9% 1000ML 1,000 ML IV SCH; +TAMS0.4C38 PEG; +TYLENOL PEG
[2017-07-16] MEDS ORDERED: PROPOFOL IV EMULSION 10 MG/ML 20 ML VIAL IV ONE ×2 (11:50→15:21)
[2017-07-16] MEDS ORDERED: EpHEDrine SULFATE 50MG/5ML SYR ONE (11:50)
[2017-07-16] MEDS ORDERED: LIDOCAINE HCL 2% 2 ML VIAL (20MG/ML) ONE ×2 (11:50→15:21)
[2017-07-16] MEDS ORDERED: FENTANYL CITRATE INJ 50 MCG/1 ML 2 ML VIAL ONE (11:50)
[2017-07-16] MEDS ORDERED: PHENYLEPHRINE 100MCG/ML 5ML SYR ONE (11:50)
[2017-07-16 12:08] VITALS: BP 116/65; PULSE 66; TEMP 36.5; O2SAT 100; Ht 167.6 cm; Wt 71.8 kg
[2017-07-16] MEDS ORDERED: ONDANSETRON INJ 2 MG/ML 2 ML VIAL ONE (12:21)
--- NOTE | 2017-07-16 13:11 | History & Physical Bridge Note ---
H&P Re-Evaluation Bridge Note: I have examined the patient, reviewed the History & Physical and in the interval since the performance of the History & Physical I have noted the following changes of clinical significance: No changes noted
[2017-07-16] MEDS ORDERED: CIPR-255 PO (13:23)
[2017-07-16] MEDS ORDERED: OXYC7.5T65 PO (13:23)
--- NOTE | 2017-07-16 13:26 | Discharge Instructions ---
Discharge Instructions Date of Service Jul 16, 2017. Admission Reason for Admission: Urine Retention Discharge Discharge Diagnosis / Problem: Retention, Neurogenic bladder Discharge Goals Goal(s): Decrease discomfort, Improve function Activity Recommendations Activity Limitations: resume your previous activity Lifting Limitations: none Exercise/Sports Limitations: none Shower/Bathe: no limitations . Instructions / Follow-Up Instructions / Follow-Up Okay to shower with tube in place. Bandage as needed. Follow up to have changed and suture removed after 2-3 weeks. Okay to cover as needed. Okay to place ointment. Expect some leakage. Expect some mild discharge or irritation at site. Call if red, inflammed, hot, or spreading. Call if any fevers or chills. May have blood in urine. Current Hospital Diet Patient's current hospital diet: Discharge Diet Recommended Diet: Regular Diet Procedures Procedures Performed: Cystoscopy and SP placement Pending Studies Studies pending at discharge: no Medical Emergencies . Who to Call and When: Medical Emergencies: If at any time you feel your situation is an emergency, please call 911 immediately. . Non-Emergent Contact Non-Emergency issues call your: Primary Care Provider, Urologist Call Non-Emergent contact if: you have a fever, temperature is above 101, temperature is above 101.5, your pain is not controlled, your pain is worsening , wound has increased drainage, wound has increased redness, wound has increased pain . . "Provider Documentation" section prepared by Flaco Clarke. .
[2017-07-16] MEDS ORDERED: OXYCODONE/ACETAMINOPHEN 7.5-325 TAB PO PRN (13:30)
[2017-07-16] MEDS ORDERED: LIDOCAINE/EPINEPHRINE 1% 20 ML VIAL ONE (13:41)
--- NOTE | 2017-07-16 14:09 | [facility] Operative Report ---
Operative Report Operative Date Jul 16, 2017. Pre-Operative Diagnosis Neurogenic Bladder Post-Operative Diagnosis Same Procedure(s) Performed Cystoscopy with Suprapubic tube placement and ultrasound of bladder. Surgeon Vince Ui Ux Web Developer Surgeon(s) Chi Estimated Blood Loss Minimal Findings Prostate enlargement with trabeculated bladder and signs of retention Specimens None Drains 16 Fr Suprapubic Tube Anesthesia Type MAC Complication(s) none Disposition Recovery Room / PACU Indications Neurogenic bladder with frequent UTI's and multiple issues. Discussed options for watermaster management of bladder and drainage. Patient's family choose to proceed with Suprapubic tube placement. Description of Procedure Patient was consented and brought back to the operating room. Patient was placed under anesthesia in the supine position and moved to the dorsal lithotomy position. Patient was prepped and draped in the regular sterile fashion. A time out was completed. A 30degree Cystoscope was placed into the bladder and the entire bladder was examined. The UO's were identified. Considerable prostate enlargement was noted with moderate to severe trabeculation and signs of chronic irritation likely due to chronic retention. The bladder was filled and a ultrasound was used at the suprapubic region. The bladder was easily visualized with the ultrasound and no signs of bowel or other abnormalities. The bladder was continually monitored with the scope. A 18 gauge spinal need was used to access the bladder. Local anesthetic was placed during advancement of the needle. Urine was easily aspirated. A wire was then placed. With the wire in place, the 16 Fr Catheter on trocar was selected and advanced. It was confirmed with cystoscopy to enter near the dome. The catheter was advanced. The balloon was elevated and the trocar removed. The catheter was secured with 2-0 nylon suture. The are was cleaned and bandaged. The catheter was left to drainage. The scope was removed. The patient was cleaned, aroused from anesthesia, and transferred to the pacu in stable condition having tolerated the procedure well with no complications. I was present and participated in all aspects of the procedure. Barbra Mireles was involved in the entire procedure and participated in scope management, wire control, equipment utilization, and related activities. She was also involved in bandaging the patient and assisting with Ultrasonography. I attest to the content of the Intraoperative Record and any orders documented therein. Any exceptions are noted below.
[2017-07-16] MEDS ORDERED: FLUC100T4 PO (14:14)
[2017-07-16] MEDS ORDERED: LABETALOL HCL IV 5 MG/ML 20ML IV PRN (14:15)
[2017-07-16] MEDS ORDERED: ONDANSETRON INJ 2 MG/ML 2 ML VIAL IV PRN (14:15)
[2017-07-16] MEDS ORDERED: ATROPINE SULFATE 0.1 MG/ML 5ML SYR IV PRN (14:15)
--- NOTE | 2017-07-16 14:51 | Anesthesiology Progress Note ---
Anesthesia Post Op Note Date & Time Jul 16, 2017 at 14:51 Vital Signs Pain Intensity: 0 Vital Signs Past 12 Hours Date Time Temp Pulse Resp B/P (MAP) Pulse Ox O2 Delivery O2 Flow Rate FiO2 07/16/17 14:16 36.1 77 31 124/80 100 Free Flow/Blowby 10 07/16/17 12:08 36.5 66 18 116/65 (82) 100 Room Air Notes Mental Status: alert / awake / arousable, participated in evaluation Pt Amnestic to Procedure: Yes Nausea / Vomiting: adequately controlled Pain: adequately controlled Airway Patency, RR, SpO2: stable & adequate BP & HR: stable & adequate Hydration State: stable & adequate Anesthetic Complications: no major complications apparent
[2017-07-16 15:13] VITALS: BP 120/70; PULSE 71; TEMP 36.1; O2SAT 97
[2017-07-16 16:00] VITALS: BP_SYST 127; BP_SYST 140; BP_DIAS 80; BP_DIAS 87; PULSE 64; TEMP 36.3; O2SAT 96
[2017-07-16 16:20] VITALS: BP 140/80; PULSE 60; TEMP 36.3; O2SAT 98
== END 2017-07-16 15:55 | disposition home or self-care (01) ==
LOC: C.ACU 11:26
PROVIDERS: ATTEND Urology
DX: N31.9 Neuromuscular dysfunction of bladder, unspecified (principal); N40.1 Benign prostatic hyperplasia with lower urinary tract symptoms; N13.8 Other obstructive and reflux uropathy; F43.21 Adjustment disorder with depressed mood; I67.82 Cerebral ischemia; K21.9 Gastro-esophageal reflux disease without esophagitis; G81.94 Hemiplegia, unspecified affecting left nondominant side; G40.909 Epilepsy, unspecified, not intractable, without status epilepticus; Z79.899 Other long term (current) drug therapy; Z88.0 Allergy status to penicillin; Z88.6 Allergy status to analgesic agent; Z88.1 Allergy status to other antibiotic agents

== ENCOUNTER → 2017-07-24 | Outpatient (CLI) | payer OTHER ==
[~2017-07-24] MED LIST changes: +CIPR-255 PO; -CIPROFLOXACIN / D5W 400 MG IV SCH; +OXYC7.5T65 PO; -SODIUM CHLORIDE 0.9% 1000ML 1,000 ML IV SCH
[2017-07-24 10:44] LABS: BASO % 0.2 %; BASO ABS # 0.01 K/uL (0-0.2); EOS ABS # 0.12 K/uL (0-0.5); HEMATOCRIT 34.8 % (42-52); HEMOGLOBIN 12.3 g/dL (14.0-18.0); IG# 0.02 K/uL (0.00-0.02); LYMPH % 35.8 %; LYMPH ABS # 2.18 K/uL (1.2-3.4); MEAN CORPUSCULAR HEMOGLOBIN 32.9 pg (25-34); MEAN CORPUSCULAR HGB CONC 35.3 g/dl (32-36); MEAN PLATELET VOLUME 7.9 fL (7.4-10.4); MONO % 10.3 %; MONO ABS # 0.63 K/uL (0.11-0.59); NEUT % 51.4 %; NEUT ABS # 3.13 K/uL (1.4-6.5); PLATELET COUNT 242 K/uL (130-400); RED CELL DISTRIBUTION WIDTH CV 13.5 % (11.5-14.5); RED CELL DISTRIBUTION WIDTH SD 45.9 fL (36.4-46.3); WHITE BLOOD COUNT 6.09 K/uL (4.8-10.8)
[2017-07-24 11:05] LABS: ALBUMIN 2.9 gm/dl (3.4-5.0); ALT/SGPT 20 U/L (12-78); BLOOD UREA NITROGEN 8 mg/dl (7-18); CALCIUM 8.4 mg/dl (8.5-10.1); CARBON DIOXIDE 30 mmol/L (21-32); CREATININE 0.58 mg/dl (0.60-1.40); GLUCOSE 84 mg/dl (70-99); POTASSIUM 4.2 mmol/L (3.5-5.1); SODIUM 125 mmol/L (136-145)
[2017-07-24 11:08] LABS: ALKALINE PHOSPHATASE 75 U/L (45-117); AST/SGOT 13 U/L (15-37); TOTAL PROTEIN 6.8 gm/dl (6.4-8.2)
== END ==
LOC: C.LABBC 07:47
PROVIDERS: ATTEND Psychiatry & Neurology Neurology
DX: G40.909 Epilepsy, unspecified, not intractable, without status epilepticus (principal)

== ENCOUNTER 2017-08-12 12:32 | Emergency (ER) | payer OTHER ==
[~2017-08-12] VITALS: Ht 168.9 cm; Wt 72.0 kg
[2017-08-12 12:35] VITALS: TEMP 36.7; Ht 168.9 cm; Wt 72.0 kg
[2017-08-12] MEDS ORDERED: SODIUM CHLORIDE 0.9% 1000ML 1,000 ML IV STA (13:09)
[2017-08-12] MEDS ORDERED: ALBUTEROL 0.083% NEBU SOLN 3 ML VIAL INH STA (13:09)
[2017-08-12] MEDS ORDERED: OXYC-57 PO (13:22)
--- NOTE | 2017-08-12 13:31 | EMERGENCY ROOM VISIT NOTE ---
History Report prepared by Marie: Jorge Wolfe Under the Supervision of: Dr. Vijay Tavera M.D. First contact with patient: 13:02 Chief Complaint: CATHETER REPLACEMENT Stated Complaint: BLADDER PAIN,DARK URINE History of Present Illness The patient is a 77 year old male who presents to the Emergency Room with complaints of persistent pain with urination that began yesterday. The patient is accompanied by his who states the patient was recently given a catheter on July 16. She reports he got his new catheter a week ago, which she reports had been working. His states she accidentally got the tube caught on his wheelchair recently. She reports that since then, the patient has been bleeding from his catheter. His notes the patient has also been experiencing a decrease in the amount of urine. She states when the patient does urinate, it is dark in appearance. His states the patient started to complain of pain whenever he urinated yesterday. She reports she tried to flush it out overnight , but states the patient is still experiencing the same symptoms today. His denies any fevers, nausea, and vomiting. She reports his next catheter replacement is on September [address] Clarke. Source of History: spouse/significant other Onset: yesterday Position: other (global) Quality: other (urinary pain) Timing: other (persistent) Modifying Factors (Relieving): other (flushing the catheter) Associated Symptoms: No fevers, No nausea, No vomiting Note: Associated symptoms: blood in urine, decreased urine amount, dark urine. Review of Systems See HPI for pertinent positives & negatives. A total of 10 systems reviewed and were otherwise negative. 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 (14) Tracheostomy, acute management (15) UTI (urinary tract infection) Surgical Problems: (1) H/O hand surgery (2) History of renal stent (3) PEG (percutaneous endoscopic gastrostomy) status (4) S/P tonsillectomy Family History Cancer Social History Smoking Status: Never Smoker Alcohol Use: none Drug Use: none Marital Status: Housing Status: lives with significant other Occupation Status: retired Current/Historical Medications Scheduled Carbamazepine (Tegretol), 8 ML PEG QID Ciprofloxacin Hcl (Cipro), 500 MG PO BID Enteral Nutrition Formula (Jevity 1.5 Jermaine), 1 CAN PEG QID Lamotrigine (Lamictal), 8 TABS PEG QAM Lamotrigine (Lamictal), 10 TAB PO QPM Lansoprazole (Prevacid Solutab), 1 TAB PEG BID Levetiracetam (Keppra), 2 ML PEG AMPM Levofloxacin (Levaquin), 500 MG PO DAILY Magnesium Hydroxide (Milk Of Magnesia), 30 ML PEG PRN Tamsulosin Hcl (Flomax), 0.4 MG PEG HS Scheduled PRN Albuterol Sulf (Albuterol Sulfate), 3 ML NEB Q4 PRN for Wheezing Oxycodone/Acetaminophen 5MG/325MG (Percocet 5MG/325MG), 1 TABLET PO Q4H PRN for Pain Oxycodone/Acetaminophen 7.5MG/325MG (Percocet 7.5MG/325MG), 1 TAB PO Q4 PRN for Pain [Tylenol], 20 ML PEG Q4H PRN for PRN Allergies Coded Allergies: Penicillins (Verified Allergy, Intermediate, HIVES, 08/12/17) Aspirin (Verified Allergy, Mild, UNKNOWN, 08/12/17) Salicylates (Verified Allergy, Unknown, UNKNOWN, 08/12/17) Tetracycline (Verified Allergy, Unknown, UNKNOWN, 08/12/17) UNKNOWN, PT REPORTED ALLERGY Tobramycin (Verified Allergy, Unknown, UNKNOWN REACTION, 08/12/17) PER ; UNKNOWN REACTION Physical Exam Vital Signs Date Time Temp Pulse Resp B/P (MAP) Pulse Ox O2 Delivery O2 Flow Rate FiO2 08/12/17 16:18 57 16 123/78 97 08/12/17 14:21 57 08/12/17 13:58 86 16 97 Room Air 08/12/17 12:35 36.7 60 18 123/78 96 Room Air Physical Exam GENERAL: Awake, alert, well-appearing, in no acute distress HENT: Normocephalic, atraumatic. Oropharynx unremarkable. EYES: Normal conjunctiva. Sclera non-icteric. NECK: Supple. No nuchal rigidity. FROM. No JVD. RESPIRATORY: Clear to auscultation. CARDIAC: Regular rate, normal rhythm. Extremities warm and well perfused. Pulses equal. ABDOMEN: Soft, non-distended. No tenderness to palpation. No rebound or guarding. No masses. Suprapubic catheter in place. RECTAL: Deferred. MUSCULOSKELETAL: Chest examination reveals no tenderness. The back is symmetrical on inspection without obvious abnormality. There is no CVA tenderness to palpation. No joint edema. LOWER EXTREMITIES: Calves are equal size bilaterally and non-tender. No edema. No discoloration. NEURO: Normal sensorium. No sensory or motor deficits noted. SKIN: No rash or jaundice noted. Medical Decision & Procedures ER Provider Diagnostic Interpretation: Radiology results as stated below per my review and radiologist interpretation: CHEST ONE VIEW PORTABLE CLINICAL HISTORY: 77 years-old Male presenting with Pt c/o wheezing. TECHNIQUE: Portable upright AP view of the chest was obtained. COMPARISON: 07/02/2017. FINDINGS: Tracheostomy tube remains in place. Atherosclerosis of the aortic arch. Cardiac silhouette mildly enlarged, unchanged. Pulmonary vascular prominence suggested. Minimal hazy left basilar opacity not significantly changed from prior. No large effusion or pneumothorax. Osteopenia is likely present. Upper abdomen normal. IMPRESSION: 1. Mild cardiomegaly with suggestion of volume overload. 2. Chronic changes at the left lung base. 3. Tracheostomy tube in good position. Electronically signed by: Markie Rendon M.D. 08/12/2017 1:51 PM Dictated Date/Time: 08/12/2017 1:50 PM ABD/PELVIS NO IV OR ORAL CONT CLINICAL HISTORY: 77 years-old Male presenting with Pt c/o tracy pain, suprapubic. TECHNIQUE: Multidetector CT of the abdomen and pelvis was performed without the use of intravenous contrast. IV contrast: None. A dose lowering technique was used consistent with the principles of ALARA (as low as reasonably achievable). COMPARISON: 06/04/2017. CT DOSE (mGy.cm): The estimated cumulative dose is 891.95 mGy.cm. 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 Lung bases: Extensive dependent consolidation with associated bronchial wall thickening unchanged. Respiratory motion artifact limits evaluation of the lung bases. Multichamber enlargement of the heart. Coronary artery calcification. The intraventricular blood pool is less dense and adjacent myocardium suggesting anemia. No pericardial or pleural effusion. Liver: Normal morphology. Normal density. Biliary: No gross biliary ductal dilatation allowing for noncontrast technique. Gallbladder decompressed. Pancreas: Normal noncontrast appearance. Spleen: Normal noncontrast appearance. Adrenal glands: Normal noncontrast appearance. Kidneys and ureters: Parenchymal punctate calcification present in the right kidney. Punctate nonobstructing calculus noted at the lower pole the left kidney. No hydronephrosis. Ureters normal. Bladder: Bladder decompressed with a suprapubic catheter. Intraluminal foci of gas related to catheterization. Pelvic organs: Prostate enlargement likely secondary to benign prostatic hyperplasia. Bowel: Scattered diverticula in the sigmoid and descending colon. A few additional diverticula elsewhere in the colon. No bowel obstruction. A gastrostomy tube is appropriately positioned. Peritoneal cavity: No free fluid or intraperitoneal gas. Lymph nodes: No gross lymphadenopathy allowing for noncontrast technique. Vasculature: Atherosclerosis of the normal caliber abdominal aorta. Abdominal wall: Postsurgical changes of prior hernia repair in the lower abdomen in the suprapubic region. Musculoskeletal: Osteopenia. IMPRESSION: 1. Interval placement of a suprapubic catheter with urinary bladder decompression. 2. Prostatomegaly. 3. Limited diverticulosis. 4. Cardiomegaly. 5. Bibasilar consolidation could relate to extensive atelectasis or chronic aspiration. 6. Nonobstructing left punctate renal calculus. 7. Gastrostomy tube appropriately positioned. 8. Osteopenia. Electronically signed by: Markie Rendon M.D. 08/12/2017 2:48 PM Dictated Date/Time: 08/12/2017 2:40 PM Laboratory Results 08/12/17 13:43 Red Blood Count 3.94, Mean Corpuscular Volume 92.6, Mean Corpuscular Hemoglobin 33.2, Mean Corpuscular Hemoglobin Concent 35.9, Mean Platelet Volume 7.6, Neutrophils (%) (Auto) 46.3, Lymphocytes (%) (Auto) 38.8, Monocytes (%) (Auto) 10.5, Eosinophils (%) (Auto) 4.0, Basophils (%) (Auto) 0.2, Neutrophils # (Auto ) 2.56, Lymphocytes # (Auto) 2.14, Monocytes # (Auto) 0.58, Eosinophils # (Auto ) 0.22, Basophils # (Auto) 0.01 08/12/17 13:43 Test 08/12/17 13:43 08/12/17 13:50 White Blood Count 5.52 K/uL (4.8-10.8) Red Blood Count 3.94 M/uL (4.7-6.1) Hemoglobin 13.1 g/dL (14.0-18.0) Hematocrit 36.5 % (42-52) Mean Corpuscular Volume 92.6 fL (80-100) Mean Corpuscular Hemoglobin 33.2 pg (25-34) Mean Corpuscular Hemoglobin Concent 35.9 g/dl (32-36) Platelet Count 190 K/uL (130-400) Mean Platelet Volume 7.6 fL (7.4-10.4) Neutrophils (%) (Auto) 46.3 % Lymphocytes (%) (Auto) 38.8 % Monocytes (%) (Auto) 10.5 % Eosinophils (%) (Auto) 4.0 % Basophils (%) (Auto) 0.2 % Neutrophils # (Auto) 2.56 K/uL (1.4-6.5) Lymphocytes # (Auto) 2.14 K/uL (1.2-3.4) Monocytes # (Auto) 0.58 K/uL (0.11-0.59) Eosinophils # (Auto) 0.22 K/uL (0-0.5) Basophils # (Auto) 0.01 K/uL (0-0.2) RDW Standard Deviation 44.6 fL (36.4-46.3) RDW Coefficient of Variation 13.3 % (11.5-14.5) Immature Granulocyte % (Auto) 0.2 % Immature Granulocyte # (Auto) 0.01 K/uL (0.00-0.02) Anion Gap 5.0 mmol/L (3-11) Est Creatinine Clear Calc Drug Dose 80.2 ml/min Estimated GFR () 105.0 Estimated GFR (Non- 90.6 BUN/Creatinine Ratio 12.1 (10-20) Calcium Level 8.4 mg/dl (8.5-10.1) Total Bilirubin 0.3 mg/dl (0.2-1) Direct Bilirubin 0.1 mg/dl (0-0.2) Aspartate Amino Transf (AST/SGOT) 11 U/L (15-37) Alanine Aminotransferase (ALT/SGPT) 20 U/L (12-78) Alkaline Phosphatase 86 U/L (45-117) Total Protein 7.1 gm/dl (6.4-8.2) Albumin 3.1 gm/dl (3.4-5.0) Lipase 100 U/L (73-393) Urine Color YELLOW Urine Appearance TURBID (CLEAR) Urine pH >= 9.0 (4.5-7.5) Urine Specific Sebastian 1.013 (1.000-1.030) Urine Protein NEG (NEG) Urine Glucose (UA) NEG (NEG) Urine Ketones NEG (NEG) Urine Occult Blood 3+ (NEG) Urine Nitrite NEG (NEG) Urine Bilirubin NEG (NEG) Urine Urobilinogen NEG (NEG) Urine Leukocyte Esterase LARGE (NEG) Urine WBC (Auto) >30 /hpf (0-5) Urine RBC (Auto) 10-30 /hpf (0-4) Urine Hyaline Casts (Auto) 10-30 /lpf (0-5) Urine Epithelial Cells (Auto) 5-10 /lpf (0-5) Urine Bacteria (Auto) NEG (NEG) Labs reviewed by ED physician. Medications Administered Medications (Trade) Dose Ordered Sig/Piper Route Start Time Stop Time Status Last Admin Dose Admin Albuterol Sulfate (Ventolin 0.083% 2.5MG/3ML Neb) 2.5 mg NOW STAT INH 08/12/17 13:09 08/12/17 13:12 DC 08/12/17 13:56 2.5 MG Sodium Chloride 1,000 ml @ 999 mls/hr Q1H1M STAT IV 08/12/17 13:09 08/12/17 14:09 DC 08/12/17 13:09 999 MLS/HR Ceftriaxone Sodium (Rocephin Inj) 1 gm NOW STAT IV 08/12/17 15:21 08/12/17 15:22 DC 08/12/17 15:38 1 GM ED Course 1304: Past medical records reviewed. The patient was evaluated in room B11B. A complete history and physical examination was performed. 1309: Ordered Sodium Chloride 1000 ml @ 999 mls/hr IV, Albuterol Sulfate 2.5 mg INH. 1521: Ordered Rocephin Injection 1 gm IV. 1527: Upon reexamination the patient is doing well. I discussed results and treatment plan with the patient. He verbalizes agreement and understanding. The patient is ready for discharge. Medical Decision Prior records/ancillary studies reviewed. Triage Nursing notes reviewed. The patient's history was concerning for abdominal pain. Differential diagnosis: Etiologies such as appendicitis, diverticulitis, PUD, biliary pathology, UTI, pancreatitis, obstruction, mesenteric ischemia, aortic pathology, infections, inflammatory bowel disease, renal colic, as well as others were entertained. This is a 77 rolled male who is brought to the emergency department over concerns his catheter was pulled out. I will note that the catheter is draining urine the patient does not appear to be in any distress. The patient was sent for a CAT scan of the abdomen pelvis which shows the Tracy to be in good position. I do feel that the patient is well enough to be discharged home. He does have some mild edema on chest x-ray however this appears to be unchanged from March. The patient at that time also had a urine culture. I will place the patient on Levaquin pending urine culture results and encouraged follow-up with Dr. Clrake office. and test architect were in agreement with treatment plan. Medication Reconcilliation Current Medication List: was personally reviewed by me Blood Pressure Screening Patient's blood pressure: Normal blood pressure Impression Primary Impression: UTI (urinary tract infection) Scribe Attestation The scribe's documentation has been prepared under my direction and personally reviewed by me in its entirety. I confirm that the note above accurately reflects all work, treatment, procedures, and medical decision making performed by me. Departure Information Dispostion Home / Self-Care Prescriptions Levofloxacin (Levaquin) 500 Mg Tab 500 MG PO DAILY for 10 Days, #10 TAB Prov: Vijay Tavera MD 08/12/17 Referrals Joshua Rivera M.D. (PCP) Flaco Clarke, II., DO Forms HOME CARE DOCUMENTATION FORM, IMPORTANT VISIT INFORMATION Patient Instructions My [facility] Additional Instructions Follow up with DR Clarke office Culture results are usually available in approx 48 hours You have been examined and treated today on an emergency basis only. This is not a substitute for, or an effort to provide, complete comprehensive medical care. It is impossible to recognize and treat all injuries or illnesses in a single emergency department visit. It is therefore important that you follow up closely with Dr Rivera. Call as soon as possible for an appointment. Thank you for your time and consideration. I look forward to speaking with you again soon. Please don't hesitate to call us if you have any questions. Problem Qualifiers Primary Impression: UTI (urinary tract infection) Urinary tract infection type: acute cystitis Hematuria presence: without hematuria Qualified Codes: N30.00 - Acute cystitis without hematuria
--- NOTE | 2017-08-12 13:53 | DIAGNOSTIC IMAGING REPORT ---
CHEST ONE VIEW PORTABLE CLINICAL HISTORY: 77 years-old Male presenting with Pt c/o wheezing. TECHNIQUE: Portable upright AP view of the chest was obtained. COMPARISON: 07/02/2017. FINDINGS: Tracheostomy tube remains in place. Atherosclerosis of the aortic arch. Cardiac silhouette mildly enlarged, unchanged. Pulmonary vascular prominence suggested. Minimal hazy left basilar opacity not significantly changed from prior. No large effusion or pneumothorax. Osteopenia is likely present. Upper abdomen normal. IMPRESSION: 1. Mild cardiomegaly with suggestion of volume overload. 2. Chronic changes at the left lung base. 3. Tracheostomy tube in good position. Electronically signed by: Markie Rendon M.D. 08/12/2017 1:51 PM Dictated Date/Time: 08/12/2017 1:50 PM
[2017-08-12 13:58] VITALS: PULSE 86; O2SAT 97
[2017-08-12 14:06] LABS: BASO % 0.2 %; BASO ABS # 0.01 K/uL (0-0.2); EOS ABS # 0.22 K/uL (0-0.5); HEMATOCRIT 36.5 % (42-52); HEMOGLOBIN 13.1 g/dL (14.0-18.0); IG# 0.01 K/uL (0.00-0.02); LYMPH % 38.8 %; LYMPH ABS # 2.14 K/uL (1.2-3.4); MEAN CELL VOLUME 92.6 fL (80-100); MEAN CORPUSCULAR HEMOGLOBIN 33.2 pg (25-34); MEAN CORPUSCULAR HGB CONC 35.9 g/dl (32-36); MEAN PLATELET VOLUME 7.6 fL (7.4-10.4); MONO % 10.5 %; MONO ABS # 0.58 K/uL (0.11-0.59); NEUT % 46.3 %; NEUT ABS # 2.56 K/uL (1.4-6.5); PLATELET COUNT 190 K/uL (130-400); RED CELL DISTRIBUTION WIDTH CV 13.3 % (11.5-14.5); RED CELL DISTRIBUTION WIDTH SD 44.6 fL (36.4-46.3); WHITE BLOOD COUNT 5.52 K/uL (4.8-10.8)
[2017-08-12 14:23] LABS: ALBUMIN 3.1 gm/dl (3.4-5.0); CALCIUM 8.4 mg/dl (8.5-10.1); CREATININE 0.72 mg/dl (0.60-1.40); POTASSIUM 4.3 mmol/L (3.5-5.1)
[2017-08-12 14:26] LABS: TOTAL PROTEIN 7.1 gm/dl (6.4-8.2)
--- NOTE | 2017-08-12 14:49 | DIAGNOSTIC IMAGING REPORT ---
ABD/PELVIS NO IV OR ORAL CONT CLINICAL HISTORY: 77 years-old Male presenting with Pt c/o tracy pain, suprapubic. TECHNIQUE: Multidetector CT of the abdomen and pelvis was performed without the use of intravenous contrast. IV contrast: None. A dose lowering technique was used consistent with the principles of ALARA (as low as reasonably achievable). COMPARISON: 06/04/2017. CT DOSE (mGy.cm): The estimated cumulative dose is 891.95 mGy.cm. 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 Lung bases: Extensive dependent consolidation with associated bronchial wall thickening unchanged. Respiratory motion artifact limits evaluation of the lung bases. Multichamber enlargement of the heart. Coronary artery calcification. The intraventricular blood pool is less dense and adjacent myocardium suggesting anemia. No pericardial or pleural effusion. Liver: Normal morphology. Normal density. Biliary: No gross biliary ductal dilatation allowing for noncontrast technique. Gallbladder decompressed. Pancreas: Normal noncontrast appearance. Spleen: Normal noncontrast appearance. Adrenal glands: Normal noncontrast appearance. Kidneys and ureters: Parenchymal punctate calcification present in the right kidney. Punctate nonobstructing calculus noted at the lower pole the left kidney. No hydronephrosis. Ureters normal. Bladder: Bladder decompressed with a suprapubic catheter. Intraluminal foci of gas related to catheterization. Pelvic organs: Prostate enlargement likely secondary to benign prostatic hyperplasia. Bowel: Scattered diverticula in the sigmoid and descending colon. A few additional diverticula elsewhere in the colon. No bowel obstruction. A gastrostomy tube is appropriately positioned. Peritoneal cavity: No free fluid or intraperitoneal gas. Lymph nodes: No gross lymphadenopathy allowing for noncontrast technique. Vasculature: Atherosclerosis of the normal caliber abdominal aorta. Abdominal wall: Postsurgical changes of prior hernia repair in the lower abdomen in the suprapubic region. Musculoskeletal: Osteopenia. IMPRESSION: 1. Interval placement of a suprapubic catheter with urinary bladder decompression. 2. Prostatomegaly. 3. Limited diverticulosis. 4. Cardiomegaly. 5. Bibasilar consolidation could relate to extensive atelectasis or chronic aspiration. 6. Nonobstructing left punctate renal calculus. 7. Gastrostomy tube appropriately positioned. 8. Osteopenia. Electronically signed by: Markie Rendon M.D. 08/12/2017 2:48 PM Dictated Date/Time: 08/12/2017 2:40 PM
[2017-08-12] MEDS ORDERED: CEFTRIAXONE SOD INJ 1 GM ADDVIAL IV STA (15:21)
[2017-08-12] MEDS ORDERED: LEVO-366 PO (15:35)
[2017-08-12 16:18] VITALS: BP 123/78; PULSE 57; O2SAT 97
== END 2017-08-12 16:19 | disposition home or self-care (01) ==
LOC: C.EDB 12:34
DX: N30.00 Acute cystitis without hematuria (principal); Z86.73 Personal history of transient ischemic attack (TIA), and cerebral infarction without residual deficits; Z88.0 Allergy status to penicillin; Z88.8 Allergy status to other drugs, medicaments and biological substances